=== PATIENT | male | born 1940 | race Caucasian/White ===

== ENCOUNTER 2018-10-20 12:15 | Emergency (ER) | payer MEDICARE, OTHER, SELFPAY ==
[2018-10-20 12:22] VITALS: BP 154/93; PULSE 71; RESP 18; TEMP 36.2; O2SAT 98
--- NOTE | 2018-10-20 12:29 | DI.RAD.S_ITS ---
PROCEDURE: XR KNEE RT 3V INDICATIONS: popping/pain TECHNIQUE: 3 views of the knee were acquired. COMPARISON: None. 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 Multiple calcified fragments are noted anterior and superior to right patella with prominent superior and inferior patella enthesophyte formation near quadriceps tendon and patella tendon insertion. No gross acute fracture or dislocation is seen. No suspicious bony lesions. Soft tissues: There is moderate-sized joint effusion. Multiple calcifications also noted projecting in the region of lateral femoral tibial compartment concerning for intra-articular loose body. IMPRESSION: No gross acute right knee fracture or dislocation. Moderate joint effusion and moderate tricompartmental osteoarthritis. Likely old injury involving the patella as above. Possible intra-articular loose body. Dictated by: Guru Valdez M.D. on 10/20/2018 at 13:22 Approved by: Guru Valdez M.D. on 10/20/2018 at 13:24
--- NOTE | 2018-10-20 14:08 | ED_ITS ---
HPI - Extremity Injury (Lower) <JESSICA Velasquez-BC - Last Filed: 10/20/18 14:54> General Chief Complaint: Extremity Injury, Lower Stated Complaint: Something popped in knee Time Seen by Provider: 10/20/18 13:48 Source: patient Mode of arrival: ambulatory Limitations: no limitations History of Present Illness HPI Narrative: The patient is a 78-year-old male nonsmoker who presents with a chief complaint of right knee pain starting yesterday. He states he was squatting down to lift something heavy and felt something pop in his knee. He has not applied ice, take any Tylenol ibuprofen or any interventions. He denies any instability. He denies falling or any trauma. he does have a history of arthritis of both knees and states he had a ?floaters removed from his left knee previously. He does not complain of bruising rash etc. Related Data Home Medications Medication Instructions Recorded Confirmed chlorthalidone 25 mg PO DAILY 10/20/18 10/20/18 furosemide 20 mg PO DAILY 10/20/18 10/20/18 lisinopril 10 mg PO DAILY 10/20/18 10/20/18 potassium chloride 10 meq PO DAILY 10/20/18 10/20/18 sildenafil [Viagra] 1 dose PO DIRECTED PRN 10/20/18 10/20/18 simvastatin 40 mg PO DAILY 10/20/18 10/20/18 tamsulosin 0.8 mg PO DAILY 10/20/18 10/20/18 Previous Rx's Medication Instructions Recorded diclofenac sodium [Voltaren] 2 gram TOP QID PRN #100 gram 10/20/18 Allergies Allergy/AdvReac Type Severity Reaction Status Date / Time No Known Drug Allergies Allergy Verified 10/20/18 12:24 Review of Systems <CARLOS VelasquezBC - Last Filed: 10/20/18 14:54> Review of Systems GENERAL: Denies chills, fatigue, malaise, fever, sweats. HEENT: Denies sinus pain, ear pain, sore throat, difficulty swallowing, dizziness. RESPIRATORY: Denies dyspnea, cough, wheezing, hemoptysis, sputum. CARDIOVASCULAR: Denies chest pain, palpitations, orthopnea, edema, GASTROINTESTINAL: Denies nausea, vomiting, abdominal pain, diarrhea, constipation, melena. : Denies dysuria, frequency, incontinence, hematuria, urinary retention. MUSCULOSKELETAL: See HPI SKIN: See HPI NEUROLOGIC: Denies weakness, headache, numbness, change in speech, confusion, s eizures, incoordination. PSYCHIATRIC: No concerning psychosocial issues. 12 point review of systems is negative except for those stated above PFSH <ANDRES Velasquez - Last Filed: 10/20/18 14:54> Social History Smoking Status: Never smoker Social History Smoking Status: Never smoker Exam <ANDRES Velasquez - Last Filed: 10/20/18 14:54> Narrative Exam Narrative: GENERAL: This is a well-nourished, well-developed patient, in mild distress. HEAD: Atraumatic. Normocephalic. No temporal or scalp tenderness. EYES: Pupils equal round and reactive. Extraocular motions intact. No scleral icterus. No injection or drainage. ENT: Nose without bleeding, purulent drainage or septal hematoma. Throat without erythema, tonsillar hypertrophy or exudate. Uvula midline. Airway patent. NECK: Trachea midline. No JVD or lymphadenopathy. Supple, nontender, no meningeal signs. CARDIOVASCULAR: Regular rate and rhythm RESPIRATORY: No increased respiratory effort. No cough. EXTREMITIES: General pain to palpation right knee. Negative anterior drawer test. Negative varus and valgus. Negative Susie test. BACK: Nontender without deformity or crepitance. No flank tenderness. NEURO: AOx3. SKIN: No rash, erythema, ecchymosis or abnormality noted on right knee. Initial Vital Signs Initial Vital Signs: Vital Signs Temperature 97.2 F L 10/20/18 12:22 Pulse Rate 71 10/20/18 12:22 Respiratory Rate 18 10/20/18 12:22 Blood Pressure 154/93 H 10/20/18 12:22 Pulse Oximetry 98 10/20/18 12:22 <Sarath Zhao DO - Last Filed: 10/20/18 16:03> Initial Vital Signs Initial Vital Signs: Vital Signs Temperature 97.2 F L 10/20/18 12:22 Pulse Rate 71 10/20/18 12:22 Respiratory Rate 18 10/20/18 12:22 Blood Pressure 154/93 H 10/20/18 12:22 Pulse Oximetry 98 10/20/18 12:22 Course <ANDRES Velasquez - Last Filed: 10/20/18 14:54> Orders Ordered: ED Orders 10/20/18 12:29 XR knee RT 3V Stat Vital Signs - 8 hr 10/20/18 12:22 Temperature 97.2 F L Pulse Rate 71 Respiratory Rate 18 Blood Pressure 154/93 H Pulse Oximetry 98 <Sarath Zhao DO - Last Filed: 10/20/18 16:03> Orders Ordered: ED Orders 10/20/18 12:29 XR knee RT 3V Stat Vital Signs - 8 hr 10/20/18 12:22 Temperature 97.2 F L Pulse Rate 71 Respiratory Rate 18 Blood Pressure 154/93 H Pulse Oximetry 98 MDM - Extremity Injury (Lower) <ANDRES Velasquez - Last Filed: 10/20/18 14:54> Imaging Data knee xray : Radiologist's impression: [address] [address] XRay Report Signed Patient: Garfield MorseMR#: [id number] : 2Acct:[id number] Age/Sex: 78 / MDate of Service: 10/20/18 Loc: ED Accession Number: [id number] Procedure: XR knee RT 3V Ordering Provider: Sarath Zhao D.O. PROCEDURE: XR KNEE RT 3V INDICATIONS: popping/pain TECHNIQUE: 3 views of the knee were acquired. COMPARISON: None. 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 Multiple calcified fragments are noted anterior and superior to right patella with prominent superior and inferior patella enthesophyte formation near quadriceps tendon and patella tendon insertion. No gross acute fracture or dislocation is seen. No suspicious bony lesions. Soft tissues: There is moderate-sized joint effusion. Multiple calcifications also noted projecting in the region of lateral femoral tibial compartment concerning for intra-articular loose body. IMPRESSION: No gross acute right knee fracture or dislocation. Moderate joint effusion and moderate tricompartmental osteoarthritis. Likely old injury involving the patella as above. Possible intra-articular loose body. Dictated by: Guru Valdez M.D. on 10/20/2018 at 13:22 Approved by: Guru Valdez M.D. on 10/20/2018 at 13:24 [facility] Narrative Medical decision making narrative: The patient is a 78 year male who presents with a chief complaint of knee pain. He felt a pop yesterday and comes in today because it is not improved. He has no fracture on x-ray, but noted arthritis, and a fusion as well as a possible intra-articular foreign body. I discussed at length rest ice compression elevation, [id number] pain medications as needed and able. The patient was given a prescription of Voltaren gel. I discussed at length that he needs to follow up with his primary care provider as well as Orthopedics. Discussed return precautions of acute concerns. Patient has no questions or concerns upon discharge. Discharge Plan Departure Patient Disposition: Home Clinical Impression: Acute knee pain Qualifiers: Laterality: right Qualified Code(s): M25.561 - Pain in right knee Discharge Date/Time: 10/20/18 14:34 Interventions: ED Discharge Assessment Last Done: 10/20/18 14:33 Instructions: How To Perform RICE (Rest, Ice, Compress, Elevate), DI for Knee Pain Activity Restrictions/Additional Instructions: Your knee x-ray came back with no fractures and you have no overt abnormalities on exam. However you do have some swelling in the joint as well as arthritis. Please continue [id number] measures as needed and able. I gave you a prescription for pain cream that you can apply. Please follow up with primary care provider as he may need further imaging or physical therapy as we discussed. I have given the contact information for scheduled [facility] in case you need to follow up with them as well. Please come back to the emergency department for any acute concerns. Prescriptions: New diclofenac sodium [Voltaren] 1 % gel 2 gram TOP QID PRN (Reason: pain) Qty: 100 RF: 0 No Action chlorthalidone 25 mg tablet 25 mg PO DAILY RF: 0 sildenafil [Viagra] 25 mg tablet 1 dose PO DIRECTED PRN (Reason: Erectile Dysfunction) RF: 0 simvastatin 40 mg tablet 40 mg PO DAILY RF: 0 tamsulosin 0.4 mg capsule 0.8 mg PO DAILY RF: 0 lisinopril 10 mg tablet 10 mg PO DAILY RF: 0 furosemide 20 mg tablet 20 mg PO DAILY RF: 0 potassium chloride 10 mEq tablet,ER particles/crystals 10 meq PO DAILY RF: 0 Referrals: [facility] [Provider Group] Elsi Hansen MD [Primary Care Provider] - <Sarath Zhao DO - Last Filed: 10/20/18 16:03> Cosign ED Attending Sussy Attestation: I was available for consultation during this patient's emergency department encounter
== END 2018-10-20 14:34 | disposition home or self-care (01) ==
PROVIDERS: Emergency Provider Nurse Practitioner Family; PCP Family Medicine
DX: M25.561 Pain in right knee (principal)
CPT/HCPCS: 73562; 99282; 99283

== ENCOUNTER 2021-01-12 20:26 | Inpatient (IN) | payer MEDICARE, OTHER, SELFPAY ==
[2021-01-12] VITALS (8 sets, daily range): BP systolic 147–159; BP diastolic 84–89; PULSE 67–90; RESP 14–28; TEMP 36.2–36.3; O2SAT 94–99; BMI 31.6; BMI 31.2
--- NOTE | 2021-01-12 20:45 | DI.CT.S_ITS ---
PROCEDURE: CT STROKE INDICATIONS: stroke symptoms, left face, speech, extremity weakness TECHNIQUE: Noncontrast 4.5 mm thick angled axial sections acquired from the foramen magnum to the vertex, with coronal reformats. For radiation dose reduction, the following was used: automated exposure control, adjustment of mA and/or kV according to patient size. COMPARISON: None. FINDINGS: Image quality: Excellent. CSF spaces: Basal cisterns are patent. No extra-axial fluid collections. The ventricles are symmetric in size and shape. Brain: No intracranial bleeds or masses. There is cerebral volume loss for age, with resultant ventricular and sulcal prominence. There are periventricular and deep white matter chronic small vessel ischemic changes. There is intracranial internal carotid artery atherosclerosis. Skull and face: Calvarium and visualized facial bones appear intact, without suspicious lesions. Sinuses: Visualized sinuses and mastoids are clear. 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 Findings called to the emergency room physician caring for the patient at 9:10 p.m. This study fulfills neurological imaging criteria for inclusion or exclusion of acute stroke therapies based on available published neurological guidelines. Dictated by: Jonathan Watkins M.D. on 01/12/2021 at 21:07 Approved by: Jonathan Watkins M.D. on 01/12/2021 at 21:10
--- NOTE | 2021-01-12 20:45 | DI.CT.S_ITS ---
PROCEDURE: CT ANGIO HEAD AND NECK INDICATIONS: stroke symptoms, left face, speech, extremity weakness TECHNIQUE: Pre-contrast 4.5 mm thick sections acquired from the foramen magnum to the vertex. After the administration of intravenous contrast, 1 mm thick sections acquired from the aortic arch through the [place] of [place]. Post-contrast 4.5 mm thick sections then re-acquired from the foramen magnum to the vertex. 3-dimensional bryuyye-osfrsfxqh-dzdlnqbcdq (MIP) and/or volume rendering reformats were acquired of the central intracranial vasculature and neck separately. COMPARISON: [facility], CT, CT STROKE, 01/12/2021, 20:53. FINDINGS: Image quality: Excellent. BRAIN: CSF spaces: Ventricles are normal in size and shape. Basal cisterns are patent. No extra-axial fluid collections. Brain: No midline shift. No intracranial bleeds or masses. [place]-white matter interface appears intact. Skull and face: Calvarium and facial bones appear intact, without suspicious lesions. Orbits appear normal. Sinuses: Sinuses and mastoids are clear. HEAD CT ANGIOGRAPHY: Anterior circulation: Intracranial internal carotid arteries are normal in size and flow. The flow within the paired anterior cerebral arteries is normal and symmetric. The flow within the middle cerebral arteries is normal and symmetric. The anterior communicating artery is seen. No aneurysms are seen. Posterior circulation: Visualized portions of the vertebral arteries demonstrate normal caliber, and join to form a normal appearing basilar artery. Flow within the posterior cerebral arteries is normal and symmetric. No aneurysms are seen. NECK CT ANGIOGRAPHY: Carotid system: The great vessels demonstrate a conventional anatomy as they arise from the aortic arch. The origins of the common carotid arteries appear patent. The common carotid arteries demonstrate normal caliber and courses. The bifurcation regions are both widely patent. The internal carotid arteries demonstrate normal calibers and courses. Posterior circulation: The origins of the vertebral arteries both appear widely patent. The more superior extracranial portions of both vertebral arteries also demonstrate normal courses and calibers. They join to form a normal appearing basilar artery. Soft tissues: Visualized neck soft tissues demonstrate no suspicious abnormalities. Bones: No suspicious bony lesions. Visualized cervical spine appears normally aligned. IMPRESSION: No sign of aneurysm or occlusion, no area of vascular malformation is seen. By this examination there is no suspicion for carotid stenosis or occlusion, or dissection. 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 This places the patient at risk for significant cervical spine injury in the setting of relatively minor trauma.. Any quantitative measurements of stenosis were performed using NASCET criteria. Dictated by: Jonathan Watkins M.D. on 01/12/2021 at 21:25 Approved by: Jonathan Watkins M.D. on 01/12/2021 at 21:34
--- NOTE | 2021-01-12 20:51 | ED.NEUROSD ---
HPI - Neuro Symptoms/Deficit General Chief Complaint: Neuro Symptoms/Deficit Stated Complaint: POSS STROKE Time Seen by Provider: 01/12/21 20:45 Source: patient Mode of arrival: Wheelchair Limitations: no limitations History of Present Illness HPI Narrative: 80M nonsmoker with history of hypertension and hyperlipidemia presents with family in the chief complaint of the evolution of stroke-like symptoms over the course of the day. He states that he had some trouble with the use of his left hand stating he would not work over the past few days if not longer but by enlarge was in his normal state of health when he went to bed last night. Upon waking up he had a rather impressive left-sided facial droop with associated difficulty in speaking. There were no other obvious focal neurologic findings. Patient eventually went to an outside facility for evaluation and had exam including CT scan and labs and the thought was that this was Kumar's palsy. Soon after getting home patient has noticed difficulty using left arm and leg and he was having associated difficulty with ambulation. Patient presents here for evaluation. He is not activated as a code stroke as he is clearly outside of any window for tPA and findings are not consistent with a large vessel occlusion as evidenced by his low LAMS score On Anticoagulants: No Related Data Home Medications Medication Instructions Recorded Confirmed chlorthalidone 25 mg tablet 25 mg PO DAILY 10/20/18 01/13/21 furosemide 20 mg tablet 20 mg PO DAILY 10/20/18 01/13/21 lisinopril 10 mg tablet 10 mg PO DAILY 10/20/18 01/13/21 potassium chloride 10 mEq 10 meq PO DAILY 10/20/18 01/13/21 tablet,extended release(part/cryst) sildenafil 25 mg tablet 1 dose PO DIRECTED PRN 10/20/18 10/20/18 simvastatin 40 mg tablet 40 mg PO DAILY 10/20/18 01/13/21 tamsulosin 0.4 mg capsule 0.8 mg PO DAILY 10/20/18 01/13/21 Previous Rx's Medication Instructions Recorded diclofenac sodium 1 % topical gel 2 gram TOP QID PRN #100 gram 10/20/18 (Voltaren) Allergies Allergy/AdvReac Type Severity Reaction Status Date / Time No Known Drug Allergies Allergy Verified 01/12/21 20:41 Review of Systems Review of Systems Narrative: GENERAL: Denies chills, fatigue, malaise, fever, sweats. HEENT: Denies sinus pain, ear pain, sore throat, difficulty swallowing, dizziness. RESPIRATORY: Denies dyspnea, cough, wheezing, hemoptysis, sputum. CARDIOVASCULAR: Denies chest pain, palpitations, orthopnea, edema, GASTROINTESTINAL: Denies nausea, vomiting, abdominal pain, diarrhea, constipation, melena. : Denies dysuria, frequency, incontinence, hematuria, urinary retention. MUSCULOSKELETAL: denies weakness, joint pain, or bony pain SKIN: Denies rash, skin lesions, or other NEUROLOGIC: See HPI. PSYCHIATRIC: No concerning psychosocial issues. 12 point review of systems is negative except for those stated above Hematologic/Lymphatic On Anticoagulants: No Patient History Medical History BPH (benign prostatic hyperplasia) Essential hypertension Hyperlipidemia Surgical History History of back surgery History of surgery on arm History of tonsillectomy Family History Mother Cancer Father Cancer Social History household members: spouse Smoking Status: Never smoker alcohol intake: current Smoking Status: Never smoker alcohol intake frequency: holidays/special occasions only Substance Use Type: does not use Exam Narrative Exam Narrative: GENERAL: [80] year old patient appears stated age. Well-developed patient, in mild distress. HEAD: Atraumatic. Normocephalic. EYES: Pupils equal round and reactive. Extraocular motions intact. No scleral icterus. No injection or drainage. ENT: Nose without bleeding, purulent drainage. Throat without erythema, tonsillar hypertrophy or exudate. Airway patent. NECK: Trachea midline. Non tender CARDIOVASCULAR: Regular rate and rhythm without murmurs, gallops, or rubs. RESPIRATORY: Clear to auscultation. Breath sounds equal bilaterally. No wheezes, rales, or rhonchi. GASTROINTESTINAL: Abdomen soft, non-tender, nondistended. EXTREMITIES: No edema or joint tenderness. BACK: Nontender without deformity or crepitance. No flank tenderness. NEURO: AOx3. SKIN: No rash or erythema of visible areas Initial Vital Signs Initial Vital Signs: Vital Signs Temperature 97.1 F L 07/03/21 20:36 Pulse Rate 90 01/12/21 20:36 Respiratory Rate 14 01/12/21 20:36 Blood Pressure 159/88 H 01/12/21 20:36 Pulse Oximetry 99 01/12/21 20:36 Scores NIH Stroke Scale Level of Conciousness: Alert, keenly responsive Ask month/age: Answers both questions correctly. Open/close eyes, close hand: Performs both tasks correctly Best gaze horizontal: Normal Visual mathews: No visual loss Facial palsy: Partial paralysis, total or near total paralysis of lower face Left arm drift: Drifts down, not to bed Right arm drift: No drift for full 10 sec Left leg drift: Drifts down, not to bed Right leg drift: No drift for full 5 sec Limb ataxia: Absent Sensory on face/arms/legs: Mild to moderate sensory loss, can tell touch Best language: No aphasia, normal Dysarthria: Mild to mod,some slurring Extinction or inattention: No abnormality Total NIH Stroke scale score: 6 Course Orders Ordered: ED Orders 01/12/21 20:[address] angio head and neck Stat EKG-12 Lead Stat 01/12/21 20:50 Basic Metabolic Panel Stat Complete Blood Count AUTO DIFF Stat Hemoglobin A1C% w Est Avg Glu Urgent Magnesium Urgent Thyroid Stimulating Hormone Urgent 01/12/21 22:02 Urinalysis and Microscopic Stat Urine Drug Screen, Rapid Stat 01/12/21 22:20 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) Stat 01/12/21 22:37 Consult to Discharge Planning Routine Consult to Occupational Therapy Evaluate & Treat Consult to Physical Therapy Evaluate & Treat Consult to Speech Therapy Evaluate & Treat MR stroke Stat Education, smoking cessation ONGOING 01/12/21 22:47 Education, smoking cessation ONGOING 01/12/21 23:00 Troponin I Urgent 01/13/21 05:00 Basic Metabolic Panel Routine Lipid Panel Routine NT-proBNP (BNP-Adult 18+) Routine Partial Thromboplastin Time Routine Prothrombin Time INR Routine Acetaminophen (Acetaminophen 325 Mg Tablet) 650 mg PO Q6HR PRN PRN Reason: Fever Al Hydrox/Mg Hydrox/Simethicone (Mag Hydrox/Alum/Simeth 30 Ml Udc) 30 ml PO Q6HR PRN PRN Reason: Dyspepsia Aspirin (Aspirin Ec 81 Mg Tablet) 81 mg PO DAILY ANGELA Atorvastatin Calcium (Atorvastatin 20 Mg Tablet) 80 mg PO BEDTIME ANGELA Clopidogrel Bisulfate (Clopidogrel 75 Mg Tablet) 75 mg PO DAILY ANGELA Sodium Chloride (Normal Saline 0.9%) 1,000 mls @ 150 mls/hr IV CONT ANGELA Last Infusion: 01/12/21 23:45 Dose: 150 mls/hr Documented by: Infusion: 01/12/21 23:43 Dose: 0 mls/hr Documented by: Admin: 01/12/21 22:17 Dose: 150 mls/hr Documented by: MUKESH Naloxone HCl (Naloxone 0.4 Mg/Ml Vial) 0.2 mg IV Q2MIN PRN PRN Reason: Opiate Reversal Ondansetron HCl (Ondansetron 4 Mg/2 Ml Inj) 4 mg IV Q8HR PRN PRN Reason: Nausea And Vomiting Sennosides (Sennosides 8.6 Mg Tablet) 17.2 mg PO BEDTIME PRN PRN Reason: Constipation Consultations Consultation #1: discussed with Telestroke. Agree with no timeframe for intervention. Suggest admission here with typical workup. I did ask if the evlolution of symptoms would suggest that transfer is indicated and stroke neurologist quickly suggested no Consultation #2: hospitalist happy to accept Vital Signs Vital signs: Vital Signs - 8 hr 01/12/21 20:36 01/12/21 21:02 01/12/21 21:08 Temperature 97.1 F L Pulse Rate 90 84 84 Respiratory Rate 14 28 H Blood Pressure 159/88 H 147/84 H Pulse Oximetry 99 01/12/21 21:30 01/12/21 22:00 01/12/21 22:30 Temperature Pulse Rate 76 75 75 Respiratory Rate 18 Blood Pressure Pulse Oximetry 94 96 96 01/12/21 22:47 01/12/21 23:00 Temperature 97.3 F L Pulse Rate 67 71 Respiratory Rate 16 20 Blood Pressure 154/89 H Pulse Oximetry 96 96 MDM - Neuro Symptoms/Deficit Lab Data Result diagrams: 01/12/21 20:50 01/12/21 20:50 Labs: Lab Results 01/12/21 01/12/21 01/12/21 Range/Units 20:50 20:50 20:50 WBC 8.7 (4.5-11.0) X10^3/uL RBC 5.20 (4.5-5.9) X10^6/uL Hgb 15.4 (13.5-17.5) g/dL Hct 46.3 (41-53) % MCV 89.0 (80-100) fL MCH 29.6 (26-34) PG MCHC 33.2 (30-36) % RDW 13.6 (11.6-14.8) % Plt Count 195 (150-400) X10^3/uL Neut % (Auto) 94.6 H (50-75) % Lymph % (Auto) 4.5 L (25-40) % [place] % (Auto) 0.8 L (3-14) % Eos % (Auto) 0.0 L (2-4) % Baso % (Auto) 0.1 (0-2) % Neut # (Auto) 8200 H (5933-6375) /uL Lymph # (Auto) 400 L (9972-4939) /uL [place] # (Auto) 100 (0-900) /uL Eos # (Auto) 0 (0-450) /uL Baso # (Auto) 0 (0-100) /uL Sodium 139 (137-145) mmol/L Potassium 4.6 (3.4-5.1) mmol/L Chloride 105 (98-107) mmol/L Carbon Dioxide 24 (22-32) mmol/L BUN 18 (9-20) mg/dL Creatinine 1.07 (0.66-1.25) mg/dL Estimated GFR > 60.0 (>60) mL/min BUN/Creatinine Ratio 16.8 (6-22) Glucose 132 H (80-110) mg/dL Hemoglobin A1c 5.6 (4.0-6.0) % Calcium 9.8 (8.4-10.2) mg/dL Magnesium (1.6-2.3) mg/dL Troponin I (0.01-0.034) ng/mL TSH (0.47-4.68) uIU/mL Urine Color Urine Appearance Urine pH (4.5-8.0) Ur Specific M[place]arr (1.000-1.035) Urine Protein (Negative) Urine Glucose (UA) (Negative) g/dL Urine Ketones (NEGATIVE) Urine Occult Blood (Negative) Urine Nitrate (Negative) Urine Bilirubin (NEGATIVE) Urine Urobilinogen (0.2) E.U./dL Ur Leukocyte Esterase (NEGATIVE) Urine RBC (0-5/HPF) Urine WBC (0-5/HPF) Urine Bacteria (None) Ur Culture Indicated? U Opiates 300ng/mL cut (Negative) Ur Oxycodone Screen (Negative) Urine Methadone Screen (Negative) Ur Barbiturates Screen (Negative) U Tricyclic Antidepress (Negative) Ur Phencyclidine Scrn (Negative) Ur Amphetamines Screen (Negative) U Methamphetamines Scrn (Negative) Ur MDMA Scrn (Ecstasy) (Negative) U Benzodiazepines Scrn (Negative) Urine Cocaine Screen (Negative) U Marijuana (THC) Screen (Negative) SARS-CoV-2 (PCR) (Negative) 01/12/21 01/12/21 01/12/21 Range/Units 20:50 20:50 22:02 WBC (4.5-11.0) X10^3/uL RBC (4.5-5.9) X10^6/uL Hgb (13.5-17.5) g/dL Hct (41-53) % MCV (80-100) fL MCH (26-34) PG MCHC (30-36) % RDW (11.6-14.8) % Plt Count (150-400) X10^3/uL Neut % (Auto) (50-75) % Lymph % (Auto) (25-40) % [place] % (Auto) (3-14) % Eos % (Auto) (2-4) % Baso % (Auto) (0-2) % Neut # (Auto) (3241-7942) /uL Lymph # (Auto) (3705-8883) /uL [place] # (Auto) (0-900) /uL Eos # (Auto) (0-450) /uL Baso # (Auto) (0-100) /uL Sodium (137-145) mmol/L Potassium (3.4-5.1) mmol/L Chloride (98-107) mmol/L Carbon Dioxide (22-32) mmol/L BUN (9-20) mg/dL Creatinine (0.66-1.25) mg/dL Estimated GFR (>60) mL/min BUN/Creatinine Ratio (6-22) Glucose (80-110) mg/dL Hemoglobin A1c (4.0-6.0) % Calcium (8.4-10.2) mg/dL Magnesium 2.2 (1.6-2.3) mg/dL Troponin I (0.01-0.034) ng/mL TSH 1.14 (0.47-4.68) uIU/mL Urine Color Urine Appearance Urine pH (4.5-8.0) Ur Specific M[place]arr (1.000-1.035) Urine Protein (Negative) Urine Glucose (UA) (Negative) g/dL Urine Ketones (NEGATIVE) Urine Occult Blood (Negative) Urine Nitrate (Negative) Urine Bilirubin (NEGATIVE) Urine Urobilinogen (0.2) E.U./dL Ur Leukocyte Esterase (NEGATIVE) Urine RBC (0-5/HPF) Urine WBC (0-5/HPF) Urine Bacteria (None) Ur Culture Indicated? U Opiates 300ng/mL cut Positive H (Negative) Ur Oxycodone Screen Negative (Negative) Urine Methadone Screen Negative (Negative) Ur Barbiturates Screen Negative (Negative) U Tricyclic Antidepress Negative (Negative) Ur Phencyclidine Scrn Negative (Negative) Ur Amphetamines Screen Negative (Negative) U Methamphetamines Scrn Negative (Negative) Ur MDMA Scrn (Ecstasy) Negative (Negative) U Benzodiazepines Scrn Negative (Negative) Urine Cocaine Screen Negative (Negative) U Marijuana (THC) Screen Negative (Negative) SARS-CoV-2 (PCR) (Negative) 01/12/21 01/12/21 01/12/21 Range/Units 22:02 22:20 23:00 WBC (4.5-11.0) X10^3/uL RBC (4.5-5.9) X10^6/uL Hgb (13.5-17.5) g/dL Hct (41-53) % MCV (80-100) fL MCH (26-34) PG MCHC (30-36) % RDW (11.6-14.8) % Plt Count (150-400) X10^3/uL Neut % (Auto) (50-75) % Lymph % (Auto) (25-40) % [place] % (Auto) (3-14) % Eos % (Auto) (2-4) % Baso % (Auto) (0-2) % Neut # (Auto) (2186-8458) /uL Lymph # (Auto) (5458-1441) /uL [place] # (Auto) (0-900) /uL Eos # (Auto) (0-450) /uL Baso # (Auto) (0-100) /uL Sodium (137-145) mmol/L Potassium (3.4-5.1) mmol/L Chloride (98-107) mmol/L Carbon Dioxide (22-32) mmol/L BUN (9-20) mg/dL Creatinine (0.66-1.25) mg/dL Estimated GFR (>60) mL/min BUN/Creatinine Ratio (6-22) Glucose (80-110) mg/dL Hemoglobin A1c (4.0-6.0) % Calcium (8.4-10.2) mg/dL Magnesium (1.6-2.3) mg/dL Troponin I < 0.012 (0.01-0.034) ng/mL TSH (0.47-4.68) uIU/mL Urine Color Yellow Urine Appearance Clear Urine pH 6.0 (4.5-8.0) Ur Specific [place] 1.010 (1.000-1.035) Urine Protein Negative (Negative) Urine Glucose (UA) Negative (Negative) g/dL Urine Ketones Negative (NEGATIVE) Urine Occult Blood 1+ H (Negative) Urine Nitrate Negative (Negative) Urine Bilirubin Negative (NEGATIVE) Urine Urobilinogen 0.2 (0.2) E.U./dL Ur Leukocyte Esterase Negative (NEGATIVE) Urine RBC None seen (0-5/HPF) Urine WBC None seen (0-5/HPF) Urine Bacteria None seen (None) Ur Culture Indicated? Cult not indicated U Opiates 300ng/mL cut (Negative) Ur Oxycodone Screen (Negative) Urine Methadone Screen (Negative) Ur Barbiturates Screen (Negative) U Tricyclic Antidepress (Negative) Ur Phencyclidine Scrn (Negative) Ur Amphetamines Screen (Negative) U Methamphetamines Scrn (Negative) Ur MDMA Scrn (Ecstasy) (Negative) U Benzodiazepines Scrn (Negative) Urine Cocaine Screen (Negative) U Marijuana (THC) Screen (Negative) SARS-CoV-2 (PCR) Negative (Negative) Imaging Data CT scan - head: Radiologist's Impression: [address] [id number] Scan ReportSigned Patient: Garfield Morse#: [id number]: 2Acct:[id number]/Sex: 80 / MDate of Service: 01/12/21Loc: EDAccession Number: [id number] Procedure: CT Stroke Ordering Provider: Tomás Cook D.O. PROCEDURE: CT STROKE INDICATIONS: stroke symptoms, left face, speech, extremity weakness TECHNIQUE: Noncontrast 4.5 mm thick angled axial sections acquired from the foramen magnum to the vertex, with coronal reformats. For radiation dose reduction, the following was used: automated exposure control, adjustment of mA and/or kV according to patient size. COMPARISON: None. FINDINGS: Image quality: Excellent. CSF spaces: Basal cisterns are patent. No extra-axial fluid collections. The ventricles are symmetric in size and shape. Brain: No intracranial bleeds or masses. There is cerebral volume loss for age, with resultant ventricular and sulcal prominence. There are periventricular and deep white matter chronic small vessel ischemic changes. There is intracranial internal carotid artery atherosclerosis. Skull and face: Calvarium and visualized facial bones appear intact, without suspicious lesions. Sinuses: Visualized sinuses and mastoids are clear. 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 Findings called to the emergency room physician caring for the patient at 9:10 p.m. This study fulfills neurological imaging criteria for inclusion or exclusion of acute stroke therapies based on available published neurological guidelines. Dictated by: Jonathan Watkins M.D. on 01/12/2021 at 21:07 Approved by: Jonathan Watkins M.D. on 01/12/2021 at 21:[address] [id number] Scan ReportSigned Patient: Garfield Morse#: [id number]: 2Acct:[id number]/Sex: 80 / MDate of Service: 01/12/21Loc: EDAccession Number: [id number] Procedure: CT angio head and neck Ordering Provider: Tomás Cook D.O. PROCEDURE: CT ANGIO HEAD AND NECK INDICATIONS: stroke symptoms, left face, speech, extremity weakness TECHNIQUE: Pre-contrast 4.5 mm thick sections acquired from the foramen magnum to the vertex. After the administration of intravenous contrast, 1 mm thick sections acquired from the aortic arch through the [place] of [place]. Post-contrast 4.5 mm thick sections then re-acquired from the foramen magnum to the vertex. 3-dimensional jufiblw-lwngaevho-lylcojnaoj (MIP) and/or volume rendering reformats were acquired of the central intracranial vasculature and neck separately. COMPARISON: [facility], CT, CT STROKE, 01/12/2021, 20:53. FINDINGS: Image quality: Excellent. BRAIN: CSF spaces: Ventricles are normal in size and shape. Basal cisterns are patent. No extra-axial fluid collections. Brain: No midline shift. No intracranial bleeds or masses. [place]-white matter interface appears intact. Skull and face: Calvarium and facial bones appear intact, without suspicious lesions. Orbits appear normal. Sinuses: Sinuses and mastoids are clear. HEAD CT ANGIOGRAPHY: Anterior circulation: Intracranial internal carotid arteries are normal in size and flow. The flow within the paired anterior cerebral arteries is normal and symmetric. The flow within the middle cerebral arteries is normal and symmetric. The anterior communicating artery is seen. No aneurysms are seen. Posterior circulation: Visualized portions of the vertebral arteries demonstrate normal caliber, and join to form a normal appearing basilar artery. Flow within the posterior cerebral arteries is normal and symmetric. No aneurysms are seen. NECK CT ANGIOGRAPHY: Carotid system: The great vessels demonstrate a conventional anatomy as they arise from the aortic arch. The origins of the common carotid arteries appear patent. The common carotid arteries demonstrate normal caliber and courses. The bifurcation regions are both widely patent. The internal carotid arteries demonstrate normal calibers and courses. Posterior circulation: The origins of the vertebral arteries both appear widely patent. The more superior extracranial portions of both vertebral arteries also demonstrate normal courses and calibers. They join to form a normal appearing basilar artery. Soft tissues: Visualized neck soft tissues demonstrate no suspicious abnormalities. Bones: No suspicious bony lesions. Visualized cervical spine appears normally aligned. IMPRESSION: No sign of aneurysm or occlusion, no area of vascular malformation is seen. By this examination there is no suspicion for carotid stenosis or occlusion, or dissection. 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 This places the patient at risk for significant cervical spine injury in the setting of relatively minor trauma.. Any quantitative measurements of stenosis were performed using NASCET criteria. Dictated by: Jonathan Watkins M.D. on 01/12/2021 at 21:25 Approved by: Jonathan Watkins M.D. on 01/12/2021 at 21:34 Stroke Core Measures Exclusion Criteria TPA in CVA: Symptom Onset >3 or 4.5 Hours Discharge Plan Departure Patient Disposition: Admitted As Inpatient Clinical Impression: Cerebrovascular accident Qualifiers: CVA mechanism: unspecified Qualified Code(s): I63.9 - Cerebral infarction, unspecified Admit Date/Time: 01/12/21 23:33 Admit Provider: Fifi Martinez
[2021-01-12 21:12] LABS: Add Manual Diff / Slide Review NO; Basophils Absolute Auto 0 /uL (0-100); Basophils Percent Auto 0.1 % (0-2); Eosinophils Absolute Auto 0 /uL (0-450); Hematocrit 46.3 % (41-53); Hemoglobin 15.4 g/dL (13.5-17.5); Lymphocytes Absolute Auto 400 /uL (1100-4500); Lymphocytes Percent Auto 4.5 % (25-40); Mean Corpuscular HGB Conc 33.2 % (30-36); Mean Corpuscular Hemoglobin 29.6 PG (26-34); Monocytes Absolute Auto 100 /uL (0-900); Monocytes Percent Auto 0.8 % (3-14); Neutrophils Absolute Auto 8200 /uL (1500-7000); Neutrophils Percent Auto 94.6 % (50-75); Platelet Count 195 X10^3/uL (150-400); Red Cell Distribution Width 13.6 % (11.6-14.8); White Blood Cell Count 8.7 X10^3/uL (4.5-11.0)
[2021-01-12 21:21] LABS: BUN Creatinine Ratio 16.8 (6-22); Blood Urea Nitrogen 18 mg/dL (9-20); Calcium 9.8 mg/dL (8.4-10.2); Carbon Dioxide 24 mmol/L (22-32); Chloride 105 mmol/L (98-107); Estimated Glomerular Filt Rate > 60.0 mL/min (>60); Glucose 132 mg/dL (80-110); HEMOLYSIS < 15 (0-50); Potassium 4.6 mmol/L (3.4-5.1); Sodium 139 mmol/L (137-145)
[2021-01-12] MEDS: SODIUM CHLORIDE 0.9% 1,000 ML 150 ML IV (22:17)
[2021-01-12 22:27] LABS: Bacteria Urine None Seen; RBC Urine None Seen (0-5/HPF); WBC Urine None Seen (0-5/HPF)
[2021-01-12 22:29] LABS: Appearance Urine UA CLEAR; Bilirubin Urine UA NEGATIVE (NEGATIVE); Color Urine UA YELLOW; Glucose Urine UA NEGATIVE (Negative); Ketones Urine UA NEGATIVE (NEGATIVE); Leukocyte Esterase Urine UA NEGATIVE (NEGATIVE); Nitrite Urine UA NEGATIVE (Negative); Occult Blood Urine UA 1+ (Negative); Protein Urine UA NEGATIVE (Negative); Urobilinogen Urine UA 0.2 E.U./dL (0.2)
[2021-01-12 22:33] LABS: UR Morphine/Opiate cutoff 300 Positive (Negative); Ur Creatinine 20 (Normal); Ur Specific Gravity 1.015 (Normal); Urine Cocaine Negative (Negative); Urine Tetrahydrocannabinol Negative (Negative); Urine pH 5 (Normal)
[2021-01-12 22:34] LABS: Urine Amphetamines Negative (Negative); Urine Barbiturates Negative (Negative); Urine Benzodiazepines Negative (Negative); Urine MDMA Negative (Negative); Urine Methadone Negative (Negative); Urine Methamphetamines Negative (Negative); Urine Oxycodone Negative (Negative); Urine Phencyclidine Negative (Negative); Urine Tricyclic Antidepressant Negative (Negative)
--- NOTE | 2021-01-12 22:37 | DI.MRI.S_ITS ---
PROCEDURE: MR STROKE Pre- and post-contrast brain MRI, non-contrast brain MR angiogram, pre- and postcontrast neck MR angiogram INDICATIONS: Stroke TECHNIQUE: Brain: Noncontrast axial T1 spin echo, axial T2 fast spin echo, sagittal and axial FLAIR, coronal T2 fast spin echo, axial gradient echo, axial diffusion and ADC through the brain. After the administration of contrast, axial 3D VIBE of the cranial vasculature and brain. Brain MRA: Non-contrast 3-D time of flight MR angiogram, with multiple vsbjzuw-wkmgljezw-hrbfsyelid (MIP) reformats performed. Neck MRA: Axial and sagittal TruFISP through the neck. Coronal dynamic MR angiogram during administration of contrast in the arterial and venous phases, with 3-dimenstional ssizvbm-xgfguqayl-ofsevdqool (MIP) reformats constructed from subtraction images. COMPARISON: [facility], CT, CT ANGIO HEAD AND NECK, 01/12/2021, 20:53. FINDINGS: Image quality: Patient motion artifact.. BRAIN: CSF spaces: Ventricles are normal in size and shape. Basal cisterns are patent. No extra-axial fluid collections. Brain: No intracranial bleeds or mass effects. [place]-white matter interface is normal. There are extensive tiny scattered foci restricted water diffusion in the right middle cerebral artery distribution, predominantly involving deep white matter, but extending to the cortex. There is age-related volume loss and jqef-sa-elecpacd small vessel ischemic change. Some of the increased FLAIR signal in deep white matter structures on the right would be secondary to acute infarct. These changes are subtle. Brainstem appears normal. Normal intravascular flow voids are present. No abnormal intracranial enhancement. Skull and face: Calvarial marrow signal is normal. Orbits appear normal. Sinuses: Sinuses and mastoids are clear. BRAIN MR ANGIOGRAM: Anterior circulation: Imaging is degraded by patient motion artifact. Suggest stone of possible decreased visualization of right middle cerebral artery branches. Posterior circulation: The visualized portions of the vertebral arteries demonstrate normal caliber, and join to form a normal appearing basilar artery. The flow within the posterior cerebral arteries is normal and symmetric. No stenoses, occlusions, or aneurysms. NECK MR ANGIOGRAM: Carotids: Great vessels demonstrate a conventional anatomy as they arise from the aortic arch. The origins of the common carotid arteries appear patent. The calibers and courses of both common carotid arteries are normal. The bifurcation regions appear normal bilaterally. The internal carotid arteries demonstrate normal course and caliber. Posterior circulation: The origins of the vertebral arteries appear patent. More superior portions of both vertebral arteries demonstrate normal course and caliber, and join to form a normal appearing basilar artery. Miscellaneous: Subclavian arteries appear patent. Pre-contrast images through the neck show no soft tissue abnormalities. IMPRESSION: BRAIN MRI: 1. Extensive small multifocal areas acute infarct involving deep white matter as well as cortex in the right MCA distribution, consistent with embolic stroke. 2. Age-related volume loss and hern-kk-qgvtmxrt small vessel ischemic change. Minimal early cytotoxic edema is likely present. 3. No acute hemorrhage. BRAIN MR ANGIOGRAM: Images are degraded by patient motion artifact. Suggestion of possible diminished right MCA branches. NECK MR ANGIOGRAM: No significant internal carotid artery stenosis. Dictated by: Byron Gandhi M.D. on 01/13/2021 at 9:20 Approved by: Byron Gandhi M.D. on 01/13/2021 at 9:33
[2021-01-12 22:40] LABS: Culture Indicated Urine Cult Not Indicated
--- NOTE | 2021-01-12 22:50 | PM.HP.1 ---
History of Present Illness History of Present Illness Date Patient Seen: 01/12/21 Time Patient Seen: 22:50 Chief complaint: POSS STROKE Narrative: Patient is a 80-year-old male Garfield Morse who presented to the ED with a chief complaint left arm and leg weakness difficulty with ambulation. 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 Patient reports never having symptoms like this before, he denies chest pain, shortness of breath, headache, changes in vision, numbness, tingling, abdominal pain, nausea, vomiting, recent illness, injury, trauma, head injury. Patient denies any new or changes to medication. Patient has a history of hypertension, hyperlipidemia, and BPH. Upon admit patient's vitals were stable at a BP of 159/88, HR 90, RR 14, O2 saturation 99% on room air. Patient's CBC was within normal limits, his Chem panel was within normal limits with the exception of a blood glucose of 132, UA is pending. The patient had a NIH of 6. Patient's head neck CTA was negative for aneurysm or occlusion, and showed no suspicious findings of carotid stenosis, occlusion or dissection. Brain CT noted microvascular for atherosclerotic changes in the deep white matter of each hemisphere and no evidence of acute or subacute stroke, hemorrhage, or mass. Consult with tele stroke was completed in the ED-it was determined that the patient was not a candidate for any further interventions then otherwise could be provided at [facility]. Patient admitted for stroke. Patient History Medical History (Updated 01/13/21 @ 02:59 by ANDRES Diaz) BPH (benign prostatic hyperplasia) Essential hypertension Hyperlipidemia Surgical History (Updated 01/13/21 @ 02:59 by ANDRES Diaz) History of back surgery History of surgery on arm History of tonsillectomy Family & Social History Family History (Updated 01/13/21 @ 02:59 by ANDRES Diaz) Mother Cancer Father Cancer Safety & Behavioral: Feels Safe in Current Yes-patient is retired and lives with his and his grandson lives in the area as well. Environment Been Physically Hurt or No Threatened By a Person Tobacco & Substance use: Smoking Status Never smoker alcohol intake frequency holiday/special occasion Substance Use Type does not use Meds Home Medications and Allergies Home Medications Medication Instructions Recorded Confirmed Type chlorthalidone 25 mg tablet 25 mg PO DAILY 10/20/18 01/13/21 History diclofenac sodium 1 % topical gel 2 gram TOP QID PRN #100 gram 10/20/18 Rx (Voltaren) furosemide 20 mg tablet 20 mg PO DAILY 10/20/18 01/13/21 History lisinopril 10 mg tablet 10 mg PO DAILY 10/20/18 01/13/21 History potassium chloride 10 mEq 10 meq PO DAILY 10/20/18 01/13/21 History tablet,extended release(part/cryst) sildenafil 25 mg tablet 1 dose PO DIRECTED PRN 10/20/18 10/20/18 History simvastatin 40 mg tablet 40 mg PO DAILY 10/20/18 01/13/21 History tamsulosin 0.4 mg capsule 0.8 mg PO DAILY 10/20/18 01/13/21 History Allergies Allergy/AdvReac Type Severity Reaction Status Date / Time No Known Drug Allergies Allergy Verified 01/12/21 20:41 Review of Systems Neurologic Comments: Patient complains of left facial droop, dysarthria, left arm and left leg weakness, difficulty with ambulation, balance, coordination. Exam Vital Signs (past 8 hours): - 01/12/21 20:36 Temperature 97.1 F L Pulse Rate 90 Respiratory Rate 14 Blood Pressure 159/88 H Pulse Oximetry 99 Oxygen Delivery Method Room Air Narrative Exam Narrative: General: Patient is a well-developed, well-nourished charming male in no distress at this time. HEENT: Normocephalic, atraumatic, extraocular muscles intact, oral pharynx is clear and mucous membranes are moist. Neck is supple and symmetric, trachea is midline, no adenopathy, no thyroid enlargement, nontender, no masses palpated. Negative for JVD, Wears glasses noted left facial droop to include left eye and eyebrow. Mild slurring of occansional words. Chest: Normal AP diameter and contour without kyphoscoliosis, no nasal flaring, retractions, or tachypneic labored Lungs: Auscultation of all lung mathews are clear without adventitious sounds, wheezes, rhonchi, or rales. Cardio: S1 & S2 with regular rate and rhythm without murmur, rubs, or gallops, no carotid bruit, no cardiac pulsations present. Abdomen: Soft nontender, negative for organomegaly, or masses. Bowel sounds are present in all 4 quadrants without guarding or rebound, no CVA tenderness. Musculoskeletal: Left arm and leg weakness with no drift, no deformity, crepitus, effusions, cyanosis, clubbing or edema present. Full range of motion intact radial and pedal pulses are normal. Skin: Warm dry and intact without rashes, ulcerations or petechiae. Neuro: Alert and orientated x3, sensation to touch intact. Psych: Patient has a well-kept appearance, appropriate affect, mental status attitude thought context and judgment are appropriate for age. Objective Labs Result Diagrams: 01/12/21 20:50 01/12/21 20:50 Labs: Laboratory Results - last 24 hr 01/12/21 01/12/21 01/12/21 20:50 20:50 22:02 WBC 8.7 RBC 5.20 Hgb 15.4 Hct 46.3 MCV 89.0 MCH 29.6 MCHC 33.2 RDW 13.6 Plt Count 195 Neut % (Auto) 94.6 H Lymph % (Auto) 4.5 L [place] % (Auto) 0.8 L Eos % (Auto) 0.0 L Baso % (Auto) 0.1 Neut # (Auto) 8200 H Lymph # (Auto) 400 L [place] # (Auto) 100 Eos # (Auto) 0 Baso # (Auto) 0 Sodium 139 Potassium 4.6 Chloride 105 Carbon Dioxide 24 BUN 18 Creatinine 1.07 Estimated GFR > 60.0 BUN/Creatinine Ratio 16.8 Glucose 132 H Calcium 9.8 Urine Color Urine Appearance Urine pH Ur Specific [place] Urine Protein Urine Glucose (UA) Urine Ketones Urine Occult Blood Urine Nitrate Urine Bilirubin Urine Urobilinogen Ur Leukocyte Esterase Urine RBC Urine WBC Urine Bacteria Ur Culture Indicated? U Opiates 300ng/mL cut Positive H Ur Oxycodone Screen Negative Urine Methadone Screen Negative Ur Barbiturates Screen Negative U Tricyclic Antidepress Negative Ur Phencyclidine Scrn Negative Ur Amphetamines Screen Negative U Methamphetamines Scrn Negative Ur MDMA Scrn (Ecstasy) Negative U Benzodiazepines Scrn Negative Urine Cocaine Screen Negative U Marijuana (THC) Screen Negative 01/12/21 22:02 WBC RBC Hgb Hct MCV MCH MCHC RDW Plt Count Neut % (Auto) Lymph % (Auto) [place] % (Auto) Eos % (Auto) Baso % (Auto) Neut # (Auto) Lymph # (Auto) [place] # (Auto) Eos # (Auto) Baso # (Auto) Sodium Potassium Chloride Carbon Dioxide BUN Creatinine Estimated GFR BUN/Creatinine Ratio Glucose Calcium Urine Color Yellow Urine Appearance Clear Urine pH 6.0 Ur Specific [place] 1.010 Urine Protein Negative Urine Glucose (UA) Negative Urine Ketones Negative Urine Occult Blood 1+ H Urine Nitrate Negative Urine Bilirubin Negative Urine Urobilinogen 0.2 Ur Leukocyte Esterase Negative Urine RBC None seen Urine WBC None seen Urine Bacteria None seen Ur Culture Indicated? Cult not indicated U Opiates 300ng/mL cut Ur Oxycodone Screen Urine Methadone Screen Ur Barbiturates Screen U Tricyclic Antidepress Ur Phencyclidine Scrn Ur Amphetamines Screen U Methamphetamines Scrn Ur MDMA Scrn (Ecstasy) U Benzodiazepines Scrn Urine Cocaine Screen U Marijuana (THC) Screen Assessment & Plan Assessment & Plan narrative: 1.Left-sided facial droop/dysarthria/left arm & left leg weakness, Stroke vs TIA, acute, guarded, not present on admission-NIH:4 -differential diagnosis TIA, stroke -symptoms lasting greater than 24 hours, ischemic stroke, intracranial hemorrhage, subdural hematoma, epidural hematoma, seizure, brain tumor, migraine, vertigo, hypoglycemia, [facility] syndrome, multiple sclerosis, aortic dissection Vital signs q.4 hours, neuro checks q.4 hours, notify provider for temp greater than 38 C, , heart rate >100 -treat systolic blood pressure>220 or diastolic blood pressure> 120 -activity bed rest until initial physical therapy assessment is performed, then mobilize ROSALIND as guided by Physical therapy, strict fall precautions. -supplemental O2 to maintain> 92% -Diet NPO until swallow evaluation is done, then heart healthy if cleared -fluids:0 -Medications: Aspirin 81 mg, Plavix 75 mg daily.Hold Lasix, atorvastatin 80 mg -labs PT/PTT/INR, CMP, troponins,-in AM -speech/PT/OT consults ordered -MR in a.m. 2. Essential hypertension, acute on chronic, present on admission -continue patient's lisinopril-holding patient's Lasix and potassium 3. Hyperlipidemia, chronic, present on admission -stopping the patient's simvastatin and changing to atorvastatin 80 mg. 4. BPH, chronic, present on admission -continue patient's tamsulosin 5. Obesity as evidence by BMI of 31.3, acute on chronic, present on admission -consideration will be given to dietary counseling. Code status: Full Surrogate decision maker: Lyle Morse COVRUBEN PCR: Negative VTE/DVT prophylaxis: Contraindicated-patient placed on Plavix 75 mg and SCDs Estimated length of stay: Greater than 2 midnight Scores GCS Anthony coma scale eye opening: Spontaneous Anthony coma scale verbal response: Orientated Anthony coma scale motor response: Obey commands Anthony coma scale total score: 15 NIHSS Level of Conciousness: Alert, keenly responsive Ask month/age: Answers both questions correctly. Open/close eyes, close hand: Performs both tasks correctly Best gaze horizontal: Normal Visual mathews: No visual loss Facial palsy: Partial paralysis, total or near total paralysis of lower face Left arm drift: No drift for full 10 sec Right arm drift: No drift for full 10 sec Left leg drift: No drift for full 5 sec Right leg drift: No drift for full 5 sec Limb ataxia: Absent Sensory on face/arms/legs: Normal, no sensory loss Best language: Mild to moderate, slurs some words Dysarthria: Mild to mod,some slurring Extinction or inattention: No abnormality Total NIH Stroke scale score: 4 Wells' Criteria for PE Clinical signs and symptoms of DVT: No PE is #1 Dx or equally likely: No Heart rate > 100: No Immobilization at least 3 days or surg in previous 4 weeks: No History of PE or DVT: No Hemoptysis: No Malignancy w/Treatment within 6 months or palliative: No Wells' PE Score total: 0
[2021-01-12 23:09] LABS: Hemoglobin A1C% w Est Avg Glu 5.6 % (4.0-6.0)
[2021-01-12 23:11] LABS: Magnesium 2.2 mg/dL (1.6-2.3)
[2021-01-12 23:18] LABS: COVID19 - ADMIT (NP swab/PCR) Negative (Negative)
[2021-01-12 23:32] LABS: Troponin I < 0.012 ng/mL (0.01-0.034)
[2021-01-12 23:43] LABS: Thyroid Stimulating Hormone 1.14 uIU/mL (0.47-4.68)
[2021-01-13] VITALS (13 sets, daily range): BP systolic 116–162; BP diastolic 55–88; PULSE 63–71; RESP 16–18; TEMP 35.9–36.9; O2SAT 94–98
--- NOTE | 2021-01-13 00:21 | PC.NURSE ---
Psychological stress due to son in [place] having Covid and hospitalized.
--- NOTE | 2021-01-13 01:32 | PC.NURSE ---
Patient is alert and oriented. Received NIH score 2 per my assessment. Passed swallow evaluation at bedside. Patient scheduled for MRI. States he has 2 plates in his right arm, but thinks has had MRI before.
[2021-01-13] MEDS: SODIUM CHLORIDE 0.9% 1,000 ML 150 ML IV (05:38)
[2021-01-13 05:48] LABS: BUN Creatinine Ratio 18.1 (6-22); Blood Urea Nitrogen 17 mg/dL (9-20); Calcium 9.1 mg/dL (8.4-10.2); Carbon Dioxide 22 mmol/L (22-32); Chloride 107 mmol/L (98-107); Cholesterol 149 mg/dL (140-199); Estimated Glomerular Filt Rate > 60.0 mL/min (>60); Glucose 119 mg/dL (80-110); HDL Cholesterol 41 mg/dL (40-60); HEMOLYSIS < 15 (0-50); INR 1.1 (0.9-1.3); LDL Cholesterol Calculated 98 mg/dL (<100); Potassium 4.3 mmol/L (3.4-5.1); Prothrombin Time 11.9 SECONDS (10.1-12.7); Sodium 137 mmol/L (137-145); Triglycerides 50 mg/dL (35-150)
[2021-01-13 05:51] LABS: PTT Partial Thromboplastin Tim 28 SECONDS (26.4-36.2)
[2021-01-13 05:57] LABS: NT-proBNP (BNP-Adult 18+) 129 pg/mL (<450)
[2021-01-13 06:33] LABS: Alanine Aminotransferase 18 IU/L (<50); Albumin 3.9 g/dL (3.5-5.0); Albumin Globulin Ratio 1.5 (1.0-2.8); Alkaline Phosphatase 66 U/L (38-126); Aspartate Aminotransferase 30 IU/L (17-59); BUN Creatinine Ratio 18.5 (6-22); Bilirubin Total 1.3 mg/dL (0.2-1.3); Blood Urea Nitrogen 17 mg/dL (9-20); Calcium 9.1 mg/dL (8.4-10.2); Carbon Dioxide 21 mmol/L (22-32); Chloride 107 mmol/L (98-107); Estimated Glomerular Filt Rate > 60.0 mL/min (>60); Globulin 2.6 g/dL (1.7-4.1); Glucose 120 mg/dL (80-110); HEMOLYSIS 18 (0-50); Potassium 4.3 mmol/L (3.4-5.1); Sodium 137 mmol/L (137-145); Total Protein 6.5 g/dL (6.3-8.2)
[2021-01-13 06:34] LABS: Add Manual Diff / Slide Review NO; Basophils Absolute Auto 0 /uL (0-100); Basophils Percent Auto 0.1 % (0-2); Eosinophils Absolute Auto 0 /uL (0-450); Hemoglobin 13.9 g/dL (13.5-17.5); Lymphocytes Absolute Auto 600 /uL (1100-4500); Lymphocytes Percent Auto 6.5 % (25-40); Mean Corpuscular Hemoglobin 29.5 PG (26-34); Mean Corpuscular Volume 89.5 fL (80-100); Monocytes Absolute Auto 400 /uL (0-900); Monocytes Percent Auto 3.8 % (3-14); Neutrophils Absolute Auto 8500 /uL (1500-7000); Neutrophils Percent Auto 89.6 % (50-75); Platelet Count 177 X10^3/uL (150-400); Red Blood Cell Count 4.69 X10^6/uL (4.5-5.9); Red Cell Distribution Width 13.5 % (11.6-14.8); White Blood Cell Count 9.5 X10^3/uL (4.5-11.0)
[2021-01-13 06:44] LABS: Troponin I < 0.012 ng/mL (0.01-0.034)
--- NOTE | 2021-01-13 07:32 | P.PN_ITS ---
Subjective Subjective Date Patient Seen: 01/13/21 Interval history: He has a new right MCA deep white matter stroke on MRI scan today. He had initially presented with classic left sided Kumar's palsy symptoms but then several hours later developed left arm and left leg weakness. His stroke appears to be embolic. His CMP and CBC are normal with an A1c of 5.6, cholesterol 149 and LDL of 98. The blood pressure is 162/88 but he is still within the permissive hypertension window. He has had a physical therapy evaluation with a suggestion of inpatient rehab and is pending both speech t herapy and occupational therapy. Exam Vital Signs (past 8 hours): - 01/13/21 01:53 01/13/21 04:00 01/13/21 05:00 Temperature 97.4 F L Pulse Rate 71 Respiratory Rate 16 Blood Pressure 162/88 H Pulse Oximetry 98 95 98 Oxygen Delivery Method Room Air Oxygen Flow Rate 0 Narrative Exam Narrative: He is alert and oriented x3. There is no apparent distress Heart is regular rate and rhythm without murmur Lungs are clear to auscultation bilaterally Abdomen is soft, bowel sounds positive, nontender, no organomegaly Extremities have no ankle edema He says that he does not notice the altered speech that his family has noticed. There is a mild slurring of his words but no word searching. He has a significant left facial droop The right arm and the right leg both have areas of 4/5 strength as compared to 5/5 on the left. No other cranial nerve abnormalities noted There is no tremor Gait is evaluated by PT as showing moderate ataxia. Mobility findings: sitting balance with left lateral lean that pt recognizes and can self- correct both spontaneously and with cues from PT. He tends to hold onto mattress with right hand to keep balance for coordination, range, strength and balance testing. He requires initial +2 WILD ANIMAL CARETAKER to take 4 steps from the w/c to the bed and then +1 mod A with support about waist and PT holding right hand to take 10 steps around the bed to recliner. Poor left LE WB and foot clearance d/t left sided weakness. Flexed posture with lateral lean. Pt is able to sit EOB 10 minutes for PT testing: right UE and LE normal range and strength, reduced left extremities with 75% normal left shoulder flexion and abduction. He presents with left shoulder subluxation that appears stroke-related and decreased coordination for tapping left foot over right foot and for rapid supination and pronation for left hand. He loses balance to the left with testing right extremities for coordination. He has some decreased management of salivary secretions with talking, has trouble closing left eye for visual field check and so PT covers his left eye with PT's hand, and he has not choking when drinking water from cup without use of straw. Objective Labs Result Diagrams: 01/13/21 05:00 01/13/21 05:00 Labs: Laboratory Results - last 24 hr 01/12/21 01/12/21 01/12/21 20:50 20:50 20:50 WBC 8.7 RBC 5.20 Hgb 15.4 Hct 46.3 MCV 89.0 MCH 29.6 MCHC 33.2 RDW 13.6 Plt Count 195 Neut % (Auto) 94.6 H Lymph % (Auto) 4.5 L [place] % (Auto) 0.8 L Eos % (Auto) 0.0 L Baso % (Auto) 0.1 Neut # (Auto) 8200 H Lymph # (Auto) 400 L [place] # (Auto) 100 Eos # (Auto) 0 Baso # (Auto) 0 PT INR APTT Sodium 139 Potassium 4.6 Chloride 105 Carbon Dioxide 24 BUN 18 Creatinine 1.07 Estimated GFR > 60.0 BUN/Creatinine Ratio 16.8 Glucose 132 H Hemoglobin A1c 5.6 Calcium 9.8 Magnesium Total Bilirubin AST ALT Alkaline Phosphatase Troponin I NT-Pro-B Natriuret Pep Total Protein Albumin Globulin Albumin/Globulin Ratio Triglycerides Cholesterol LDL Cholesterol, Calc HDL Cholesterol TSH Urine Color Urine Appearance Urine pH Ur Specific [place] Urine Protein Urine Glucose (UA) Urine Ketones Urine Occult Blood Urine Nitrate Urine Bilirubin Urine Urobilinogen Ur Leukocyte Esterase Urine RBC Urine WBC Urine Bacteria Ur Culture Indicated? U Opiates 300ng/mL cut Ur Oxycodone Screen Urine Methadone Screen Ur Barbiturates Screen U Tricyclic Antidepress Ur Phencyclidine Scrn Ur Amphetamines Screen U Methamphetamines Scrn Ur MDMA Scrn (Ecstasy) U Benzodiazepines Scrn Urine Cocaine Screen U Marijuana (THC) Screen SARS-CoV-2 (PCR) 01/12/21 01/12/21 01/12/21 20:50 20:50 22:02 WBC RBC Hgb Hct MCV MCH MCHC RDW Plt Count Neut % (Auto) Lymph % (Auto) [place] % (Auto) Eos % (Auto) Baso % (Auto) Neut # (Auto) Lymph # (Auto) [place] # (Auto) Eos # (Auto) Baso # (Auto) PT INR APTT Sodium Potassium Chloride Carbon Dioxide BUN Creatinine Estimated GFR BUN/Creatinine Ratio Glucose Hemoglobin A1c Calcium Magnesium 2.2 Total Bilirubin AST ALT Alkaline Phosphatase Troponin I NT-Pro-B Natriuret Pep Total Protein Albumin Globulin Albumin/Globulin Ratio Triglycerides Cholesterol LDL Cholesterol, Calc HDL Cholesterol TSH 1.14 Urine Color Urine Appearance Urine pH Ur Specific [place] Urine Protein Urine Glucose (UA) Urine Ketones Urine Occult Blood Urine Nitrate Urine Bilirubin Urine Urobilinogen Ur Leukocyte Esterase Urine RBC Urine WBC Urine Bacteria Ur Culture Indicated? U Opiates 300ng/mL cut Positive H Ur Oxycodone Screen Negative Urine Methadone Screen Negative Ur Barbiturates Screen Negative U Tricyclic Antidepress Negative Ur Phencyclidine Scrn Negative Ur Amphetamines Screen Negative U Methamphetamines Scrn Negative Ur MDMA Scrn (Ecstasy) Negative U Benzodiazepines Scrn Negative Urine Cocaine Screen Negative U Marijuana (THC) Screen Negative SARS-CoV-2 (PCR) 01/12/21 01/12/21 01/12/21 22:02 22:20 23:00 WBC RBC Hgb Hct MCV MCH MCHC RDW Plt Count Neut % (Auto) Lymph % (Auto) [place] % (Auto) Eos % (Auto) Baso % (Auto) Neut # (Auto) Lymph # (Auto) [place] # (Auto) Eos # (Auto) Baso # (Auto) PT INR APTT Sodium Potassium Chloride Carbon Dioxide BUN Creatinine Estimated GFR BUN/Creatinine Ratio Glucose Hemoglobin A1c Calcium Magnesium Total Bilirubin AST ALT Alkaline Phosphatase Troponin I < 0.012 NT-Pro-B Natriuret Pep Total Protein Albumin Globulin Albumin/Globulin Ratio Triglycerides Cholesterol LDL Cholesterol, Calc HDL Cholesterol TSH Urine Color Yellow Urine Appearance Clear Urine pH 6.0 Ur Specific [place] 1.010 Urine Protein Negative Urine Glucose (UA) Negative Urine Ketones Negative Urine Occult Blood 1+ H Urine Nitrate Negative Urine Bilirubin Negative Urine Urobilinogen 0.2 Ur Leukocyte Esterase Negative Urine RBC None seen Urine WBC None seen Urine Bacteria None seen Ur Culture Indicated? Cult not indicated U Opiates 300ng/mL cut Ur Oxycodone Screen Urine Methadone Screen Ur Barbiturates Screen U Tricyclic Antidepress Ur Phencyclidine Scrn Ur Amphetamines Screen U Methamphetamines Scrn Ur MDMA Scrn (Ecstasy) U Benzodiazepines Scrn Urine Cocaine Screen U Marijuana (THC) Screen SARS-CoV-2 (PCR) Negative 01/13/21 01/13/21 01/13/21 05:00 05:00 05:00 WBC RBC Hgb Hct MCV MCH MCHC RDW Plt Count Neut % (Auto) Lymph % (Auto) [place] % (Auto) Eos % (Auto) Baso % (Auto) Neut # (Auto) Lymph # (Auto) [place] # (Auto) Eos # (Auto) Baso # (Auto) PT 11.9 INR 1.1 APTT 28 Sodium 137 Potassium 4.3 Chloride 107 Carbon Dioxide 22 BUN 17 Creatinine 0.94 Estimated GFR > 60.0 BUN/Creatinine Ratio 18.1 Glucose 119 H Hemoglobin A1c Calcium 9.1 Magnesium Total Bilirubin AST ALT Alkaline Phosphatase Troponin I NT-Pro-B Natriuret Pep 129 Total Protein Albumin Globulin Albumin/Globulin Ratio Triglycerides 50 Cholesterol 149 LDL Cholesterol, Calc 98 HDL Cholesterol 41 TSH Urine Color Urine Appearance Urine pH Ur Specific [place] Urine Protein Urine Glucose (UA) Urine Ketones Urine Occult Blood Urine Nitrate Urine Bilirubin Urine Urobilinogen Ur Leukocyte Esterase Urine RBC Urine WBC Urine Bacteria Ur Culture Indicated? U Opiates 300ng/mL cut Ur Oxycodone Screen Urine Methadone Screen Ur Barbiturates Screen U Tricyclic Antidepress Ur Phencyclidine Scrn Ur Amphetamines Screen U Methamphetamines Scrn Ur MDMA Scrn (Ecstasy) U Benzodiazepines Scrn Urine Cocaine Screen U Marijuana (THC) Screen SARS-CoV-2 (PCR) 01/13/21 01/13/21 05:00 05:00 WBC 9.5 RBC 4.69 Hgb 13.9 Hct 42.0 MCV 89.5 MCH 29.5 MCHC 33.0 RDW 13.5 Plt Count 177 Neut % (Auto) 89.6 H Lymph % (Auto) 6.5 L [place] % (Auto) 3.8 Eos % (Auto) 0.0 L Baso % (Auto) 0.1 Neut # (Auto) 8500 H Lymph # (Auto) 600 L [place] # (Auto) 400 Eos # (Auto) 0 Baso # (Auto) 0 PT INR APTT Sodium 137 Potassium 4.3 Chloride 107 Carbon Dioxide 21 L BUN 17 Creatinine 0.92 Estimated GFR > 60.0 BUN/Creatinine Ratio 18.5 Glucose 120 H Hemoglobin A1c Calcium 9.1 Magnesium Total Bilirubin 1.3 AST 30 ALT 18 Alkaline Phosphatase 66 Troponin I < 0.012 NT-Pro-B Natriuret Pep Total Protein 6.5 Albumin 3.9 Globulin 2.6 Albumin/Globulin Ratio 1.5 Triglycerides Cholesterol LDL Cholesterol, Calc HDL Cholesterol TSH Urine Color Urine Appearance Urine pH Ur Specific [place] Urine Protein Urine Glucose (UA) Urine Ketones Urine Occult Blood Urine Nitrate Urine Bilirubin Urine Urobilinogen Ur Leukocyte Esterase Urine RBC Urine WBC Urine Bacteria Ur Culture Indicated? U Opiates 300ng/mL cut Ur Oxycodone Screen Urine Methadone Screen Ur Barbiturates Screen U Tricyclic Antidepress Ur Phencyclidine Scrn Ur Amphetamines Screen U Methamphetamines Scrn Ur MDMA Scrn (Ecstasy) U Benzodiazepines Scrn Urine Cocaine Screen U Marijuana (THC) Screen SARS-CoV-2 (PCR) PFSH Medical History BPH (benign prostatic hyperplasia) Essential hypertension Hyperlipidemia Surgical History History of back surgery History of surgery on arm History of tonsillectomy Family History Mother Cancer Father Cancer Social History household members: spouse Smoking Status: Never smoker alcohol intake: current Assessment & Plan Assessment & Plan narrative: 1.Left-sided facial droop/dysarthria/left arm & left leg weakness, Right MCA deep white matter CVA, acute, guarded, present on admission. Active -Extensive small multifocal areas acute infarct involving deep white matter as well as cortex in the right MCA distribution, consistent with embolic stroke. -MRA neck without significant carotid stenosis -permissive hypertension for 48-72 hours. Echocardiogram ordered due to embolic appearance -treat systolic blood pressure>220 or diastolic blood pressure> 120 -PT, OT and ST evaluations -PT recommends inpatient acute rehab for left sided weakness, balance problems and ataxia. OT and ST evals pending for later today. -He shows good tolerance, endurance and interest in rehab. He has a high potential to respond to a daily intensive rehab approach. -Medications: Aspirin 81 mg, Plavix 75 mg daily, atorvastatin 80 mg 2. Essential hypertension, acute on chronic, present on admission -continue permissive hypertension for 48-72 hours and hold patient's lisinopril and Chlorthalidone 3. Hyperlipidemia, chronic, present on admission -Atorvastatin 80 mg. 4. BPH, chronic, present on admission -continue patient's tamsulosin 5. Obesity as evidence by BMI of 31.3, acute on chronic, present on admission -consideration will be given to dietary counseling. Code status: Full Surrogate decision maker: Grandnaima Morse Lovenox and SCDs Estimated length of stay: Greater than 2 midnights Quality VTE Deep Vein Thrombosis/Pulmonary Embolism Present on Admission: Yes
[2021-01-13] MEDS: FUROSEMIDE 20 MG TABLET PO (10:00)
[2021-01-13] MEDS: ASPIRIN EC 81 MG TABLET PO (10:00)
[2021-01-13] MEDS: lisinopriL 10 MG TABLET PO (10:00)
[2021-01-13] MEDS: CHLORTHALIDONE 25 MG TABLET PO (10:00)
[2021-01-13] MEDS: POTASSIUM CHLORIDE 10 MEQ TAB PO (10:00)
[2021-01-13] MEDS: CLOPIDOGREL 75 MG TABLET PO (10:00)
[2021-01-13] MEDS: TAMSULOSIN 0.4 MG CAPSULE 0.8 MG PO (10:00)
--- NOTE | 2021-01-13 11:49 | PT.IIE ---
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 Split level, two sets of stairs with one rail and wall Employment Status Retired Additional Social History Comment Pt states that he does not have any AD and that is has many AD that she has to use, she is unable to physically assist the pt M2 PT-IP Current Condition Start: 01/13/21 08:37 Freq: Status: Active Protocol: Document 01/13/21 09:42 MB (Rec: 01/13/21 11:26 MB [id number]) Physical Therapy Current Condition Current Condition Evaluation Date 01/13/21 Treatment Diagnosis Left facial droop, left sided weakness in setting of R MCA embolic stroke Onset Date 01/12/21 Precautions Other Precautions Fall risk, left sided weakness M3 PT-IP Subjective Start: 01/13/21 08:37 Freq: Status: Active Protocol: Document 01/13/21 09:42 MB (Rec: 01/13/21 11:26 MB [id number]) Subjective Physical Therapy Visit Type Type Initial Evaluation Visit Start Time 09:42 Visit Stop Time 10:11 Total Visit Minutes 39 Number of LUMBER RACKER Visits 0 Physical Therapy Visit Comments Patient Comments Pt returning from testing in w /c with hospital worker upon PT arrival and he is agreeable to PT. Patient Goals To get better Therapy Pain Assessment Pain When Pain Assessed At Rest Pain Present Pain Present Denied Pain M4 PT-IP Mobility and Gait Start: 01/13/21 08:37 Freq: Status: Active Protocol: Document 01/13/21 09:42 MB (Rec: 01/13/21 11:26 MB [id number]) PT-Bed Mobility Assessment Scooting Scooting to Edge of Bed Contact Guard Assistance PT-Transfer Assessment Sit to and From Stand Sit to and from Stand Minimal Assistance,1 Person Assistance,Use of Upper Extremities Equipment Transfer Assistive Device None Transfers Transfer Destination Bed,Wheelchair Transfer Technique Stand Step Pivot Transfer Ability Level of Assist Minimal Assistance,1 Person Assistance,2 Person Assistance ,Use of Upper Extremities Comments Mobility Comments Pt arriving back to room with hospital worker upon PT arrival: pt returning in w/c from testing. Worker and pt report 1 person assist to get in w/c for testing and so PT assists pt from w/c to sitting EOB for PT assessment and then assist to walk around the bed to the recliner. PT asks [facility] staff for gait belt and alarm to be brought to room: not yet available during PT assessment. Mobility findings: sitting balance with left lateral lean that pt recognizes and can self- correct both spontaneously and with cues from PT. He tends to hold onto mattress with right hand to keep balance for coordination, range, strength and balance testing. He requires initial +2 USER EXPERIENCE ARCHITECT to take 4 steps from the w/c to the bed and then +1 mod A with support about waist and PT holding right hand to take 10 steps around the bed to recliner. Poor left LE WB and foot clearance d/t left sided weakness. Flexed posture with lateral lean. Pt is able to sit EOB 10 minutes for PT testing: right UE and LE normal range and strength, reduced left extremities with 75% normal left shoulder flexion and abduction. He presents with left shoulder subluxation that appears stroke-related and decreased coordination for tapping left foot over right foot and for rapid supination and pronation for left hand. He loses balance to the left with testing right extremities for coordination. He has some decreased management of salivary secretions with talking, has trouble closing left eye for visual field check and so PT covers his left eye with PT's hand, and he has not choking when drinking water from cup without use of straw. Gait Assessment Gait Gait Assistance Required: Moderate Assistance,1 Person Assist,2 Person Assist Distance (Feet) 10 Assistive Devices Assistive Device None Orthotic/Prosthetic Devices or Brace: No Gait Deviations General Gait Pattern Decreased Stride Length, Decreased Feet Clearance, Flexed Trunk,Lateral Trunk Lean,Narrow Based Gait,Step-to Gait Factors Limiting Gait Function Factors Limiting Gait Function Abnormal Tonal Influences, Decreased Strength, Incoordination,Limited Range of Motion,Poor Balance Comments Gait Comments Gait is hemiparetic in nature, step-to pattern with decreased weight acceptance left LE d/t weakness: see comments above under mobility section PT-Balance Assessment Sitting Balance and Reactions Static Sitting Balance Ability Fair Dynamic Sitting Balance Ability Poor Standing Balance and Reactions Static Standing Balance Ability Poor Dynamic Standing Balance Ability Poor M5 PT-IP Objective Assessments Start: 01/13/21 08:37 Freq: Status: Active Protocol: Document 01/13/21 09:42 MB (Rec: 01/13/21 11:26 MB [id number]) Orientation Orientation/Cognition Level of Alertness Alert Orientation Name,Age,Birthday,Month,Year, Day of Week,Place,Situation Safety Awareness Understands Safety Issues Memory Description No Deficits Noted Comments Speech is slurred Gross Range of Motion Upper Extremity ROM Assessment Right Impaired Impairments See comments under mobility: left shoulder subluxation, MMT deferred Old right UE fracture that affects right wrist movement Lower Extremity ROM Assessment Left Impaired Impairments In sitting: left hip flexion and knee movement is 85% normal range, similar ankle Strength Comments Strength Comments PT does not MMT LUE given shoulder post-stroke. R shoulder flexion and abduction is normal. IV in right elbow and old right forearm injuries limit movement. RLE MMT: hip flexion, knee flexion and extension and ankle DF 5/5. L hip flexion 3-/5 in available range, knee flexion and extension 4/5 in available range and ankle DF 4/5 with MMT and functionally weaker with gait. Coordination Assessment Gross Coordination Gross Coordination Impaired Assessment Coordination Comments Coordination movements in right extremities are grossly normal. Slow and difficult in left extremities. Other Assessments Other Other Assessments Pt is a 80 y/o male presenting with left sided facial droop, trouble closing left eye and left sided weakness s/p right MCA embolic stroke. His sitting balance, transfers, and gait are impaired with assessment today. Per pt and grandson, pt's cannot care for him as she has some mobility issues as well. Pt will benefit from acute and post-acute rehab to improve strength, balance and mobility . Pt was previously I at baseline. Recommend inpatient rehabilitation with therapies up to 3 hours a day. Recommend acute OT evaluation. Asked pt and grandson to pay attention to his secretion control today and if he has trouble managing secretions, to speak with nsg for possible speech consult. PT also spoke with doctor about these recommendations. M7 PT-IP Assessment and Plan Start: 01/13/21 08:37 Freq: Status: Active Protocol: Document 01/13/21 09:42 MB (Rec: 01/13/21 11:42 MB [id number]) PT Summary Assessment and Plan Potential Rehabilitation Potential Good Status of Condition at Evaluation Evolving Summary Impairments ROM,Strength,Balance, Coordination,Tone,Bed Mobility ,Transfers,Gait,Activity Tolerance Assessment Summary Pt is a 80 y/o male presenting with left sided facial droop, trouble closing left eye and left sided weakness s/p right MCA embolic stroke. His sitting balance, transfers, and gait are impaired with assessment today. Per pt and grandson, pt's cannot care for him as she has some mobility issues as well. Pt will benefit from acute and post-acute rehab to improve strength, balance and mobility . Pt was previously I at baseline. Recommend inpatient rehabilitation with therapies up to 3 hours a day. Recommend acute OT evaluation. Asked pt and grandson to pay attention to his secretion control today and if he has trouble managing secretions, to speak with nsg for possible speech consult. PT also spoke with doctor about these recommendations. Goals Bed Mobility Goal Standby Assistance Transfer Goal Contact Guard Assistance Gait Goal Contact Guard Assistance,Four Wheel Walker,Franklin Walker Gait Distance 50 Other Goals Pt will sit EOB I for 10 minutes while performing UE and LE exercises to improve balance and function. Pt will ascend and descend 7 steps with rail and CGA to prepare for eventual d/c home after rehabilitation. 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
--- NOTE | 2021-01-13 13:59 | DI.ECHO.S_ITS ---
[facility]---------+ [facility] +---------+ : : [address] : : : : [id number] : : : : Phone: [phone]+ Echocardiogram Report + + :Name: SHERITA HSU Study Date: 01/14/2021 Height: 76 in : :[facility] ReadingLocation: Weight: 257 lb : : Gender: Male BSA: 2.5 m2 : :: 1940 Age: 80 yrs BP: 135/98 mmHg: :Reason For Study: CVA : :Ordering Physician: FABIO, : :GIA Bishop Performed By: Joni Maloney : :Referring: GIA MCCARTHY : + + Interpretation Summary Left ventricular systolic function appears normal with an estimated ejection fraction of 60 to 65% without any focal wall motion abnormality although there is a mild dyssynchronous contraction pattern suggestive of a mild conduction abnormality. Left ventricular size and wall thickness appear normal. Diastolic function is likely normal with probable normal filling pressures. The right ventricle appears at the upper limits of normal in size with normal systolic function. Right ventricular systolic pressure cannot be estimated but CVP is likely around 3 mmHg. Both atria are normal in size with the interatrial septum appearing intact. There is no significant valvular abnormality. Procedure: A two-dimensional transthoracic echocardiogram with color flow and Doppler was performed. The study quality was technically adequate. There is no prior echocardiogram noted for this patient. The patient was in sinus rhythm with heart rates between 57-63 bpm during the exam. Left Ventricle: The left ventricle appears normal in size, wall thickness, and systolic function without any focal wall motion abnormalities. The ejection fraction is estimated to be 60-65%. There is a borderline dyssynchronous contraction pattern, consistent with a conduction abnormality. Diastolic parameters suggest probable normal left ventricular diastolic function and normal filling pressures. Right Ventricle: The right ventricle is at the upper limits of normal in size. The right ventricular systolic function is normal. Atria: Both atria are normal in size. There is no Doppler evidence for an interatrial shunt. Mitral Valve: There is mild mitral annular calcification. The mitral valve leaflets appear borderline thickened, but open well. There is trace mitral regurgitation. Aortic Valve: The aortic valve is trileaflet. The aortic valve is slightly calcified. The aortic valve opens well. No aortic regurgitation is present. Tricuspid Valve: The tricuspid valve is normal in structure and function. No tricuspid regurgitation. Pulmonary artery pressures cannot be estimated because of the lack of a measurable TR jet velocity but the IVC suggests a CVP of around 3 mmHg. Pulmonic Valve: The pulmonic valve is not well seen, but is grossly normal. There is a trace or physiologic amount of pulmonic regurgitation. Great Vessels: The aortic root is normal size. The dimensions of the ascending aorta are normal. The IVC is of normal diameter and collapses greater than 50% with a sniff. This suggests a low right atrial pressure of 3 mm Hg. Pericardium/ Pleura There is no pericardial effusion. There is no pleural effusion. MMode/2D Measurements & Calculations LVIDd: 5.1 cm LVOT diam: 2.3 cm LVIDs: 3.5 cm Ao root diam: 3.5 cm FS: 32.6 % asc Aorta Diam: 3.5 cm IVSd: 0.98 cm LVPWd: 0.90 cm LV garcia. diameter/BSA (cm/m^2): 2.1 LV sys. diameter/BSA (cm/m^2): 1.4 LA A2 area: 20.4 cm2 RA long axis: 6.2 cm LA A4 area: 19.2 cm2 RA area: 17.7 cm2 LA length (vol): 5.2 cm RA vol: 43.3 ml LA vol: 63.7 ml RA : 17.6 ml/m2 LA vol index: 25.8 ml/m2 TAPSE: 2.9 cm Doppler Measurements & Calculations Ao V2 max: 148.7 cm/sec LVOT Max Rojelio: 113.0 cm/sec Ao V2 mean: 103.9 cm/sec LV V1 max P.1 mmHg Ao max P.8 mmHg LV V1 VTI: 23.1 cm Ao mean P.8 mmHg CHON(I,D): 3.2 cm2 Ao V2 VTI: 30.2 cm CHON(V,D): 3.1 cm2 sev ratio: 0.76 CHON indexed to BSA (cm^2/m^2): 1.3 MV E max rojelio: 80.5 cm/sec PA V2 max: 121.1 cm/sec MV A max rojelio: 106.0 cm/sec PA V2 mean: 79.7 cm/sec MV E/A: 0.76 PA mean P.8 mmHg Med Peak E' Rojelio: 8.4 cm/sec PA pr(Accel): 44.7 mmHg E/E' med: 9.5 Lat Peak E' Rojelio: 7.7 cm/sec E/E' lat: 10.4 E/e' average: 10.0 MV dec time: 0.29 sec SV(SEYMOUR): 95.5 ml Reading Physician:12:54 PM
--- NOTE | 2021-01-13 15:18 | CM.DANOTE ---
D/C Assessment: Reviewed chart. Patient is a 80yr old male admitted to [facility] with CV[facility]. PCP is Nadya Choe. Primary payor is 1)Medicare 2) for life. GAMBRELER attempted to meet patient this afternoon, patient occupied with OT evaluation at time of visit. PT evaluation completed and acute rehabilitation recommended. GAMBRELER spoke with provider/Dr. Gatica and he is requesting [facility] be contacted for assessment. Placed call to admission coordinator/Kasey she is more than happy to evalulate for placement. Initial clinical faxed. Kasey made aware that OT and ST notes will be available by tomorrow. P: Hopeful that [facility] will be able to accept patient when medically stable. GAMBRELER to meet with patient in AM to introduce role and discuss d/c planning options. 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 No Advance Directives on File No History Provided By Medical Record Prior Living Arrangements House Household Members spouse Willing to Return to Facility? Own home Independent with ADL's Yes: Per notes, previously I with ADL's Is patient alert and oriented? Yes Caregiver for Another No Comment Current recommendation from therapy is acute rehabiliation at time of d/c. Provider suggests [facility]. Barriers to Discharge No Discharge Plan Inpatient Rehab Unit Transportation Arrangement Family Referrals Initiated Other Additional Comment Sent referral to [facility] (acute rehabiliation) for review. Next Review Type Continued Stay Review
--- NOTE | 2021-01-13 16:00 | OT.IP.EVAL ---
Past Medical History (Last Reviewed 01/13/21 @ 04:06 by Tomás Cook DO) BPH (benign prostatic hyperplasia) Essential hypertension History of back surgery History of surgery on arm History of tonsillectomy Hyperlipidemia Surgical History (Last Reviewed 01/13/21 @ 04:06 by Tomás Cook DO) History of back surgery History of surgery on arm History of tonsillectomy Occupational Therapy Inpatient Evaluation/Re-Eval M1 PT/OT-IP Prior Functional Status Start: 01/13/21 08:37 Freq: Status: Active Protocol: Document 01/13/21 15:59 [facility] (Rec: 01/13/21 16:56 [facility] [id number]) Medical Review Prior Functional Status Medical History Reviewed Yes Communication CREMATORY OPERATOR I mobilizer, no trouble with eating, communication or ADLs Mobility and Gait Pt states used a shopping cart to walk at [facility] due to his back pain. I can only get into the store before I have to use a cart. Activities of Daily Living and IADL's Pt states independent with ADl 's, IADL's, drives, yard word, takes his own medications from pill organizer, and that his normally pays the bills. Prior Functional Level (Other details) Pt's is unable to provide physical assist for pt. Social History Household Members spouse Living Arrangements House Number of Floors (Floors) Two Floors Number of Stairs To Enter/Railing? 14 steps with bilateral rails to get into the house and 10 step with left rail and right 1/2 wall to the main living area. Employment Status Retired Additional Social History Comment Pt's has FWW, 4ww, and SPC , shower chair- however pt 's states his is much smaller than he is. Pt states uses a lift chair at home to help stand him up due to his chronic back pain. M2 OT-IP Current Condition Start: 01/13/21 15:58 Freq: Status: Active Protocol: Document 01/13/21 15:59 [facility] (Rec: 01/13/21 16:56 [facility] [id number]) Occupational Therapy Current Condition Current Condition Evaluation Date 01/13/21 Treatment Diagnosis CVA, decreased mobility and coordination Diagnosis Onset Date 01/12/21 M3 OT- IP Subjective and Pain Start: 01/13/21 15:58 Freq: Status: Active Protocol: Document 01/13/21 15:59 [facility] (Rec: 01/13/21 16:56 [facility] [id number]) OT- Subjective Occupational Therapy Visit Type Type Initial Evaluation Visit Start Time 14:30 Visit Stop Time 16:00 Total Visit Minutes 90 Occupational Therapy Visit Comments Patient Comments Pt sitting in the recliner and his grandson present in the room. Patient/Caregiver Goals To go home. OT Pain Assessment Pain When Pain Assessed At Rest Pain Present Pain Present Denied Pain M4 OT- IP ADL's Start: 01/13/21 15:58 Freq: Status: Active Protocol: Document 01/13/21 15:59 [facility] (Rec: 01/13/21 16:56 [facility] [id number]) OT [id number] Comments OT Self-Feeding Comments Not at meal time. Pt coughing on water when drinking from straw and without a straw. Nursing and hospitalist notified and decided best at this time for pt to be NPO until seen by FAX MACHINE OPERATOR for eval. Pt has left facial droop and difficulty to control his saliva. Pt has more difficulty when distracted and trying to multitasks . OT ADL-Grooming Comments OT Grooming Comments Not performed. Pt able to wipe his mouth with wash cloth in right hand. OT ADL-Oral Care Comments Oral Care Comments Not performed. OT ADL-Dressing General Eval Lower Body Dressing Ability Maximum Assistance Comments OT Dressing Comments Pt needing assist to larisa/doff his brief. OT ADL-Toileting General Evaluation Toileting Ability Maximum Assistance Areas Needing Assistance Manage Clothing,Perform Perineal Hygiene Comments OT Toileting Comments Pt having to have his brief changed. OT ADL-Bathing Comments OT Bathing Comments Not performed at this time. M5 OT- IP IADL's Start: 01/13/21 15:58 Freq: Status: Active Protocol: Document 01/13/21 15:59 [facility] (Rec: 01/13/21 16:56 [facility] [id number]) OT-Instrumental Activities of Daily Living Home Safety Awareness Ability to Problem Solve Emergency Able to Problem Solve Situations Medication Management Medication Management Comments At this time would be best to have supervision for medication needs. Money Management Money Management Comments At this time best to have assist , as pt needing increased time to add two digit numbers together. Meal Preparation Meal Preparation Comments Pt will need assist due to his decreased balance and functional use of LUE. Business Case Analyst Business Case Analyst Comments Pt will need assist due to his decreased balance and functional use of LUE. Driving Driving Concerns Identified Regarding Safety M6 OT- IP Functional Cognition Start: 01/13/21 15:58 Freq: Status: Active Protocol: Document 01/13/21 15:59 [facility] (Rec: 01/13/21 16:56 [facility] [id number]) Cognitive Factors Limiting Selfcare Function Cognitive Ability Level of Alertness Alert,Drowsy Patient Orientation Name,Age,Birthday,Month,Date, Year,Day of Week,Place, Situation Attention Span Ability Capable of Focused Attention, Capable of Sustained Attention Ability to Follow Commands Able to Follow One Step Commands Safety Awareness Underestimates Need for Assistance Cognitive Tests SLUMS Pt a bit sleepy and slow to respond to answers at time and needing clarification for directions. Pt scored 28/30 which implies normal cognition . Pt however needing extra time to correct himself when drawing the clock and answering questions. Cognitive Comments Cognitive Assessment Comments Pt scored 139 seconds for [place] [employer] B which his time was also affected by his left neglect. Pt's score implies 30% for age group. Pt score implies mild to moderate impairments for visual attention, task switching, speed of processing, mental flexibility and executive function. Pt's grandson agrees that the pt is not thinking as well as before. Pt noted left and needing continuous cues to look to the left and find his left arm. Educated pt to be aware of his left arm positioning as it may get stuck underneath him while in bed. OT- Vision and Hearing OT- Vision Assessment Visual Acuity Glasses All The Time Occular Pursuits WFL Visual Hernandez WFL Visual Spacial Neglect Left Vision Assessment Comments Pt able to scan and read the clock appropriately. M7 OT- IP Mobility and Balance Start: 01/13/21 15:58 Freq: Status: Active Protocol: Document 01/13/21 15:59 [facility] (Rec: 01/13/21 16:56 [facility] [id number]) OT- Bed Mobility Assessment Sit to Supine Sit to Supine Assist Maximum Assistance,2 Person Assistance OT-Transfer Assessment Sit to and From Stand Sit to and from Stand Maximum Assistance,2 Person Assistance Transfers Transfer Ability Maximum Assistance,2 Person Assistance Technique Transfer Destination Bed,Chair Transfer Technique Squat Pivot Devices Transfer Assistive Devices None,Gait Belt Comments Mobility Comments Able to stand pt with MAX AX 2 to FWW, assist to help block his left knee and assist for LUE placement. Pt very unsteady on his feet. Pt too unsteady for FWW for transfer and therefore able to do squat pivot transfer to the right. Pt pushing and needing grandson to also assist to get over to the bed. Mechanical lift suggested for now. OT- Gait Assessment Comments Gait Ability Comments NO ambulation at this time. OT- Balance Assessment Sitting Balance and Reactions Static Sitting Balance Ability Poor Dynamic Sitting Balance Ability Poor Standing Balance and Reactions Static Standing Balance Ability Poor Dynamic Standing Balance Ability Poor Comments Other Balance Tests/Deviations/Treatment Pt sits with lateral tilt and : lean to the left. Pt tends to lean backwards to help scoot forwards in the recliner. Pt has poor sense of midline while seated. M8 OT- IP Objective Assessments Start: 01/13/21 15:58 Freq: Status: Active Protocol: Document 01/13/21 15:59 [facility] (Rec: 01/13/21 16:56 [facility] [id number]) OT Gross Range of Motion Upper Extremity Range of Motion Assessment Right Impaired OT Strength Upper Extremity Strength Assessment Right Impaired Comments Strength Comments LUE 3-/5 to 2-/5. OT- Coordination Assessment Upper Extremity Finger to Nose Test Left UE Impaired Comments Coordination Comments Due to weakness, decreased gross and fine motor coordination for LUE. OT-Muscle Tone Assessment Muscle Tone WNL No Muscle Tone Location Left Upper Extremity Type of Tone Hypertonicity Severity of Tone Mild [place] Grade Scale Grade 2 OT Sensation Assessment Comments Summary Comments Pt decreased light touch throughout LUE except for left elbow. Decreased for proprioception and kinesthesia for LUE. Edema Edema Present Edema Comments LUE slightly swollen. M9 OT- IP Assessment and Plan Start: 01/13/21 15:58 Freq: Status: Active Protocol: Document 01/13/21 15:59 [facility] (Rec: 01/13/21 16:56 [facility] [id number]) OT Summary Assessment and Plan Potential Rehabilitation Potential Good Analytic Complexity at Evaluation Moderate Summary OT Impairments Range of Motion,Strength, Balance,Coordination,Sensation ,Tone,Functional Cognition, Functional Mobility,Self- Feeding,Grooming,Dressing, Toileting,Bathing,Toilet Transfers,Shower Transfers, Activity Tolerance Progress Towards Goals Slow Progress due to Medical Issues,Slow Progress due to Activity Tolerance Assessment Summary Pt high complexity due to CVA, prior was completely independent with needs now having difficulty with functional use of LUE and LLE, left neglect, decreased sensation, coordination and now needing extensive 2-3 person assist for mobility needs. Pt would benefit from acute rehab as pt is very motivated and willing to get better. Goals Self-Feeding Goal Independent Grooming Goal Independent Dressing Goal Independent Toileting Goal Independent Bathing Goal Independent Toilet Transfer Goal Independent Shower Transfer Goal Independent Days to Meet Goals 60 Frequency of Treatment Frequency Of Treatment Once a Day Treatment Plan OT Treatment Plan ADL Training,Functional Cognition Training,Functional Mobility,Neuromuscular Re- education,Patient/Family Education,Discharge Planning Other Treatment Recommendations and Next Sitting to midline while able Treatment Focus to do grooming needs. Discharge Recommendations OT Discharge Recommendations Acute Rehab Other Discharge Recommendations Pending medical progress and function may also benefit from skilled rehab. Transportation Needs at Discharge Wheelchair/Cabulance
[2021-01-14] VITALS (10 sets, daily range): BP systolic 118–148; BP diastolic 70–98; PULSE 60–80; RESP 16–20; TEMP 36.3–37.4; O2SAT 93–96
--- NOTE | 2021-01-14 07:38 | PM.PN.1 ---
Exam Vital Signs (past 8 hours): - 01/14/21 01:00 Pulse Oximetry 94 Oxygen Delivery Method Room Air Oxygen Flow Rate 0 Objective Labs Result Diagrams: 01/13/21 05:00 01/13/21 05:00 [facility] Medical History BPH (benign prostatic hyperplasia) Essential hypertension Hyperlipidemia Surgical History History of back surgery History of surgery on arm History of tonsillectomy Family History Mother Cancer Father Cancer Social History household members: spouse Smoking Status: Never smoker alcohol intake: current Assessment & Plan Assessment & Plan narrative: 1.Left-sided facial droop/dysarthria/left arm & left leg weakness, Right MCA deep white matter CVA, acute, guarded, present on admission. Active -Extensive small multifocal areas acute infarct involving deep white matter as well as cortex in the right MCA distribution, consistent with embolic stroke. -MRA neck without significant carotid stenosis -permissive hypertension for 48-72 hours. Echocardiogram ordered due to embolic appearance -treat systolic blood pressure>220 or diastolic blood pressure> 120 -PT, OT and ST evaluations -PT recommends inpatient acute rehab for left sided weakness, balance problems and ataxia. OT and ST evals pending for later today. -He shows good tolerance, endurance and interest in rehab. He has a high potential to respond to a daily intensive rehab approach. -Medications: Aspirin 81 mg, Plavix 75 mg daily, atorvastatin 80 mg 2. Essential hypertension, acute on chronic, present on admission -continue permissive hypertension for 48-72 hours and hold patient's lisinopril and Chlorthalidone 3. Hyperlipidemia, chronic, present on admission -Atorvastatin 80 mg. 4. BPH, chronic, present on admission -continue patient's tamsulosin 5. Obesity as evidence by BMI of 31.3, acute on chronic, present on admission -consideration will be given to dietary counseling. Code status: Full Surrogate decision maker: Grandson Arsenio Morse Lovenox and SCDs Estimated length of stay: Greater than 2 midnights Quality VTE Deep Vein Thrombosis/Pulmonary Embolism Present on Admission: Yes
--- NOTE | 2021-01-14 09:23 | PT.IPTN ---
Current Diagnoses Cerebral infarction due to embolism of right middle cerebral artery (01/12/21) Physical Therapy Treatment Note M2 PT-IP Current Condition Start: 01/13/21 08:37 Freq: Status: Active Protocol: Document 01/14/21 09:48 [facility] (Rec: 01/14/21 10:20 [facility] [id number]) Physical Therapy Current Condition Current Condition Evaluation Date 01/13/21 Treatment Diagnosis Left facial droop, left sided weakness in setting of R MCA embolic stroke Onset Date 01/12/21 Precautions Other Precautions Fall risk, left sided weakness M3 PT-IP Subjective Start: 01/13/21 08:37 Freq: Status: Active Protocol: Document 01/14/21 09:48 [facility] (Rec: 01/14/21 10:20 [facility] [id number]) Subjective Physical Therapy Visit Type Type Treatment Note Visit Start Time 08:45 Visit Stop Time 09:23 Total Visit Minutes 38 Notes Co-treat with OT for 30 min Number of AERODYNAMICS PROFESSOR Visits 1 Physical Therapy Visit Comments Patient Comments Pt is willing to work with PT Patient Goals To go to rehab facility Therapy Pain Assessment Pain When Pain Assessed At Rest Pain Present Pain Present Denied Pain M4 PT-IP Mobility and Gait Start: 01/13/21 08:37 Freq: Status: Active Protocol: Document 01/14/21 09:48 [facility] (Rec: 01/14/21 10:20 [facility] [id number]) PT-Transfer Assessment Sit to and From Stand Sit to and from Stand Maximum Assistance,2 Person Assistance Equipment Transfer Assistive Device Gait Belt,Front Wheeled Walker Transfers Transfer Destination Chair Transfer Technique Stand Step Pivot Transfer Ability Level of Assist Maximum Assistance,2 Person Assistance,Use of Upper Extremities Comments Mobility Comments Pt was Max Ax2 with gait belt, FWW, and cues to push with RUE from chair for sit<>stand. He completed 3x sit<>stands with mod A for LLE placement on first two stands and independent on last stand. His LUE is unable to maintain WB on FWW and he would benefit from using franklin-walker vs FWW next session. His tranfers improve each time he stands. See gait comments for more details. Gait Assessment Gait Gait Assistance Required: Maximum Assistance,2 Person Assist Distance (Feet) 21 Able to Maintain Weight Bearing Status Yes During Gait Assistive Devices Assistive Device Front Wheeled Walker Orthotic/Prosthetic Devices or Brace: No Gait Deviations General Gait Pattern Ataxic,Decreased Stride Length ,Decreased Feet Clearance,Step -to Gait Factors Limiting Gait Function Factors Limiting Gait Function Abnormal Tonal Influences, Decreased Sensation,Poor Balance Comments Gait Comments On first stand, pt is able to walk 5 ft with Max A x2, FWW and gait belt. He needs moderate asssitance for LLE placement during gait on first walk and leans heavily to L side. Sat pt down and CASINO MANAGER was called in for chair follow. Pt was then able to walk 8 ft to room sink with Min A for LLE placement. Pt sat at sink and performed hygeine tasks with OT before standing and walking 8 ft back across room needing no assistance for LLE placement. PT-Balance Assessment Sitting Balance and Reactions Static Sitting Balance Ability Fair Dynamic Sitting Balance Ability Poor Standing Balance and Reactions Static Standing Balance Ability Poor Dynamic Standing Balance Ability Poor M5 PT-IP Objective Assessments Start: 01/13/21 08:37 Freq: Status: Active Protocol: Document 01/13/21 09:42 [facility] (Rec: 01/13/21 11:26 [facility] [id number]) Orientation Orientation/Cognition Level of Alertness Alert Orientation Name,Age,Birthday,Month,Year, Day of Week,Place,Situation Safety Awareness Understands Safety Issues Memory Description No Deficits Noted Comments Speech is slurred Gross Range of Motion Upper Extremity ROM Assessment Right Impaired Impairments See comments under mobility: left shoulder subluxation, MMT deferred Old right UE fracture that affects right wrist movement Lower Extremity ROM Assessment Left Impaired Impairments In sitting: left hip flexion and knee movement is 85% normal range, similar ankle Strength Comments Strength Comments PT does not MMT LUE given shoulder post-stroke. R shoulder flexion and abduction is normal. IV in right elbow and old right forearm injuries limit movement. RLE MMT: hip flexion, knee flexion and extension and ankle DF 5/5. L hip flexion 3-/5 in available range, knee flexion and extension 4/5 in available range and ankle DF 4/5 with MMT and functionally weaker with gait. Coordination Assessment Gross Coordination Gross Coordination Impaired Assessment Coordination Comments Coordination movements in right extremities are grossly normal. Slow and difficult in left extremities. Other Assessments Other Other Assessments Pt is a 80 y/o male presenting with left sided facial droop, trouble closing left eye and left sided weakness s/p right MCA embolic stroke. His sitting balance, transfers, and gait are impaired with assessment today. Per pt and grandson, pt's cannot care for him as she has some mobility issues as well. Pt will benefit from acute and post-acute rehab to improve strength, balance and mobility . Pt was previously I at baseline. Recommend inpatient rehabilitation with therapies up to 3 hours a day. Recommend acute OT evaluation. Asked pt and grandson to pay attention to his secretion control today and if he has trouble managing secretions, to speak with nsg for possible speech consult. PT also spoke with doctor about these recommendations. M6 PT-IP Treatment Start: 01/13/21 08:37 Freq: Status: Active Protocol: Document 01/14/21 09:48 [facility] (Rec: 01/14/21 10:20 [facility] [id number]) Physical Therapy Treatment Exercises Exercises Ankle Pumps,Seated Knee Flexion/Extension Other Treatments Other Treatment Performed Ther ex performed in chair: heel raises, LAQ, and seated marches. Pt is able to move LLE independently with good control when seated but shows strength deficits when compared to RLE. M7 PT-IP Assessment and Plan Start: 01/13/21 08:37 Freq: Status: Active Protocol: Document 01/14/21 09:48 [facility] (Rec: 01/14/21 10:20 [facility] [id number]) PT Summary Assessment and Plan Potential Rehabilitation Potential Good Status of Condition at Evaluation Evolving Summary Impairments ROM,Strength,Balance, Coordination,Sensation, Transfers,Gait Assessment Summary [place] improved throughout AM session. He is able to complete ther ex seated in chair with Mod A to avoid L lateral lean. He needs Max Ax2 for gait and transfers but was able to progress throughout session as evidence by needing less asssitance with LLE placement during gait . He initially needed moderate assistance to advance LLE and was able to advance LLE independently during final 8 ft walk. His LUE is unable to maintain WB on FWW due to poor production laborer strength and he would benefit from using franklin-walker on R side next session vs FWW . Pt is able to tolerate therapy well, progresses during session, and is very motivated to improve strength making him an ideal pt for a skilled rehab facility. Goals Bed Mobility Goal Standby Assistance Transfer Goal Contact Guard Assistance Gait Goal Contact Guard Assistance,Four Wheel Walker,Franklin Walker Gait Distance 50 Other Goals Pt will sit EOB I for 10 minutes while performing UE and LE exercises to improve balance and function. Pt will ascend and descend 7 steps with rail and CGA to prepare for eventual d/c home after rehabilitation. Days to Meet Goals 5 Frequency of Treatment Frequency Of Treatment Once a Day Treatment Plan Physical Therapy Treatment Plan Bed Mobility Training,Transfer Training,Gait Training, Therapeutic Exercise,Balance Retraining,Neuromuscular Re-ed ,Coordination Retraining Other Recommendations and Next Treatment Pt should be seen by PT for re Focus -eval. Pt's condition evolved since admission. Use franklin-walker vs FWW with 3rd person chair follow for safety. Recommendations To Nursing Amount of Assist Needed Mechanical Lift Discharge Recommendations Other Discharge Recommendations PT recommends inpatient rehabilitation at d/c for up to 3 hours of therapies a day: PT, OT and PLATE TAKE OUT WORKER Transportation Needs at Discharge Wheelchair/Cabulance
--- NOTE | 2021-01-14 09:25 | OT.IP.TRT ---
Current Diagnoses Cerebral infarction due to embolism of right middle cerebral artery (01/12/21) Occupational Therapy Treatment Note M2 OT-IP Current Condition Start: 01/13/21 15:58 Freq: Status: Active Protocol: Document 01/13/21 15:59 CCC (Rec: 01/13/21 16:56 CCC [id number]) Occupational Therapy Current Condition Current Condition Evaluation Date 01/13/21 Treatment Diagnosis CVA, decreased mobility and coordination Diagnosis Onset Date 01/12/21 M3 OT- IP Subjective and Pain Start: 01/13/21 15:58 Freq: Status: Active Protocol: Document 01/14/21 09:38 CGR (Rec: 01/14/21 10:02 CGR [id number]) OT- Subjective Occupational Therapy Visit Type Type Progress Note Visit Start Time 08:53 Visit Stop Time 09:25 Total Visit Minutes 32 Notes Partial co-treat with P.T. OT Pain Assessment Pain When Pain Assessed At Rest Pain Present Pain Present Denied Pain M4 OT- IP ADL's Start: 01/13/21 15:58 Freq: Status: Active Protocol: Document 01/14/21 09:38 CGR (Rec: 01/14/21 10:02 CGR [id number]) OT [id number] Comments OT Self-Feeding Comments Not performed, per nursing pt is NPO till seen by ST. OT ADL-Oral Care General Eval Oral Care Ability Moderate Assistance Areas of Assistance Brushing Teeth,Retrieving/Set- Up of Items Comments Oral Care Comments Educated pt on using his LUE as assist and RUE for fine motor. Pt was able to follow instructions to open tooth paste using LUE as assist and brushed teeth with RUE. Needs VC and some assist for balancing tooth brush. Pt was able to bring cup to mouth and had good oral motor control with washing out mouth. OT ADL-Dressing Comments OT Dressing Comments not performed on this date OT ADL-Toileting General Evaluation Toileting Ability Maximum Assistance Comments OT Toileting Comments Pt states he has been creating a mess if he tries to use the urinal without assist. Max a for doffing brief and holding urinal in place. Pt was able to state that he needed to use the urinal and was able to hold urine till urinal was in place. OT ADL-Bathing Comments OT Bathing Comments Not performed M5 OT- IP IADL's Start: 01/13/21 15:58 Freq: Status: Active Protocol: Document 01/13/21 15:59 [facility] (Rec: 01/13/21 16:56 [facility] [id number]) OT-Instrumental Activities of Daily Living Home Safety Awareness Ability to Problem Solve Emergency Able to Problem Solve Situations Medication Management Medication Management Comments At this time would be best to have supervision for medication needs. Money Management Money Management Comments At this time best to have assist , as pt needing increased time to add two digit numbers together. Meal Preparation Meal Preparation Comments Pt will need assist due to his decreased balance and functional use of LUE. Hydraulic Bull Riveter Operator Hydraulic Bull Riveter Operator Comments Pt will need assist due to his decreased balance and functional use of LUE. Driving Driving Concerns Identified Regarding Safety M6 OT- IP Functional Cognition Start: 01/13/21 15:58 Freq: Status: Active Protocol: Document 01/14/21 09:38 CGR (Rec: 01/14/21 10:02 CGR [id number]) Cognitive Factors Limiting Selfcare Function Cognitive Ability Level of Alertness Alert Patient Orientation Name,Age,Birthday,Month,Date, Year,Day of Week,Place, Situation Attention Span Ability Capable of Focused Attention, Capable of Sustained Attention Ability to Follow Commands Able to Follow Multi-Step Commands OT- Vision and Hearing OT- Hearing Assessment OT- Hearing Assessment WFL OT- Vision Assessment Visual Acuity Glasses All The Time Visual Attentiveness WFL Occular Pursuits WFL Visual Convergence WFL Visual Hernandez WFL Visual Spacial Neglect Left Vision Assessment Comments Pt able to scan and read the clock appropriately. M7 OT- IP Mobility and Balance Start: 01/13/21 15:58 Freq: Status: Active Protocol: Document 01/14/21 09:38 CGR (Rec: 01/14/21 10:02 CGR [id number]) OT-Transfer Assessment Sit to and From Stand Sit to and from Stand Maximum Assistance,2 Person Assistance Transfers Transfer Ability Maximum Assistance,2 Person Assistance Technique Transfer Destination Chair Transfer Technique Stand Step Pivot Devices Transfer Assistive Devices Gait Belt,Front Wheeled Walker Comments Mobility Comments Pt was able to ambulated ~5 ft , ~8ft, ~8ft with improving gait as we progressed. Pt needs assist to hold hand on walker and initially needed assist to progress the L foot but was able to advance L foot without assist upon last mobility. OT- Balance Assessment Sitting Balance and Reactions Static Sitting Balance Ability Fair Dynamic Sitting Balance Ability Poor Comments Other Balance Tests/Deviations/Treatment Pt leans heavy to the L : M8 OT- IP Objective Assessments Start: 01/13/21 15:58 Freq: Status: Active Protocol: Document 01/13/21 15:59 CCC (Rec: 01/13/21 16:56 CCC [id number]) OT Gross Range of Motion Upper Extremity Range of Motion Assessment Right Impaired OT Strength Upper Extremity Strength Assessment Right Impaired Comments Strength Comments LUE 3-/5 to 2-/5. OT- Coordination Assessment Upper Extremity Finger to Nose Test Left UE Impaired Comments Coordination Comments Due to weakness, decreased gross and fine motor coordination for LUE. OT-Muscle Tone Assessment Muscle Tone WNL No Muscle Tone Location Left Upper Extremity Type of Tone Hypertonicity Severity of Tone Mild [place] Grade Scale Grade 2 OT Sensation Assessment Comments Summary Comments Pt decreased light touch throughout LUE except for left elbow. Decreased for proprioception and kinesthesia for LUE. Edema Edema Present Edema Comments LUE slightly swollen. M9 OT- IP Assessment and Plan Start: 01/13/21 15:58 Freq: Status: Active Protocol: Document 01/14/21 09:38 CGR (Rec: 01/14/21 10:02 CGR [id number]) OT Summary Assessment and Plan Potential Rehabilitation Potential Good Analytic Complexity at Evaluation Moderate Summary OT Impairments Range of Motion,Strength, Balance,Coordination,Sensation ,Tone,Functional Cognition, Functional Mobility,Self- Feeding,Grooming,Dressing, Toileting,Bathing,Toilet Transfers,Shower Transfers, Activity Tolerance Progress Towards Goals Slow Progress due to Medical Issues,Slow Progress due to Activity Tolerance Assessment Summary Pt high complexity due to CVA, prior was completely independent with needs now having difficulty with functional use of LUE and LLE, left neglect, decreased sensation, coordination and now needing extensive 2-3 person assist for mobility needs. Pt is progressing in this session with his mobility and shows movement to all areas of the LUE. No indication of fatigue from todays session. Pt would benefit from acute rehab as pt is very motivated and cognitively intact to get better. Goals Self-Feeding Goal Independent Grooming Goal Independent Dressing Goal Independent Toileting Goal Independent Bathing Goal Independent Toilet Transfer Goal Independent Shower Transfer Goal Independent Days to Meet Goals 60 Frequency of Treatment Frequency Of Treatment Once a Day Treatment Plan OT Treatment Plan ADL Training,Functional Cognition Training,Functional Mobility,Neuromuscular Re- education,Patient/Family Education,Discharge Planning Other Treatment Recommendations and Next Sitting to midline while able Treatment Focus to do grooming needs. Discharge Recommendations OT Discharge Recommendations Acute Rehab Transportation Needs at Discharge Wheelchair/Cabulance
[2021-01-14] MEDS: ASPIRIN EC 81 MG TABLET PO (10:33)
[2021-01-14] MEDS: POTASSIUM CHLORIDE 10 MEQ TAB PO (10:33)
[2021-01-14] MEDS: FUROSEMIDE 20 MG TABLET PO (10:33)
[2021-01-14] MEDS: TAMSULOSIN 0.4 MG CAPSULE 0.8 MG PO (10:33)
[2021-01-14] MEDS: CLOPIDOGREL 75 MG TABLET PO (10:33)
[2021-01-14] MEDS: ENOXAPARIN 40 MG/0.4 ML SYRINGE SUBCUT (10:33)
--- NOTE | 2021-01-14 10:48 | PC.NURSE ---
Day shift: ST worked with Pt this AM. New diet ordered by ST. Pt did well taking AM PO meds. Took 3 at a time. No issues. Call light in reach. Tray and drinks placed to the Pt's right.
--- NOTE | 2021-01-14 11:26 | PM.DS.1 ---
History of Present Illness History of Present Illness Date Patient Seen: 01/14/21 Time Patient Seen: 11:26 Chief complaint: POSS STROKE Narrative: Patient is a 80-year-old male Garfield Morse who presented to the ED with a chief complaint left arm and leg weakness difficulty with ambulation. 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 Patient reports never having symptoms like this before, he denies chest pain, shortness of breath, headache, changes in vision, numbness, tingling, abdominal pain, nausea, vomiting, recent illness, injury, trauma, head injury. Patient denies any new or changes to medication. Patient has a history of hypertension, hyperlipidemia, and BPH. Upon admit patient's vitals were stable at a BP of 159/88, HR 90, RR 14, O2 saturation 99% on room air. Patient's CBC was within normal limits, his Chem panel was within normal limits with the exception of a blood glucose of 132, UA is pending. The patient had a NIH of 6. Patient's head neck CTA was negative for aneurysm or occlusion, and showed no suspicious findings of carotid stenosis, occlusion or dissection. Brain CT noted microvascular for atherosclerotic changes in the deep white matter of each hemisphere and no evidence of acute or subacute stroke, hemorrhage, or mass. Consult with tele stroke was completed in the ED-it was determined that the patient was not a candidate for any further interventions then otherwise could be provided at [facility]. Patient admitted for stroke. Discharge Providers Provider Date of admission: 01/12/21 23:33 Discharge Date: 01/14/21 Primary care physician: Nadya Choe PA-C Consults: 01/12/21 22:37 Consult to Discharge Planning Routine Comment: stroke Consult to Occupational Therapy Evaluate & Treat Comment: stroke Physician Instructions: Evaluate and treat Consult to Physical Therapy Evaluate & Treat Comment: stroke Physician Instructions: Evaluate and Treat Consult to Speech Therapy Evaluate & Treat Comment: stroke -dysarthria Physician Instructions: Evaluate and treat 01/13/21 16:20 Consult to Speech Therapy Evaluate & Treat Comment: Physician Instructions: Evaluate and treat Discharge provider: H Rick Stickle, MD Summary Hospital Course Discharge Diagnosis: 1. Left-sided facial droop/dysarthria/left arm & left leg weakness, Right MCA deep white matter CVA 2. Essential hypertension 3. Hyperlipidemia 4. BPH 5. Obesity BMI of 31.3 Hospital Course: Right MCA deep white matter CVA Left-sided facial droop/dysarthria/left arm & left leg weakness -MRI with Extensive small multifocal areas acute infarct involving deep white matter as well as cortex in the right MCA distribution, consistent with embolic stroke. -MRA neck without significant carotid stenosis -No signs of Afib on EKG/Telemetry monitoring -Exam on 01/14 with significant increase in left UE and LE weakness compared to 01/13. -permissive hypertension for 72 hours, resume BP medicines on 01/15/21. -Echocardiogram done on day of discharge 01/14. Per health care technician the results were unremarkable, pending review and formal reading with cardiology later this afternoon. -PT, OT and ST evaluations done -PT/OT/ST all recommend inpatient acute rehab for Dysphagia, left sided weakness, balance problems and ataxia. -He shows good tolerance, endurance and interest in rehab. He has a high potential to respond to a daily intensive rehab approach. -DAPT for 21 days from 01/12/21 - Aspirin 81 mg, Plavix 75 mg daily, then continue Aspirin only -atorvastatin 80 mg 2. Essential hypertension, acute on chronic, present on admission -continue permissive hypertension until 01/15 (72 hours) and then resume lisinopril and Chlorthalidone 3. Hyperlipidemia, chronic, present on admission -Atorvastatin 80 mg. 4. BPH, chronic, present on admission -continue patient's tamsulosin 5. Obesity with BMI of 31.3, acute on chronic, present on admission -dietary counseling. Code status: Full Surrogate decision maker: Grandson Arsenio Morse Status at Discharge Cognitive/behavioral status at discharge: at baseline, oriented Functional status at discharge: wheelchair bound Overall status at discharge: patient is not back to baseline Exam Vital Signs (past 8 hours): - 01/14/21 08:00 01/14/21 08:13 01/14/21 08:49 Temperature 97.6 F Pulse Rate 71 64 Respiratory Rate 20 18 Blood Pressure 135/98 H Pulse Oximetry 93 95 94 Oxygen Delivery Method Room Air Oxygen Flow Rate 0 Narrative Exam Narrative: He is alert and oriented x3, in no apparent distress. He says that he is ?doing fair. ? Heart is regular rate and rhythm without murmur Lungs are clear to auscultation bilaterally Extremities have no ankle edema Neurological exam Slight left tongue deviation, moderate left facial droop, left lower extremity strength at the ankle is 3/5 compared to 05/05 at the right ankle. Left upper extremity is notable for a weak left rn invasive strength compared to the right and for marked worsening since yesterday of the proximal left upper extremity strength now at 1/5 at the elbow and shoulder. Babinski is upgoing on the left foot, downgoing on the right foot. Objective Labs Result Diagrams: 01/13/21 05:00 01/13/21 05:00 [facility] Medical History BPH (benign prostatic hyperplasia) Essential hypertension Hyperlipidemia Surgical History History of back surgery History of surgery on arm History of tonsillectomy Family History Mother Cancer Father Cancer Social History household members: spouse Smoking Status: Never smoker alcohol intake: current Discharge Assessment & Plan Assessment and Plan Assessment: He will be going to the acute rehab unit for intensive rehab therapies and medical management during this post acute CVA phase. His worsened left upper extremity function over the last day is sometimes seen in acute CVA as the full effect settles in. No signs of new acute bleed. Consideration of full anticoagulation due to the embolic appearance of the CVA. No signs of atrial fibrillation or clot in the visible areas on preliminary echocardiogram report, full reading to follow. Discharge Plan Discharge Plan Patient Disposition: Xfer Inpatient Rehab Other facility: [facility] Under care of provider: Dr. Margi Rosa Transportation: Cabulance The receiving facility has agreed to accept transfer and provide medical treatment.: Yes Discharge orders & Medications Discharge Orders: Discharge (Order); Ordered 01/14/21 Ordered By: Connie Gatica Prescriptions: New aspirin 81 mg Tablet,Delayed Release (Dr/Ec) 81 mg PO DAILY Qty: 30 RF: 0 clopidogrel 75 mg Tablet 75 mg PO DAILY Qty: 30 RF: 0 enoxaparin [Lovenox] 40 mg/0.4 mL Syringe 40 mg SUBCUT DAILY Qty: 30 RF: 0 acetaminophen 325 mg Tablet 650 mg PO Q6HR PRN (Reason: Fever) Qty: 60 RF: 0 atorvastatin [Lipitor] 20 mg Tablet 80 mg PO BEDTIME Qty: 120 RF: 0 alum-mag hydroxide-simeth [Mag-Al Plus] 200-200-20 mg/5 mL Suspension 30 ml PO Q6HR PRN (Reason: Dyspepsia) Qty: 150 RF: 0 sennosides [senna] 8.6 mg Tablet 17.2 mg PO BEDTIME PRN (Reason: Constipation) Qty: 60 RF: 0 Continued diclofenac sodium [Voltaren] 1 % gel 2 gram TOP QID PRN (Reason: pain) Qty: 100 RF: 0 lisinopril 10 mg tablet 10 mg PO DAILY Qty: 30 RF: 0 potassium chloride 10 mEq tablet,ER particles/crystals 10 meq PO DAILY Qty: 30 RF: 0 tamsulosin 0.4 mg capsule 0.8 mg PO DAILY Qty: 30 RF: 0 chlorthalidone 25 mg tablet 25 mg PO DAILY Qty: 30 RF: 0 furosemide 20 mg tablet 20 mg PO DAILY Qty: 30 RF: 0 Discontinued sildenafil [Viagra] 25 mg tablet 1 dose PO DIRECTED PRN (Reason: Erectile Dysfunction) RF: 0 simvastatin 40 mg tablet 40 mg PO DAILY RF: 0 Follow up/Referrals: Nadya Choe PA-C [Primary Care Provider] - Diet/Activity/Treatments Diet: Low-cholesterol Liquid consistency: Normal/Thin Food texture: Soft Diet comment: Mechanical Soft Thin Liquids Special Rehabilitation Services Rehab type: Physical therapy, Occupational therapy and Speech therapy Discharge Data Primary Care Provider: Nadya Choe Attending Provider: Fifi Martinez VTE Deep Vein Thrombosis/Pulmonary Embolism Present on Admission: Yes
--- NOTE | 2021-01-14 11:27 | ST.IPCSEOM ---
Visit Care Team Role Provider Type Nadya Choe PA-C Primary Care Provider Non-Staff Specialty: Medical Address: [facility] [address], [place], [address] Email: Tomás Cook DO Emergency Provider Physician Referring Provider Specialty: Emergency Medicine Address: [address] [place] [address], [id number] Email: [email or web address] Fifi Martinez [facility] Admit Provider Physician Attending Provider Specialty: Medical Address: [address] [place] [address], [id number] Email: Current Diagnoses Cerebral infarction due to embolism of right middle cerebral artery (01/12/21) Past Medical History (Last Reviewed 01/13/21 @ 04:06 by Tomás Cook DO) BPH (benign prostatic hyperplasia) (Medical) Essential hypertension (Medical) History of back surgery (Medical) History of surgery on arm (Medical) History of tonsillectomy (Medical) Hyperlipidemia (Medical) Speech-Language Pathology Swallow Evaluation MANAGER OF CASE MANAGEMENT Clinical Swallow Evaluation Start: 01/14/21 11:14 Freq: Status: Active Protocol: Document 01/14/21 11:14 MG (Rec: 01/14/21 11:27 MG [id number]) Clinical Swallow Evaluation Session Time Visit Start Time 09:45 Visit Stop Time 10:30 Total Visit Minutes 45 Visit Information Visit Number 1 Setting Assessment Location Acute Care Visit Type Note Type Initial evaluation Next Note Type Next Note Type Treatment Note Patient Information Identification Type Name,Wristband History Patient is a 80-year-old male who presented to the ED with a chief complaint left arm and leg weakness difficulty with ambulation. The patient was apparently normal yesterday evening when he went to bed woke up this morning and noticed a slight left facial droop and difficulty with speech. 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 Patient reports never having symptoms like this before, he denies chest pain, shortness of breath, headache, changes in vision, numbness, tingling, abdominal pain, nausea, vomiting, recent illness, injury, trauma, head injury. Patient denies any new or changes to medication. Patient has a history of hypertension, hyperlipidemia, and BPH. The patient had a NIH of 6. Patient's head neck CTA was negative for aneurysm or occlusion, and showed no suspicious findings of carotid stenosis, occlusion or dissection. Brain CT noted microvascular for atherosclerotic changes in the deep white matter of each hemisphere and no evidence of acute or subacute stroke, hemorrhage, or mass. Consult with tele stroke was completed in the ED-it was determined that the patient was not a candidate for any further interventions then otherwise could be provided at [facility]. Patient admitted for stroke. Subjective Observations Pt was sitting in chair at bedside upon MANAGER OF CASE MANAGEMENT entry. Pt was agreeable to an evaluation being conducted. Of note, left side facial droop apparent. Speech was mostly intelligible in conversation when the context was unknown. Reported by Patient Comment Pt kept NPO until speech evaluation. Current Diet Nothing by mouth Baseline Feeding Method Needs some assistance Patient Questionnaire No Objective Assessment Mental Status Alert,Responsive,Cooperative Oral Integrity Xerostomia/Dry mouth Dentition Missing teeth Lip Function Moderate impairment Observation of Lips at Rest Left sided weakness/Drooping Pucker Reduced range of motion, Reduced strength,Left sided weakness/drooping Lip Retraction Reduced range of motion,Left sided weakness/Drooping Alternating Pucker/Lip Retraction Reduced range of motion, Incoordination Tongue Function Within normal limits Observations of Tongue at Rest Within normal limits Tongue Protrusion Within normal limits Tongue Retraction Within normal limits Tongue Lateralization Within normal limits Jaw Function Within normal limits Observations of Jaw at Rest Within normal limits Jaw Opening Within normal limits Jaw Closing Within normal limits Jaw Lateralization Within normal limits Jaw Protrusion Within normal limits Jaw Retraction Within normal limits Hard/Soft Palate Function Within normal limits Observations of Hard/Soft Palate Within normal limits Nasality Within normal limits Phonation Within normal limits Respiratory Sufficiency Within normal limits Comment Left facial droop significantly impacts lip function at this time. Information passed to the MANAGER OF CASE MANAGEMENT indicated that pt had pocketed food in the left side prior to coming to the hospital. Pt reported he is aware he is pocketing the food and MANAGER OF CASE MANAGEMENT coached around using a lingual sweep to make sure his left side is clear. Food and Liquid Trials Position During Assessment Upright (90 degrees) Liquids Trialed Ice chips,Thin Solids Trialed Puree,Dysphagia Mechanical, Dysphagia Advanced Administration Type Tea spoon,Cup single sip, Controlled cup sip,Cup consecutive sips,Straw,Needs some assistance Oral Impairment Moderately impaired Oral Phase Comments On puree and dysphagia mechanical solids, pt could adequately clear oral cavity. Liquid wash appeared helpful if needed. On dysphagia advanced solids, MANAGER OF CASE MANAGEMENT noted moderate oral residue and pocketing on the left side. MANAGER OF CASE MANAGEMENT cued pt for liquid wash and ligual sweep. Pt required ample time to successfully clear oral cavity. Pt noted that this texture was difficult due to his oral impairments. Pharyngeal Impairment Mildly impaired Pharyngeal Phase Comments Laryngeal palpation indicates that pt had adequate hyolaryngeal elevation and anterior hyoid excursion. On trial of thin liquid from straw, pt had an immediate cough reaction. On all other trials of thin liquid (ice chip, teaspoon, cup sip, consecutive cup sip) no overt s/sx of aspiration noted. No wet/gurgly voice observed. On all solid trials, no overt s/ sx of aspiration noted as well . Fatigue/Endurance Endurance WNL Strategies Attempted Other Response/Comments Double swallow, lingual sweep of oral cavity. Findings Swallowing Function Oral phase dysphagia Swallowing Function Comments Pt presents with dysphagia at this time secondary to left sided weakness Severity of Swallow Impairment Mildly-moderately impaired Contributing Factors to Swallow Reduced alertness or attention Impairment ,Reduced oral strength/ coordination/sensation, Excessive oral residue Prognosis Good Based on Cognitive status,Family support,Duration of symptoms/ severity Impact on Safety and Functioning Risk for aspiration Recommendations Instrumental Assessment No Swallowing Treatment Yes Recommended Solids Dysphagia Mechanical Recommended Liquids Thin Safety Precautions/Swallowing Feed only when alert,Reduce Recommendations distractions,Remain upright ( 90 degrees) during all oral intake,Small bites and sips when eating,No straw,Multiple swallows,Strict oral care after intake,Check for pocketing Medication Recommendations As Tolerated Discharge Recommendations Inpatient rehab facility Education Patient/Caregiver Education Described results of evaluation,Patient expressed understanding of evaluation, Patient expressed agreement with goals & treatment plans, Patient expressed understanding of safety precautions,Patient expressed understanding of feeding recommendations
--- NOTE | 2021-01-14 13:16 | DI.CT.S_ITS ---
PROCEDURE: CT HEAD/BRAIN WO CON INDICATIONS: CVA TECHNIQUE: Noncontrast 4.5 mm thick angled axial sections acquired from the foramen magnum to the vertex, with coronal and sagittal reformats. For radiation dose reduction, the following was used: automated exposure control, adjustment of mA and/or kV according to patient size. COMPARISON: [facility], MR, MR STROKE, 01/13/2021, 8:10. FINDINGS: Image quality: Excellent. CSF spaces: Basal cisterns are patent. No extra-axial fluid collections. The ventricles are symmetric in size and shape. Brain: No intracranial bleeds or masses. There is cerebral volume loss for age, with resultant ventricular and sulcal prominence. There are periventricular and deep white matter chronic small vessel ischemic changes. There is intracranial internal carotid artery atherosclerosis. Skull and face: Calvarium and visualized facial bones appear intact, without suspicious lesions. Sinuses: Visualized sinuses and mastoids are clear. IMPRESSION: Moderate microvascular atherosclerotic change in the deep white matter of each hemisphere, expected for advanced age. The small foci of ischemic injury seen on MR scanning from 1 day ago are not visualized by CT scanning, as expected, given small size and subtle change which is accentuated by diffusion imaging technique no new stroke or hemorrhage is found. No mass effect seen. Dictated by: Jonathan Watkins M.D. on 01/14/2021 at 14:08 Approved by: Jonathan Watkins M.D. on 01/14/2021 at 14:10
[2021-01-14] MEDS: APIXABAN 5 MG TABLET PO ×2 (13:28→21:04)
--- NOTE | 2021-01-14 14:14 | CM.DPC ---
DCP/continued: Reviewed chart. Current d/c plan is for patient to go to [facility] Rehabilitation. Spoke with Kasey at [facility] and she reports that they will accept but they would like patient to remain hospitalized for another day to monitor BP. CALL SPECIALIST notified Dr. Gatica and he is in agreement with plan. He prefers patient to go to acute rehabilitation vs. SNF. Met with patient and grandson at bedside. Patient updated on plan and is aware and agreeable. Mentioned to patient that [facility] does not provide transport therefore, family or non-urgent BLS transport will be needed. Family made aware that if non-urgent BLS needed there is a chance that Medicare will not cover. P: CM team to follow up in AM for discharge to [facility] for acute rehabilitation. HUSSAIN Velasquez
[2021-01-14] MEDS: ATORVASTATIN 20 MG TABLET 80 MG PO (21:04)
[2021-01-15] VITALS (8 sets, daily range): BP systolic 116–144; BP diastolic 67–77; PULSE 73–81; RESP 14–18; TEMP 36.3–37.2; O2SAT 92–96
[2021-01-15] MEDS: CLOPIDOGREL 75 MG TABLET PO (08:54)
[2021-01-15] MEDS: ASPIRIN EC 81 MG TABLET PO (08:54)
[2021-01-15] MEDS: FUROSEMIDE 20 MG TABLET PO (08:54)
[2021-01-15] MEDS: APIXABAN 5 MG TABLET PO (08:54)
[2021-01-15] MEDS: POTASSIUM CHLORIDE 10 MEQ TAB PO (08:54)
[2021-01-15] MEDS: TAMSULOSIN 0.4 MG CAPSULE 0.8 MG PO (08:54)
--- NOTE | 2021-01-15 09:37 | OT.IP.TRT ---
Current Diagnoses Cerebral infarction due to embolism of right middle cerebral artery (01/12/21) Occupational Therapy Treatment Note M2 OT-IP Current Condition Start: 01/13/21 15:58 Freq: Status: Active Protocol: Document 01/13/21 15:59 [facility]3] (Rec: 01/13/21 16:56 [facility]3] [id number]) Occupational Therapy Current Condition Current Condition Evaluation Date 01/13/21 Treatment Diagnosis CVA, decreased mobility and coordination Diagnosis Onset Date 01/12/21 M3 OT- IP Subjective and Pain Start: 01/13/21 15:58 Freq: Status: Active Protocol: Document 01/15/21 10:02 [facility]3] (Rec: 01/15/21 10:11 [facility]3] [id number]) OT- Subjective Occupational Therapy Visit Type Type Treatment Note Visit Start Time 09:12 Visit Stop Time 09:37 Total Visit Minutes 25 Occupational Therapy Visit Comments Patient Comments Pt agreed to work with OT. Pt working on his breakfast. Patient/Caregiver Goals To go to acute rehab. OT Pain Assessment Pain When Pain Assessed At Rest Pain Present Pain Present Denied Pain M4 OT- IP ADL's Start: 01/13/21 15:58 Freq: Status: Active Protocol: Document 01/15/21 10:02 [facility]3] (Rec: 01/15/21 10:11 [facility]3] [id number]) OT VLM-[id number]-Cbqbpbl General Evaluation Self-Feeding Ability Maximum Assistance Comments OT Self-Feeding Comments MAX A hand over hand assist to try to incorporate use of left hand during eating needs. OT ADL-Grooming General Evaluation Grooming Ability Maximum Assistance Comments OT Grooming Comments [place] assist to help left hand to hold toothbrush so pt able to use his right hand to get toothpaste on the toothbrush. OT ADL-Dressing Comments OT Dressing Comments not performed on this date M5 OT- IP IADL's Start: 01/13/21 15:58 Freq: Status: Active Protocol: Document 01/13/21 15:59 [facility]3] (Rec: 01/13/21 16:56 [facility]3] [id number]) OT-Instrumental Activities of Daily Living Home Safety Awareness Ability to Problem Solve Emergency Able to Problem Solve Situations Medication Management Medication Management Comments At this time would be best to have supervision for medication needs. Money Management Money Management Comments At this time best to have assist , as pt needing increased time to add two digit numbers together. Meal Preparation Meal Preparation Comments Pt will need assist due to his decreased balance and functional use of LUE. Valve Inspector Valve Inspector Comments Pt will need assist due to his decreased balance and functional use of LUE. Driving Driving Concerns Identified Regarding Safety M6 OT- IP Functional Cognition Start: 01/13/21 15:58 Freq: Status: Active Protocol: Document 01/15/21 10:02 [facility]3] (Rec: 01/15/21 10:11 [facility]3] [id number]) Cognitive Factors Limiting Selfcare Function Cognitive Ability Level of Alertness Alert Patient Orientation Name,Age,Birthday,Month,Date, Year,Day of Week,Place, Situation Attention Span Ability Capable of Focused Attention, Capable of Sustained Attention Ability to Follow Commands Able to Follow Multi-Step Commands Cognitive Comments Cognitive Assessment Comments Pt able to follow his swallowing strategies during his breakfast with good safety and understanding. Able to talk to pt regarding midline control, tone in LUE, and overall what to expect in rehab and questions to ask. M9 OT- IP Assessment and Plan Start: 01/13/21 15:58 Freq: Status: Active Protocol: Document 01/15/21 10:02 [facility]3] (Rec: 01/15/21 10:11 [facility]3] [id number]) OT Summary Assessment and Plan Potential Rehabilitation Potential Good Analytic Complexity at Evaluation Moderate Summary OT Impairments Range of Motion,Strength, Balance,Coordination,Sensation ,Tone,Functional Cognition, Functional Mobility,Self- Feeding,Grooming,Dressing, Toileting,Bathing,Toilet Transfers,Shower Transfers, Activity Tolerance Progress Towards Goals Slow Progress due to Medical Issues,Slow Progress due to Activity Tolerance Assessment Summary Pt looking to go to acute rehab when able. Pt has good understanding and motivated to go. Pt having increased sensation with LUE and today able to feel at his biceps, forearm, and thumb now versus just at his left elbow. Goals Self-Feeding Goal Independent Grooming Goal Independent Dressing Goal Independent Toileting Goal Independent Bathing Goal Independent Toilet Transfer Goal Independent Shower Transfer Goal Independent Days to Meet Goals 60 Frequency of Treatment Frequency Of Treatment Once a Day Treatment Plan OT Treatment Plan ADL Training,Functional Cognition Training,Functional Mobility,Neuromuscular Re- education,Patient/Family Education,Discharge Planning Other Treatment Recommendations and Next Sitting to midline while able Treatment Focus to do grooming needs. Discharge Recommendations OT Discharge Recommendations Acute Rehab Transportation Needs at Discharge Wheelchair/Cabulance
--- NOTE | 2021-01-15 10:37 | PT.IPTN ---
Current Diagnoses Cerebral infarction due to embolism of right middle cerebral artery (01/12/21) Physical Therapy Treatment Note M2 PT-IP Current Condition Start: 01/13/21 08:37 Freq: Status: Active Protocol: Document 01/14/21 09:48 MA (Rec: 01/14/21 10:20 MA [id number]) Physical Therapy Current Condition Current Condition Evaluation Date 01/13/21 Treatment Diagnosis Left facial droop, left sided weakness in setting of R MCA embolic stroke Onset Date 01/12/21 Precautions Other Precautions Fall risk, left sided weakness M3 PT-IP Subjective Start: 01/13/21 08:37 Freq: Status: Active Protocol: Document 01/15/21 10:37 AB (Rec: 01/15/21 13:10 AB [email or web address]) Subjective Physical Therapy Visit Type Type Treatment Note Visit Start Time 10:37 Visit Stop Time 11:05 Total Visit Minutes 28 Number of BEATER ENGINEER HELPER Visits 0 Physical Therapy Visit Comments Patient Comments pt is agreeable to do PT M4 PT-IP Mobility and Gait Start: 01/13/21 08:37 Freq: Status: Active Protocol: Document 01/15/21 10:37 AB (Rec: 01/15/21 13:10 AB [id number]) PT-Transfer Assessment Sit to and From Stand Sit to and from Stand Maximum Assistance,2 Person Assistance,Use of Upper Extremities Equipment Transfer Assistive Device Gait Belt,Front Wheeled Walker Orthotic/Prosthetic Devices or Brace: No Comments Mobility Comments pt seated on chair and agreed to do PT. completed seated LAQs, seated marching, seated push up with 5 sec hold. completed sit to stand from chair max A x 2 and max cues. completed x 2 reps of sit to stand. ambulated 3 ft using FWW max A x 2 and max cues. required assist to stabilize L knee and L UE on FWW. positioned pt back on chair. completed activity to improve L sided awareness with head L side rotation and item identification. left pt on chair with call light and table placed within reach. Gait Assessment Gait Gait Assistance Required: Maximum Assistance,2 Person Assist Distance (Feet) 3 Able to Maintain Weight Bearing Status Yes During Gait Assistive Devices Assistive Device Gait Belt,Front Wheeled Walker Orthotic/Prosthetic Devices or Brace: No Gait Deviations General Gait Pattern Decreased Stride Length, Decreased Feet Clearance,Step- to Gait Factors Limiting Gait Function Factors Limiting Gait Function Decreased Activity Tolerance, Decreased Strength,Difficulty Following Directions,Limited Range of Motion,Poor Balance, Poor Safety Awareness Comments Gait Comments pls refer to mobility section for details M5 PT-IP Objective Assessments Start: 01/13/21 08:37 Freq: Status: Active Protocol: Document 01/13/21 09:42 MB (Rec: 01/13/21 11:26 MB [id number]) Orientation Orientation/Cognition Level of Alertness Alert Orientation Name,Age,Birthday,Month,Year, Day of Week,Place,Situation Safety Awareness Understands Safety Issues Memory Description No Deficits Noted Comments Speech is slurred Gross Range of Motion Upper Extremity ROM Assessment Right Impaired Impairments See comments under mobility: left shoulder subluxation, MMT deferred Old right UE fracture that affects right wrist movement Lower Extremity ROM Assessment Left Impaired Impairments In sitting: left hip flexion and knee movement is 85% normal range, similar ankle Strength Comments Strength Comments PT does not MMT LUE given shoulder post-stroke. R shoulder flexion and abduction is normal. IV in right elbow and old right forearm injuries limit movement. RLE MMT: hip flexion, knee flexion and extension and ankle DF 5/5. L hip flexion 3-/5 in available range, knee flexion and extension 4/5 in available range and ankle DF 4/5 with MMT and functionally weaker with gait. Coordination Assessment Gross Coordination Gross Coordination Impaired Assessment Coordination Comments Coordination movements in right extremities are grossly normal. Slow and difficult in left extremities. Other Assessments Other Other Assessments Pt is a 80 y/o male presenting with left sided facial droop, trouble closing left eye and left sided weakness s/p right MCA embolic stroke. His sitting balance, transfers, and gait are impaired with assessment today. Per pt and grandson, pt's cannot care for him as she has some mobility issues as well. Pt will benefit from acute and post-acute rehab to improve strength, balance and mobility . Pt was previously I at baseline. Recommend inpatient rehabilitation with therapies up to 3 hours a day. Recommend acute OT evaluation. Asked pt and grandson to pay attention to his secretion control today and if he has trouble managing secretions, to speak with nsg for possible speech consult. PT also spoke with doctor about these recommendations. M6 PT-IP Treatment Start: 01/13/21 08:37 Freq: Status: Active Protocol: Document 01/15/21 10:37 AB (Rec: 01/15/21 13:10 AB [id number]) Physical Therapy Treatment Exercises Exercises Gluteal Sets,Seated Knee Flexion/Extension Education Education Provided Safety M7 PT-IP Assessment and Plan Start: 01/13/21 08:37 Freq: Status: Active Protocol: Document 01/15/21 10:37 AB (Rec: 01/15/21 13:10 [email or web address]) PT Summary Assessment and Plan Potential Rehabilitation Potential Good Summary Impairments Pain,ROM,Strength,Balance, Coordination,Sensation,Tone, Cognition,Bed Mobility, Transfers,Gait,Activity Tolerance Progress Towards Goals Slow Progress due to Medical Issues,Slow Progress - Other Assessment Summary pt requiring max A x 2 with mobility with L sided weakness requires max A x 2 for steadiness and preventing L knee buckling. pt will benefit from further PT: acute rehab vs SNF rehab. will continue to assess mobility progress. Goals Bed Mobility Goal Contact Guard Assistance Transfer Goal Contact Guard Assistance,Front Wheeled Walker Gait Goal Contact Guard Assistance,Front Wheel Walker,[place] Walker Gait Distance 50 Days to Meet Goals 10 Frequency of Treatment Frequency Of Treatment Once a Day Treatment Plan Physical Therapy Treatment Plan Bed Mobility Training,Transfer Training,Gait Training, Therapeutic Exercise,Balance Retraining,Neuromuscular Re-ed ,Coordination Retraining Recommendations To Nursing Amount of Assist Needed Mechanical Lift Discharge Recommendations Transportation Needs at Discharge Wheelchair/Cabulance
--- NOTE | 2021-01-15 10:49 | CM.DPNOTE ---
Addendum entered by Ria Montague 01/15/21 12:36: Kasey called from [facility] asking for a Covid result from the last 48 hrs; and gave me an RN report number: [phone]. She said they will take pt. as soon as we can set up transportation. I gave this information to Mariaelena. I will also give to Hollie. Ria Montague CM Asst. Original Note: Faxed last PNs, PT notes and Echo to [facility] inpt rehab at Hollie's request. Fax confirmation received. Ria Montague CM Asst.
--- NOTE | 2021-01-15 12:53 | PC.NURSE ---
Covid swab sent per protocal for transfer.
--- NOTE | 2021-01-15 13:06 | CM.DPNOTE ---
Called Monserrat at [facility] for BLS transport on pt. Can be here at 1415 their earliest. I passed this onto Mariaelena and will let Hollie know. Also. Dr. Coon signed the S transport sheet. Ria Montague CM Asst.
--- NOTE | 2021-01-15 13:22 | PC.NURSE ---
Day shift: Pt's wallet returned to Pt. It is sitting on his table near his cell. Went through wallet and everything is accounted for. That belonging paperwork is signed and in Pt's chart.
[2021-01-15 13:26] LABS: COVID19 -Nasal RAPID Negative (Negative)
--- NOTE | 2021-01-15 13:41 | PC.NURSE ---
Day shift: Report given to Nay at [facility]. All questions answered.
--- NOTE | 2021-01-15 14:19 | PC.NURSE ---
Day shift: Report given to transport team. Pt has all personal belongings. Pt voiding in urinal just prior to transport. Transport team has paperwork packet. All questions answered. Pt tolerated the slide to stretcher well. Left unit at approx 1424.
--- NOTE | 2021-01-15 14:44 | CM.DPC ---
Addendum entered by Hollie Greer 01/15/21 14:50: Family and patient made aware that there is a possibility that Medicare will not cover non-urgent transport and that they will be responsible. Original Note: DCP/continued: Received notification from Kasey at [facility] that they can accept today. VFX ARTIST left message with patient's spouse at both cell and home phone numbers. Met with patient and he is aware and agreeable to plan. Patient currently unable to travel in w/c safely due to CVA. VFX ARTIST completed non-urgent BLS form for transport, provider signed. RN given number to call report. EFRAÍN/Ria arranged transport. supervisor broadloom scheduled for approximately 2:00pm. P: [facility] today. HUSSAIN Velasquez
--- NOTE | 2021-01-15 21:27 | PM.PN.1 ---
Subjective Subjective Date Patient Seen: 01/15/21 Time Patient Seen: 08:00 Interval history: Patient DC was held as patient was not accepted to an acute rehab. However, he was medically stable for discharge. Today he has no changes in his symptoms. Exam Vital Signs (past 8 hours): Oxygen Delivery Method Room Air Oxygen Flow Rate 0 Narrative Exam Narrative: GEN: AAOx3, in no apparent distress. CV: regular rate and rhythm without murmur PULM: clear to auscultation bilaterally EXT: have no ankle edema NEURO: Lleft tongue deviation,left facial droop, left lower extremity strength 3/5 at ankle compared to 11/14 at the right ankle. Left upper extremity strength improved since yesterday, but still notable weakness Babinski is upgoing on the left foot, downgoing on the right foot. Objective Labs Result Diagrams: 01/13/21 05:00 01/13/21 05:00 Labs: Laboratory Results - last 24 hr 01/15/21 12:45 SARS-CoV-2 (PCR) Negative PFSH Medical History BPH (benign prostatic hyperplasia) Essential hypertension Hyperlipidemia Surgical History History of back surgery History of surgery on arm History of tonsillectomy Family History Mother Cancer Father Cancer Social History household members: spouse Smoking Status: Never smoker alcohol intake: current Assessment & Plan Assessment & Plan narrative: 1.Left-sided facial droop/dysarthria/left arm & left leg weakness, Right MCA deep white matter CVA, acute, guarded, present on admission. Active -Extensive small multifocal areas acute infarct involving deep white matter as well as cortex in the right MCA distribution, consistent with embolic stroke. -MRA neck without significant carotid stenosis -permissive hypertension for 48-72 hours. ECHO showed no thrombus -treat systolic blood pressure>220 or diastolic blood pressure> 120 -PT, OT and ST evaluations -PT recommends inpatient acute rehab for left sided weakness, balance problems and ataxia. -Medications: Aspirin 81 mg, Plavix 75 mg daily, atorvastatin 80 mg -dual antiplatelet for 21 days -consider holter monitor as an outpatient 2. Essential hypertension, acute on chronic, present on admission -continue permissive hypertension for 48-72 hours and hold patient's lisinopril and Chlorthalidone 3. Hyperlipidemia, chronic, present on admission -Atorvastatin 80 mg. 4. BPH, chronic, present on admission -continue patient's tamsulosin 5. Obesity as evidence by BMI of 31.3, acute on chronic, present on admission -consideration will be given to dietary counseling. Code status: Full Surrogate decision maker: Grandnaima Morse Lovenox and SCDs Estimated length of stay: Greater than 2 midnights Quality VTE Deep Vein Thrombosis/Pulmonary Embolism Present on Admission: Yes
== END 2021-01-15 14:25 | DRG 65 ==
LOC: ED 22:13 → AC 01-13 12:18
PROVIDERS: Internal Medicine; Admitting Provider Nurse Practitioner Family; Emergency Provider Emergency Medicine; PCP Physician Assistant Medical; Referring Provider Emergency Medicine; Visit Provider Nurse Practitioner Family
DX: I63.411 Cerebral infarction due to embolism of right middle cerebral artery (principal); G81.94 Hemiplegia, unspecified affecting left nondominant side; R47.1 Dysarthria and anarthria; I10 Essential (primary) hypertension; E78.5 Hyperlipidemia, unspecified; N40.0 Benign prostatic hyperplasia without lower urinary tract symptoms; R29.704 NIHSS score 4; E66.9 Obesity, unspecified; Z68.31 Body mass index [BMI] 31.0-31.9, adult; Z20.822 Contact with and (suspected) exposure to COVID-19
CPT/HCPCS: 36415; 70450; 70496; 70498; 70548; 70553; 80048; 80053; 80061; 80305; 81001; 83036; 83735; 83880; 84443; 84484; 85025; 85610; 85730; 87635; 92610; 93005; 93306; 94760; 96360; 97110; 97116; 97162; 97167; 97530; 97535; 99285; C9803; A9579; J1650; Q9967

== ENCOUNTER 2021-02-14 14:21 | Emergency (ER) | payer MEDICARE, OTHER, SELFPAY ==
[2021-01-12 23:40] VITALS: BMI 31.2
[2021-02-14] VITALS (13 sets, daily range): BP systolic 108–130; BP diastolic 55–69; PULSE 69–82; RESP 9–18; TEMP 36.9; O2SAT 92–98; BMI 29.9
--- NOTE | 2021-02-14 14:26 | ED.SYNCOPE ---
HPI - Syncope General Chief Complaint: Syncope Stated Complaint: Syncopal Time Seen by Provider: 02/14/21 14:39 History of Present Illness HPI narrative: 80M nonsmoker with history of hypertension and hyperlipidemia presents with family in the chief complaint of feeling bit lightheaded earlier in the day, EMS was called and he has had blood pressures in the 70s or 80s. He has had nausea but denies any vomiting or diarrhea. He was recently seen and evaluated here for stroke and was admitted for workup and then transferred to a rehab facility. He was just discharged from the rehab facility and states that his blood pressure medication regimen was changed. He had previously been on a low-dose of lisinopril and states that on discharge, he started either Thursday or Thursday he has been taking 3 lisinopril tablets 3 times daily. He denies chest pain or shortness of breath. He feels much better now. He has had no fever or chills Related Data Home Medications Medication Instructions Recorded Confirmed chlorthalidone 25 mg tablet 25 mg PO DAILY 10/20/18 01/13/21 furosemide 20 mg tablet 20 mg PO DAILY 10/20/18 01/13/21 lisinopril 10 mg tablet 10 mg PO DAILY 10/20/18 01/13/21 potassium chloride 10 mEq 10 meq PO DAILY 10/20/18 01/13/21 tablet,extended release(part/cryst) sildenafil 25 mg tablet 1 dose PO DIRECTED PRN 10/20/18 01/14/21 simvastatin 40 mg tablet 40 mg PO DAILY 10/20/18 01/13/21 tamsulosin 0.4 mg capsule 0.8 mg PO DAILY 10/20/18 01/13/21 Previous Rx's Medication Instructions Recorded diclofenac sodium 1 % topical gel 2 gram TOP QID PRN #100 gram 10/20/18 (Voltaren) Allergies Allergy/AdvReac Type Severity Reaction Status Date / Time No Known Drug Allergies Allergy Verified 02/14/21 14:34 Review of Systems Review of Systems Narrative: GENERAL: See HPI HEENT: Denies sinus pain, ear pain, sore throat, difficulty swallowing, dizziness. RESPIRATORY: Denies dyspnea, cough, wheezing, hemoptysis, sputum. CARDIOVASCULAR: Denies chest pain, palpitations, orthopnea, edema, GASTROINTESTINAL: See HPI : Denies dysuria, frequency, incontinence, hematuria, urinary retention. MUSCULOSKELETAL: denies weakness, joint pain, or bony pain SKIN: Denies rash, skin lesions, or other NEUROLOGIC: Denies weakness, headache, numbness, change in speech, confusion, seizures, incoordination. PSYCHIATRIC: No concerning psychosocial issues. 12 point review of systems is negative except for those stated above Patient History Medical History BPH (benign prostatic hyperplasia) Essential hypertension Hyperlipidemia Surgical History History of back surgery History of surgery on arm History of tonsillectomy Family History Mother Cancer Father Cancer Social History household members: spouse Smoking Status: Never smoker alcohol intake: current Smoking Status: Never smoker alcohol intake frequency: holidays/special occasions only Substance Use Type: does not use Exam Narrative Exam Narrative: GENERAL: [80] year old patient appears stated age. Well-developed patient, in mild distress. Resting comfortably HEAD: Atraumatic. Normocephalic. EYES: Pupils equal round and reactive. Extraocular motions intact. No scleral icterus. No injection or drainage. ENT: Nose without bleeding, purulent drainage. Throat without erythema, tonsillar hypertrophy or exudate. Airway patent. NECK: Trachea midline. Non tender CARDIOVASCULAR: Regular rate and rhythm without murmurs, gallops, or rubs. RESPIRATORY: Clear to auscultation. Breath sounds equal bilaterally. No wheezes, rales, or rhonchi. GASTROINTESTINAL: Abdomen soft, non-tender, nondistended. EXTREMITIES: No edema or joint tenderness. BACK: Nontender without deformity or crepitance. No flank tenderness. NEURO: AOx3. Left upper and lower extremity significantly weak with tingling (this is consistent with his prior stroke and continues to improve on the whole) SKIN: No rash or erythema of visible areas Initial Vital Signs Initial Vital Signs: Vital Signs Temperature 98.5 F 02/14/21 14:25 Pulse Rate 82 02/14/21 14:25 Respiratory Rate 13 02/14/21 14:25 Blood Pressure 114/58 L 02/14/21 14:25 Pulse Oximetry 95 02/14/21 14:25 Course Orders Ordered: ED Orders 02/14/21 14:32 EKG-12 Lead Stat 02/14/21 14:51 Complete Blood Count AUTO DIFF Stat Comprehensive Metabolic Panel Stat Lactate (Lactic Acid) Stat Magnesium Stat Prothrombin Time INR Stat Troponin & CK Cardiac Panel Stat 02/14/21 16:40 [place] [facility] [place] [facility] Stat Reevaluation(s) Reevaluation #1: Calls placed to rehab facility as well as pharmacy for details on how the medications are written as this regimen that he reports seems a bit atypical. The pharmacy reports that he is instructed to take lisinopril 2.5 mg p.o. x3 at night Vital Signs Vital signs: Vital Signs - 8 hr 02/14/21 14:25 02/14/21 14:27 02/14/21 14:30 Temperature 98.5 F Pulse Rate 82 82 79 Pulse Rate [Orthostatic Lying] Pulse Rate [Orthostatic Sitting] Respiratory Rate 13 9 L 12 Blood Pressure 114/58 L 114/58 L Blood Pressure [Orthostatic Lying] Blood Pressure [Orthostatic Sitting] Pulse Oximetry 95 95 95 02/14/21 14:45 02/14/21 15:00 02/14/21 15:15 Temperature Pulse Rate 76 75 76 Pulse Rate [Orthostatic Lying] Pulse Rate [Orthostatic Sitting] Respiratory Rate 17 15 18 Blood Pressure 108/55 L 114/58 L 124/62 Blood Pressure [Orthostatic Lying] Blood Pressure [Orthostatic Sitting] Pulse Oximetry 93 93 92 02/14/21 15:30 02/14/21 15:44 02/14/21 15:45 Temperature Pulse Rate 72 79 71 Pulse Rate [Orthostatic Lying] Pulse Rate [Orthostatic Sitting] Respiratory Rate 16 17 14 Blood Pressure 122/65 119/66 Blood Pressure [Orthostatic Lying] Blood Pressure [Orthostatic Sitting] Pulse Oximetry 93 96 98 02/14/21 16:00 02/14/21 16:15 02/14/21 16:36 Temperature Pulse Rate 69 72 Pulse Rate [Orthostatic Lying] 78 Pulse Rate [Orthostatic Sitting] 75 Respiratory Rate 14 14 Blood Pressure 122/66 118/68 Blood Pressure [Orthostatic Lying] 130/69 Blood Pressure [Orthostatic Sitting] 109/69 Pulse Oximetry 98 93 MDM - Syncope Lab Data Result diagrams: 02/14/21 14:51 02/14/21 14:51 Labs: Lab Results 02/14/21 02/14/21 02/14/21 Range/Units 14:51 14:51 14:51 WBC 8.1 (4.5-11.0) X10^3/uL RBC 4.36 L (4.5-5.9) X10^6/uL Hgb 13.1 L (13.5-17.5) g/dL Hct 38.5 L (41-53) % MCV 88.4 (80-100) fL MCH 29.9 (26-34) PG MCHC 33.9 (30-36) % RDW 13.3 (11.6-14.8) % Plt Count 189 (150-400) X10^3/uL Neut % (Auto) 89.1 H (50-75) % Lymph % (Auto) 4.9 L (25-40) % Stephens % (Auto) 5.0 (3-14) % Eos % (Auto) 0.6 L (2-4) % Baso % (Auto) 0.4 (0-2) % Neut # (Auto) 7200 H (0554-9631) /uL Lymph # (Auto) 400 L (4406-4922) /uL Stephens # (Auto) 400 (0-900) /uL Eos # (Auto) 100 (0-450) /uL Baso # (Auto) 0 (0-100) /uL PT 13.4 H (10.1-12.7) SECONDS INR 1.2 (0.9-1.3) Sodium 136 L (137-145) mmol/L Potassium 3.6 (3.4-5.1) mmol/L Chloride 103 (98-107) mmol/L Carbon Dioxide 27 (22-32) mmol/L BUN 22 H (9-20) mg/dL Creatinine 1.42 H (0.66-1.25) mg/dL Estimated GFR 48.2 L (>60) mL/min BUN/Creatinine Ratio 15.5 (6-22) Glucose 125 H (80-110) mg/dL Lactate (0.7-2.1) mmol/L Calcium 8.2 L (8.4-10.2) mg/dL Magnesium 1.8 (1.6-2.3) mg/dL Total Bilirubin 1.7 H (0.2-1.3) mg/dL AST 25 (17-59) IU/L ALT 27 (<50) IU/L Alkaline Phosphatase 73 (38-126) U/L Total Creatine Kinase 92 (55-170) U/L CK-MB (CK-2) TNP CK-MB (CK-2) Rel Index TNP Troponin I < 0.012 (0.01-0.034) ng/mL Total Protein 5.5 L (6.3-8.2) g/dL Albumin 3.2 L (3.5-5.0) g/dL Globulin 2.3 (1.7-4.1) g/dL Albumin/Globulin Ratio 1.4 (1.0-2.8) 02/14/21 Range/Units 14:51 WBC (4.5-11.0) X10^3/uL RBC (4.5-5.9) X10^6/uL Hgb (13.5-17.5) g/dL Hct (41-53) % MCV (80-100) fL MCH (26-34) PG MCHC (30-36) % RDW (11.6-14.8) % Plt Count (150-400) X10^3/uL Neut % (Auto) (50-75) % Lymph % (Auto) (25-40) % Stephens % (Auto) (3-14) % Eos % (Auto) (2-4) % Baso % (Auto) (0-2) % Neut # (Auto) (3938-3516) /uL Lymph # (Auto) (3079-2791) /uL Stephens # (Auto) (0-900) /uL Eos # (Auto) (0-450) /uL Baso # (Auto) (0-100) /uL PT (10.1-12.7) SECONDS INR (0.9-1.3) Sodium (137-145) mmol/L Potassium (3.4-5.1) mmol/L Chloride (98-107) mmol/L Carbon Dioxide (22-32) mmol/L BUN (9-20) mg/dL Creatinine (0.66-1.25) mg/dL Estimated GFR (>60) mL/min BUN/Creatinine Ratio (6-22) Glucose (80-110) mg/dL Lactate 1.3 (0.7-2.1) mmol/L Calcium (8.4-10.2) mg/dL Magnesium (1.6-2.3) mg/dL Total Bilirubin (0.2-1.3) mg/dL AST (17-59) IU/L ALT (<50) IU/L Alkaline Phosphatase (38-126) U/L Total Creatine Kinase (55-170) U/L CK-MB (CK-2) CK-MB (CK-2) Rel Index Troponin I (0.01-0.034) ng/mL Total Protein (6.3-8.2) g/dL Albumin (3.5-5.0) g/dL Globulin (1.7-4.1) g/dL Albumin/Globulin Ratio (1.0-2.8) MDM Narrative Medical decision making narrative: Multiple etiologies for patient's symptoms considered including: [Medication reaction versus dehydration versus infection versus other] Patient's symptoms improved even prior to arrival. It seems most likely that patient had been accidentally taking the wrong dose of his antihypertensives which resulted in low blood pressure Findings and discharge diagnosis discussed with patient/family followed by verbalization of understanding Return precautions discussed with patient/family whom verbalize understanding. Discharge Plan Departure Patient Disposition: Home Clinical Impression: Acute hypotension Instructions: DI for Orthostatic Hypotension Activity Restrictions/Additional Instructions: *You have been diagnosed with [low brought pressure, likely a consequence of accidental overmedication. Please closely follow the medications your prescribed as part of your discharge] *What to do: *Please continue to take your regular medications as directed. [ ] New medication prescriptions sent to your pharmacy: [ ] [ ] New medication written as a paper prescription [x ] No new medications given *Please follow up with your primary care provider in 2-3 days, call for an appointment. Let them know you were seen in the Emergency Department and that we ask that you be seen in follow up. We will electronically transmit a record of today's note if your PCP is in our system *If you do not have a primary care provider please contact the [facility] Resource line at [phone]. They will ask some questions about your medical history and help get you set up with a doctor in the community. *Return to Emergency Department if you should have any new, worsening or concerning symptoms, such as [fever greater than 101 F, shaking chills, worsening pain, persistent vomiting or other bothersome symptoms] Prescriptions: No Action chlorthalidone 25 mg tablet 25 mg PO DAILY RF: 0 sildenafil [Viagra] 25 mg tablet 1 dose PO DIRECTED PRN (Reason: Erectile Dysfunction) RF: 0 simvastatin 40 mg tablet 40 mg PO DAILY RF: 0 tamsulosin 0.4 mg capsule 0.8 mg PO DAILY RF: 0 lisinopril 10 mg tablet 10 mg PO DAILY RF: 0 furosemide 20 mg tablet 20 mg PO DAILY RF: 0 potassium chloride 10 mEq tablet,ER particles/crystals 10 meq PO DAILY RF: 0 diclofenac sodium [Voltaren] 1 % gel 2 gram TOP QID PRN (Reason: pain) Qty: 100 RF: 0 Referrals: Nadya Choe PA-C [Primary Care Provider] -
--- NOTE | 2021-02-14 14:42 | PC.NURSE ---
Addendum entered by Robyn Martinez R.N. 02/14/21 15:10: [facility] patient's lisinopril dose is 7.5mg @ bedtime written as 3 2.5mg pills. Original Note: Patient at 0930 was sitting on edge of bed and felt faint. Had to slide down the stairs on buttocks as he was unable to stand. reports that at 1300 when trying to get pt into vehicle became unresponsive but did not have LOC. EMS reports patient was nauseated and had one episode of emesis. Pt denies bloody emesis or stool, taking plavix. Initial BP was 70 SBP, improved 500ml bolus. Patient is AxOx3, reports feeling fine now, denies pain, n/v, and denies dizziness at the moment.
[2021-02-14 14:58] LABS: Add Manual Diff / Slide Review NO; Basophils Absolute Auto 0 /uL (0-100); Basophils Percent Auto 0.4 % (0-2); Eosinophils Absolute Auto 100 /uL (0-450); Eosinophils Percent Auto 0.6 % (2-4); Hematocrit 38.5 % (41-53); Hemoglobin 13.1 g/dL (13.5-17.5); Lymphocytes Absolute Auto 400 /uL (1100-4500); Lymphocytes Percent Auto 4.9 % (25-40); Mean Corpuscular HGB Conc 33.9 % (30-36); Mean Corpuscular Hemoglobin 29.9 PG (26-34); Mean Corpuscular Volume 88.4 fL (80-100); Monocytes Absolute Auto 400 /uL (0-900); Neutrophils Absolute Auto 7200 /uL (1500-7000); Neutrophils Percent Auto 89.1 % (50-75); Platelet Count 189 X10^3/uL (150-400); Red Blood Cell Count 4.36 X10^6/uL (4.5-5.9); Red Cell Distribution Width 13.3 % (11.6-14.8); White Blood Cell Count 8.1 X10^3/uL (4.5-11.0)
[2021-02-14 15:12] LABS: Lactate (Lactic Acid) 1.3 mmol/L (0.7-2.1)
[2021-02-14 15:14] LABS: Alanine Aminotransferase 27 IU/L (<50); Albumin 3.2 g/dL (3.5-5.0); Albumin Globulin Ratio 1.4 (1.0-2.8); Alkaline Phosphatase 73 U/L (38-126); Aspartate Aminotransferase 25 IU/L (17-59); BUN Creatinine Ratio 15.5 (6-22); Bilirubin Total 1.7 mg/dL (0.2-1.3); Blood Urea Nitrogen 22 mg/dL (9-20); Calcium 8.2 mg/dL (8.4-10.2); Carbon Dioxide 27 mmol/L (22-32); Chloride 103 mmol/L (98-107); Creatine Kinase 92 U/L (55-170); Estimated Glomerular Filt Rate 48.2 mL/min (>60); Globulin 2.3 g/dL (1.7-4.1); Glucose 125 mg/dL (80-110); HEMOLYSIS < 15 (0-50); Magnesium 1.8 mg/dL (1.6-2.3); Potassium 3.6 mmol/L (3.4-5.1); Sodium 136 mmol/L (137-145); Total Protein 5.5 g/dL (6.3-8.2)
[2021-02-14 15:18] LABS: INR 1.2 (0.9-1.3); Prothrombin Time 13.4 SECONDS (10.1-12.7)
[2021-02-14 15:25] LABS: Troponin I < 0.012 ng/mL (0.01-0.034)
--- NOTE | 2021-02-14 17:06 | CM.SWNOTE ---
PIPED BUTTONHOLE MACHINE OPERATOR Assessment Note PIPED BUTTONHOLE MACHINE OPERATOR receives consult at [facility] room to meet with patient and Tiffanie. Patient is 80 y/o male who presents to this ED with concerns of syncope. Patient endorses that he just came from [facility] recently. endorses that she has had a hard time assisting patient with ADLs and patient needs assistance with transferring to bed and assistance with bathroom and showering. endorses that she needed help from her grandson to assist in getting patient inside. Patient endorses that he already has a referral for [facility] for RN, OT, and PT. PIPED BUTTONHOLE MACHINE OPERATOR discusses HH and caregivers and provides patient and a senior resources guide and a brochure for [facility] . Patient endorses that [facility] has called to set up first home visit. It is reported that patient has walker and wheelchair at home. Patient and endorse that patient missed PCP f/u appt today because he came to this ED, patient is to set up f/u PCP appt soon. PIPED BUTTONHOLE MACHINE OPERATOR calls Chiqui at [facility] and she confirms that there is a current referral for HH for patient and patient was out of town recently. Chiqui endorses that patient will be contacted tomorrow to initiate referral further. Plan: Patient to d/c to home when medically clear with [facility] referral in place [facility]
== END 2021-02-14 18:18 | disposition home or self-care (01) ==
PROVIDERS: Emergency Provider Emergency Medicine; PCP Physician Assistant Medical
DX: I95.1 Orthostatic hypotension (principal); R42 Dizziness and giddiness
CPT/HCPCS: 36415; 80053; 82550; 83605; 83735; 84484; 85025; 85610; 93005; 99283; 99284

== ENCOUNTER 2021-02-24 12:26 | Emergency (ER) | payer MEDICARE, OTHER, SELFPAY ==
[2021-01-12 23:40] VITALS: BMI 31.2
[2021-02-24] VITALS (9 sets, daily range): BP systolic 116–144; BP diastolic 62–68; PULSE 64–73; RESP 15–33; TEMP 36.1; O2SAT 93–98; BMI 30.7
--- NOTE | 2021-02-24 12:37 | ED_ITS ---
HPI - General Adult General Chief complaint: Syncope Stated complaint: Sycopal Time Seen by Provider: 02/24/21 12:30 History of Present Illness HPI narrative: 80-year-old gentleman who lives at home with his with a history of hypertension, BPH, hyperlipidemia suffered a stroke on January 15 and was cared for piece help with discharge to long term facility on February 08 with eventual discharge home with only medication being aspirin. 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 He notes that he still has a bit of difficulty picking up and moving his left leg with the foot dragging slightly but does not describe any specific injuries recently. Se nsation is almost fully return to the left side. He had been doing well at home until this morning when he was weak enough that he had difficulty trying to get up from the toilet called his and then slumped to the floor without any significant injuries appreciated. Once medics were on scene he had a single episode of emesis not preceded by any pain or nausea receive 700 L of fluid and was transported to the emergency department. He complains of no nausea, abdominal pain does not report recent constipation or diarrhea. No chest pain, orthopnea or dyspnea. No palpitations, no headache. He does not feel like he has any worsening stroke symptoms. He does note some new left-sided foot pain. Related Data Home Medications Medication Instructions Recorded Confirmed chlorthalidone 25 mg tablet 25 mg PO DAILY 10/20/18 01/13/21 furosemide 20 mg tablet 20 mg PO DAILY 10/20/18 01/13/21 lisinopril 10 mg tablet 10 mg PO DAILY 10/20/18 01/13/21 potassium chloride 10 mEq 10 meq PO DAILY 10/20/18 01/13/21 tablet,extended release(part/cryst) sildenafil 25 mg tablet 1 dose PO DIRECTED PRN 10/20/18 01/14/21 simvastatin 40 mg tablet 40 mg PO DAILY 10/20/18 01/13/21 tamsulosin 0.4 mg capsule 0.8 mg PO DAILY 10/20/18 01/13/21 Previous Rx's Medication Instructions Recorded diclofenac sodium 1 % topical gel 2 gram TOP QID PRN #100 gram 10/20/18 (Voltaren) cephalexin 500 mg capsule 500 mg PO TID 7 Days #21 cap 02/24/21 Allergies Allergy/AdvReac Type Severity Reaction Status Date / Time aspirin Allergy Verified 02/24/21 12:34 Review of Systems Review of Systems Narrative: Remainder of complete review of systems is otherwise unremarkable except for that included in the HPI. Patient History Medical History (Updated 02/24/21 @ 15:20 by Helen Damian MD) BPH (benign prostatic hyperplasia) Cerebrovascular accident Essential hypertension Hyperlipidemia Surgical History History of back surgery History of surgery on arm History of tonsillectomy Family History Mother Cancer Father Cancer Social History household members: spouse Smoking Status: Never smoker alcohol intake: current Smoking Status: Never smoker alcohol intake frequency: holidays/special occasions only Substance Use Type: does not use Exam Narrative Exam Narrative: General: Healthy appearing, in no acute distress. Able to give a complete and coherent history. Well-nourished well-developed HEENT: Moist mucous membranes, normal sclera with reactive pupils, mild left- sided facial droop Neck: No JVD, supple Respiratory: Lungs are clear to auscultation, no wheezing no rales no rhonchi. Full and symmetrical air movement Cardiac: Regular rate and rhythm no murmurs no bruits Abdomen: Soft, nontender, good bowel tones, no flank pain. Healing bruises over the lower abdomen from recent Lovenox injections while hospitalized Skin: Warm and dry, developing an erythematous patch over the lateral aspect and dorsum of the left foot without obvious skin defect or injury Neurologic: Residual symptoms from recent right MCA stroke, mild left leg and left weakness left mild facial droop normal speech normal sensation Extremities: No trauma, well perfused Psych: Cooperative, appropriate insight and affect Initial Vital Signs Initial Vital Signs: Vital Signs Temperature 97.0 F L 02/24/21 12:28 Pulse Rate 73 02/24/21 12:28 Respiratory Rate 16 02/24/21 12:28 Blood Pressure 124/62 02/24/21 12:28 Pulse Oximetry 96 02/24/21 12:28 Course Orders Ordered: ED Orders 02/24/21 12:42 XR foot LT 2V Stat 02/24/21 13:10 Complete Blood Count AUTO DIFF Stat Comprehensive Metabolic Panel Stat Troponin I Stat 02/24/21 14:05 Urinalysis and Microscopic Stat Urine Culture Stat Discontinued Medications Ceftriaxone Sodium 2,000 mg/ (Sodium Chloride) 100 mls @ 200 mls/hr IV NOW ONE Stop: 02/24/21 12:45 Last Infusion: 02/24/21 14:27 Dose: 0 mls/hr Documented by: Admin: 02/24/21 13:47 Dose: 200 mls/hr Documented by: MIGDALIA Vital Signs Vital signs: Vital Signs - 8 hr 02/24/21 12:28 02/24/21 12:29 02/24/21 12:30 Temperature 97.0 F L Pulse Rate 73 73 72 Respiratory Rate 16 33 H Blood Pressure 124/62 Pulse Oximetry 96 97 96 02/24/21 12:31 02/24/21 13:00 02/24/21 13:30 Temperature Pulse Rate 72 66 65 Respiratory Rate 21 18 Blood Pressure 124/62 124/63 131/65 Pulse Oximetry 95 93 95 02/24/21 14:00 02/24/21 14:30 02/24/21 14:57 Temperature Pulse Rate 66 64 72 Respiratory Rate 16 18 15 Blood Pressure 144/68 H 131/64 116/65 Pulse Oximetry 97 98 98 Medical Decision Making Lab Data Result diagrams: 02/24/21 13:10 02/24/21 13:10 Labs: Lab Results 02/24/21 02/24/21 02/24/21 Range/Units 13:10 13:10 14:05 WBC 12.6 H (4.5-11.0) X10^3/uL RBC 4.62 (4.5-5.9) X10^6/uL Hgb 13.6 (13.5-17.5) g/dL Hct 40.7 L (41-53) % MCV 88.0 (80-100) fL MCH 29.3 (26-34) PG MCHC 33.3 (30-36) % RDW 13.4 (11.6-14.8) % Plt Count 186 (150-400) X10^3/uL Neut % (Auto) 90.7 H (50-75) % Lymph % (Auto) 3.5 L (25-40) % Wake % (Auto) 4.9 (3-14) % Eos % (Auto) 0.5 L (2-4) % Baso % (Auto) 0.4 (0-2) % Neut # (Auto) 01056 H (1621-6252) /uL Lymph # (Auto) 400 L (8595-0992) /uL Wake # (Auto) 600 (0-900) /uL Eos # (Auto) 100 (0-450) /uL Baso # (Auto) 0 (0-100) /uL Sodium 139 (137-145) mmol/L Potassium 3.6 (3.4-5.1) mmol/L Chloride 103 (98-107) mmol/L Carbon Dioxide 30 (22-32) mmol/L BUN 16 (9-20) mg/dL Creatinine 1.02 (0.66-1.25) mg/dL Estimated GFR > 60.0 (>60) mL/min BUN/Creatinine Ratio 15.7 (6-22) Glucose 133 H (80-110) mg/dL Calcium 8.6 (8.4-10.2) mg/dL Total Bilirubin 1.3 (0.2-1.3) mg/dL AST 20 (17-59) IU/L ALT 20 (<50) IU/L Alkaline Phosphatase 80 (38-126) U/L Troponin I < 0.012 (0.01-0.034) ng/mL Total Protein 5.7 L (6.3-8.2) g/dL Albumin 3.2 L (3.5-5.0) g/dL Globulin 2.5 (1.7-4.1) g/dL Albumin/Globulin Ratio 1.3 (1.0-2.8) Urine Color Yellow Urine Appearance Sl cloudy Urine pH 6.0 (4.5-8.0) Ur Specific [place] 1.015 (1.000-1.035) Urine Protein 2+ H (Negative) Urine Glucose (UA) Negative (Negative) g/dL Urine Ketones Negative (NEGATIVE) Urine Occult Blood 3+ H (Negative) Urine Nitrate Positive H (Negative) Urine Bilirubin Negative (NEGATIVE) Urine Urobilinogen 0.2 (0.2) E.U./dL Ur Leukocyte Esterase 1+ H (NEGATIVE) Urine RBC 30-100/hpf H (0-5/HPF) Urine WBC 10-30/hpf H (0-5/HPF) Ur Squamous Epith Cells 1-5 /hpf (0-5/HPF) Amorphous Sediment 1+ Urine Bacteria Few (2-10) H (None) Ur Culture Indicated? Specimen cultured Imaging Data X-ray foot: Radiologist's Impression: FINDINGS: Bones: Normal bone mineralization present. No evidence of acute fracture or lytic lesion. Hypertrophic osteophytes between the 3rd and 4th metatarsal heads, bases of the 3rd and 4th proximal phalanx, and several intertarsal joints. Degenerative enthesophytes noted arising from the base of the 5th metatarsal, medial malleolus, and there are large posterior and plantar calcaneal enthesophytes as well. Soft tissues: No tibiotalar joint effusion. Achilles tendon appears normal. IMPRESSION: 1. No acute fracture or foreign body. 2. Degenerative osteoarthritis as above. 3. Large posterior and plantar calcaneal spurs Approved by: Crow De La Torre M.D. on 02/24/2021 at 12:03 MDM Narrative Medical decision making narrative: 80-year-old gentleman with recent CVA, extended hospital in rehabilitation stay and [facility] presents with increasing weakness today. He apparently was going to the bathroom and too weak to get off the toilet complaining of left foot pain. 911 was called and he was transported to the emergency department. feeling better after mild fluid resuscitation. Area of left foot pain is examined there is developing erythema with concern for cellulitis. White blood cell count is not elevated and there is no evidence of sepsis or abscess formation at this point there is no bony injury to that foot. The foot is somewhat weaker because of his previous stroke and he states that he does occasionally have trouble lifting it completely with when he is walking secondary to his recent stroke. Incident ally found was a urinary tract infection. He was given IV antibiotics for the cellulitis that will also appropriately treat his urinary tract infection. After antibiotics fluid resuscitation workup he is appearing much better, feels much better is able to get up off the bed in into the wheelchair and would prefer discharge home at this point. I am finding no evidence of overwhelming infection, acute bony trauma and no suggestion of worsening or new stroke symptoms. He is given ceftriaxone to treat both the cellulitis and urinary tract infection that are felt to be developing and will be discharged home with his . Findings and concerns are reviewed with both of them questions are answered. Discharge Plan Departure Patient Disposition: Home Clinical Impression: Cellulitis Qualifiers: Site of cellulitis: extremity Site of cellulitis of extremity: lower extremity Laterality: left Qualified Code(s): L03.116 - Cellulitis of left lower limb Urinary tract infection Qualifiers: Urinary tract infection type: acute cystitis Hematuria presence: without hematuria Qualified Code(s): N30.00 - Acute cystitis without hematuria Instructions: DI for Cellulitis -- Adult, DI for Urinary Tract Infection (UTI) Activity Restrictions/Additional Instructions: Thank you for coming in today Your exam lab work was actually very reassuring. It does look like you have the start of a bladder infection as well as an infection starting on the left side of your foot. Neither these infections are particularly severe nor overwhelming. You do not have any signs of sepsis. You were given a dose of IV antibiotics in the emergency department that essentially will clear the bladder infection. I am going to suggest an additional 7 days of cephalexin to make sure that the skin infection on the side of your foot heals completely. There is no evidence of recurrent stroke, heart failure, acute heart syndromes or heart attack or other reasons that you would need to be hospitalized If you find that you are worsening or developing new or different symptoms, please return to the ER for further evaluation I hope you feel better soon Prescriptions: New cephalexin 500 mg capsule 500 mg PO TID 7 Days Qty: 21 RF: 0 No Action chlorthalidone 25 mg tablet 25 mg PO DAILY RF: 0 sildenafil [Viagra] 25 mg tablet 1 dose PO DIRECTED PRN (Reason: Erectile Dysfunction) RF: 0 simvastatin 40 mg tablet 40 mg PO DAILY RF: 0 tamsulosin 0.4 mg capsule 0.8 mg PO DAILY RF: 0 lisinopril 10 mg tablet 10 mg PO DAILY RF: 0 furosemide 20 mg tablet 20 mg PO DAILY RF: 0 potassium chloride 10 mEq tablet,ER particles/crystals 10 meq PO DAILY RF: 0 diclofenac sodium [Voltaren] 1 % gel 2 gram TOP QID PRN (Reason: pain) Qty: 100 RF: 0 Referrals: Nadya Choe PA-C [Primary Care Provider] -
--- NOTE | 2021-02-24 12:42 | DI.RAD.S_ITS ---
PROCEDURE: XR FOOT LT 2V INDICATIONS: pain, weakness TECHNIQUE: 2 views of the foot were acquired. COMPARISON: None. FINDINGS: Bones: Normal bone mineralization present. No evidence of acute fracture or lytic lesion. Hypertrophic osteophytes between the 3rd and 4th metatarsal heads, bases of the 3rd and 4th proximal phalanx, and several intertarsal joints. Degenerative enthesophytes noted arising from the base of the 5th metatarsal, medial malleolus, and there are large posterior and plantar calcaneal enthesophytes as well. Soft tissues: No tibiotalar joint effusion. Achilles tendon appears normal. IMPRESSION: 1. No acute fracture or foreign body. 2. Degenerative osteoarthritis as above. 3. Large posterior and plantar calcaneal spurs Approved by: Crow De La Torre M.D. on 02/24/2021 at 12:03
[2021-02-24 13:37] LABS: Add Manual Diff / Slide Review NO; Basophils Absolute Auto 0 /uL (0-100); Basophils Percent Auto 0.4 % (0-2); Eosinophils Absolute Auto 100 /uL (0-450); Eosinophils Percent Auto 0.5 % (2-4); Hematocrit 40.7 % (41-53); Hemoglobin 13.6 g/dL (13.5-17.5); Lymphocytes Absolute Auto 400 /uL (1100-4500); Lymphocytes Percent Auto 3.5 % (25-40); Mean Corpuscular HGB Conc 33.3 % (30-36); Mean Corpuscular Hemoglobin 29.3 PG (26-34); Monocytes Absolute Auto 600 /uL (0-900); Monocytes Percent Auto 4.9 % (3-14); Neutrophils Absolute Auto 11400 /uL (1500-7000); Neutrophils Percent Auto 90.7 % (50-75); Platelet Count 186 X10^3/uL (150-400); Red Blood Cell Count 4.62 X10^6/uL (4.5-5.9); Red Cell Distribution Width 13.4 % (11.6-14.8); White Blood Cell Count 12.6 X10^3/uL (4.5-11.0)
[2021-02-24 13:46] LABS: Alanine Aminotransferase 20 IU/L (<50); Albumin 3.2 g/dL (3.5-5.0); Albumin Globulin Ratio 1.3 (1.0-2.8); Alkaline Phosphatase 80 U/L (38-126); Aspartate Aminotransferase 20 IU/L (17-59); BUN Creatinine Ratio 15.7 (6-22); Bilirubin Total 1.3 mg/dL (0.2-1.3); Blood Urea Nitrogen 16 mg/dL (9-20); Calcium 8.6 mg/dL (8.4-10.2); Carbon Dioxide 30 mmol/L (22-32); Chloride 103 mmol/L (98-107); Estimated Glomerular Filt Rate > 60.0 mL/min (>60); Globulin 2.5 g/dL (1.7-4.1); Glucose 133 mg/dL (80-110); HEMOLYSIS < 15 (0-50); Potassium 3.6 mmol/L (3.4-5.1); Sodium 139 mmol/L (137-145); Total Protein 5.7 g/dL (6.3-8.2)
[2021-02-24] MEDS: cefTRIAXone 2,000 MG in SODIUM CHLORIDE 0.9% 100 ML 200 ML IV (13:47)
--- NOTE | 2021-02-24 13:53 | PC.NURSE ---
left foot is swollen and red. states it woke him up at 2 am in the morning.
[2021-02-24 13:58] LABS: Troponin I < 0.012 ng/mL (0.01-0.034)
--- NOTE | 2021-02-24 14:10 | PC.NURSE ---
pt arrived with an indwelling marinelli cath. urine is foul smelling and concentrated. leg bag changed, will send sample to lab. pt denies fever, chills.
[2021-02-24 14:38] LABS: Appearance Urine UA SL CLOUDY; Bilirubin Urine UA NEGATIVE (NEGATIVE); Color Urine UA YELLOW; Glucose Urine UA NEGATIVE (Negative); Ketones Urine UA NEGATIVE (NEGATIVE); Leukocyte Esterase Urine UA 1+ (NEGATIVE); Nitrite Urine UA POSITIVE (Negative); Occult Blood Urine UA 3+ (Negative); Protein Urine UA 2+ (Negative); Specific Gravity Urine UA 1.015 (1.000-1.035); Urobilinogen Urine UA 0.2 E.U./dL (0.2)
[2021-02-24 14:44] LABS: RBC Urine 30-100/HPF (0-5/HPF)
[2021-02-24 14:45] LABS: Amorphous Sediment Urine 1+; Bacteria Urine Few (2-10); Squamous Epithelial Cell Urine 1-5 /HPF (0-5/HPF); WBC Urine 10-30/HPF (0-5/HPF)
[2021-02-24 14:46] LABS: Culture Indicated Urine Specimen Cultured
== END 2021-02-24 15:49 | disposition home or self-care (01) ==
PROVIDERS: Emergency Provider Emergency Medicine; PCP Physician Assistant Medical
DX: L03.116 Cellulitis of left lower limb (principal); N30.00 Acute cystitis without hematuria; I69.844 Monoplegia of lower limb following other cerebrovascular disease affecting left non-dominant side
CPT/HCPCS: 36415; 73620; 80053; 81001; 84484; 85025; 87077; 87086; 87186; 96360; 99284; J0696

== ENCOUNTER 2021-03-25 17:25 | Inpatient (IN) | payer MEDICARE, OTHER, SELFPAY ==
[2021-01-12 23:40] VITALS: BMI 31.2
[2021-03-25] VITALS (11 sets, daily range): BP systolic 117–150; BP diastolic 73–81; PULSE 86–110; RESP 18–33; TEMP 36.2–37.1; O2SAT 93–95; BMI 30.1
--- NOTE | 2021-03-25 18:06 | DI.RAD.S_ITS ---
PROCEDURE: XR CHEST 1V INDICATIONS: suspected sepsis TECHNIQUE: One view of the chest was acquired. COMPARISON: [facility], CT, CT ANGIO HEAD AND NECK, 01/12/2021, 20:53. FINDINGS: Surgical changes and devices: None. Lungs and pleura: No consolidation. Emphysematous change. Suspect mild scarring in the right lung. No pleural effusions or pneumothorax. Mediastinum: Mediastinal contours appear normal. Heart size is normal. Bones and chest wall: No suspicious bony lesions. Overlying soft tissues appear unremarkable. IMPRESSION: No consolidation. Emphysematous change. Dictated by: Thierno Sethi M.D. on 03/25/2021 at 17:45 Approved by: Thierno Sethi M.D. on 03/25/2021 at 17:49
--- NOTE | 2021-03-25 18:29 | ED_ITS ---
HPI - General Adult General Chief complaint: Fever Stated complaint: fever Time Seen by Provider: 03/25/21 18:16 Source: patient Mode of arrival: Wheelchair Limitations: no limitations History of Present Illness HPI narrative: 81-year-old gentleman with a history of a stroke with residual left-sided weakness in January of this year, hypertension, hyperlipidemia presents after his home health physical therapist recommended that he go to the walk-in clinic because of low oxygen saturations, 92%, and high heart rate, 105,. He notes that over last 24 hours he has been weak was nauseated today while having a bowel movement but did not actually vomit. He was found have a fever of 100.3. He has currently has a Anderson catheter in place. He has no localizing symptoms however his does note that his urine ?looked bad? for a couple of days. He has no specific skin complaints, no cough does not actually report feeling short of breath despite saturations at 92% and no history of lung disease, no chest pain, minor dry cough, no rhinorrhea, no headache. He has increase in overall weakness so his residual left-sided weakness is worse but not in a way that suggests an extension of his prior stroke. Cognitively he is appropriate. He does note significant decrease in appetite with 20 lb weight loss in the last 2 months. Related Data Home Medications Medication Instructions Recorded Confirmed chlorthalidone 25 mg tablet 25 mg PO DAILY 10/20/18 01/13/21 furosemide 20 mg tablet 20 mg PO DAILY 10/20/18 01/13/21 lisinopril 10 mg tablet 10 mg PO DAILY 10/20/18 01/13/21 potassium chloride 10 mEq 10 meq PO DAILY 10/20/18 01/13/21 tablet,extended release(part/cryst) sildenafil 25 mg tablet 1 dose PO DIRECTED PRN 10/20/18 01/14/21 simvastatin 40 mg tablet 40 mg PO DAILY 10/20/18 01/13/21 tamsulosin 0.4 mg capsule 0.8 mg PO DAILY 10/20/18 01/13/21 Previous Rx's Medication Instructions Recorded diclofenac sodium 1 % topical gel 2 gram TOP QID PRN #100 gram 10/20/18 (Voltaren) Allergies Allergy/AdvReac Type Severity Reaction Status Date / Time aspirin Allergy Verified 03/25/21 17:41 Review of Systems Review of Systems Narrative: Remainder of complete review of systems is otherwise unremarkable except for that included in the HPI. Patient History Medical History BPH (benign prostatic hyperplasia) Cerebrovascular accident Essential hypertension Hyperlipidemia Surgical History History of back surgery History of surgery on arm History of tonsillectomy Family History Mother Cancer Father Cancer Social History household members: spouse Smoking Status: Never smoker alcohol intake: current Smoking Status: Never smoker alcohol intake frequency: holidays/special occasions only Substance Use Type: does not use Exam Narrative Exam Narrative: General: Healthy appearing, in no acute distress. Able to give a complete and coherent history. Well-nourished well-developed HEENT: Moist mucous membranes, normal sclera with reactive pupils, Neck: No JVD, supple Respiratory: Lungs are clear to auscultation, no wheezing no rales no rhonchi. Full and symmetrical air movement Cardiac: Mild tachycardia otherwise, Regular rate and rhythm no murmurs no bruits Abdomen: Soft, nontender, good bowel tones, no flank pain Skin: Warm and dry, no rashes, no cellulitis no skin breakdown Neurologic: Left-sided deficit from his prior stroke with mild left facial arm and leg weakness. Overall global weakness Extremities: No trauma, well perfused Psych: Cooperative, appropriate insight and affect Initial Vital Signs Initial Vital Signs: Vital Signs Temperature 98.5 F 03/25/21 17:41 Pulse Rate 110 H 03/25/21 17:41 Respiratory Rate 21 03/25/21 17:41 Blood Pressure 124/78 03/25/21 17:41 Pulse Oximetry 94 03/25/21 17:41 Course Orders Ordered: ED Orders 03/25/21 18:06 XR chest 1V Stat RT Consult Eval and Treat Now 03/25/21 18:35 Complete Blood Count AUTO DIFF Stat Comprehensive Metabolic Panel Stat Lactate (Lactic Acid) Stat Lipase Stat Procalcitonin Stat 03/25/21 18:37 Respiratory Panel (Film Array) Stat 03/25/21 18:57 Blood Culture Stat 03/25/21 19:27 Urinalysis and Microscopic Stat Urine Culture Stat Discontinued Medications Sodium Chloride (Normal Saline 0.9%) 1,000 mls @ 1,000 mls/hr IV BOLUS ONE Stop: 03/25/21 19:05 Last Infusion: 03/25/21 19:45 Dose: 0 mls/hr Documented by: Admin: 03/25/21 18:34 Dose: 1,000 mls/hr Documented by: POLLO Piperacillin Sod/Tazobactam (Sod 4.5 gm/ Sodium Chloride) 100 mls @ 200 mls/hr IV NOW ONE Stop: 03/25/21 18:39 Last Infusion: 03/25/21 19:51 Dose: 0 mls/hr Documented by: Admin: 03/25/21 19:21 Dose: 200 mls/hr Documented by: POLLO Vital Signs Vital signs: Vital Signs - 8 hr 03/25/21 17:41 03/25/21 18:22 03/25/21 18:30 Temperature 98.5 F Pulse Rate 110 H 104 H 99 H Respiratory Rate 21 33 H 21 Blood Pressure 124/78 133/74 Pulse Oximetry 94 93 94 03/25/21 19:00 03/25/21 19:01 03/25/21 19:30 Temperature Pulse Rate 101 H 100 H 90 Respiratory Rate 20 24 22 Blood Pressure 124/79 133/73 Pulse Oximetry 94 95 94 03/25/21 20:00 03/25/21 20:30 03/25/21 21:00 Temperature 98.8 F Pulse Rate 90 87 86 Respiratory Rate 26 H 24 22 Blood Pressure 146/73 H 144/80 H 150/81 H Pulse Oximetry 94 95 95 03/25/21 21:30 Temperature 98.6 F Pulse Rate 86 Respiratory Rate 25 H Blood Pressure 145/80 H Pulse Oximetry 94 Medical Decision Making Lab Data Result diagrams: 03/25/21 18:35 03/25/21 18:35 Labs: Lab Results 03/25/21 03/25/21 03/25/21 Range/Units 18:35 18:35 18:35 WBC 13.0 H (4.5-11.0) X10^3/uL RBC 4.53 (4.5-5.9) X10^6/uL Hgb 13.0 L (13.5-17.5) g/dL Hct 38.7 L (41-53) % MCV 85.6 (80-100) fL MCH 28.6 (26-34) PG MCHC 33.5 (30-36) % RDW 13.3 (11.6-14.8) % Plt Count 222 (150-400) X10^3/uL Neut % (Auto) 88.1 H (50-75) % Lymph % (Auto) 4.9 L (25-40) % [place] % (Auto) 6.5 (3-14) % Eos % (Auto) 0.2 L (2-4) % Baso % (Auto) 0.3 (0-2) % Neut # (Auto) 56233 H (2637-3774) /uL Lymph # (Auto) 600 L (3778-5815) /uL [place] # (Auto) 800 (0-900) /uL Eos # (Auto) 0 (0-450) /uL Baso # (Auto) 0 (0-100) /uL Sodium 135 L (137-145) mmol/L Potassium 3.2 L (3.4-5.1) mmol/L Chloride 101 (98-107) mmol/L Carbon Dioxide 25 (22-32) mmol/L BUN 14 (9-20) mg/dL Creatinine 0.86 (0.66-1.25) mg/dL Estimated GFR > 60.0 (>60) mL/min BUN/Creatinine Ratio 16.3 (6-22) Glucose 121 H (80-110) mg/dL Lactate 1.9 (0.7-2.1) mmol/L Calcium 8.6 (8.4-10.2) mg/dL Total Bilirubin 1.8 H (0.2-1.3) mg/dL AST 38 (17-59) IU/L ALT 34 (<50) IU/L Alkaline Phosphatase 120 (38-126) U/L Total Protein 6.4 (6.3-8.2) g/dL Albumin 3.5 (3.5-5.0) g/dL Globulin 2.9 (1.7-4.1) g/dL Albumin/Globulin Ratio 1.2 (1.0-2.8) Lipase 50 (23-300) U/L Procalcitonin 0.20 (<0.5) ng/mL Urine Color Urine Appearance Urine pH (4.5-8.0) Ur Specific [place] (1.000-1.035) Urine Protein (Negative) Urine Glucose (UA) (Negative) g/dL Urine Ketones (NEGATIVE) Urine Occult Blood (Negative) Urine Nitrate (Negative) Urine Bilirubin (NEGATIVE) Urine Urobilinogen (0.2) E.U./dL Ur Leukocyte Esterase (NEGATIVE) Urine RBC (0-5/HPF) Urine WBC (0-5/HPF) Ur Squamous Epith Cells (0-5/HPF) Urine Bacteria (None) Ur Culture Indicated? Chlamy pneumoniae PCR (Not Detect) Adenovirus (PCR) (Not Detect) B. pertussis DNA (PCR) (Not Detecte) B.parapertussis DNA PCR Coronavirus OC43 (PCR) (Not Detect) Coronavirus HKU1 (PCR) (Not Detect) Coronavirus 229E (PCR) (Not Detect) SARS-CoV-2 (PCR) Coronavirus NL63 (PCR) (Not Detect) Human Metapneumovir PCR (Not Detect) Influenza Type A (PCR) (Not Detect) Influenza Type B (PCR) (Not Detect) M. pneumoniae (PCR) (Not Detect) Parainfluenza 1 (PCR) (Not Detect) Parainfluenza 2 (PCR) (Not Detect) Parainfluenza 3 (PCR) (Not Detect) Parainfluenza 4 (PCR) (Not Detect) RSV (PCR) (Not Detect) Entero/Rhino (PCR) (Not Detect) 03/25/21 03/25/21 03/25/21 Range/Units 18:37 18:37 19:27 WBC (4.5-11.0) X10^3/uL RBC (4.5-5.9) X10^6/uL Hgb (13.5-17.5) g/dL Hct (41-53) % MCV (80-100) fL MCH (26-34) PG MCHC (30-36) % RDW (11.6-14.8) % Plt Count (150-400) X10^3/uL Neut % (Auto) (50-75) % Lymph % (Auto) (25-40) % [place] % (Auto) (3-14) % Eos % (Auto) (2-4) % Baso % (Auto) (0-2) % Neut # (Auto) (9669-2592) /uL Lymph # (Auto) (7985-9433) /uL [facility] [place] # (Auto) (0-900) /uL Eos # (Auto) (0-450) /uL Baso # (Auto) (0-100) /uL Sodium (137-145) mmol/L Potassium (3.4-5.1) mmol/L Chloride (98-107) mmol/L Carbon Dioxide (22-32) mmol/L BUN (9-20) mg/dL Creatinine (0.66-1.25) mg/dL Estimated GFR (>60) mL/min BUN/Creatinine Ratio (6-22) Glucose (80-110) mg/dL Lactate (0.7-2.1) mmol/L Calcium (8.4-10.2) mg/dL Total Bilirubin (0.2-1.3) mg/dL AST (17-59) IU/L ALT (<50) IU/L Alkaline Phosphatase (38-126) U/L Total Protein (6.3-8.2) g/dL Albumin (3.5-5.0) g/dL Globulin (1.7-4.1) g/dL Albumin/Globulin Ratio (1.0-2.8) Lipase (23-300) U/L Procalcitonin (<0.5) ng/mL Urine Color Yellow Urine Appearance Cloudy Urine pH 6.5 (4.5-8.0) Ur Specific [place] 1.010 (1.000-1.035) Urine Protein 1+ H (Negative) Urine Glucose (UA) Trace H (Negative) g/dL Urine Ketones Negative (NEGATIVE) Urine Occult Blood 2+ H (Negative) Urine Nitrate Positive H (Negative) Urine Bilirubin Negative (NEGATIVE) Urine Urobilinogen 1.0 (0.2) E.U./dL Ur Leukocyte Esterase 3+ H (NEGATIVE) Urine RBC 5-10/hpf H (0-5/HPF) Urine WBC >100/hpf H (0-5/HPF) Ur Squamous Epith Cells 0-1 /hpf (0-5/HPF) Urine Bacteria Moderate (10-30) H (None) Ur Culture Indicated? Specimen cultured Chlamy pneumoniae PCR Not detected (Not Detect) Adenovirus (PCR) Not detected (Not Detect) B. pertussis DNA (PCR) Not detected (Not Detecte) B.parapertussis DNA PCR Not Reportable Coronavirus OC43 (PCR) Not detected (Not Detect) Coronavirus HKU1 (PCR) Not detected (Not Detect) Coronavirus 229E (PCR) Not detected (Not Detect) SARS-CoV-2 (PCR) Not Reportable Negative Coronavirus NL63 (PCR) Not detected (Not Detect) Human Metapneumovir PCR Not detected (Not Detect) Influenza Type A (PCR) Not detected (Not Detect) Influenza Type B (PCR) Not detected (Not Detect) M. pneumoniae (PCR) Not detected (Not Detect) Parainfluenza 1 (PCR) Not detected (Not Detect) Parainfluenza 2 (PCR) Not detected (Not Detect) Parainfluenza 3 (PCR) Not detected (Not Detect) Parainfluenza 4 (PCR) Not detected (Not Detect) RSV (PCR) Not detected (Not Detect) Entero/Rhino (PCR) Not detected (Not Detect) Imaging Data Chest x-ray: Radiologist's Impression: FINDINGS: Surgical changes and devices: None. Lungs and pleura: No consolidation. Emphysematous change. Suspect mild scarring in the right lung. No pleural effusions or pneumothorax. Mediastinum: Mediastinal contours appear normal. Heart size is normal. Bones and chest wall: No suspicious bony lesions. Overlying soft tissues appear unremarkable. IMPRESSION: No consolidation. Emphysematous change. Dictated by: Thierno Sethi M.D. on 03/25/2021 at 17:45 ECG Data Interpretation: Sinus tachycardia at a rate of 109 Normal intervals, normal axis No acute ischemic changes MDM Narrative Medical decision making narrative: 81-year-old gentleman presents with global weakness, low-grade fever, mild hypoxia and tachypnea. Presumption is urinary tract infection with possible sepsis developing. Physical exam does not suggest an alternate source. Most recent urinary tract infection was February 24 and was Klebsiella and Pseudomonas with both of them sensitive to Zosyn. Will begin Zosyn as remainder of workup is completed. New Anderson catheter is placed and urine does look like it is infected. Slightly elevated white count however procalcitonin is not elevated. Lactic acid is 1.9. Blood pressure is reassuring, heart rate has gone down from 110 to 95 with initial fluid resuscitation. At this point I am concerned that he has a urinary tract infection with serous criteria but not meeting criteria for sepsis at this time. With his previous stroke, aged 81 and global weakness will recommend hospitalization this evening. Discussed with Ms Martinez, hospitalist Discharge Plan Departure Patient Disposition: Admitted as Observation Clinical Impression: Bacterial UTI, Weakness, Tachycardia
[2021-03-25] MEDS: SODIUM CHLORIDE 0.9% 1,000 ML 1000 ML IV (18:34)
[2021-03-25 18:43] LABS: Add Manual Diff / Slide Review NO; Basophils Absolute Auto 0 /uL (0-100); Basophils Percent Auto 0.3 % (0-2); Eosinophils Absolute Auto 0 /uL (0-450); Eosinophils Percent Auto 0.2 % (2-4); Hematocrit 38.7 % (41-53); Lymphocytes Absolute Auto 600 /uL (1100-4500); Lymphocytes Percent Auto 4.9 % (25-40); Mean Corpuscular HGB Conc 33.5 % (30-36); Mean Corpuscular Hemoglobin 28.6 PG (26-34); Mean Corpuscular Volume 85.6 fL (80-100); Monocytes Absolute Auto 800 /uL (0-900); Monocytes Percent Auto 6.5 % (3-14); Neutrophils Absolute Auto 11400 /uL (1500-7000); Neutrophils Percent Auto 88.1 % (50-75); Platelet Count 222 X10^3/uL (150-400); Red Blood Cell Count 4.53 X10^6/uL (4.5-5.9); Red Cell Distribution Width 13.3 % (11.6-14.8)
[2021-03-25 19:07] LABS: Lactate (Lactic Acid) 1.9 mmol/L (0.7-2.1)
[2021-03-25 19:08] LABS: Alanine Aminotransferase 34 IU/L (<50); Albumin 3.5 g/dL (3.5-5.0); Albumin Globulin Ratio 1.2 (1.0-2.8); Alkaline Phosphatase 120 U/L (38-126); Aspartate Aminotransferase 38 IU/L (17-59); BUN Creatinine Ratio 16.3 (6-22); Bilirubin Total 1.8 mg/dL (0.2-1.3); Blood Urea Nitrogen 14 mg/dL (9-20); Calcium 8.6 mg/dL (8.4-10.2); Carbon Dioxide 25 mmol/L (22-32); Chloride 101 mmol/L (98-107); Estimated Glomerular Filt Rate > 60.0 mL/min (>60); Globulin 2.9 g/dL (1.7-4.1); Glucose 121 mg/dL (80-110); HEMOLYSIS < 15 (0-50); Lipase 50 U/L (23-300); Potassium 3.2 mmol/L (3.4-5.1); Sodium 135 mmol/L (137-145); Total Protein 6.4 g/dL (6.3-8.2)
[2021-03-25] MEDS: PIPERACILLIN/TAZO 4.5 GM in SODIUM CHLORIDE 0.9% 100 ML 200 ML IV (19:21)
--- NOTE | 2021-03-25 19:36 | PC.NURSE ---
Catheter bag changed and urine collected/sent to lab.
[2021-03-25 20:01] LABS: Appearance Urine UA CLOUDY; Bilirubin Urine UA NEGATIVE (NEGATIVE); Color Urine UA YELLOW; Glucose Urine UA TRACE g/dL (Negative); Ketones Urine UA NEGATIVE (NEGATIVE); Leukocyte Esterase Urine UA 3+ (NEGATIVE); Nitrite Urine UA POSITIVE (Negative); Occult Blood Urine UA 2+ (Negative); Protein Urine UA 1+ (Negative); pH Urine UA 6.5 (4.5-8.0)
[2021-03-25 20:14] LABS: Adenovirus Not Detected (Not Detect); COVID-19 CEPHEID PCR (VTM/NP) Negative (Negative)
[2021-03-25 20:15] LABS: Coronavirus 229E Not Detected (Not Detect); Coronavirus HKU1 Not Detected (Not Detect); Coronavirus NL 63 Not Detected (Not Detect); Coronavirus OC43 Not Detected (Not Detect); Human Metapneumovirus Not Detected (Not Detect); Human Rhinovirus/Enterovirus Not Detected (Not Detect); Influenza A Not Detected (Not Detect); Influenza B Not Detected (Not Detect); Parainfluenza Virus 1 Not Detected (Not Detect); Parainfluenza Virus 2 Not Detected (Not Detect); Parainfluenza Virus 3 Not Detected (Not Detect); Parainfluenza Virus 4 Not Detected (Not Detect); Respiratory Syncytial Virus Not Detected (Not Detect)
[2021-03-25 20:16] LABS: Bordetella pertussis Not Detected (Not Detecte); Chlamydophila pneumoniae Not Detected (Not Detect); Mycoplasma pneumoniae Not Detected (Not Detect)
[2021-03-25 20:24] LABS: Bacteria Urine Moderate (10-30); Culture Indicated Urine Specimen Cultured; RBC Urine 5-10/HPF (0-5/HPF); Squamous Epithelial Cell Urine 0-1 /HPF (0-5/HPF); WBC Urine >100/HPF (0-5/HPF)
--- NOTE | 2021-03-25 23:17 | PM.HP.1 ---
History of Present Illness History of Present Illness Date Patient Seen: 03/25/21 Time Patient Seen: 23:17 Chief complaint: fever Narrative: Garfield Morse is a 81-year-old gentleman with a history of a stroke with residual left-sided weakness in January of this year 2020, BPH, hypertension, hyperlipidemia presents after his home health physical therapist recommended that he go to the walk-in clinic because of low oxygen saturations, 92%, and high heart rate, 105,.? He notes that over last 24 hours he has been weak was nauseated today while having a bowel movement but did not actually vomit.? He was found have a fever of 100.3.? He has currently has a Marinelli catheter in place.? He has no localizing symptoms however his does note that his urine ?looked bad? for a couple of days.? He has no specific skin complaints, no cough does not actually report feeling short of breath despite saturations at 92% and no history of lung disease, no chest pain, minor dry cough, no rhinorrhea, no headache.? He has increase in overall weakness so his residual left-sided weakness is worse but not in a way that suggests an extension of his prior stroke.? Cognitively he is appropriate.? He does note significant decrease in appetite with 20 lb weight loss in the last 2 months. Patient's vitals upon admit temp afebrile at 98.6, BP 145/80, HR 86, R 25, O2 saturation 94% on room air. Patient has an elevated WBC at 13, neutrophils 11,400, HGB 13, HCT 38.7. Patient has mild hypokalemia potassium 3.2, glucose 121 coma bili 1.8, sofa score: 2, lactate, lipase, and procalcitonin-all within normal limits. Patient History Medical History BPH (benign prostatic hyperplasia) Cerebrovascular accident Essential hypertension Hyperlipidemia Surgical History History of back surgery History of surgery on arm History of tonsillectomy Family & Social History Family History Mother Cancer Father Cancer Social History: household members spouse Safety & Behavioral: Feels Safe in Current Yes Environment Been Physically Hurt or No Threatened By a Person Tobacco & Substance use: Smoking Status Never smoker alcohol intake current alcohol intake frequency holiday/special occasion Substance Use Type does not use Meds Home Medications and Allergies Home Medications Medication Instructions Recorded Confirmed Type furosemide 20 mg tablet 20 mg PO 3XW 10/20/18 03/25/21 History lisinopril 10 mg tablet 7.5 mg PO DAILY 10/20/18 03/25/21 History potassium chloride 10 mEq 10 meq PO DAILY 10/20/18 03/25/21 History tablet,extended release(part/cryst) tamsulosin 0.4 mg capsule 0.8 mg PO DAILY 10/20/18 03/25/21 History aspirin 81 mg tablet,delayed 81 mg PO DAILY 03/25/21 03/25/21 History release atorvastatin 80 mg tablet 80 mg PO BEDTIME 03/25/21 03/25/21 History finasteride 5 mg tablet 5 mg PO DAILY 03/25/21 03/25/21 History Allergies Allergy/AdvReac Type Severity Reaction Status Date / Time aspirin Allergy Verified 03/25/21 17:41 Review of Systems Review of Systems Narrative: All 12 point systems reviewed with the patient and are negative except otherwise documented. Exam Vital Signs (past 8 hours): - 03/25/21 17:41 03/25/21 18:22 03/25/21 18:30 Temperature 98.5 F Pulse Rate 110 H 104 H 99 H Respiratory Rate 21 33 H 21 Blood Pressure 124/78 133/74 Pulse Oximetry 94 93 94 03/25/21 19:00 03/25/21 19:01 03/25/21 19:30 Temperature Pulse Rate 101 H 100 H 90 Respiratory Rate 20 24 22 Blood Pressure 124/79 133/73 Pulse Oximetry 94 95 94 03/25/21 20:00 03/25/21 20:30 03/25/21 21:00 Temperature 98.8 F Pulse Rate 90 87 86 Respiratory Rate 26 H 24 22 Blood Pressure 146/73 H 144/80 H 150/81 H Pulse Oximetry 94 95 95 03/25/21 21:30 Temperature 98.6 F Pulse Rate 86 Respiratory Rate 25 H Blood Pressure 145/80 H Pulse Oximetry 94 Oxygen Delivery Method Room Air Narrative Exam Narrative: General: Patient is a well-developed, well-nourished in no distress at this time. HEENT: Normocephalic, atraumatic, extraocular muscles intact, oral pharynx is clear and mucous membranes are moist. Neck is supple and symmetric, trachea is midline, no adenopathy, no thyroid enlargement, nontender, no masses palpated. Negative for JVD Chest: Normal AP diameter and contour without kyphoscoliosis, no nasal flaring, retractions, or tachypneic labored Lungs: Auscultation of all lung mathews are clear without adventitious sounds, wheezes, rhonchi, or rales. Cardio: S1 & S2 with regular rate and rhythm without murmur, rubs, or gallops, no carotid bruit, no cardiac pulsations present. Abdomen: Soft nontender, negative for organomegaly, or masses. Bowel sounds are present in all 4 quadrants without guarding or rebound, no CVA tenderness. Musculoskeletal: Slight left tongue deviation, moderate left facial droop, left lower extremity strength at the ankle is 3/5, 5/5 right ankle. Left upper extremity is notable for a weak left lead investigator strength compared to the right, strength at 1/5 at the elbow and shoulder. no deformity, crepitus, effusions, cyanosis, clubbing or edema present. Full range of motion intact radial and pedal pulses are normal. Skin: Warm dry and intact without rashes, ulcerations or petechiae. Neuro: Alert and orientated x3, strength is +5/5 in all extremities, sensation to touch intact, no gross deficits noted of cranial nerves. Psych: Patient has a well-kept appearance, appropriate affect, mental status attitude thought context and judgment are appropriate for age. Objective Labs Result Diagrams: 03/25/21 18:35 03/25/21 18:35 Labs: Laboratory Results - last 24 hr 03/25/21 03/25/21 03/25/21 18:35 18:35 18:35 WBC 13.0 H RBC 4.53 Hgb 13.0 L Hct 38.7 L MCV 85.6 MCH 28.6 MCHC 33.5 RDW 13.3 Plt Count 222 Neut % (Auto) 88.1 H Lymph % (Auto) 4.9 L [place] % (Auto) 6.5 Eos % (Auto) 0.2 L Baso % (Auto) 0.3 Neut # (Auto) 58591 H Lymph # (Auto) 600 L [place] # (Auto) 800 Eos # (Auto) 0 Baso # (Auto) 0 Sodium 135 L Potassium 3.2 L Chloride 101 Carbon Dioxide 25 BUN 14 Creatinine 0.86 Estimated GFR > 60.0 BUN/Creatinine Ratio 16.3 Glucose 121 H Lactate 1.9 Calcium 8.6 Total Bilirubin 1.8 H AST 38 ALT 34 Alkaline Phosphatase 120 Total Protein 6.4 Albumin 3.5 Globulin 2.9 Albumin/Globulin Ratio 1.2 Lipase 50 Procalcitonin 0.20 Urine Color Urine Appearance Urine pH Ur Specific [place] Urine Protein Urine Glucose (UA) Urine Ketones Urine Occult Blood Urine Nitrate Urine Bilirubin Urine Urobilinogen Ur Leukocyte Esterase Urine RBC Urine WBC Ur Squamous Epith Cells Urine Bacteria Ur Culture Indicated? Chlamy pneumoniae PCR Adenovirus (PCR) B. pertussis DNA (PCR) B.parapertussis DNA PCR Coronavirus OC43 (PCR) Coronavirus HKU1 (PCR) Coronavirus 229E (PCR) SARS-CoV-2 (PCR) Coronavirus NL63 (PCR) Human Metapneumovir PCR Influenza Type A (PCR) Influenza Type B (PCR) M. pneumoniae (PCR) Parainfluenza 1 (PCR) Parainfluenza 2 (PCR) Parainfluenza 3 (PCR) Parainfluenza 4 (PCR) RSV (PCR) Entero/Rhino (PCR) 03/25/21 03/25/21 03/25/21 18:37 18:37 19:27 WBC RBC Hgb Hct MCV MCH MCHC RDW Plt Count Neut % (Auto) Lymph % (Auto) [place] % (Auto) Eos % (Auto) Baso % (Auto) Neut # (Auto) Lymph # (Auto) [place] # (Auto) Eos # (Auto) Baso # (Auto) Sodium Potassium Chloride Carbon Dioxide BUN Creatinine Estimated GFR BUN/Creatinine Ratio Glucose Lactate Calcium Total Bilirubin AST ALT Alkaline Phosphatase Total Protein Albumin Globulin Albumin/Globulin Ratio Lipase Procalcitonin Urine Color Yellow Urine Appearance Cloudy Urine pH 6.5 Ur Specific [place] 1.010 Urine Protein 1+ H Urine Glucose (UA) Trace H Urine Ketones Negative Urine Occult Blood 2+ H Urine Nitrate Positive H Urine Bilirubin Negative Urine Urobilinogen 1.0 Ur Leukocyte Esterase 3+ H Urine RBC 5-10/hpf H Urine WBC >100/hpf H Ur Squamous Epith Cells 0-1 /hpf Urine Bacteria Moderate (10-30) H Ur Culture Indicated? Specimen cultured Chlamy pneumoniae PCR Not detected Adenovirus (PCR) Not detected B. pertussis DNA (PCR) Not detected B.parapertussis DNA PCR Not Reportable Coronavirus OC43 (PCR) Not detected Coronavirus HKU1 (PCR) Not detected Coronavirus 229E (PCR) Not detected SARS-CoV-2 (PCR) Not Reportable Negative Coronavirus NL63 (PCR) Not detected Human Metapneumovir PCR Not detected Influenza Type A (PCR) Not detected Influenza Type B (PCR) Not detected M. pneumoniae (PCR) Not detected Parainfluenza 1 (PCR) Not detected Parainfluenza 2 (PCR) Not detected Parainfluenza 3 (PCR) Not detected Parainfluenza 4 (PCR) Not detected RSV (PCR) Not detected Entero/Rhino (PCR) Not detected Assessment & Plan Assessment & Plan narrative: Garfield Morse is a 81-year-old gentleman with a history of a stroke with residual left-sided weakness in January of this year 2020, BPH , related urinanry retention with marinelli cath in place, hypertension, hyperlipidemia presented to ED after his home health physical therapist recommended that he go to the walk-in clinic because of low oxygen saturations, 92%, and high heart rate, 105,.? He notes that over last 24 hours he has been weak was nauseated today while having a bowel movement but did not actually vomit.? He was found have a fever of 100.3. Patient admitted for UTI secondary to indwelling catheter. 1. UTI secondary to indwelling catheter, early sepsis, acute, present on admission pyelonephritis vs. epididymitis vs. prostatitis vs.nephrolithiasis. -WBC at 13, neut# 11,400, HGB 13, HCT 38.7. potassium 3.2, glucose 121, bili 1.8, sofa score: 2 -patient to be monitored on tele medicine, vital signs q.4 hours, intake and output monitored Q shift, manage Marinelli catheter, weight measure daily, diet: Clear liquids patient may advance as tolerated to heart healthy -patient had a catheter placed at the [facility] facility following his stroke in January for urinary retention, he has an appointment scheduled next week with his urologist to determine plan of care. If patient is not improving with IV antibiotics may need to replace Marinelli catheter. -IV fluid normal saline 100 cc/HR, gentle rehydration- reassess in am and determine to increase fluids or restriction depending on volume status.92%-O2 saturation -call for urinary output less than 200 mL per shift, temp >38.5, systolic <100 or Heart rate >110 or an SaO2 less than 92%, -labs ordered: daily: CBC, CMP, blood cultures x2 and urine culture pending -Zosyn q.6 hours 2. History of stroke January 2021 with residual left-sided weakness, chronic, present on admission -patient will continue his Lipitor and lisinopril 3. Essential hypertension, acute on chronic, present on admission -continue patient's lisinopril, Lasix and potassium 4. Hyperlipidemia, chronic, present on admission -continue patients Lipitor. 5. BPH, chronic, present on admission -continue patient's tamsulosin and finasteride -patient to continue with Marinelli catheter in place-managed by Urology 6. Obesity as evidence by BMI of 30, acute on chronic, present on admission -consideration will be given to dietary counseling. Code status:? Full Surrogate decision maker:? naima Arsenio DUARTE PCR:? Negative VTE/DVT prophylaxis:? Lovenox 40 mg and SCDs Estimated length of stay:? Greater than 2 midnight I have utilized all available immediate resources to obtain, update, or review the patient's current medications. I confirmed that the patient's advanced care plan is present, Code status is documented and/or surrogate decision maker is listed in the patient's medical record. Time Spent With Patient Critical Care time: I spent a total of [] minutes of critical care time on this patient's care today; this time is exclusive of procedural time. Scores GCS Anthony coma scale eye opening: Spontaneous [place] coma scale verbal response: Orientated Anthony coma scale motor response: Obey commands Anthony coma scale total score: 15
[2021-03-25] MEDS: LACTATED RINGERS 1,000 ML 100 ML IV (23:21)
[2021-03-26] VITALS (13 sets, daily range): BP systolic 130–150; BP diastolic 70–88; PULSE 80–93; RESP 17–20; TEMP 36.2–36.8; O2SAT 93–97
[2021-03-26] MEDS: PIPERACILLIN/TAZO 3.375 GM in SODIUM CHLORIDE 0.9% 100 ML 25 ML IV ×4 (00:19→21:40)
[2021-03-26] MEDS: SODIUM CHLORIDE 0.9% 1,000 ML 100 ML IV (00:19)
--- NOTE | 2021-03-26 02:53 | PC.ADMIT ---
Patient admitted to room 222 at 2320 per stretcher from ER. States he was told by his OT to be seen due to low oxygen sat and high HR. At clinic he was seen at also had an elevated temp. Is alert and oriented. History of previous CVA with left sided residual weakness. Breath sounds CTA and denies any SOB. Arrived with oxygen at 2L/min per NC with sat of 93%. HRR and was placed on telemetry with reading of SR w/BBB. Denied nausea. BT present and abdomen is soft. Has chronic catheter which he states was originally placed due to urinary retention; urine is clear, dark yellow. Able to turn himself in bed. Gait not assessed at this time but has left sided weakness and states he was using a walker at home. Denied pain. Bilateral calf SCD's were placed. Fall risk score is high and bed alarm is activated. Oriented to call light and bed controls. [id number] [facility] [address] [place] Admission Note: The patient,Garfield Morse,81 y/o, was given written information regarding hospital policies, unit procedures and contact persons. Patient's smoking status: Never smoker. Vital Signs - 8 hr 03/25/21 19:00 03/25/21 19:01 03/25/21 19:30 Temperature Pulse Rate 101 H 100 H 90 Respiratory Rate 20 24 22 Blood Pressure 124/79 133/73 Pulse Oximetry 94 95 94 03/25/21 20:00 03/25/21 20:30 03/25/21 21:00 Temperature 98.8 F Pulse Rate 90 87 86 Respiratory Rate 26 H 24 22 Blood Pressure 146/73 H 144/80 H 150/81 H Pulse Oximetry 94 95 95 03/25/21 21:30 03/25/21 23:20 Temperature 98.6 F 97.2 F L Pulse Rate 86 89 Respiratory Rate 25 H 18 Blood Pressure 145/80 H 117/80 Pulse Oximetry 94 93
[2021-03-26 05:33] LABS: Add Manual Diff / Slide Review NO; Basophils Absolute Auto 0 /uL (0-100); Basophils Percent Auto 0.4 % (0-2); Eosinophils Absolute Auto 200 /uL (0-450); Eosinophils Percent Auto 2.1 % (2-4); Hematocrit 33.4 % (41-53); Hemoglobin 11.4 g/dL (13.5-17.5); Lymphocytes Absolute Auto 900 /uL (1100-4500); Lymphocytes Percent Auto 10.2 % (25-40); Mean Corpuscular Volume 85.4 fL (80-100); Monocytes Absolute Auto 700 /uL (0-900); Monocytes Percent Auto 7.7 % (3-14); Neutrophils Absolute Auto 7000 /uL (1500-7000); Neutrophils Percent Auto 79.6 % (50-75); Platelet Count 206 X10^3/uL (150-400); Red Blood Cell Count 3.92 X10^6/uL (4.5-5.9); Red Cell Distribution Width 13.5 % (11.6-14.8); White Blood Cell Count 8.8 X10^3/uL (4.5-11.0)
[2021-03-26 05:39] LABS: BUN Creatinine Ratio 12.4 (6-22); Blood Urea Nitrogen 11 mg/dL (9-20); Carbon Dioxide 29 mmol/L (22-32); Chloride 103 mmol/L (98-107); Estimated Glomerular Filt Rate > 60.0 mL/min (>60); Glucose 92 mg/dL (80-110); HEMOLYSIS < 15 (0-50); Potassium 3.2 mmol/L (3.4-5.1); Sodium 136 mmol/L (137-145)
[2021-03-26] MEDS: ENOXAPARIN 40 MG/0.4 ML SYRINGE SUBCUT (08:30)
[2021-03-26] MEDS: POTASSIUM CHLORIDE 20 MEQ TAB 40 MEQ PO (09:32)
[2021-03-26] MEDS: AZITHROMYCIN 500 MG in DEXTROSE 5% IN WATER 250 ML IV (12:23)
--- NOTE | 2021-03-26 13:55 | DIET.CONS ---
Dietary Consultation Note Admission Date: 03/25/2021 23:05 Assessment: 81y M admitted for fever, weakness, and low O2 sats referred to nutrition for MNA 7 and malnutrition screening. Pt had stroke early this summer, spent 4w at acute rehab, and has residual left sided weakness of arm and leg. Per chart review and interview, pt has 7.7% unintentional weight loss in past 2mo since stroke. Pt feels he has less of an appetite than usual so is not eating as much. Pt shares tearfully c RD that he took great pride in watering his trees and plants at home but when he returned from rehab everything had because his has limited ability to help out around the house. 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 Pt had [employer] Whe[employer] service for a while but disliked what they prepared so cancelled service. Pts still does the shopping and some cooking but has trouble with this skill, often burning things. Pt reports eating less than half of what he used to in a day. Pt is retired [employer], always around 105kg until later in life where he gained some weight. NFPE shows loose wrinkled skin on upper arms indicating quick weight loss. RD Impression: Pt likely with some grief related appetite changes secondary to limited ability to garden and prepare foods after his stroke. Ht: 190.5 cm Wt: 109 kg BMI: 30.0 UBW: 118kg Last BM: 03/25/21 (03/26/21 00:20) MNA: 7 Ryan Score: 18 Diet: 03/25/21 Breakfast Heart Healthy Diet Diet Modifications: Percent of last meal consumed (last 48h) Percent Meal Consumed 75% 03/26/21 12:50 Percent Meal Consumed 25% 03/26/21 09:33 Labs: RBC 3.92 X10^6/uL (4.5-5.9) L 03/26/21 05:10 Hgb 11.4 g/dL (13.5-17.5) L 03/26/21 05:10 Hct 33.4 % (41-53) L 03/26/21 05:10 Creatinine 0.89 mg/dL (0.66-1.25) 03/26/21 05:10 Lactate 1.9 mmol/L (0.7-2.1) 03/25/21 18:35 Nutrition Diagnosis: Severe Acute Protein Calorie Malnutrition r/t reduced appetite secondary to grief aeb 7.7% unintentional weight loss in 2 mo (severe), pt at lower body weight than in prime [employer] years, pt consuming ~50% EER, pt weight loss began after stroke requiring 4w acute rehab and now c limited ability to garden/cook. Interventions: 1. Recc ONS Ensure Max-chocolate c morning meal to support protein needs in addition to meal trays. 2. Recc HH OT assist pt c ways to be involved in kitchen with adaptive devices and safety awareness. EER: 2100kcal (20kcal/kg obese PCM), 109g PRO (1g/kg) Monitoring/Evaluations: POs, ONS tolerance
--- NOTE | 2021-03-26 15:18 | PC.NURSE ---
A&Ox4. VSS. 3L O2 nasal cannula sating around 95%. Denies pain. Chronic marinelli draining dark yellow urine. Saline locked but has IV abx going. Good appetite. Call light within reach, bed low. at bedside.
--- NOTE | 2021-03-26 15:30 | P.PN_ITS ---
Subjective Subjective Date Patient Seen: 03/26/21 Interval history: Patient is 81-year-old male with history of CVA with left hemiparesis, urinary retention with indwelling Anderson catheter, recently discharged from group home rehab presented with fever. He was admitted for catheter associated UTI with early sepsis. He has been moderately hypoxic since came to floor from ED requiring 3 L O2 to maintain sat around 93%. Likely was hypoxic in the ED and it was not well documented. Patient notes a slight cough. States nausea is better. No fever since admission. Exam Vital Signs (past 8 hours): - 03/26/21 07:32 03/26/21 09:16 03/26/21 09:44 Temperature 98.2 F Pulse Rate 84 Pulse Rate [Orthostatic Lying] 89 Pulse Rate [Orthostatic Sitting] 93 H Pulse Rate [Orthostatic Standing] 80 Respiratory Rate 20 Blood Pressure 138/77 Blood Pressure [Orthostatic Lying] 134/73 Blood Pressure [Orthostatic Sitting] 150/78 H Blood Pressure [Orthostatic Standing] 148/78 H Pulse Oximetry 93 93 03/26/21 09:56 03/26/21 11:14 03/26/21 12:30 Temperature 97.5 F L Pulse Rate 84 Pulse Rate [Orthostatic Lying] 80 Pulse Rate [Orthostatic Sitting] 93 H Pulse Rate [Orthostatic Standing] 80 Respiratory Rate 18 Blood Pressure 132/70 Blood Pressure [Orthostatic Lying] 134/73 Blood Pressure [Orthostatic Sitting] 150/78 H Blood Pressure [Orthostatic Standing] 148/78 H Pulse Oximetry 93 93 03/26/21 13:00 Temperature Pulse Rate Pulse Rate [Orthostatic Lying] Pulse Rate [Orthostatic Sitting] Pulse Rate [Orthostatic Standing] Respiratory Rate Blood Pressure Blood Pressure [Orthostatic Lying] Blood Pressure [Orthostatic Sitting] Blood Pressure [Orthostatic Standing] Pulse Oximetry 93 Oxygen Delivery Method Nasal Cannula Oxygen Flow Rate 3 Narrative Exam Narrative: General: Alert and cooperative male NAD Lungs: Prominent right lower lobe crackles Heart: Regular rhythm Extremities: No edema Neurological: Oriented, affect normal, speech normal Objective Labs Result Diagrams: 03/26/21 05:10 03/26/21 05:10 Labs: Laboratory Results - last 24 hr 03/25/21 03/25/21 03/25/21 18:35 18:35 18:35 WBC 13.0 H RBC 4.53 Hgb 13.0 L Hct 38.7 L MCV 85.6 MCH 28.6 MCHC 33.5 RDW 13.3 Plt Count 222 Neut % (Auto) 88.1 H Lymph % (Auto) 4.9 L [place] % (Auto) 6.5 Eos % (Auto) 0.2 L Baso % (Auto) 0.3 Neut # (Auto) 04098 H Lymph # (Auto) 600 L [place] # (Auto) 800 Eos # (Auto) 0 Baso # (Auto) 0 Sodium 135 L Potassium 3.2 L Chloride 101 Carbon Dioxide 25 BUN 14 Creatinine 0.86 Estimated GFR > 60.0 BUN/Creatinine Ratio 16.3 Glucose 121 H Lactate 1.9 Calcium 8.6 Magnesium Total Bilirubin 1.8 H AST 38 ALT 34 Alkaline Phosphatase 120 Total Protein 6.4 Albumin 3.5 Globulin 2.9 Albumin/Globulin Ratio 1.2 Lipase 50 Procalcitonin 0.20 Urine Color Urine Appearance Urine pH Ur Specific [place] Urine Protein Urine Glucose (UA) Urine Ketones Urine Occult Blood Urine Nitrate Urine Bilirubin Urine Urobilinogen Ur Leukocyte Esterase Urine RBC Urine WBC Ur Squamous Epith Cells Urine Bacteria Ur Culture Indicated? Chlamy pneumoniae PCR Adenovirus (PCR) B. pertussis DNA (PCR) B.parapertussis DNA PCR Coronavirus OC43 (PCR) Coronavirus HKU1 (PCR) Coronavirus 229E (PCR) SARS-CoV-2 (PCR) Coronavirus NL63 (PCR) Human Metapneumovir PCR Influenza Type A (PCR) Influenza Type B (PCR) M. pneumoniae (PCR) Parainfluenza 1 (PCR) Parainfluenza 2 (PCR) Parainfluenza 3 (PCR) Parainfluenza 4 (PCR) RSV (PCR) Entero/Rhino (PCR) 03/25/21 03/25/21 03/25/21 18:37 18:37 18:39 WBC RBC Hgb Hct MCV MCH MCHC RDW Plt Count Neut % (Auto) Lymph % (Auto) [place] % (Auto) Eos % (Auto) Baso % (Auto) Neut # (Auto) Lymph # (Auto) [place] # (Auto) Eos # (Auto) Baso # (Auto) Sodium Potassium Chloride Carbon Dioxide BUN Creatinine Estimated GFR BUN/Creatinine Ratio Glucose Lactate Calcium Magnesium 2.0 Total Bilirubin AST ALT Alkaline Phosphatase Total Protein Albumin Globulin Albumin/Globulin Ratio Lipase Procalcitonin Urine Color Urine Appearance Urine pH Ur Specific [place] Urine Protein Urine Glucose (UA) Urine Ketones Urine Occult Blood Urine Nitrate Urine Bilirubin Urine Urobilinogen Ur Leukocyte Esterase Urine RBC Urine WBC Ur Squamous Epith Cells Urine Bacteria Ur Culture Indicated? Chlamy pneumoniae PCR Not detected Adenovirus (PCR) Not detected B. pertussis DNA (PCR) Not detected B.parapertussis DNA PCR Not Reportable Coronavirus OC43 (PCR) Not detected Coronavirus HKU1 (PCR) Not detected Coronavirus 229E (PCR) Not detected SARS-CoV-2 (PCR) Not Reportable Negative Coronavirus NL63 (PCR) Not detected Human Metapneumovir PCR Not detected Influenza Type A (PCR) Not detected Influenza Type B (PCR) Not detected M. pneumoniae (PCR) Not detected Parainfluenza 1 (PCR) Not detected Parainfluenza 2 (PCR) Not detected Parainfluenza 3 (PCR) Not detected Parainfluenza 4 (PCR) Not detected RSV (PCR) Not detected Entero/Rhino (PCR) Not detected 03/25/21 03/26/21 03/26/21 19:27 05:10 05:10 WBC 8.8 RBC 3.92 L Hgb 11.4 L Hct 33.4 L MCV 85.4 MCH 29.0 MCHC 34.0 RDW 13.5 Plt Count 206 Neut % (Auto) 79.6 H Lymph % (Auto) 10.2 L [place] % (Auto) 7.7 Eos % (Auto) 2.1 Baso % (Auto) 0.4 Neut # (Auto) 7000 Lymph # (Auto) 900 L [place] # (Auto) 700 Eos # (Auto) 200 Baso # (Auto) 0 Sodium 136 L Potassium 3.2 L Chloride 103 Carbon Dioxide 29 BUN 11 Creatinine 0.89 Estimated GFR > 60.0 BUN/Creatinine Ratio 12.4 Glucose 92 Lactate Calcium 8.0 L Magnesium Total Bilirubin AST ALT Alkaline Phosphatase Total Protein Albumin Globulin Albumin/Globulin Ratio Lipase Procalcitonin Urine Color Yellow Urine Appearance Cloudy Urine pH 6.5 Ur Specific [place] 1.010 Urine Protein 1+ H Urine Glucose (UA) Trace H Urine Ketones Negative Urine Occult Blood 2+ H Urine Nitrate Positive H Urine Bilirubin Negative Urine Urobilinogen 1.0 Ur Leukocyte Esterase 3+ H Urine RBC 5-10/hpf H Urine WBC >100/hpf H Ur Squamous Epith Cells 0-1 /hpf Urine Bacteria Moderate (10-30) H Ur Culture Indicated? Specimen cultured Chlamy pneumoniae PCR Adenovirus (PCR) B. pertussis DNA (PCR) B.parapertussis DNA PCR Coronavirus OC43 (PCR) Coronavirus HKU1 (PCR) Coronavirus 229E (PCR) SARS-CoV-2 (PCR) Coronavirus NL63 (PCR) Human Metapneumovir PCR Influenza Type A (PCR) Influenza Type B (PCR) M. pneumoniae (PCR) Parainfluenza 1 (PCR) Parainfluenza 2 (PCR) Parainfluenza 3 (PCR) Parainfluenza 4 (PCR) RSV (PCR) Entero/Rhino (PCR) PFSH Medical History BPH (benign prostatic hyperplasia) Cerebrovascular accident Essential hypertension Hyperlipidemia Surgical History History of back surgery History of surgery on arm History of tonsillectomy Family History Mother Cancer Father Cancer Social History household members: spouse Smoking Status: Never smoker alcohol intake: former Assessment & Plan Assessment & Plan narrative: 1. Catheter associated UTI, early sepsis -patient with abnormal UA and growing Gram-negative bacilli in urine culture -he had catheter placed at group home facility following CVA in January, he has appointment scheduled next week with Urology to assess catheter removal -continue Zosyn pending culture results -DC IV fluids 2. Probable bacterial pneumonia with acute hypoxic respiratory failure -patient hypoxic, has right lower lobe lung crackles and a slight cough -chest x-ray read as atelectasis but most likely there is pneumonia not seen on x-ray -continue Zosyn, add Zithromax 500 mg IV daily 3. History of stroke January 2021 with residual left-sided weakness, chronic, present on admission -continue atorvastatin 80 mg, aspirin 81 mg 4. Essential hypertension, acute on chronic, present on admission -continue patient's lisinopril, hold furosemide 3 times weekly and KCL 5. BPH, chronic, present on admission -continue patient's tamsulosin and finasteride -patient to continue with Anderson catheter in place-managed by Urology Time Spent With Patient Critical Care time: I spent a total of [] minutes of critical care time on this patient's care today; this time is exclusive of procedural time. Quality VTE Deep Vein Thrombosis/Pulmonary Embolism Present on Admission: No
--- NOTE | 2021-03-26 16:52 | CM.DANOTE ---
Addendum entered by Hollie Greer 03/26/21 17:01: Spoke with Drea at [facility] today. She reports that patient resides in [facility] and that they do not need to do assessment for patient to return. Provider updated. [facility] Original Note: DCP/Assessment: Reviewed chart. Patient is a 81yr old male admitted to [facility] with fever. Primary payor is 1)Medicare 2) for Life. PCP is Nadya Choe. Met with patient this afternoon explained CM/SW role. Patient reports that he hopes to d/c home when medically stable. Patient currently on service with [facility] for nursing and therapy. Patient wishes for those services to resume. Patient resides with [place]iffanie [place] Prior to admit patient reports that he was using FWW at home. Patient previously had CVA and reports that this is his 4th admit to hospital within a short period of time. Anticipate that patient will be able to return home with HH resumed. Patient reports that he has not been out of bed yet but feels hopeful that home will be recommended. Physical therapy evaluation may be helpful if patient remains hospitalized. P: Anticipate home with [facility] resumed. CM team will need to contact [facility] prior to patient's discharge. 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 No Advance Directives on File No History Provided By Patient,Medical Record Prior Living Arrangements House Household Members spouse Type of transporation used prior to Drives own vehicle admit Independent with ADL's Yes Is patient alert and oriented? 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 Patient requesting to have those services resumed at time of d/c. SNF/HH Preference [facility] Has Agency SNF been contacted No Whiteboard Updated in Patient Room with Yes name and ext. # of Auto Suspension And Steering Mechanic Review Status In Process Next Review Type Continued Stay Review
[2021-03-27] VITALS (17 sets, daily range): BP systolic 134–160; BP diastolic 71–88; PULSE 70–89; RESP 16–18; TEMP 36.2–36.6; O2SAT 93–97
[2021-03-27] MEDS: SODIUM CHLORIDE 0.9% 250 ML 21 ML IV (05:19)
[2021-03-27] MEDS: PIPERACILLIN/TAZO 3.375 GM in SODIUM CHLORIDE 0.9% 100 ML 25 ML IV ×3 (05:20→21:40)
[2021-03-27 05:36] LABS: Add Manual Diff / Slide Review NO; Basophils Absolute Auto 0 /uL (0-100); Basophils Percent Auto 0.2 % (0-2); Eosinophils Absolute Auto 300 /uL (0-450); Eosinophils Percent Auto 3.9 % (2-4); Hematocrit 33.6 % (41-53); Hemoglobin 11.4 g/dL (13.5-17.5); Lymphocytes Absolute Auto 900 /uL (1100-4500); Lymphocytes Percent Auto 11.5 % (25-40); Mean Corpuscular HGB Conc 33.9 % (30-36); Mean Corpuscular Hemoglobin 28.9 PG (26-34); Mean Corpuscular Volume 85.4 fL (80-100); Monocytes Absolute Auto 600 /uL (0-900); Monocytes Percent Auto 7.4 % (3-14); Neutrophils Absolute Auto 6000 /uL (1500-7000); Platelet Count 227 X10^3/uL (150-400); Red Blood Cell Count 3.94 X10^6/uL (4.5-5.9); Red Cell Distribution Width 13.3 % (11.6-14.8); White Blood Cell Count 7.8 X10^3/uL (4.5-11.0)
--- NOTE | 2021-03-27 08:12 | PC.NURSE ---
Addendum entered by Alana Serrano R.N. 03/27/21 14:14: New marinelli catheter placed and patient tolerated this well. His old catheter was placed on march 06, Dr. Isaacs wanted a new one place. Family does know leg bag teaching as he had the catheter prior to being admitted. Original Note: Patient is sitting up in bed, orthostatic blood pressures done, to evaluate whether or not he wants to start patient back on his blood pressure meds. He is alert and oriented x3, marinelli patent with yellow urine. Patient has a hx of having a CVA last summer in 2019 and he does have left sided arm and leg weakness. He is a one person assist with gaitbelt and walker. He denies pain, on 2l of o2 and sats around 93%. Eating breakfast now.
[2021-03-27] MEDS: TAMSULOSIN 0.4 MG CAPSULE 0.8 MG PO (08:26)
[2021-03-27] MEDS: ASPIRIN EC 81 MG TABLET PO (08:26)
[2021-03-27] MEDS: FINASTERIDE 5 MG TABLET PO (08:26)
[2021-03-27] MEDS: ENOXAPARIN 40 MG/0.4 ML SYRINGE SUBCUT (08:27)
[2021-03-27] MEDS: SODIUM CHLORIDE 0.9% FLUSH 10 ML IV (08:30)
[2021-03-27] MEDS: AZITHROMYCIN 500 MG in DEXTROSE 5% IN WATER 250 ML IV (11:20)
--- NOTE | 2021-03-27 15:48 | P.PN_ITS ---
Subjective Subjective Date Patient Seen: 03/27/21 Interval history: Patient is 81-year-old male with history of CVA with left hemiparesis, urinary retention with indwelling Anderson catheter, recently discharged from long-term rehab presented with fever and low O2 sats. He is being treated for pneumonia and catheter associated UTI. Patient remains on 3 L NC. He does not seem to be coughing much. Has not yet mobilize out of bed. Urinary catheter was changed today. Exam Vital Signs (past 8 hours): - 03/27/21 07:58 03/27/21 08:40 03/27/21 11:54 Temperature 97.2 F L Pulse Rate 75 Pulse Rate [Orthostatic Lying] 79 Pulse Rate [Orthostatic Sitting] 89 Pulse Rate [Orthostatic Standing] 89 Respiratory Rate 18 Blood Pressure 136/79 Blood Pressure [Orthostatic Lying] 139/79 Blood Pressure [Orthostatic Sitting] 160/88 H Blood Pressure [Orthostatic Standing] 148/88 H Pulse Oximetry 93 97 03/27/21 13:10 03/27/21 15:29 Temperature 97.3 F L Pulse Rate 75 Pulse Rate [Orthostatic Lying] Pulse Rate [Orthostatic Sitting] Pulse Rate [Orthostatic Standing] Respiratory Rate 18 Blood Pressure 140/80 Blood Pressure [Orthostatic Lying] Blood Pressure [Orthostatic Sitting] Blood Pressure [Orthostatic Standing] Pulse Oximetry 97 96 Oxygen Delivery Method Nasal Cannula Oxygen Flow Rate 2 Narrative Exam Narrative: General: Alert, NAD Lungs: Breathing nonlabored at rest, coarse crackles right lower lobe Heart: Regular rhythm Abdomen: Nontender Extremities: No pitting edema Neurological: Baseline weakness on the left due to prior stroke Objective Labs Result Diagrams: 03/27/21 04:55 03/26/21 05:10 Labs: Laboratory Results - last 24 hr 03/27/21 04:55 WBC 7.8 RBC 3.94 L Hgb 11.4 L Hct 33.6 L MCV 85.4 MCH 28.9 MCHC 33.9 RDW 13.3 Plt Count 227 Neut % (Auto) 77.0 H Lymph % (Auto) 11.5 L [place] % (Auto) 7.4 Eos % (Auto) 3.9 Baso % (Auto) 0.2 Neut # (Auto) 6000 Lymph # (Auto) 900 L [place] # (Auto) 600 Eos # (Auto) 300 Baso # (Auto) 0 PFSH Medical History BPH (benign prostatic hyperplasia) Cerebrovascular accident Essential hypertension Hyperlipidemia Surgical History History of back surgery History of surgery on arm History of tonsillectomy Family History Mother Cancer Father Cancer Social History household members: spouse Smoking Status: Never smoker alcohol intake: former Assessment & Plan Assessment & Plan narrative: 1. Catheter associated UTI, early sepsis on admission -urine culture growing Pseudomonas aeruginosa sensitive to current antibiotic -he had catheter placed at long-term facility following CVA in January, he has appointment scheduled next week with Urology to assess catheter removal -continue Zosyn 2. Probable bacterial pneumonia with acute hypoxic respiratory failure, present on admission -documented hypoxia by home health nurse prior to admission -patient hypoxic, has right lower lobe lung crackles and a slight cough -chest x-ray read as atelectasis but most likely there is pneumonia not seen on x-ray -continue Zosyn, Zithromax 500 mg IV daily 3. History of stroke January 2021 with residual left-sided weakness, chronic, present on admission -continue atorvastatin 80 mg, aspirin 81 mg 4. Essential hypertension, acute on chronic, present on admission -continue patient's lisinopril, hold furosemide 3 times weekly and KCL 5. BPH, chronic, present on admission -continue patient's tamsulosin and finasteride -patient to continue with Anderson catheter in place-managed by Urology -urinary catheter was changed on 03/27/2021 Consult PT/OT DVT prophylaxis: Lovenox Code status: Full code Surrogate decision maker: Spouse Time Spent With Patient Critical Care time: I spent a total of [] minutes of critical care time on this patient's care today; this time is exclusive of procedural time. Quality VTE Deep Vein Thrombosis/Pulmonary Embolism Present on Admission: No
[2021-03-27] MEDS: SENNOSIDES 8.6 MG TABLET 17.2 MG PO (20:24)
[2021-03-27] MEDS: ATORVASTATIN 20 MG TABLET 80 MG PO (20:24)
[2021-03-28] VITALS (8 sets, daily range): BP systolic 128–172; BP diastolic 70–79; PULSE 71–82; RESP 17; TEMP 36.3–36.9; O2SAT 93–97
[2021-03-28] MEDS: PIPERACILLIN/TAZO 3.375 GM in SODIUM CHLORIDE 0.9% 100 ML 25 ML IV (05:53)
[2021-03-28] MEDS: SODIUM CHLORIDE 0.9% 250 ML 21 ML IV (05:54)
[2021-03-28 05:56] LABS: Add Manual Diff / Slide Review NO; Basophils Absolute Auto 0 /uL (0-100); Basophils Percent Auto 0.3 % (0-2); Eosinophils Absolute Auto 300 /uL (0-450); Eosinophils Percent Auto 3.9 % (2-4); Hematocrit 34.8 % (41-53); Hemoglobin 11.7 g/dL (13.5-17.5); Lymphocytes Absolute Auto 900 /uL (1100-4500); Lymphocytes Percent Auto 10.6 % (25-40); Mean Corpuscular HGB Conc 33.5 % (30-36); Mean Corpuscular Hemoglobin 28.9 PG (26-34); Mean Corpuscular Volume 86.4 fL (80-100); Monocytes Absolute Auto 600 /uL (0-900); Monocytes Percent Auto 6.5 % (3-14); Neutrophils Absolute Auto 6700 /uL (1500-7000); Neutrophils Percent Auto 78.7 % (50-75); Platelet Count 239 X10^3/uL (150-400); Red Blood Cell Count 4.03 X10^6/uL (4.5-5.9); Red Cell Distribution Width 13.3 % (11.6-14.8); White Blood Cell Count 8.5 X10^3/uL (4.5-11.0)
[2021-03-28 06:01] LABS: BUN Creatinine Ratio 13.4 (6-22); Blood Urea Nitrogen 11 mg/dL (9-20); Calcium 8.5 mg/dL (8.4-10.2); Carbon Dioxide 31 mmol/L (22-32); Chloride 107 mmol/L (98-107); Estimated Glomerular Filt Rate > 60.0 mL/min (>60); Glucose 94 mg/dL (80-110); HEMOLYSIS < 15 (0-50); Potassium 3.3 mmol/L (3.4-5.1); Sodium 140 mmol/L (137-145)
--- NOTE | 2021-03-28 09:01 | DI.RAD.S_ITS ---
PROCEDURE: XR CHEST 1V INDICATIONS: cough, pna? chf? TECHNIQUE: One view of the chest was acquired. COMPARISON: [facility], CR, XR CHEST 1V, 03/25/2021, 18:08. FINDINGS: Surgical changes and devices: None. Lungs and pleura: Stable appearance of diffuse interstitial prominence. Stable emphysematous changes. No focal consolidation. No pneumothorax or pleural effusion. Mediastinum: Mediastinal contours appear normal. Heart size is normal. Bones and chest wall: No suspicious bony lesions. Overlying soft tissues appear unremarkable. IMPRESSION: Stable cardiopulmonary examination with emphysematous changes. No new airspace opacities. Dictated by: Jovon Perdomo M.D. on 03/28/2021 at 9:28 Approved by: Jovon Perdomo M.D. on 03/28/2021 at 9:29
[2021-03-28] MEDS: levoFLOXacin 250 MG TABLET 750 MG PO (09:37)
[2021-03-28] MEDS: TAMSULOSIN 0.4 MG CAPSULE 0.8 MG PO (09:38)
[2021-03-28] MEDS: FINASTERIDE 5 MG TABLET PO (09:38)
[2021-03-28] MEDS: ASPIRIN EC 81 MG TABLET PO (09:38)
[2021-03-28] MEDS: ENOXAPARIN 40 MG/0.4 ML SYRINGE SUBCUT (09:39)
[2021-03-28] MEDS: lisinopriL 10 MG TABLET 7.5 MG PO (09:39)
[2021-03-28] MEDS: SODIUM CHLORIDE 0.9% FLUSH 10 ML IV (09:40)
--- NOTE | 2021-03-28 10:45 | OT.IP.EVAL ---
Current Diagnoses Infection and inflammatory reaction due to indwelling urethral catheter, initial encounter (03/26/21) Past Medical History (Last Reviewed 03/25/21 @ 23:35 by ANDRES Diaz) BPH (benign prostatic hyperplasia) Cerebrovascular accident Essential hypertension History of back surgery History of surgery on arm History of tonsillectomy Hyperlipidemia Surgical History (Last Reviewed 03/25/21 @ 23:35 by ANDRES Diaz) History of back surgery History of surgery on arm History of tonsillectomy Occupational Therapy Inpatient Evaluation/Re-Eval M1 PT/OT-IP Prior Functional Status Start: 03/28/21 11:37 Freq: NEEDED Status: Active Protocol: Document 03/28/21 11:37 [facility] (Rec: 03/28/21 11:56 [facility] [id number]) Medical Review Prior Functional Status Medical History Reviewed Yes Communication Independent to stand his needs . Mobility and Gait Per pt used a fww to get around in his house on his own and recent when getting weaker that his would hang onto him in the back. Activities of Daily Living and IADL's Pt's would assist with his socks, shoes, pants, and help to wash his back and right arm pit. Social History Household Members spouse Living Arrangements House Number of Floors (Floors) Two Floors Number of Stairs To Enter/Railing? 14 steps with bilateral rails and 10 steps with left rail going up and then a 1/2 wall on the right to the main living area. Home Environment Standard Height Toilet,Tub/ Shower Home Equipment Front Wheel Walker,Four Wheel Walker,Straight Cane,Shower Seat with Backrest,Lift Recliner,Bed Rails Additional Social History Comment Pt had a Right middle cerebral infarct in 01/2021 and recently discharged from rehab and has been having home health at home for OT and PT needs. M2 OT-IP Current Condition Start: 03/28/21 11:37 Freq: Status: Active Protocol: Document 03/28/21 11:37 [facility] (Rec: 03/28/21 11:56 [facility] [id number]) Occupational Therapy Current Condition Current Condition Evaluation Date 03/28/21 Treatment Diagnosis UTI,PNA, residuals from CVA deficits, decreased mobility Diagnosis Onset Date 03/26/21 M3 OT- IP Subjective and Pain Start: 03/28/21 11:37 Freq: Status: Active Protocol: Document 03/28/21 11:37 [facility] (Rec: 03/28/21 11:56 [facility] [id number]) OT- Subjective Occupational Therapy Visit Type Type Initial Evaluation Visit Start Time 10:10 Visit Stop Time 10:45 Total Visit Minutes 35 Occupational Therapy Visit Comments Patient Comments Pt agreed to get up for OT eval. Patient/Caregiver Goals To go home and resume home health OT and PT. OT Pain Assessment Pain When Pain Assessed At Rest Pain Present Pain Present Denied Pain M4 OT- IP ADL's Start: 03/28/21 11:37 Freq: Status: Active Protocol: Document 03/28/21 11:37 [facility] (Rec: 03/28/21 11:56 [facility] [id number]) OT HRV-Tvtr-Eafmsup Comments OT Self-Feeding Comments Not at meal time, needs assist for set-up due to decreased coordination of left hand. OT ADL-Grooming Comments OT Grooming Comments Not performed. OT ADL-Oral Care Comments Oral Care Comments Not performed. OT ADL-Dressing General Eval Lower Body Dressing Ability Maximum Assistance Areas Needing Assistance Socks OT ADL-Toileting General Evaluation Toileting Ability Total Assistance Areas Needing Assistance Empty Catheter or Colostomy Comments OT Toileting Comments Anderson in place. OT ADL-Bathing Comments OT Bathing Comments Not performed at this time. M5 OT- IP IADL's Start: 03/28/21 11:37 Freq: Status: Active Protocol: Document 03/28/21 11:37 [facility] (Rec: 03/28/21 11:56 [facility] [id number]) OT-Instrumental Activities of Daily Living Deficits IADL Deficits Identified Deficits Home Safety Awareness Awareness of Need for Assistance at Home Good Awareness Medication Management Medication Management Caregiver Administers Money Management Money Management Caregiver Provides Assistance Meal Preparation Meal Preparation Caregiver Provides Assist Motor Vehicle Assembler Motor Vehicle Assembler Caregiver Provides Assist M6 OT- IP Functional Cognition Start: 03/28/21 11:37 Freq: Status: Active Protocol: Document 03/28/21 11:37 [facility] (Rec: 03/28/21 11:56 [facility] [id number]) Cognitive Factors Limiting Selfcare Function Cognitive Ability Level of Alertness Alert Patient Orientation Name,Place,Situation Attention Span Ability Capable of Focused Attention, Capable of Sustained Attention Ability to Follow Commands Able to Follow Multi-Step Commands Cognitive Comments Cognitive Assessment Comments Pt able to follow commands for ADL and mobility needs. Pt appears to be at baseline, continue to assess. Pt scored 28/30 during last hospital stay for his SLUMS which implies normal cognition. Pt is aware that his balance is off and more unsteady at this time. OT- Vision and Hearing OT- Hearing Assessment OT- Hearing Assessment WFL OT- Vision Assessment Visual Acuity Glasses For Reading Visual Attentiveness WFL Occular Pursuits WFL Visual Convergence WFL Visual Hernandez WFL Diplopia Absent M7 OT- IP Mobility and Balance Start: 03/28/21 11:37 Freq: Status: Active Protocol: Document 03/28/21 11:37 [facility] (Rec: 03/28/21 11:56 [facility] [id number]) OT- Bed Mobility Assessment Rolling Type of Rolling Roll to Right Level of Assistance Standby Assistance Supine to Sit Supine to Sit Assist Standby Assistance Sit to Supine Sit to Supine Assist Standby Assistance Scooting Scooting to Edge of Bed Standby Assistance Scooting Up and Down in Bed Standby Assistance OT-Transfer Assessment Sit to and From Stand Sit to and from Stand Minimal Assistance Transfers Transfer Ability Moderate Assistance Technique Transfer Destination Bed,Chair Transfer Technique Stand Step Pivot Devices Transfer Assistive Devices Gait Belt,Front Wheeled Walker Comments Mobility Comments Pt SBA for bed mobility needs and use of bed rail. NETTIE to stand from high bed, pt tends to reach out with his left arm for balance while pushing up with his right hand on the bed to stand to FWW. Pt has difficulty to practice managers the FWW on the left hand and needing assist to help his hand on the FWW and also assist for his balance and to help guide the FWW. OT- Gait Assessment Gait Gait Assistance Required: Moderate Assistance,Maximum Assistance,1 Person Assist Assistive Devices Assistive Device Gait Belt,Front Wheeled Walker Comments Gait Ability Comments MODA x1 to help pt walk around the bed to the recliner with FWW. Suggested to aid that pt just transfer only at this time. OT- Balance Assessment Sitting Balance and Reactions Static Sitting Balance Ability Good Dynamic Sitting Balance Ability Fair Standing Balance and Reactions Static Standing Balance Ability Poor Dynamic Standing Balance Ability Poor M8 OT- IP Objective Assessments Start: 03/28/21 11:37 Freq: Status: Active Protocol: Document 03/28/21 11:37 [facility] (Rec: 03/28/21 11:56 [facility] [id number]) OT Gross Range of Motion Upper Extremity Range of Motion Assessment Left Impaired ROM Impairments Pt's left shoulder tends to wing out. OT Strength Upper Extremity Strength Assessment Left Impaired Shoulder 3- Elbow 3- Forearm 3- Wrist 3- Hand 3- Hand Deck Steward Strength Hand Dominance Right OT- Coordination Assessment Upper Extremity Finger to Nose Test Left UE Impaired Comments Coordination Comments Pt not able to make a fist with his left hand. Pt only able to move his left UE for gross movements. OT-Muscle Tone Assessment Muscle Tone WNL Yes OT Sensation Assessment Comments Summary Comments Intact for light touch for BUE . M9 OT- IP Assessment and Plan Start: 03/28/21 11:37 Freq: Status: Active Protocol: Document 03/28/21 11:37 [facility] (Rec: 03/28/21 11:56 [facility] [id number]) OT Summary Assessment and Plan Potential Rehabilitation Potential Good Analytic Complexity at Evaluation Moderate Summary OT Impairments Strength,Balance,Coordination, Functional Mobility,Grooming, Dressing,Toileting,Bathing, Toilet Transfers,Shower Transfers,Activity Tolerance Progress Towards Goals Slow Progress due to Medical Issues,Slow Progress due to Activity Tolerance Assessment Summary Pt MOD complexity and here due to UTI and PNA. Pt has residual deficits from CVA on . Pt currently needing more assist then prior to coming to the hospital for mobility needs. Pt would benefit from assist at home from his and to continue home health services on OT and PT. Therefore pendign whether his able to provide enough assist for the pt to go home with assist versus short skilled rehab. Goals Self-Feeding Goal Standby Assistance Grooming Goal Standby Assistance Dressing Goal Moderate Assistance Toileting Goal Minimal Assistance Bathing Goal Moderate Assistance Toilet Transfer Goal Contact Guard Assistance Shower Transfer Goal Minimal Assistance Patient/Caregiver Education Goal Caregiver Independent Assisting Patient Days to Meet Goals 10 Frequency of Treatment Frequency Of Treatment Once a Day Treatment Plan OT Treatment Plan ADL Training,Functional Mobility,Patient/Family Education,Discharge Planning Other Treatment Recommendations and Next Transfer with FWW to [facility] with Treatment Focus MODA X 1. Discharge Recommendations OT Discharge Recommendations Home with Assistance,Home Health,SNF Rehab,Home vs SNF Transportation Needs at Discharge Private Vehicle,Wheelchair/ Cabulance
--- NOTE | 2021-03-28 11:09 | PT.IIE ---
Current Diagnoses Infection and inflammatory reaction due to indwelling urethral catheter, initial encounter (03/26/21) Medical History ([facility]21 [facility] 23:[facility] BPH (benign prostatic hyperplasia) Cerebrovascular accident Essential hypertension Hyperlipidemia Physical Therapy Inpatient Evaluation/Re-Eval M1 PT/OT-IP Prior Functional Status Start: 03/28/21 11:37 Freq: NEEDED Status: Active Protocol: Document 03/28/21 11:37 [facility] (Rec: 03/28/21 11:56 [facility] [id number]) Medical Review Prior Functional Status Medical History Reviewed Yes Communication Independent to stand his needs . Mobility and Gait Per pt used a fww to get around in his house on his own and recent when getting weaker that his would hand onto him in the back. Activities of Daily Living and IADL's Pt's would assist with his socks, shoes, pants, and help to wash his back and right arm pit. Social History Household Members spouse Living Arrangements House Number of Floors (Floors) Two Floors Number of Stairs To Enter/Railing? 14 steps with bilateral rails and 10 steps with left rail going up and then a 1/2 wall on the right to the main living area. Home Environment Standard Height Toilet,Tub/ Shower Home Equipment Front Wheel Walker,Four Wheel Walker,Straight Cane,Shower Seat with Backrest,Lift Recliner,Bed Rails Additional Social History Comment Pt had a Right middle cerebral infarct in 01/2021 and recently discharged from rehab and has been having home health at home for OT and PT needs. M2 PT-IP Current Condition Start: 03/28/21 13:28 Freq: NEEDED Status: Active Protocol: Document 03/28/21 11:09 [facility] (Rec: 03/28/21 13:44 AB [id number]) Physical Therapy Current Condition Current Condition Evaluation Date 03/28/21 Treatment Diagnosis UTI; PNA; difficulty in walking Onset Date 03/26/21 Precautions Other Precautions falls M3 PT-IP Subjective Start: 03/28/21 13:28 Freq: NEEDED Status: Active Protocol: Document 03/28/21 11:09 [facility] (Rec: 03/28/21 13:44 AB [id number]) Subjective Physical Therapy Visit Type Type Initial Evaluation Visit Start Time 11:09 Visit Stop Time 12:08 Total Visit Minutes 59 Number of DECKHAND SHRIMP BOAT Visits 0 Physical Therapy Visit Comments Patient Comments agreeable to do PT M4 PT-IP Mobility and Gait Start: 03/28/21 13:28 Freq: NEEDED Status: Active Protocol: Document 03/28/21 11:09 [facility] (Rec: 03/28/21 13:44 AB [id number]) PT-Bed Mobility Assessment Supine to Sit Supine to Sit Standby Assistance Sit to Supine Sit to Supine Standby Assistance PT-Transfer Assessment Sit to and From Stand Sit to and from Stand Minimal Assistance,Maximum Assistance,1 Person Assistance ,Use of Upper Extremities Equipment Transfer Assistive Device Gait Belt,Front Wheeled Walker Orthotic/Prosthetic Devices or Brace: No Transfers Transfer Destination Bed,Chair Transfer Technique ambulated Transfer Ability Level of Assist Minimal Assistance,1 Person Assistance,Use of Upper Extremities Comments Mobility Comments pt sitting on chair and agreed to do PT. completed sit to stand from sergey max A and max cues. ambulated towards the bed using FWW min A and cues using FWW. cued for L quads activation. completed sit<> supine SBA. used bedrail to assist. completed sit to stand from bed min A and cues and ambulated back towards the chair using FWW min A and cues. pt agreed to do stairs. ambulated ~ 30 ft using FWW min A and sat on w/c. assisted to the stairs. pt stated that he holds on to L rail with B hands at home. completed up/down 3 steps holding L rail with B hands min to mod A and cues for safety. assisted pt backt o his room. ambulated from w/c to chair min A using FWW. positioned on chair. call light and table placed within reach. (+) SOB during mobility but O2 sat at 95% Gait Assessment Gait Gait Assistance Required: Minimum Assistance Distance (Feet) 30 Able to Maintain Weight Bearing Status Yes During Gait Assistive Devices Assistive Device Gait Belt,Front Wheeled Walker Orthotic/Prosthetic Devices or Brace: No Gait Deviations General Gait Pattern Antalgic,Decreased Stride Length,Decreased Feet Clearance,Flexed Trunk,Step-to Gait Factors Limiting Gait Function Factors Limiting Gait Function Decreased Activity Tolerance, Decreased Sensation,Decreased Strength,Limited Range of Motion,Poor Balance,Poor Safety Awareness,Respiratory Distress Stair Climbing Assessment Evaluation Level of Assist On Stairs Minimal Assistance,Moderate Assistance Devices Stair Climbing Assistive Devices Left Railing Technique/Endurance Stair Climbing Direction Ascend and Descend Stair Climbing Technique Step to Step Number of Steps Climbed 3 Query Text: Stair Climbing Set # Repetitions (reps) 1 PT-Balance Assessment Sitting Balance and Reactions Static Sitting Balance Ability Good Dynamic Sitting Balance Ability Good Standing Balance and Reactions Static Standing Balance Ability Fair Dynamic Standing Balance Ability Fair Device Used FWW M5 PT-IP Objective Assessments Start: 03/28/21 13:28 Freq: NEEDED Status: Active Protocol: Document 03/28/21 11:09 AB (Rec: 03/28/21 13:44 AB [id number]) Orientation Orientation/Cognition Level of Alertness Alert Orientation Name,Age,Birthday,Month,Date, Year,Day of Week,Place, Situation Safety Awareness Decreased Safety Awareness Gross Range of Motion Lower Extremity ROM Assessment Within Functional Limits Strength Lower Extremity Strength Assessment Left Impaired Hip 3-/5 Knee 3+/5 M6 PT-IP Treatment Start: 03/28/21 13:28 Freq: NEEDED Status: Active Protocol: Document 03/28/21 11:09 AB (Rec: 03/28/21 13:44 AB [id number]) Physical Therapy Treatment Education Education Provided Safety M7 PT-IP Assessment and Plan Start: 03/28/21 13:28 Freq: NEEDED Status: Active Protocol: Document 03/28/21 11:09 AB (Rec: 03/28/21 13:44 AB [id number]) PT Summary Assessment and Plan Potential Rehabilitation Potential Good Status of Condition at Evaluation Stable Summary Impairments Pain,ROM,Strength,Balance, Coordination,Sensation,Tone, Cognition,Bed Mobility, Transfers,Gait,Activity Tolerance Assessment Summary pt requiring max A with sit to stand but able to ambulate min A using fWW. pt stated that his spouse knows how to assist him and has been assisting him at home. pt plans to go home and caregiver training will be conduct if appropriate. pt has HHPT. Goals Bed Mobility Goal Independent Transfer Goal Independent,Front Wheeled Walker Gait Goal Independent,Front Wheel Walker Gait Distance 150 Other Goals up/down 7 steps L rail SBA Days to Meet Goals 5 Frequency of Treatment Frequency Of Treatment Once a Day Treatment Plan Physical Therapy Treatment Plan Bed Mobility Training,Transfer Training,Gait Training, Therapeutic Exercise,Balance Retraining,Discharge Planning, Neuromuscular Re-ed, Coordination Retraining,Manual Therapy Precautions Other Precautions falls Recommendations To Nursing Amount of Assist Needed 1 Person Assist Discharge Recommendations PT Discharge Recommendations Home with 24/ Assist Available,Home Health Transportation Needs at Discharge Private Vehicle
--- NOTE | 2021-03-28 14:41 | PC.NURSE ---
Pt A&OX3, denies pain. VSS,afebrile. He has good po intake this shift. Able to ambulate with FWW. MD evaluating patient clearing for discharge today. PT working with patient and assessed back to baseline with assist at home. Pt's arrived at 1425. Discharge instructions, medications and follow up appointments reviewed with patient. He acknowledges medications, plan of care, catheter care and follow up appointments. TELEPHONE EXCHANGE OPERATOR escorted patient via w/chair to private vehicle for discharge.
--- NOTE | 2021-03-28 14:52 | P.DS_ITS ---
History of Present Illness History of Present Illness Chief complaint: fever Narrative: Per Fifi Martinez: Garfield Morse is a 81-year-old gentleman with a history of a stroke with residual left-sided weakness in January of this year 2020, BPH, hypertension, hyperlipidemia presents after his home health physical therapist recommended that he go to the walk-in clinic because of low oxygen saturations, 92%, and high heart rate, 105,.? He notes that over last 24 hours he has been weak was nauseated today while having a bowel movement but did not actually vomit.? He was found have a fever of 100.3.? He has currently has a Anderson catheter in place.? He has no localizing symptoms however his does note that his urine ?looked bad? for a couple of days.? He has no specific skin complaints, no cough does not actually report feeling short of breath despite saturations at 92% and no history of lung disease, no chest pain, minor dry cough, no rhinorrhea, no headache.? He has increase in overall weakness so his residual left-sided weakness is worse but not in a way that suggests an extension of his prior s troke.? Cognitively he is appropriate.? He does note significant decrease in appetite with 20 lb weight loss in the last 2 months. Patient's vitals upon admit temp afebrile at 98.6, BP 145/80, HR 86, R 25, O2 saturation 94% on room air.? Patient has an elevated WBC at 13, neutrophils 11,400, HGB 13, HCT 38.7.? Patient has mild hypokalemia potassium 3.2, glucose 121 coma bili 1.8, sofa score: 2, lactate, lipase, and procalcitonin-all within normal limits. Discharge Providers Provider Date of admission: 03/26/21 15:33 Discharge Date: 03/28/21 Primary care physician: Nadya Choe PA-C Consults: 03/26/21 00:38 Consult to Dietitian, Adult Routine Comment: Reason For Exam: MNA score = 7 03/27/21 15:51 Consult to Occupational Therapy Evaluate & Treat Comment: Physician Instructions: Evaluate and treat Consult to Physical Therapy Evaluate & Treat Comment: Physician Instructions: Evaluate and Treat Discharge provider: Keven Coon MD Summary Hospital Course Discharge Diagnosis: 1. Catheter associated UTI 2. Probable bacterial pneumonia with acute hypoxemic respiratory failure 3. History of CVA 4. HTN 5. Chronic BPH Hospital Course: Mr. Morse came in with hypoxemia noted by his therapist. He initially required O2 via nasal canula. His chest xray remained normal, but clinically he had pneumonia symptoms. In addition he was found to have a CAUTI, with urine culture growing pansensitive pseudomonas. He was initially on IV antibiotics and improved. He was discharged on oral levofloxacin to complete a course of antibiotics for UTI and pneumonia. He has follow up with his urologist within a week and should follow up with his PCP in 1-2 weeks. Exam Vital Signs (past 8 hours): - 03/28/21 07:20 03/28/21 09:30 03/28/21 09:39 Temperature 97.4 F L Pulse Rate 71 82 Pulse Rate [Orthostatic Lying] Pulse Rate [Orthostatic Sitting] Pulse Rate [Orthostatic Standing] Respiratory Rate 17 Blood Pressure 134/70 128/71 Blood Pressure [Orthostatic Lying] Blood Pressure [Orthostatic Sitting] Blood Pressure [Orthostatic Standing] Pulse Oximetry 94 93 03/28/21 10:59 03/28/21 12:00 Temperature Pulse Rate Pulse Rate [Orthostatic Lying] 77 Pulse Rate [Orthostatic Sitting] 71 Pulse Rate [Orthostatic Standing] 82 Respiratory Rate Blood Pressure Blood Pressure [Orthostatic Lying] 142/78 H Blood Pressure [Orthostatic Sitting] 172/77 H Blood Pressure [Orthostatic Standing] 129/79 Pulse Oximetry 97 Oxygen Delivery Method Room Air Oxygen Flow Rate 0 Objective Labs Result Diagrams: 03/28/21 05:10 03/28/21 05:10 Labs: Laboratory Results - last 24 hr 03/28/21 03/28/21 05:10 05:10 WBC 8.5 RBC 4.03 L Hgb 11.7 L Hct 34.8 L MCV 86.4 MCH 28.9 MCHC 33.5 RDW 13.3 Plt Count 239 Neut % (Auto) 78.7 H Lymph % (Auto) 10.6 L Forest % (Auto) 6.5 Eos % (Auto) 3.9 Baso % (Auto) 0.3 Neut # (Auto) 6700 Lymph # (Auto) 900 L Forest # (Auto) 600 Eos # (Auto) 300 Baso # (Auto) 0 Sodium 140 Potassium 3.3 L Chloride 107 Carbon Dioxide 31 BUN 11 Creatinine 0.82 Estimated GFR > 60.0 BUN/Creatinine Ratio 13.4 Glucose 94 Calcium 8.5 PFSH Medical History BPH (benign prostatic hyperplasia) Cerebrovascular accident Essential hypertension Hyperlipidemia Surgical History History of back surgery History of surgery on arm History of tonsillectomy Family History Mother Cancer Father Cancer Social History household members: spouse Smoking Status: Never smoker alcohol intake: former Discharge Plan Discharge Plan Patient Disposition: Home Health Service Provider Discharge Comment: Mr. Morse came in to the hospital with low oxygen level, he was tired as well. He had a urine infection and possibly an early pneumonia. He was started on antibiotics and felt better. He will be discharged home to complete antibiotics for his infection. He should follow up with his PCP within one week. Discharge orders & Medications Prescriptions: New levofloxacin 750 mg tablet 750 mg PO DAILY Qty: 2 RF: 0 Continued tamsulosin 0.4 mg capsule 0.8 mg PO DAILY RF: 0 lisinopril 10 mg tablet 7.5 mg PO DAILY RF: 0 furosemide 20 mg tablet 20 mg PO 3XW RF: 0 potassium chloride 10 mEq tablet,ER particles/crystals 10 meq PO DAILY RF: 0 atorvastatin 80 mg Tablet 80 mg PO BEDTIME RF: 0 aspirin 81 mg Tablet,Delayed Release (Dr/Ec) 81 mg PO DAILY RF: 0 finasteride 5 mg Tablet 5 mg PO DAILY RF: 0 Follow up/Referrals: Nadya Choe PA-C [Primary Care Provider] - Diet/Activity/Treatments Diet: Diet as Tolerated Visit Report/Discharge Packet Instructions: DI for Urinary Tract Infection (UTI) Discharge Data Primary Care Provider: Nadya Choe Quality VTE Deep Vein Thrombosis/Pulmonary Embolism Present on Admission: No MIPS - DC The patient has current or prior documentation of left ventricular ejection fraction (LVEF) less than 40%, or moderate or severely depressed left ventricular systolic function.: No
== END 2021-03-28 14:45 | disposition home health service (06) | DRG 698 ==
LOC: ED 21:37 → AC 23:11
PROVIDERS: Internal Medicine; Admitting Provider Nurse Practitioner Family; Emergency Provider Emergency Medicine; PCP Physician Assistant Medical; Referring Provider Emergency Medicine; Visit Provider Nurse Practitioner Family
DX: T83.511A Infection and inflammatory reaction due to indwelling urethral catheter, initial encounter (principal); J15.9 Unspecified bacterial pneumonia; J96.01 Acute respiratory failure with hypoxia; E43 Unspecified severe protein-calorie malnutrition; I69.354 Hemiplegia and hemiparesis following cerebral infarction affecting left non-dominant side; N39.0 Urinary tract infection, site not specified; I10 Essential (primary) hypertension; E78.5 Hyperlipidemia, unspecified; N40.1 Benign prostatic hyperplasia with lower urinary tract symptoms; Z20.822 Contact with and (suspected) exposure to COVID-19; Z68.30 Body mass index [BMI] 30.0-30.9, adult
CPT/HCPCS: 36415; 71045; 80048; 80053; 81001; 83605; 83690; 83735; 84145; 85025; 87040; 87077; 87086; 87186; 87633; 93005; 93010; 94760; 96361; 96365; 97161; 97166; 97530; 99284; U0003; J1650; J2543

== ENCOUNTER 2021-04-24 03:06 | Emergency (ER) | payer MEDICARE, OTHER, SELFPAY ==
[2021-04-24 03:10] VITALS: BP 152/92; PULSE 104; RESP 18; TEMP 36.2; O2SAT 96
--- NOTE | 2021-04-24 03:32 | PC.NURSE ---
Pt cath with 10cc fluid, placement checked, cath is in bladder, balloon is filled with 10 ccc saline. Anderson irrigated with 30cc NS with over 100cc return at this time. Will allow time for further draining.
--- NOTE | 2021-04-24 04:33 | ED.MALEGU ---
HPI - Male Genitourinary General Chief complaint: Urogenital-Male Stated complaint: catheter problem/quit working Time Seen by Provider: 04/24/21 03:10 Source: patient Mode of arrival: Wheelchair Limitations: no limitations History of Present Illness HPI Narrative: 81-year-old male nonsmoker with history of hypertension and hyperlipidemia as well as a prior stroke presents with trouble with his Anderson catheter. He has had in place ever since the stroke over the summer and presents today because he feels like it may have become dislodged. He has been developing some suprapubic discomfort and had some leakage of urine around the catheter over the past day or 2. He denies any chest pain or shortness of breath. He has had no fever or chills. The plan is to follow up with Urology in a few weeks to do a voiding trial and hopefully get the catheter out. Related Data Home Medications Medication Instructions Recorded Confirmed furosemide 20 mg tablet 20 mg PO 3XW 10/20/18 03/25/21 lisinopril 10 mg tablet 7.5 mg PO DAILY 10/20/18 03/25/21 potassium chloride 10 mEq 10 meq PO DAILY 10/20/18 03/25/21 tablet,extended release(part/cryst) tamsulosin 0.4 mg capsule 0.8 mg PO DAILY 10/20/18 03/25/21 aspirin 81 mg tablet,delayed 81 mg PO DAILY 03/25/21 03/25/21 release atorvastatin 80 mg tablet 80 mg PO BEDTIME 03/25/21 03/25/21 finasteride 5 mg tablet 5 mg PO DAILY 03/25/21 03/25/21 Previous Rx's Medication Instructions Recorded levofloxacin 750 mg tablet 750 mg PO DAILY #2 tab 03/28/21 Allergies Allergy/AdvReac Type Severity Reaction Status Date / Time aspirin Allergy Verified 03/25/21 17:41 Review of Systems Review of Systems Narrative: GENERAL: Denies chills, fatigue, malaise, fever, sweats. HEENT: Denies sinus pain, ear pain, sore throat, difficulty swallowing, dizziness. RESPIRATORY: Denies dyspnea, cough, wheezing, hemoptysis, sputum. CARDIOVASCULAR: Denies chest pain, palpitations, orthopnea, edema, GASTROINTESTINAL: Denies nausea, vomiting, abdominal pain, diarrhea, constipation, melena. : See HPI MUSCULOSKELETAL: denies weakness, joint pain, or bony pain SKIN: Denies rash, skin lesions, or other NEUROLOGIC: Denies weakness, headache, numbness, change in speech, confusion, seizures, incoordination. PSYCHIATRIC: No concerning psychosocial issues. 12 point review of systems is negative except for those stated above Patient History Medical History BPH (benign prostatic hyperplasia) Cerebrovascular accident Essential hypertension Hyperlipidemia Surgical History History of back surgery History of surgery on arm History of tonsillectomy Family History Mother Cancer Father Cancer Social History household members: spouse Smoking Status: Never smoker alcohol intake: former Smoking Status: Never smoker alcohol intake frequency: holidays/special occasions only Substance Use Type: does not use Exam Narrative Exam Narrative: GEN: AOx3 and in mild distress EYES: Pupils are equal, round, and reactive to light and accommodation. Extraoccular muscles are intact bilaterally. There is no subconjunctival hemorrhage or exudate. CHEST: Lungs are clear to auscultation bilaterally and free of wheezes, rales, or rhonchi. Heart rate is regular rhythm, there are no murmurs, clicks, rubs, or gallops. There is no chest wall tenderness. ABD: Abdomen is soft and nontender. There is no guarding or rebound. Bowel sounds are normal in all 4 quadrants. There is no mass or organomegaly. EXT: Full painless ROM of all extremities with no loss of sensation or strength. SKIN: Warm, pink, and dry. No erythema or rash Initial Vital Signs Initial Vital Signs: Vital Signs Temperature 97.1 F L 04/24/21 03:10 Pulse Rate 104 H 04/24/21 03:10 Respiratory Rate 18 04/24/21 03:10 Blood Pressure 152/92 H 04/24/21 03:10 Pulse Oximetry 96 04/24/21 03:10 Course Course Course Narrative: Anderson catheter flushed by nursing, functioning properly, draining without difficulty. Bedside ultrasound shows what appears to be an empty bladder with an intact and fully inflated balloon. Patient feeling much better, no issues, return precautions given and questions answered to his apparent satisfaction Vital Signs Vital signs: Vital Signs - 8 hr 04/24/21 03:10 Temperature 97.1 F L Pulse Rate 104 H Respiratory Rate 18 Blood Pressure 152/92 H Pulse Oximetry 96 Discharge Plan Departure Patient Disposition: Home Clinical Impression: Dislodged Anderson catheter Instructions: How to Care for Your Anderson Catheter -- Male Activity Restrictions/Additional Instructions: There is no evidence of an emergent or life threatening illness at this time, but follow up with your doctor in 1-2 days is recommended nonetheless to continue to rule out serious underlying causes of your symptoms. Please call the office for an appointment. Please return to the Emergency Department for any worsening or persistent symptoms. Please take medications as directed. Prescriptions: No Action tamsulosin 0.4 mg capsule 0.8 mg PO DAILY RF: 0 lisinopril 10 mg tablet 7.5 mg PO DAILY RF: 0 furosemide 20 mg tablet 20 mg PO 3XW RF: 0 potassium chloride 10 mEq tablet,ER particles/crystals 10 meq PO DAILY RF: 0 atorvastatin 80 mg Tablet 80 mg PO BEDTIME RF: 0 aspirin 81 mg Tablet,Delayed Release (Dr/Ec) 81 mg PO DAILY RF: 0 finasteride 5 mg Tablet 5 mg PO DAILY RF: 0 levofloxacin 750 mg tablet 750 mg PO DAILY Qty: 2 RF: 0 Referrals: Nadya Choe PA-C [Primary Care Provider] -
[2021-04-24 04:45] VITALS: BP 159/80; PULSE 98; RESP 20; O2SAT 93
== END 2021-04-24 04:45 | disposition home or self-care (01) ==
PROVIDERS: Emergency Provider Emergency Medicine; PCP Physician Assistant Medical
DX: T83.028A Displacement of other urinary catheter, initial encounter (principal)
CPT/HCPCS: 99281

== ENCOUNTER → 2022-12-17 12:57 | Outpatient (CLI) | payer MEDICARE, OTHER, SELFPAY ==
--- NOTE | 2022-12-17 | DI.RAD.S_ITS ---
PROCEDURE: FL BARIUM SWALLOW INDICATIONS: PHARYNGEAL DYSPHAGIA/HEMIPARESIS COMPARISON: None. FINDINGS: Function: Please see speech pathology note for further discussion. There is 1 instance aspiration of thin liquid barium, which did elicit a cough reflex. There was additionally some high penetration, likely from spillover of residual contrast within the vallecula and piriform sinuses. Brief evaluation of the esophagus demonstrates no significant esophageal dysmotility. Morphology: There is moderate residual contrast within the vallecula and piriform sinuses. There appears to be pooling of contrast within the cervical esophagus, without definite diverticulum. IMPRESSION: Pooling of contrast within the cervical esophagus, without a definite diverticulum. Consider direct visualization to exclude mass. Please see speech pathologist's note for further discussion. Dictated by: Misael Aguirre M.D. on 12/17/2022 at 14:45 Approved by: Misael Aguirre M.D. on 12/17/2022 at 14:49
--- NOTE | 2022-12-18 13:17 | ST.SWALLOW ---
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 Payne, ENT. According to the pt he has been experiencing difficulty swallowing solids.Pt reported that when eating meats, he experienced difficulty swallowing the bolus, needed to regurgitate the bolus, chew again and re-swallow. This may require more than one regurgitation of the same bolus . Pt also reported that he has coughed up pills, sometimes after a long period of time after taking them. Subjective Observations pt was seated in the fluoroscopy chair with directions and procedures described for him. He indicated he understood and agreed to proceed. Patient Positioning Position View Lat-A/P Imaging Lateral View Textures Administered Trials Presented Thin Liquid via Spoon (IDDSI 0 ),Thin Liquid via Cup (IDDSI 0 ),Puree (IDDSI 4),Regular ( IDDSI 7) Barium Tablet Yes The IDDSI Framework Protocol: IDDSI.1 Oral Impairment Source: The Modified Barium Swallow Impairment Profile (MBSImP??) Lip Closure No labial escape Tongue Control During Bolus Hold Cohesive bolus between tongue to palatal seal Bolus Preparation/Mastication Timely & efficient chewing & mashing Bolus Transport/Lingual Motion Brisk tongue motion Oral Residue Trace residue lining oral structures Location Tongue,Lateral sulci Initiation of Pharyngeal Swallow Bolus head at posterior angle of ramus (first hyoid excursion) Additional Oral Impairment Observations Pt demonstrated oral structures WNL for form and function. DKS was WNL as well. Oral phase of swallow was unremarkable with the exception of oral residue noted lateral to the tongue base indicating possible laryngocyle. This residue would be present following the swallow of liquids and then empty itself. Pharyngeal Impairment Source: The Modified Barium Swallow Impairment Profile (MBSImP??) Soft Palate Elevation No bolus between soft palate & pharyngeal wall Laryngeal Elevation Comp.sup.move.thyroid cart.w/ comp.approx.arytenoids to epiglot petiole Anterior Hyoid Excursion Partial anterior movement Epiglottic Movement Complete inversion Laryngeal Vestibular Closure Incomplete; narrow column air/ contrast in laryngeal vestibule Pharyngeal Stripping Wave Present - diminished Pharyngoesophageal Segment Opening Partial distention/partial duration; partial obstruction of flow Tongue Base Retraction Wide column of contrast/air betwn tongue base & post. pharyngeal wall Pharyngeal Residue Minimal to no pharyngeal clearance Location Diffuse (>3 areas) Additional Pharyngeal Impairment The pt's pharyngeal swallow Observations phase presented several areas of concern. Premature spillage of the bolus contrast to the valeculla was noted across all trials. Weak tongue base negatively impacted the forward movement of the hyoid. Laryngeal elevation appeared to be adequate. Pt's pharynx appeared to be deep with minimal pharyngeal contraction of the pharyngeal constrictors. This reduces bolus control through the pharynx. Significant pooling of the contrast was observed in the valeculla, the posterior pharyngeal wall, along the aerepiglottal folds and in the pyriforms. The pooling within the pyrifirms was significant for liquid trials (left side?) with cole tracheal aspiration noted x1 from the pyriforms with subsequent swallows after trials. Pooling within the valeculla contributed to penetration of contrast into the laryngeal vestibule x4. Pt did present with a reflexive cough. With semisolid and solid bolus trials, there was pooling of ~50% of the bolus within the pyriforms. Subsequent swallows did not clear the pyriforms; however a water flush was able to clear the pyriforms after a few swallows. With regard to the UES, pooling was noted after semisolid and solid trials. The duration and extension of the opening of the UES appeared to be restricted and interfered with flow through to the esophagus. inferior to the UES, there appeared to be bilateral pouches that collected contrast. On A-P view they were difficult to see , but in the lateral view, they filled with contrast after the swallow. See radiologist report. In the A- P view, a barium tablet initially stopped at the veleculla and then again in the left pyriform, requiring multiple swallows of water to clear. A/P View Textures Administered Trials Presented Thin Liquid via Spoon (IDDSI 0 ) The IDDSI Framework Protocol: IDDSI.1 A/P View Observations Esophageal Clearance Upright Position Esophageal retention Vocal Fold Function Good Clinical Impressions Findings Pt does not present with oral or pharyngeal dysphagia, per se. Rather, it appears that there is pooling above and below the UES that is retained across trials. Possibly this is due to a restricted UES opening keeping residue in the pyriforms. Below the folds there apprar bilateral pouches of retained contrast. The pooling within the pyriforms and valeculla were observed to penetrate the laryngeal vestibule and enter the airway with swallows subsequent to the original trials. Patient Appropriate for Therapy No Recommendations Treatment Plan Recommended Referrals GI Consult,ENT Consult
== END ==
PROVIDERS: PCP Physician Assistant Medical; Referring Provider Otolaryngology; Visit Provider Otolaryngology
DX: I69.391 Dysphagia following cerebral infarction (principal); R13.13 Dysphagia, pharyngeal phase; I69.354 Hemiplegia and hemiparesis following cerebral infarction affecting left non-dominant side
CPT/HCPCS: 74220; 92611

== ENCOUNTER → 2022-12-24 10:57 | Outpatient (CLI) | payer MEDICARE, OTHER, SELFPAY ==
--- NOTE | 2022-12-24 | DI.RAD.S_ITS ---
PROCEDURE: FL BARIUM SWALLOW INDICATIONS: Dysphagia, pharyngeal phase COMPARISON: [facility], , IN BARIUM SWALLOW W SPEECH, 12/17/2022, 13:32. FINDINGS: Exam was technically difficult. Function: Mild esophageal dysmotility. There is normal transit of a calibrated barium tablet through the esophagus into the stomach. There is the laryngeal penetration demonstrated. There is piriform sinus pooling. No cole aspiration was identified. The patient coughed after the 1st drink of contrast. Morphology: Air-contrast images demonstrate normal mucosal morphology. Single contrast views show no esophageal strictures, extrinsic mass effects, or diverticula. Limited images of the stomach demonstrate normal appearance. Cholecystectomy clips. IMPRESSION: Lowering glenoid trace cortez and appear form sinus pooling. Mild esophageal dysmotility. No diverticulum. Dictated by: Thierno Sethi M.D. on 12/24/2022 at 12:13 Approved by: Thierno Sethi M.D. on 12/24/2022 at 12:18
== END ==
PROVIDERS: PCP Physician Assistant Medical; Referring Provider Otolaryngology; Visit Provider Otolaryngology
DX: K22.4 Dyskinesia of esophagus (principal); R13.13 Dysphagia, pharyngeal phase
CPT/HCPCS: 74220

== ENCOUNTER 2023-05-11 11:50 | Day surgery (SDC) | payer MEDICARE, OTHER, SELFPAY ==
--- NOTE | 2023-05-11 | PATH_ITS ---
[facility] Accession Number: [id number] No. of containers..04 Tissue . 01 Material submitted: . PART A: gastrointestinal site - CARDIA POLYP PART B: gastrointestinal site - ANTRAL POLYPS PART C: esophagus - MID ESOPHAGUS PART D: colon - COLON POLYPS . 01 Diagnosis: A. Stomach, Cardia Polyp: Gastric hyperplastic polyp. No evidence of Helicobacter on H/E stain. Negative for intestinal metaplasia. Negative for dysplasia and malignancy. . B. Stomach, Antral Polyps: Benign gastric xanthoma. No evidence of Helicobacter on H/E stain. Negative for intestinal metaplasia. Negative for dysplasia and malignancy. . C. Mid Esophagus, Biopsy: Squamous epithelium with no diagnostic abnormality. Intraepithelial eosinophils are not increased. Negative for dysplasia and malignancy. . D. Colon, Polyps: Tubular adenoma, two fragments. [facility] 05/19/2023 1307 Local . 01 Electronically signed: . Deysi Falk MD, Pathologist NPI- [id number] . 01 Gross description: . Part A: CARDIA POLYP: Received in formalin is 1 fragment(s) of toussaint, soft tissue measuring 0.7 x 0.7 x 0.7 cm submitted entirely in 1 cassette(s) Part B: ANTRAL POLYPS: Received in formalin are 3 fragment(s) of toussaint, soft tissue measuring 0.2 x 0.2 x 0.1 cm to 0.3 x 0.3 x 0.2 cm submitted entirely in 1 cassette(s) Part C: MID ESOPHAGUS: Received in formalin are 2 fragment(s) of toussaint, soft tissue measuring 0.1 x 0.1 x 0.1 cm to 0.2 x 0.2 x 0.1 cm submitted entirely in 1 cassette(s) Part D: COLON POLYPS: Received in formalin are 2 fragment(s) of toussaint, soft tissue measuring 0.2 x 0.2 x 0.2 cm to 0.3 x 0.3 x 0.3 cm submitted entirely in 1 cassette(s) /TERRENCE 05/12/2023 [facility]5 Local . 01 Microscopic: . B. Immunohistochemical stains were performed to characterize cells of interest. All control stains showed appropriate reactivity. . RESULTS: SAMARA: Negative. CD68: Positive. . INTERPRETATION: The cells of interest express CD68, consistent with histiocytes. . * This test was developed and its performance characteristics determined by [employer]. It has not been cleared or approved by the U.S. Food and Drug Administration. The FDA has determined that such clearance or approval is not necessary. This test is used for clinical purposes. It should not be regarded as investigational or for research. . 01 Pathologist provided ICD-10: K31.7, D12.6 . 01 CPT . 030435, 074022, 233259, 549355, F43688, B61462 Specimen Comment: A courtesy copy of this report has been sent to [phone] Performed at: 01 [facility] [address] [place] [address], [place], [place] [id number] MD Leonardo Birmingham MD Phone: [phone]
[2023-05-11 12:32] VITALS: BP 128/74; PULSE 70; RESP 16; TEMP 36.7; O2SAT 93; BMI 25.6
[2023-05-11] MEDS: LACTATED RINGERS 1,000 ML 150 ML IV (12:44)
--- NOTE | 2023-05-11 13:16 | P.HP_ITS ---
History of Present Illness History of Present Illness Date Patient Seen: 05/11/23 Time Patient Seen: 13:16 Chief complaint: SDC Narrative: I reviewed my recent office note. No significant changes. He was seen by speech last week and there is concern that he may have a Zenker's or even to proximal diverticula. Persistence with dysphagia since his stroke continues. He is a personal history of colon polyps. He is therefore here for EGD and colonoscopy. [facility] Medical History BPH (benign prostatic hyperplasia) Hyperlipidemia Essential hypertension Cerebrovascular accident Surgical History History of back surgery History of tonsillectomy History of surgery on arm Family History Mother Cancer Father Cancer Social History household members: spouse Smoking Status: Never smoker alcohol intake: former Meds Home Medications and Allergies Home Medications Medication Instructions Recorded Confirmed Type furosemide 20 mg tablet 20 mg PO 3XW 10/20/18 05/11/23 History lisinopril 10 mg tablet 7.5 mg PO DAILY 10/20/18 05/11/23 History tamsulosin 0.4 mg capsule 0.8 mg PO DAILY 10/20/18 05/11/23 History aspirin 81 mg tablet,delayed 81 mg PO DAILY 03/25/21 05/11/23 History release atorvastatin 80 mg tablet 80 mg PO BEDTIME 03/25/21 05/11/23 History finasteride 5 mg tablet 5 mg PO DAILY 03/25/21 05/11/23 History Allergies Allergy/AdvReac Type Severity Reaction Status Date / Time No Known Drug Allergies Allergy Verified 05/11/23 12:25 Review of Systems Review of Systems ROS: Yes All systems reviewed with the patient and are negative except as otherwise documented Exam Vital Signs (past 8 hours): - 05/11/23 12:32 Temperature 98.1 F Pulse Rate 70 Respiratory Rate 16 Blood Pressure 128/74 Pulse Oximetry 93 Oxygen Delivery Method Room Air Oxygen Delivery Method Room Air Const General: cooperative HENMT Head: normal to inspection Eyes General: appearance normal, both eyes and all related structures Neck Neck: normal visual inspection Chest Chest: normal inspection of the chest Resp Effort & Inspection: normal respiratory effort Cardio Rate: regular rate GI Inspection: normal to inspection Skin General: no rashes or lesions noted Neuro General: patient alert and patient awake Extrem General: pedal edema Psych Appearance: grossly normal Assessment & Plan Assessment & Plan narrative: 83-year-old male with dysphagia of uncertain etiology and a personal history of colon polyps. Diagnostic EGD and surveillance colonoscopy are pursued today.
--- NOTE | 2023-05-11 13:18 | PM.PREOP ---
Pre-operative Note Interval Note History & Physical reviewed/Exam performed by Physician: Yes Changes to H&P: Yes ASA Class (for procedural sedation): III
--- NOTE | 2023-05-11 14:05 | PM.OP.EC ---
Operative Date/Time/Diagnoses Date of procedure: 05/11/23 Time of procedure: 14:06 Pre-op diagnosis: Dysphagia. Personal history of colon polyps. Post-op diagnosis: same Procedure & Clinicians Study performed: EGD with biopsies and hot snare polypectomy and colonoscopy with cold forceps polypectomies Same procedure as scheduled: Yes Indications: Dysphagia. Personal history of colon polyps. Surgeon: Fareed Turner Procedure Notes SCOAP/Timeout: Done Procedure in detail: After the risks and benefits were explained, written and verbal informed consent was obtained. The patient was brought into the procedure room and placed into the left lateral decubitus position. Please see anesthesia note for sedation details. The scope was introduced into the mouth through the bite block and advanced under direct visualization to the 2nd portion of the duodenum. The scope was slowly withdrawn carefully examining the mucosa for any defects or lesions. Retroflexed views were accomplished in the stomach. The stomach was decompressed, the scope was then removed from the patient who tolerated the procedure well. The patient was then turned around. A digital rectal examination was accomplished. The scope was introduced into the rectum and advanced to the cecum as identified by the appendiceal orifice and ileocecal valve. The scope was slowly withdrawn to carefully examine the mucosa for any defects or lesions. Retroflexed views were accomplished in the rectum the colon was decompressed. The scope was removed from the patient who tolerated the procedure well. Adult colonoscope Bowel prep adequate Scope withdrawal time: 11 minutes Sedation minutes: 41 Complications: none Impression: 1. Duodenal: This was visually unremarkable from the bulb through to the 2nd portion. 2. Stomach: No gastric outlet obstruction. No mass lesions no ulcers. Retroflexed views of the LES were unremarkable with the exception of a polyp. There were a couple of polypoid nodules in the pre-pyloric/antral region. An off-white subtle sessile polyp and then to 7 mm firm polyps were addressed with cold forceps from this location. The polyp in the gastric cardia was perhaps 8 mm in greatest dimension and removed with hot snare polypectomy. This was retrieved by way of Rider net. 3. Esophagus: The squamocolumnar junction correlated with the top of the gastric folds. GE junction was at about 44 cm from the incisors. I took biopsies from the mid esophagus for exclusion of eosinophilic esophagitis. Although the upper esophageal sphincter mechanism was somewhat tortuous I could not visualize an obvious Zenker's diverticulum 4. Colon: The patient had evidence of grade 2 internal hemorrhoids with hypertrophied anal papillae. There was moderate diverticulosis all throughout the left colon. There were a couple of small polyps removed with cold forceps. One of these was in the cecum 1 of these was in the region of the hepatic flexure. They ranged in size from 4-5 mm each. No additional significant pathology was appreciated throughout. Endoscopic diagnosis 1. Gastropathy 2. Gastric polyps 3. Otherwise visually unremarkable upper endoscopy 4. Colon polyps 5. Diverticulosis 6. Grade 2 hemorrhoids Post-procedure Plan for aftercare: 1. Await histology. 2. Continue follow-up in speech pathology and [facility] 3. Surveillance endoscopy will be considered following pathology review. Disposition: PACU
[2023-05-11 14:11] VITALS: BP 93/45; PULSE 60; RESP 12; TEMP 36.1; O2SAT 96
[2023-05-11 14:15] VITALS: BP 99/56; PULSE 68; RESP 12; O2SAT 97
[2023-05-11 14:20] VITALS: BP 104/58; PULSE 62; RESP 13; TEMP 35.6; O2SAT 97
[2023-05-11 14:25] VITALS: BP 103/66; PULSE 88; RESP 12; O2SAT 98
== END 2023-05-11 15:00 | disposition home or self-care (01) ==
PROVIDERS: Family Provider Physician Assistant Medical; PCP Physician Assistant Medical; Referring Provider Internal Medicine Gastroenterology; Visit Provider Internal Medicine Gastroenterology
PROC: 0DJ08ZZ Inspection of Upper Intestinal Tract, Via Natural or Artificial Opening Endoscopic (ICD-10-PCS; CPT 43235; principal; 2023-05-11 13:30)
PROC: 0DJD8ZZ Inspection of Lower Intestinal Tract, Via Natural or Artificial Opening Endoscopic (ICD-10-PCS; CPT 45378; 2023-05-11 13:30)
DX: Z12.11 Encounter for screening for malignant neoplasm of colon (principal); Z86.010 Personal history of colon polyps; R13.10 Dysphagia, unspecified; K31.9 Disease of stomach and duodenum, unspecified; K31.7 Polyp of stomach and duodenum; K57.30 Diverticulosis of large intestine without perforation or abscess without bleeding; K64.1 Second degree hemorrhoids; E75.5 Other lipid storage disorders; D12.6 Benign neoplasm of colon, unspecified
CPT/HCPCS: 43251; 45380; 43239; J2704

== ENCOUNTER 2024-09-21 23:52 | Emergency (ER) | payer MEDICARE, OTHER, SELFPAY ==
[2024-09-22] VITALS (7 sets, daily range): BP systolic 147–169; BP diastolic 68–73; PULSE 50–61; RESP 15–18; TEMP 36.7; O2SAT 98–100; BMI 23.1
--- NOTE | 2024-09-22 02:49 | ED.FALL ---
HPI - Fall General Chief Complaint: Fall Stated Complaint: fall, hit head no thinners Time Seen by Provider: 09/22/24 02:48 Source: patient Mode of arrival: Ambulatory History of Present Illness HPI Narrative: 84-year-old male history of stroke medication with left-sided deficit for blood pressure, cholesterol, BPH and aspirin 81 mg daily. Patient states he tripped on one of his 's throw rugs at home. Fell and hit the left side of his head. He does have little bit of chronic deficit in his left upper extremity and still uses a walker. Patient states no loss of consciousness. States he did cut his head. He states it is pretty superficial but did not bleed. Patient states he was a little bit of a mild headache. Denies any neck pain, no chest pain or shortness of breath. Denies any dizziness. No nausea or vomiting. No other new GI or urinary symptoms. Denies any new numbness, tingling or weakness. Patient states no known drug allergies. No tobacco, occasional alcohol, no recreational drugs. Related Data Home Medications Medication Instructions Recorded Confirmed furosemide 20 mg tablet 20 mg PO 3XW 10/20/18 09/22/24 lisinopril 10 mg tablet 7.5 mg PO DAILY 10/20/18 09/22/24 tamsulosin 0.4 mg capsule 0.8 mg PO DAILY 10/20/18 09/22/24 aspirin 81 mg tablet,delayed 81 mg PO DAILY 03/25/21 09/22/24 release atorvastatin 80 mg tablet 80 mg PO BEDTIME 03/25/21 09/22/24 finasteride 5 mg tablet 5 mg PO DAILY 03/25/21 09/22/24 Allergies Allergy/AdvReac Type Severity Reaction Status Date / Time No Known Drug Allergies Allergy Verified 05/11/23 12:25 Review of Systems Review of Systems ROS Unobtainable: All systems reviewed & are unremarkable except as noted in HPI and below Patient History Medical History BPH (benign prostatic hyperplasia) Hyperlipidemia Essential hypertension Cerebrovascular accident Surgical History History of back surgery History of tonsillectomy History of surgery on arm Family History Mother Cancer Father Cancer Social History household members: spouse Smoking Status: Never smoker alcohol intake: former Smoking Status: Never smoker alcohol intake frequency: holidays/special occasions only Exam Narrative Exam Narrative: GEN: Patient appears in mild distress. HEAD: Patient has a what appears to be a skin tear of the left parietal region, sort of an avulsion but skin is very thin about a cm in length and width, patient also has very superficial laceration little bit further down it is about a 0.5 cm., no raccoon/Martinez sign. NECK: Nontender, painless range of motion, trachea midline EYES: PERRLA, EOMI ENT: External inspection normal, trachea is midline, TM's are normal no hemotypanum, Nares are clear, no septal hematoma, no dental or oral injury, airway is normal and with normal occlusion, No bony tenderness RESP: Chest is nontender and has symmetric movement, no ecchymosis, breath sounds are normal no crackles, wheezes or rales CVS: Heart sounds are normal, no murmur noted, No JVD. ABG/GI: Nontender, soft, normal bowel sounds, no distention, no organomegaly, pelvic rock is negative NEURO: Oriented AOx3, neuro is grossly intact, sensation and motor is normal all 4 extremities moving, cranial nerves II through XII are intact, GCS is 15 PSYCH: Normal mood and affect SKIN: Intact, warm and dry, no crepitus and without decubitus BACK: No CVA tenderness, no vertebral tenderness, no step-off's, no crepitus EXT: Atraumatic, patient was weaker on his left compared to his right, he states that is his normal. Has a normal sensation. No obvious lacerations or abrasions appreciated. No bony tenderness. Initial Vital Signs Initial Vital Signs: Vital Signs Temperature 98.1 F 09/22/24 00:15 Pulse Rate 61 09/22/24 00:15 Respiratory Rate 15 09/22/24 00:15 Blood Pressure 169/73 H 09/22/24 00:15 Pulse Oximetry 100 09/22/24 00:15 Oxygen Delivery Method Room Air 09/22/24 00:15 Course Orders Ordered: ED Orders 09/22/24 02:55 CT head/brain wo con Stat Discontinued Medications Diphtheria/Tetanus/Acell Pertussis (Tet,Diph,Pertuss(Acell),Vac/Pf 0.5 Ml Syringe) 0.5 ml IM .ONCE ONE Stop: 09/22/24 03:01 Last Admin: 09/22/24 03:14 Dose: 0.5 ml Documented By: GUILLERMINA Vital Signs Vital signs: Vital Signs - 8 hr 09/22/24 00:15 09/22/24 02:07 09/22/24 02:09 Temperature 98.1 F Pulse Rate 61 57 L Respiratory Rate 15 Blood Pressure 169/73 H 165/70 H Pulse Oximetry 100 99 Oxygen Delivery Method Room Air 09/22/24 02:09 09/22/24 02:30 09/22/24 02:30 Temperature Pulse Rate 56 L 50 L Respiratory Rate Blood Pressure 147/68 H Pulse Oximetry 100 99 Oxygen Delivery Method 09/22/24 03:00 09/22/24 03:30 09/22/24 03:52 Temperature Pulse Rate 52 L 53 L 55 L Respiratory Rate 18 Blood Pressure 147/68 H Pulse Oximetry 98 99 100 Oxygen Delivery Method Room Air MDM - Fall MDM Narrative Medical decision making narrative: 84-year-old male with mechanical ground level fall on aspirin did hit his head has a skin tear which he was fairly superficial does not look like it would take sutures or erica to hold it we will place Surgicel with a bandage to the area. Because of patient's age and on aspirin head CT was obtained. Patient has had a mild headache but no other new neurologic changes. Tetanus was updated. Head CT shows no acute intracranial hemorrhage or mass effect, mild left lateral scalp swelling. Discussed findings with the patient he feels comfortable with plan bandage was applied with a little bit of Surgicel to the affected area. Discharge Plan Departure Patient Disposition: Home Clinical Impression: Skin tear, Head injury, Fall Instructions: How to Prevent Falls Activity Restrictions/Additional Instructions: Follow up as needed. I hope you continue to feel improved. Floor rugs can sometimes increase patient's chances of falling, make sure using a nonskid mat underneath and it is sometimes helpful to avoid using them if you find you are tripping on them. Wound Care: Keep wound(s) clean and dry. Wash daily with soap and water only. Return if fever greater than 100.4 Fahrenheit, increased swelling, increasing pain or worsening symptoms such as increased discharge or spreading redness, severe headaches, new neck or back pain, new numbness tingling or weakness, confusion, vomiting or other new or concerning changes. Prescriptions: No Action tamsulosin 0.4 mg capsule 0.8 mg PO DAILY lisinopril 10 mg tablet 7.5 mg PO DAILY furosemide 20 mg tablet 20 mg PO 3XW atorvastatin 80 mg Tablet 80 mg PO BEDTIME aspirin 81 mg Tablet,Delayed Release (Dr/Ec) 81 mg PO DAILY finasteride 5 mg Tablet 5 mg PO DAILY Referrals: Nadya Choe PA-C [Primary Care Provider] - Stand Alone Forms: Patient Portal/API/Survey
--- NOTE | 2024-09-22 02:55 | DI.CT.S_ITS ---
PROCEDURE: CT HEAD/BRAIN WO CON INDICATIONS: head injury, on asa TECHNIQUE: Noncontrast 4.5 mm thick angled axial sections acquired from the foramen magnum to the vertex, with coronal and sagittal reformats. For radiation dose reduction, the following was used: automated exposure control, adjustment of mA and/or kV according to patient size. COMPARISON: [facility], CT, CT HEAD/BRAIN WO CON, 01/14/2021, 13:39. FINDINGS: Image quality: Diagnostic. CSF spaces: Basal cisterns are patent. No extra-axial fluid collections. The ventricles are symmetric in size and shape. Brain: No intracranial bleeds or masses. There is cerebral volume loss for age, with resultant ventricular and sulcal prominence. Old right basal ganglia lacunar infarcts. There are periventricular and deep white matter chronic small vessel ischemic changes. There is intracranial internal carotid artery atherosclerosis. Skull and face: Left frontal scalp hematoma. Calvarium and visualized facial bones appear intact, without suspicious lesions. Sinuses: Visualized sinuses and mastoids are clear. IMPRESSION: No acute intracranial pathology. Findings are concordant with preliminary interpretation provided by [facility]. Dictated by: James Gregory M.D. on 09/22/2024 at 7:56 Approved by: James Gregory M.D. on 09/22/2024 at 8:01
[2024-09-22] MEDS: TET,DIPH,PERTUSS(ACELL),VAC/PF 0.5 ML SYRINGE IM (03:14)
== END 2024-09-22 03:53 | disposition home or self-care (01) ==
PROVIDERS: Emergency Provider Emergency Medicine; Family Provider Physician Assistant Medical; PCP Physician Assistant Medical
DX: S09.90XA Unspecified injury of head, initial encounter (principal); S01.01XA Laceration without foreign body of scalp, initial encounter; R51.9 Headache, unspecified; W01.198A Fall on same level from slipping, tripping and stumbling with subsequent striking against other object, initial encounter; Z23 Encounter for immunization
CPT/HCPCS: 70450; 90471; 99283; 99284; 90715

== ENCOUNTER 2025-07-05 11:54 | Inpatient (IN) | payer MEDICARE, OTHER, SELFPAY ==
--- OUTSIDE RECORDS SUMMARY | 2025-06-21 09:11 | XMS_ITS | Continuity of Care Document ---
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 Name Role Phone Nadya Choe PA-C Primary Care Provider Nadya Choe PA-C Attending Provider [phone] Nadya Choe PA-C Referring Provider [phone] Care Teams Patient Care Team Team Status: Active Member Role/Relationship Status Dates Nadya Choe PA-C Primary Care Provider Active Patient Care Team Team Status: Inactive Member Role/Relationship Status Dates Nadya Choe PA-C Primary Care Provider Active Start: June 21, 2025 End: June 21, 2025 Nadya Choe PA-C Attending Provider Active Start: June 21, 2025 End: June 21, 2025 Nadya Choe PA-C Referring Provider Active Start: June 21, 2025 End: June 21, 2025 Chief Complaint and Reason for Visit Chief Complaint Admit Date Follow up June 21, 2025 3:55pm Reason for Visit Admit Date Absent pedal pulses June 21, 2025 3:55pm CAD (coronary artery disease) June 122024 3:55pm Chronic renal insufficiency June 3:55pm Hyperglycemia June 21, 2025 3:55pm Hyperlipidemia June 21, 2025 3:55pm Hypertension, essential, benign June 21, 2025 3:55pm Allergies, Adverse Reactions, Alerts No known allergies Social History Smoking Status Status Start Date End Date Date of Observa tion Never smoked tobacco (finding) December 19, 2024 1:04pm Observation Status Observation Response Date of Response Psychiatric None January 12, 2021 1 1:20am Legal Sex Male Sex Assigned At Male February Family History Relationship Condition Age at Onset Recorded Date/T genny Unknown Neurological History?None Unknown Ju ly 2020 11:04am Respiratory?None Unknown January 12 11:20am Endocrine/Autoimmune?None Unknown Ju ly 2020 11:20am Problems Active Problems Problem Diagnosis/Recorded Date Onset Date Status C omments Absent pedal pulses June 21, 2024 5:15pm Unknown Active BPH (benign prostatic hyperplasia) June 21, 2024 4:49pm Unknown Active Actinic keratosis June 21, 2024 4:48pm Unknown Ac tive Hypertension, essential, benign June 21, 2024 4:49pm Unknown Active CAD (coronary artery disease) June 21, 2024 4:47pm Unknown Active Dysphagia June 21, 2024 4:47pm Unknown Active Cardiac murmur December 19, 2024 12:26pm Unknown Active normal echo 01/2025 Hyperglycemia June 21, 2024 4:49pm Unknown Active Hyperlipidemia June 21, 2024 4:50pm Unknown Activ e Cold extremities June 21, 2024 5:12pm Unknown Act dorothy Urinary retention June 21, 2024 4:48pm Unknown Ac tive Chronic renal insufficiency June 21, 2024 4:48pm Unknown Active Pulmonary embolism June 21, 2024 4:50pm Unknown A ctive Hx of adenomatous colonic polyps June 21, 2024 4:49pm Unknown Active CVA (cerebral vascular accident) June 21, 2024 4:48pm Unknown Active Inactive/Resolved Problems Problem Diagnosis/Recorded Date Onset Date Status C omments Leg edema February 16, 2018 6:37pm Unknown Resolved P roblem List clean-up per request of Phys. 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 EHR Cmte Cellulitis May 05, 2015 12:41pm Unknown Resolved Problem List clean-up per request of Phys. EHR Cmte Thrombocytopenia May 19, 2015 5:11pm Unknown Reso lved Problem List clean-up per request of Phys. EHR Cmte Drug-induced thrombocytopenia May 19, 2015 3:46am Unknown Resolved Probl em List clean-up per request of Phys. EHR Cmte Strain of chest wall April 29, 2015 8:22pm Unknown Resolved Problem List clean-up per request of Phys. EHR Cmte Deep venous thrombosis May 19, 2015 5:11pm Unknown Resolved Problem List clean-up per request of Phys. EHR Cmte Accidental fall April 29, 2015 8:22pm Unknown Resol ike Problem List clean-up per request of Phys. EHR Cmte Scalp laceration April 29, 2015 8:20pm Unknown Reso lved Problem List clean-up per request of Phys. EHR Cmte Medications Medication Status Dose Units Route Directions Qty Days Refills S tart Date Stop Date End Date Reason(s) Instructions Adherence Atorvastati n (Lipitor) 80 mg tablet Discont inued 80 MG PO EVERY EVENING 90 3 Novemb er 2023 12:00a m Decem fátima 2023 5:22p m Tamsulosin (Flomax) 0.4 mg capsule Discont inued 0.4 MG PO TWICE A DAY Novemb er 2023 7:27am Novem fátima 2023 7:30a m Tamsulosin 0.4 mg capsule Discont inued 0.4 MG PO TWICE A DAY 60 0 b er 2023 7:28am Julua ry 2024 8:22a m urinary retention Take 1 capsule twice a day for urinary retention. Needs to be seen for further refills. Tamsulosin 0.4 mg capsule Active 0.4 MG PO TWICE A DAY 180 3 2024 8:22am urinary retention Take 1 capsule twice a day for urinary retention. Needs to be seen for further refills. Complies with drug therapy Lisinopril 2.5 mg tablet Active 0 PO every day 270 3 y 2024 8:22am Take three tablets once a day orally every day for blood pressure Complies with drug therapy Atorvastati n (Lipitor) 80 mg tablet Active 80 MG PO EVERY EVENING 90 3 ry 2024 1:30pm for cholesterol Complies with drug therapy Statin Discont inued Octobe r 2014 11:00p m Octob er 2014 6:43p m Aspirin (Aspir 81) 81 MG tablet,cliff yed release (DR/EC) Discont inued 1 TAB PO DAILY Octobe r 2014 11:00p m Novem fátima 2014 9:04p m Simvastatin (Zocor) 5 MG tablet Discont inued 1 TAB PO DAILY Octobe r 2014 11:00p m Novem fátima 2014 9:04p m Levofloxaci n (Levaquin) 500 MG tablet Discont inued 500 MG PO DAILY Octobe r 2014 11:00p m Novem fátima 2014 9:04p m Clindamycin Hcl 150 MG capsule Discont inued 300 MG PO Q6H 10 0 Octobe r 2014 11:00p m Novem fátima 2014 9:04p m Ondansetron 4 MG tablet,disi ntegrating Discont inued 4 MG TL Q6H as needed for Nausea / Vomiting 10 0 Octobe r 2014 11:00p m Novem fátima 2014 9:04p m Lovastatin 40 MG tablet Discont inued 40 MG PO DAILY Novemb er 2014 12:00a m January 12, 2021 11:02 am Zinc 50 MG tablet Active [facility] Complies with drug therapy Cholecalcif scott (Vitamin D3) (Vitamin D3) 2,000 UNIT capsule Active 2000 UNIT PO DAILY [facility] 12:00a m Complies with drug therapy Dexamethaso ne 4 MG tablet Discont inued 40 MG PO DAILY WITH MEAL 30 0 [facility] 12:00a m [facility] 2016 8:46a m take 40mg daily for 3 days Potassium Chloride 10 MEQ capsule, extended release Discont inued 10 MEQ PO DAILY Septem fátima 2016 11:00p m [facility] fátima 2023 4:22p m Tamsulosin (Flomax) 0.4 MG capsule Discont inued 0.4 MG PO DAILY Septem fátima 2016 11:00p m [facility] fátima 2023 7:28a m Furosemide 20 MG tablet Discont inued 20 MG PO DAILY Septem fátima 2016 11:00p m [facility] fátima 2023 5:22p m Chlorthalid one 25 MG tablet Discont inued 25 MG PO DAILY Septem fátima 2016 11:00p m January 12, 2021 11:03 am Simvastatin (Zocor) 40 MG tablet Discont inued 40 MG PO BEDTIME January 11, 2021 11:00p m [facility] fátima 2023 4:22p m Aspirin 81 mg tablet,cliff yed release (DR/EC) Discont inued 81 MG PO every day [facility] er 2023 12:00a m [facility] fátima 2023 5:22p m Sildenafil (Viagra) 25 mg tablet Active 25 MG PO every day as needed [facility] er 2023 12:00a m administer 30 minutes to 4 hours before activity Complies with drug therapy Finasteride 5 mg tablet Active 5 MG PO every day De cemb er 2023 12:00a m Complies with drug therapy Clobetasol 0.05 % cream Active 1 APPLIC TOP TWICE A DAY Dece er 2023 12:00a m Complies with drug therapy Permanent Disabled Placard misc Active 0 .Route [facility] er 2023 12:00a m As directed Lisinopril 2.5 mg tablet Discont inued 0 PO every day [facility] er 2023 12:00a m [facility] fátima 2023 5:22p m Take three tablets once a day orally every day; Atorvastati n (Lipitor) 80 mg tablet Discont inued 80 MG PO EVERY EVENING 90 3 [facility] er 2023 5:19pm Febru moses 2024 1:30p m for cholesterol Aspirin 81 mg tablet,cliff yed release (DR/EC) Active 81 MG PO every day 90 3 [facility] er 2023 5:20pm for stroke prevention Complies with drug therapy Furosemide 20 mg tablet Active 20 MG PO DAILY 90 3 [facility] 2023 5:21pm for swelling Complies with drug therapy Lisinopril 2.5 mg tablet Discont inued 0 PO every day 270 3 [facility] er 2023 5:21pm Janua ry 2024 8:23a m Take three tablets once a day orally every day for blood pressure Immunizations Immunization Event Date Not Given Reason Dose Number [employer] Lot Number Reason(s) Given Vaccine Information Statement (VIS) Detail Administration Location COVID-19 (Moderna), 12Y+ Octobe r 2023 [id number] COVID-19 (Moderna) Bivalent Booster Juluar y 2022 [id number] COVID-19 (Pfizer) Octobe r 2020 [id number] Covid-19 Seasonal 12+ Novemb er 2022 [id number] R September 24, 2020 [id number] R October 15, 2020 Flu Vaccine [id number] (Fluzone) Septem fátima 2024 [id number] A HD FLU VACCINE 2019-Juluar y 2017 HD FLU VACCINE 2019- Octobe r 2017 HD FLU VACCINE 2019-Juluar y 2019 Pneumococcal Conjugate 13 Octobe r 2016 [id number] Pneumococcal Conjugate Vaccine, 20 valent December 19, 2024 [id number] Primary [facility] Pneumococcal Polysaccharid e y 2019 Influenza, Quadrivalent, Adjuvanted Novemb er 2020 Respiratory Syncytial Virus Octobe r 2023 [id number] Tetanus-Dipth eria-Pertussi s November 04, 2010 Tetanus-Dipth eria-Pertussi s September 22, 2024 [id number] Vital Signs Vital Reading Result Reference Range Collection Date/Time Height 73.5 [in_i] June 21, 2025 4:10pm Weight 88.45 kg June 21, 2025 4:10pm Heart Rate 75 /min 60-100 June 21, 2025 4:10pm Respiratory rate 16 /min 12-June 212024 4:10pm Oxygen saturation by Pulse oximetry 96 % 92-100 June 21, 2025 4:10pm BP Systolic 110 mm[Hg] 90-130 June 21, 2025 4:10pm BP Diastolic 61 mm[Hg] 60-90 June 21, 2025 4:10pm BMI (Body Mass Index) 25.3 kg/m2 [facility] er 2024 4:10pm Advance Directives Advance Directive Response Recorded Date/ Time Advance Directives on file? No Mar 9:02am Advance Directives No June 4:18pm Advance Directives Information Provided No April 01, 2023 12:48pm Insurance Providers Guarantor SHERITA HSU Address [address] [place] [id number] Contact Info. Home Phone: Coverage Status Update:2025 Payer Group Member ID Coverage Type Subscriber Relationship to Subscriber Effective Date Expiration Date For Life [id number] null SHERITA HSU Id: [id number] [place] [facility] [id number] Home Phone: Email: DECLINED Self 2013 Medicare A and B [id number] evan HSU Id: [id number] [place] [place] [address] Home Phone: Email: DECLINED Self 2007 Encounters Encounter Location(s) Arrival/Admit Date Discharge/Departure Date Discharge/Departure Disposition Provider(s) Departed Physician/ Provider Office Visit -[facility] [place] June 21, 2025 3:55pm June 21, 2025 5:09pm Discharged to home care or self care (routine discharge) Shaheed Cheney PA-C Recent Diagnosis Onset Date Admit Date Absent pedal pulses Unknown June 3:55pm CAD (coronary artery disease) Unknown De 2024 3:55pm Chronic renal insufficiency Unknown Dece 2024 3:55pm Hyperglycemia Unknown June 21, 2 025 3:55pm Hyperlipidemia Unknown June 21, 2 025 3:55pm Hypertension, essential, benign Unknown June 21, 2025 3:55pm Assessments Diagnosis Onset Date Resolution Status Admit Date Absent pedal pulses acute Decem 2024 3:55pm CAD (coronary artery disease) acute June 21, 2025 3:55pm Chronic renal insufficiency acute June 21, 2025 3:55pm Hyperglycemia acute June 212024 3:55pm Hyperlipidemia acute June 122024 3:55pm Hypertension, essential, benign acut e June 21, 2025 3:55pm Plan of Treatment Author Nadya Choe [facility] Authored June 21, 2025 4:57pm Primary Care Office Visit: Vital Signs: Vital Signs Blood pressure is good. Weight: 195 pounds (down from 206 pounds at last visit, previously 185 pounds in June of prior year). Care Gaps: Lizz Merrill is due for annual laboratory work including blood counts, glucose, liver function, kidney function, cholesterol panel, and PSA. Orders have been placed for [facility]. HPI: HPI Sherita presents for what was originally scheduled as an annual wellness visit, but the visit was converted to address acute concerns. 1. Fall with left shoulder injury and head trauma: Sherita experienced a fall several months ago, approximately in December or January, while pressure washing his truck. He was using a cotton washer with 3,000 to 3,500 pounds of pressure when he squeezed the handle and was not prepared for the force. The pressure threw him backwards, causing him to lose balance and fall onto the asphalt in his driveway, landing on his left side. He hit his head but did not hit it hard. He did not lose consciousness and knew exactly where he was. He was unable to get up initially due to inability to find anything to grab onto, not due to pain or weakness. He attempted to crawl to his car but the asphalt was painful on his knees. He activated his car remote to sound the horn, and eventually a neighbor came to assist him and his along with the neighbor helped him up. His was inside the house and thought he was working on the car when she heard the horn. He did not experience headaches, nausea, vomiting, or confusion following the fall. He was concerned about a concussion but did not develop any concerning symptoms. He had no pain immediately after the fall, but that night things started hurting significantly. Currently, the left shoulder occasionally tweaks and he can hear and feel things scraping together when taking his coat off or doing certain movements. He does not believe he broke the shoulder. The pain has improved over time and resolved a couple of days ago. He is able to move the shoulder but range of motion is limited, which he attributes to his prior stroke rather than the fall. 2. Chest pain: Sherita reports experiencing chest pain a couple of days ago that has since resolved. The pain started on the right side in the rib area and he was unable to take a deep breath due to pain, not due to shortness of breath. He has had similar episodes in the past. He also had an episode a couple of months ago with pain in the lower chest area that occurred with breathing. He recalls a similar episode after falling on ice in [place] in the past, which prompted an emergency department visit where extensive testing was performed and no cardiac cause was identified. He found that elevating his position relieved the pain. The most recent episode ended up in the middle right area of the chest and resolved a couple of days ago. The pain does not hurt to touch. He denies left-sided chest pain radiating down the arm or to the jaw. He is able to take deep breaths today without pain. 3. Progressive weakness and gait instability: Sherita reports progressive weakness and difficulty with ambulation. He typically uses a walker when outside but was using a cane at the time of his fall, which he found to be inadequate for stability. He feels his walking has become weaker than in the past. He continues to walk regularly for exercise, including using his walker at [facility] and the [facility] [place]. He was recently made to use a motorized cart at the [facility] [place]. He has been attending physical therapy but was cut off for a month, likely due to Medicare limitations. He has a history of foot drop in one leg since his stroke. 4. Peripheral edema: Sherita has ongoing swelling of his ankles, particularly the left ankle. The swelling has been present since before his stroke in 2020. The swelling resolves when his foot is elevated overnight but returns during the day. He was previously prescribed Lasix daily for two weeks, which caused lightheadedness by the end of the two-week period. He has been self-managing by alternating every other day for one week, then daily for the next week, then back to every other day. He denies the swelling has worsened recently. 5. Weight loss: Sherita has lost 10 pounds since his last visit, going from 206 pounds to 195 pounds. He reports he is gaining weight, not losing, but the documented weights show a decrease. He believes he was 180 pounds at a prior visit when Lasix dosing was adjusted from daily to every other day. Review of weights shows he was 185 pounds in June of the prior year, 206 pounds at the last visit, and 195 pounds today. He reports eating okay. 6. Numbness and tingling: Sherita reports numbness and tingling that has been present for about a year. He denies any change in these symptoms after the fall. Sensation testing today shows intact sensation in bilateral upper and lower extremities. Review of Systems: Review of Systems Constitutional: Denies fever. Weight loss of 10 pounds since last visit. Neurological: Denies headaches, loss of consciousness, confusion, or changes in mental status. Reports chronic numbness and tingling for approximately one year with no recent changes. Denies new weakness beyond baseline. Cardiovascular: Denies palpitations. Denies classic anginal chest pain. Respiratory: Denies shortness of breath at rest. Able to take deep breaths without difficulty today. Prior episodes of pleuritic chest pain have resolved. Musculoskeletal: Left shoulder pain following fall, now improved. Denies inability to move shoulder. Reports chronic gait instability and progressive weakness. Integumentary: Recent dermatology procedure with Mohs biopsy on arm. Exam: Exam - Alert and oriented, ambulates with assistance - Cranial nerves II through XII intact with intact extraocular movements, facial symmetry, normal shoulder shrug and jaw clench - Sensation intact to light touch bilaterally in upper and lower extremities; good hand emergency department clinician strength bilaterally; good upper extremity strength with hands up and push; chronic foot drop noted in one leg - Regular rhythm, no murmurs - Lungs clear to auscultation bilaterally, no respiratory distress, able to take deep breaths without difficulty - Left shoulder range of motion limited compared to right, attributed to prior stroke; no acute tenderness to palpation; right shoulder range of motion better than left; no chest wall tenderness in area of prior chest pain - Bilateral lower extremity edema present, left greater than right; left foot and toes cool to touch with purple discoloration; pedal pulses difficult to palpate due to edema; braces and orthotics in place bilaterally Result Comments: - Prior laboratory work showed borderline glucose - Prior echocardiogram normal - Ankle brachial index ultrasound from one year ago normal with no evidence of peripheral vascular disease Office Procedures: Office Procedures None. Diagnosis: Diagnosis 1. Fall with left shoulder injury and head trauma Assessment: Sherita sustained a fall several months ago with left shoulder injury and head trauma without loss of consciousness or signs of concussion. Plan: Neurological examination today is reassuring with no focal deficits. Shoulder examination shows limited range of motion consistent with baseline post-stroke status rather than acute fracture. No imaging indicated at this time given improvement in symptoms and ability to move the shoulder. Patient counseled on fall prevention and to avoid pressure washing in the future, to have truck washed professionally. Encouraged to use walker instead of cane for better stability when ambulating outdoors. 2. Progressive weakness and gait instability Assessment: Sherita has progressive weakness and gait instability with history of stroke in 2020 and chronic foot drop. Plan: Referral placed for physical therapy to improve strength and mobility. Patient currently attending physical therapy but had a one-month gap likely due to Medicare limitations. Encouraged to continue walking for exercise and using walker for support. 3. Peripheral edema Assessment: Sherita has chronic bilateral lower extremity edema, left greater than right, with cool extremities and purple discoloration. Plan: Patient has been self-adjusting Lasix dosing due to lightheadedness with daily dosing. Ankle brachial index from one year ago was normal. Given cool temperature of toes, purple discoloration, and difficulty palpating pulses, considered repeat ankle brachial index but deferred as prior study one year ago was normal and patient reports no worsening. Continue current Lasix regimen as patient has been managing. Patient to elevate legs when possible. 4. Chest pain, resolved Assessment: Sherita had pleuritic chest pain that has resolved, consistent with musculoskeletal etiology rather than cardiac origin. Plan: Chest pain pattern is not consistent with cardiac ischemia. Prior workup in emergency department was negative. No intervention needed at this time. Patient to follow up if symptoms recur or change in character. 5. Weight loss Assessment: Sherita has unintentional weight loss of 10 pounds since last visit. Plan: Patient reports eating okay. Will monitor weight at next visit. Laboratory work ordered to evaluate for metabolic causes. 6. Dermatology follow-up Assessment: Sherita recently underwent Mohs biopsy procedure by dermatology. Plan: Continue routine dermatology follow-up as scheduled. Discharge Instructions/Discharge Summary: - Laboratory work ordered for [facility] including complete blood count, glucose, liver function, kidney function, cholesterol panel, and PSA; patient to complete prior to next visit - Annual wellness visit paperwork to be completed at next visit in six months - Flu vaccine received this year at [facility] - Physical therapy referral placed - Fall prevention counseling provided: use walker instead of cane when outdoors and avoid high-risk activities such as pressure washing - Continue current Lasix regimen with alternating schedule as patient has been self-managing - Follow-up appointment scheduled in six months Future Tests Future scheduled test information is unavailable Pending Tests Test Name Ordered Date Scheduled Date CBC - COMP BLD CT W/AUTO DIFF June 21 4:34pm COMPREHENSIVE METABOLIC PANEL June 21 4:34pm Future Visits Future appointment information is unavailable Future Procedures Procedure Name Ordered Date Scheduled Date HEMOGLOBIN A1c% June 21, 2025 4:33pm LIPID Panel June 21, 2025 4:34pm PSA SCREEN (Z12.5) Don 10th, 2025 4:34pm Future Medications Future medication information is unavailable Patient Instructions Patient instructions are unavailable Hospital Discharge Instructions Ambulatory Orders* HEMOGLOBIN A1c% [CHEM] [facility]: [facility]21/25[facility] CBC - COMP BLD CT W/AUTO DIFF [HEME] Time Frame: 06/21/25, Location: [facility] * COMPREHENSIVE METABOLIC PANEL [CHEM] Time Frame: 06/21/25, Location: [facility] * LIPID Panel [CHEM] Time Frame: 06/21/25, Location: [facility] * PSA SCREEN (Z12.5) [CHEM] Time Frame: 06/21/25, Location: [facility]
[2025-07-05] VITALS (19 sets, daily range): BP systolic 105–187; BP diastolic 55–90; PULSE 68–128; RESP 17–35; TEMP 37.6–38; O2SAT 67–100; BMI 25.0
--- NOTE | 2025-07-05 12:10 | EKG_ITS ---
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
--- NOTE | 2025-07-05 12:11 | DI.RAD.S_ITS ---
PROCEDURE: XR CHEST 1V INDICATIONS: Chest Pain TECHNIQUE: One view of the chest was acquired. COMPARISON: [facility], CR, XR CHEST 1V, 03/28/2021, 9:07. [facility], CR, XR CHEST 1V, 03/25/2021, 18:08. FINDINGS: Surgical changes and devices: None. Lungs and pleura: Small left pleural effusion and left basilar atelectasis. Right lung is clear. No pneumothorax. Mediastinum: Mediastinal contours appear normal. Heart size is normal. Bones and chest wall: No suspicious bony lesions. Overlying soft tissues appear unremarkable. IMPRESSION: Small left pleural effusion and left basilar atelectasis or consolidation. Approved by: Levar James M.D. on 07/05/2025 at 12:58
[2025-07-05 12:16] LABS: INR 1.2 (0.9-1.3); Prothrombin Time 13.8 SECONDS (9.4-12.5)
[2025-07-05 12:18] LABS: Add Manual Diff / Slide Review NO; Hematocrit 30.8 % (41-53); Hemoglobin 10.5 g/dL (13.5-17.5); Lymphocytes Absolute Auto 100 /uL (1100-4500); Mean Corpuscular HGB Conc 34.0 % (30-36); Mean Corpuscular Hemoglobin 29.6 PG (26-34); Mean Corpuscular Volume 87.1 fL (80-100); Platelet Count 145 X10^3/uL (150-400)
[2025-07-05 12:19] LABS: PTT Partial Thromboplastin Tim 30 SECONDS (25.1-36.5)
[2025-07-05 12:21] LABS: Alanine Aminotransferase 30 IU/L (<50); Albumin 3.3 g/dL (3.5-5.0); Albumin Globulin Ratio 1.1 (1.0-2.8); Alkaline Phosphatase 75 U/L (38-126); Blood Urea Nitrogen 36 mg/dL (9-20); Calcium 8.4 mg/dL (8.4-10.2); Carbon Dioxide 24 mmol/L (22-32); Chloride 103 mmol/L (98-107); Creatine Kinase 584 U/L (55-170); Estimated Glomerular Filt Rate > 60 mL/min (>60); Globulin 2.9 g/dL (1.7-4.1); Glucose 124 mg/dL (70-99); HEMOLYSIS < 15 (0-50); Lipase 39 U/L (23-300); Magnesium 2.0 mg/dL (1.6-2.3); Potassium 3.8 mmol/L (3.4-5.1); Sodium 135 mmol/L (137-145); Total Protein 6.2 g/dL (6.3-8.2)
[2025-07-05 12:32] LABS: NT-proBNP (BNP-Adult 18+) 1580 pg/mL (<450); Troponin I 0.028 ng/mL (0.01-0.034)
[2025-07-05] MEDS: ASPIRIN 81 MG CHEW TAB 324 MG PO (12:34)
[2025-07-05] MEDS: SODIUM CHLORIDE 0.9% 1,000 ML 1000 ML IV (14:04)
--- NOTE | 2025-07-05 14:18 | ED.WEAKNESS ---
HPI - Weakness General Chief complaint: Weakness Stated complaint: Fall,Weakness 4 days Time Seen by Provider: 07/05/25 13:42 Source: patient and EMS Mode of arrival: EMS Limitations: no limitations History of Present Illness HPI Narrative: 85-year-old male history of CVA, hypertension, dyslipidemia, CHF on aspirin 81 mg daily brought in for increasing weakness over the last 9 days, decreased appetite patient has had multiple falls. Patient states today he was walking with his walker he has become increasingly unsteady and moved from his cane to his walker. He states he was trying to turn in his legs just did not quite go with him and he fell. He states he has had several falls over the last few days. He states he did not feel lightheaded or like he got knocked out. He states he did hit his head today he denies any other injuries. He denies any neck or midline back pain. He denies any chest pain, no shortness of breath. He denies any cough cold or congestion symptoms. No nausea or vomiting. He denies any new GI or urinary symptoms. He notes chronic swelling in his lower extremities but not significantly worsened. States he has not had any recent medication changes. Did not have a prior stroke has a left upper extremity weakness which he states has been improved. Neither him nor his think he has had any new stroke-like symptoms he states he feels generally weak with feeling generally unwell. He lives independently with a his . Does not use any tobacco, no regular alcohol, no recreational drugs [facility] as his primary care. Related Data Home Medications ?Medication ?Instructions ?Recorded ?Confirmed furosemide 20 mg tablet 20 mg PO 3XW 10/20/18 09/22/24 lisinopril 10 mg tablet 7.5 mg PO DAILY 10/20/18 09/22/24 tamsulosin 0.4 mg capsule 0.8 mg PO DAILY 10/20/18 09/22/24 aspirin 81 mg tablet,delayed 81 mg PO DAILY 03/25/21 09/22/24 release atorvastatin 80 mg tablet 80 mg PO BEDTIME 03/25/21 09/22/24 finasteride 5 mg tablet 5 mg PO DAILY 03/25/21 09/22/24 Allergies Allergy/AdvReac Type Severity Reaction Status Date / Time No Known Drug Allergies Allergy Verified 05/11/23 12:25 Review of Systems Review of Systems ROS Unobtainable: All systems reviewed & are unremarkable except as noted in HPI and below Patient History Medical History BPH (benign prostatic hyperplasia) Hyperlipidemia Essential hypertension Cerebrovascular accident Surgical History History of back surgery History of tonsillectomy History of surgery on arm Family History Mother Cancer Father Cancer Social History household members: spouse alcohol intake: former alcohol intake frequency: holidays/special occasions only Exam Narrative Exam Narrative: GEN: Patient appears in male in mild distress. HEAD: No evidence of trauma, no raccoon/Martinez sign. NECK: Nontender, painless range of motion, trachea midline Negative Nexus criteria, no midline line tenderness, distracting injury, altered mental status, neuro deficit, recent EtOH. EYES: PERRLA, EOMI ENT: External inspection normal, trachea is midline, TM's are normal no hemotypanum, Nares are clear, no septal hematoma, no dental or oral injury, airway is normal and with normal occlusion, No bony tenderness RESP: Chest is nontender and has symmetric movement, no ecchymosis, breath sounds are normal no crackles, wheezes or rales CVS: Heart sounds are normal, no murmur noted, patient has bilateral lower extremity pretibial edema. 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 are equal bilaterally, normal range of motion of extremities with normal tendon exam, 2+ pulses in all four extremities Initial Vital Signs Initial Vital Signs: Vital Signs Temperature 99.6 F 07/05/25 12:29 Pulse Rate 84 07/05/25 12:29 Respiratory Rate 18 07/05/25 12:29 Blood Pressure 115/55 L 07/05/25 12:29 Pulse Oximetry 97 07/05/25 12:29 Oxygen Delivery Method Room Air 07/05/25 12:29 Course Orders Ordered: ED Orders 07/05/25 12:01 Complete Blood Count AUTO DIFF Stat Comprehensive Metabolic Panel Stat Lipase Stat Magnesium Stat NT-proBNP (BNP-Adult 18+) Stat PTT Partial Thromboplastin Best Stat Prothrombin Time INR Stat Troponin & CK Cardiac Panel Stat 07/05/25 12:11 XR chest 1V Stat EKG-12 Lead Stat 07/05/25 12:36 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 to HAND 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 - [employer]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 Stat 07/05/25 14:49 CT cervical spine wo con Stat CT head/brain wo con Stat 07/05/25 15:17 Urinalysis and Microscopic Stat Urine Culture Stat Discontinued Medications Aspirin (Aspirin 81 Mg Chew Tab) 324 mg PO NOW ONE Stop: 07/05/25 12:12 Last Admin: 07/05/25 12:34 Dose: 324 mg Documented By: OMAR Sodium Chloride (Normal Saline 0.9%) 1,000 mls @ 1,000 mls/hr IV BOLUS ONE Stop: 07/05/25 14:47 Last Infusion: 07/05/25 15:45 Dose: Infused Documented By: Admin: 07/05/25 14:04 Dose: 1,000 mls/hr Documented By: SUKHJINDER Ceftriaxone Sodium 1,000 mg/ (Sodium Chloride) 100 mls @ 200 mls/hr IV NOW ONE Stop: 07/05/25 14:50 Last Infusion: 07/05/25 15:45 Dose: Infused Documented By: Admin: 07/05/25 15:10 Dose: 200 mls/hr Documented By: SUKHJINDER Vital Signs Vital signs: Vital Signs - 8 hr 07/05/25 12:29 07/05/25 13:02 07/05/25 13:30 Temperature 99.6 F Pulse Rate 84 78 Respiratory Rate 18 Blood Pressure 115/55 L 105/55 L Pulse Oximetry 97 96 Oxygen Delivery Method Room Air Oxygen Flow Rate 07/05/25 13:30 07/05/25 14:00 07/05/25 14:00 Temperature Pulse Rate 75 71 Respiratory Rate 25 H 19 Blood Pressure 115/56 L Pulse Oximetry 95 96 Oxygen Delivery Method Oxygen Flow Rate 07/05/25 14:30 07/05/25 14:30 07/05/25 15:11 Temperature Pulse Rate 68 Respiratory Rate 19 Blood Pressure 120/58 L 120/59 L Pulse Oximetry 97 Oxygen Delivery Method Oxygen Flow Rate 07/05/25 15:11 07/05/25 15:30 07/05/25 15:30 Temperature Pulse Rate 69 71 Respiratory Rate 24 21 Blood Pressure 111/63 Pulse Oximetry 96 97 Oxygen Delivery Method Nasal Cannula Oxygen Flow Rate 2 07/05/25 16:00 07/05/25 16:00 07/05/25 16:30 Temperature Pulse Rate 70 68 Respiratory Rate 22 25 H Blood Pressure 105/59 L Pulse Oximetry 96 96 Oxygen Delivery Method Oxygen Flow Rate 07/05/25 16:30 Temperature Pulse Rate Respiratory Rate Blood Pressure 109/66 Pulse Oximetry Oxygen Delivery Method Oxygen Flow Rate MDM - Weakness Lab Data 07/05/25 12:01 07/05/25 12:01 Labs: Lab Results 07/05/25 07/05/25 Range/Units 12:01 15:17 WBC 12.8 H (4.5-11.0) X10^3/uL RBC 3.54 L (4.5-5.9) X10^6/uL Hgb 10.5 L (13.5-17.5) g/dL Hct 30.8 L (41-53) % MCV 87.1 (80-100) fL MCH 29.6 (26-34) PG MCHC 34.0 (30-36) % RDW 16.4 H (11.6-14.8) % Plt Count 145 L (150-400) X10^3/uL Neut % (Auto) 91.8 H (50-75) % Lymph % (Auto) 1.0 L (25-40) % [place] % (Auto) 6.9 (3-14) % Eos % (Auto) 0.0 L (2-4) % Baso % (Auto) 0.3 (0-2) % Neut # (Auto) 30695 H (1302-7059) /uL Lymph # (Auto) 100 L (3152-3013) /uL [place] # (Auto) 900 (0-900) /uL Eos # (Auto) 0 (0-450) /uL Baso # (Auto) 0 (0-100) /uL PT 13.8 H (9.4-12.5) SECONDS INR 1.2 (0.9-1.3) APTT 30 (25.1-36.5) SECONDS Sodium 135 L (137-145) mmol/L Potassium 3.8 (3.4-5.1) mmol/L Chloride 103 (98-107) mmol/L Carbon Dioxide 24 (22-32) mmol/L BUN 36 H (9-20) mg/dL Creatinine 1.17 (0.66-1.25) mg/dL Estimated GFR > 60 (>60) mL/min BUN/Creatinine Ratio 30.8 H (6-22) Glucose 124 H (70-99) mg/dL Calcium 8.4 (8.4-10.2) mg/dL Magnesium 2.0 (1.6-2.3) mg/dL Total Bilirubin 1.9 H (0.2-1.3) mg/dL AST 51 (17-59) IU/L ALT 30 (<50) IU/L Alkaline Phosphatase 75 (38-126) U/L Total Creatine Kinase 584 H (55-170) U/L Troponin I 0.028 (0.01-0.034) ng/mL NT-Pro-B Natriuret Pep 1580 H (<450) pg/mL Total Protein 6.2 L (6.3-8.2) g/dL Albumin 3.3 L (3.5-5.0) g/dL Globulin 2.9 (1.7-4.1) g/dL Albumin/Globulin Ratio 1.1 (1.0-2.8) Lipase 39 (23-300) U/L Urine Color [place] Urine Appearance Cloudy Urine pH 6.0 (4.5-8.0) Ur Specific [place] 1.025 (1.000-1.035) Urine Protein 2+ H (Negative) Urine Glucose (UA) Negative (Negative) g/dL Urine Ketones Negative (NEGATIVE) Urine Occult Blood 3+ H (Negative) Urine Nitrate Negative (Negative) Urine Bilirubin Negative (NEGATIVE) Urine Urobilinogen 0.2 (0.2) E.U./dL Ur Leukocyte Esterase 2+ H (NEGATIVE) Urine RBC 1-5/hpf (0-5/HPF) Urine WBC 5-10/hpf H (0-5/HPF) Ur Squamous Epith Cells None seen (0-5/HPF) Urine Bacteria Moderate (10-30) H (None) Ur Culture Indicated? Specimen cultured Vol Urine Centrifuged 10ml (spun) MDM Narrative Medical decision making narrative: Labs show white count of 12.8 hemoglobin of 10 platelets of 145, predominance of neutrophils. INR is 1.2, PTT is normal, creatinine is 1.17, BUN 36 which is elevated from patient's baseline, sodium is 135 otherwise normal electrolytes glucose is 124 bilirubin is 1.9 normal AST and ALT alk-phos and lipase. Troponin 0.028 with a BNP of 15 80, patient has prior from January of 2021 which is 129. EKG shows sinus rhythm with short IA, rate 82 IA 100 QRS of 96 QTC of 418, no acute ST-elevation or depression. No prior for comparison. Chest x-ray shows small left pleural effusion left basilar atelectasis or consolidation. Head CT no acute intracranial pathology. CT cervical spine, no acute cervical fracture or dislocation. Extensive cervical spondylosis with the canal stenosis at C5-6 and C6-7 which maybe severe as well as multilevel but bony foraminal narrowing. Minimal right apical pneumothorax. Bilateral pleural effusions maybe as much as large. Urine 2+ protein 3+ blood 2+ leuks 5-10 WBCs 1-5 RBCs moderate bacteria. Patient received fluids and aspirin (from NIOs) IV antibiotics. Patient was placed on a oxygen for small apical pneumothorax. Patient's imaging he does not appear to has a little bit of pneumonia on chest x-ray had head and CT cervical spine to rule out any bleed has a small apical pneumothorax not visualized on his chest x-ray. He is asymptomatic we will place on oxygen. His CT also shows some fluids/consolidation so treated for pneumonia, radiology called the results to myself had a proximally 1620. Spoke with the hospitalist Dr. Mccollum @ 1645. Reviewed patient's imaging he reviewed patient's CT does not feel it Dr. Varner has to follow along at this time he will reach out to him if necessary. We will admit for weakness, UTI, bilateral pleural effusions possible pneumonia. Small apical pneumothorax. Spoke with Dr. Varner, general surgery @ [phone], he is aware of the patient discussed Dr. Mccollum feels he can manage and will reach out to Dr. Varner as necessary. Updated patient and family they are aware of patient's findings today. Discharge Plan Departure Patient Disposition: Admitted As Inpatient Clinical Impression: UTI (urinary tract infection), Pneumothorax, Fall Admit Date/Time: 07/05/25 16:47 Admit Provider: Jonathan Mccollum
--- NOTE | 2025-07-05 14:49 | DI.CT.S_ITS ---
PROCEDURE: CT HEAD/BRAIN WO CON INDICATIONS: multiple fall, increased weakness. TECHNIQUE: Noncontrast 4.5 mm thick angled axial sections acquired from the foramen magnum to the vertex, with coronal and sagittal reformats. For radiation dose reduction, the following was used: automated exposure control, adjustment of mA and/or kV according to patient size. COMPARISON: [facility], CT, CT HEAD/BRAIN WO CON, 09/22/2024, 3:02. FINDINGS: Image quality: Diagnostic. CSF spaces: Basal cisterns are patent. No extra-axial fluid collections. The ventricles are symmetric in size and shape. Brain: No intracranial bleeds or mass effect. There is cerebral volume loss, with resultant ventricular and sulcal prominence. There are periventricular and deep white matter chronic small vessel ischemic changes. There is intracranial internal carotid artery atherosclerosis. Skull and face: Calvarium and visualized facial bones appear intact, without suspicious lesions. Sinuses: Visualized sinuses and mastoids are clear. IMPRESSION: No acute intracranial pathology. Dictated by: Byron Gandhi M.D. on 07/05/2025 at 16:15 Approved by: Byron Gandhi M.D. on 07/05/2025 at 16:16
--- NOTE | 2025-07-05 14:49 | DI.CT.S_ITS ---
PROCEDURE: CT CERVICAL SPINE WO CON INDICATIONS: multiple fall, increased weakness. TECHNIQUE: Noncontrast 3 mm thick sections acquired from the skull base to the T4 level. Sagittal and coronal reformats were then constructed. For radiation dose reduction, the following was used: automated exposure control, adjustment of mA and/or kV according to patient size. COMPARISON: None. FINDINGS: Image quality: Excellent. Bones: No fractures or dislocations. Extensive cervical spondylosis is present. Findings include canal stenosis C5-C6 and C6-C7 which may be severe at both levels. There is multilevel bilateral bony foraminal narrowing. Visualized superior ribs are intact. Soft tissues: Prevertebral soft tissues are normal in thickness. No paravertebral hematomas. Small apical right pneumothorax. Bilateral pleural effusions may be as much as large. There is bilateral compressive atelectasis. Only the upper chest was imaged. IMPRESSION: 1. No acute cervical fracture or dislocation. 2. Extensive cervical spondylosis with canal stenosis at C5-C6 and C6-C7 which may be severe, as well as multilevel bony foraminal narrowing. 3. Minimal right apical pneumothorax. 4. Bilateral pleural effusions may be as much as large. Comment: Findings were discussed with Dr. Stockton on 07/05/2025 at 1622 hours Dictated by: Byron Gandhi M.D. on 07/05/2025 at 16:16 Approved by: Byron Gandhi M.D. on 07/05/2025 at 16:23
[2025-07-05 15:23] LABS: Appearance Urine UA CLOUDY; Bilirubin Urine UA NEGATIVE (NEGATIVE); Color Urine UA ORANGE; Glucose Urine UA NEGATIVE (Negative); Ketones Urine UA NEGATIVE (NEGATIVE); Leukocyte Esterase Urine UA 2+ (NEGATIVE); Nitrite Urine UA NEGATIVE (Negative); Occult Blood Urine UA 3+ (Negative); Protein Urine UA 2+ (Negative); Specific Gravity Urine UA 1.025 (1.000-1.035); Urobilinogen Urine UA 0.2 E.U./dL (0.2); pH Urine UA 6.0 (4.5-8.0)
[2025-07-05 15:31] LABS: Culture Indicated Urine Specimen Cultured
--- NOTE | 2025-07-05 16:58 | CM.IDA ---
Initial DCP Assessment Note Patient is 85 y/o male who presents to ED via EMS due to concern for GLFs, increased weakness over the last 9 days and decreased appetite. Patient's PCP is Nadya Choe PA-C, patient has MCR and for Life Patient has hx of CVA, hypertension, dyslipidemia and CHF. COAT ROOM ATTENDANT enters room to meet with patient. Patient presents as A/Ox4 and Cahto. Present in room is patient's spouse and son. Patient resides fairly independently at home with spouse in [place]. Patient has been using cane or FWW at baseline for ambulation but states he has been too weak to use cane and has been falling when using FWW. Patient endorses independence with most ADLs but spouse states that she occasionally helps patient get dressed but patient states that he can typically ambulate to the bathroom, sometimes uses a urinal. Patient endorses he drives at baseline. Patient and spouse hire house personnel director to come every so often and it is reported that their grandson is an EMT but they typically do not call him. It is reported that there are no other local supports. Patient's son Kody reports he resides in [place] and typically visits every other week, son reports that he plans to return home tomorrow. Patient has hx of [facility] stay in 2020 and hx of [facility] referral in 2020. COAT ROOM ATTENDANT discusses SNF rehab vs. Home Health. Patient and spouse endorse preference for HH, patient endorses preference for [facility]. Patient's son endorses preference for SNF rehab and states that patient's spouse uses a FWW as well and she is not able to assist patient when he falls. COAT ROOM ATTENDANT discusses SNF rehab further and patient and spouse are ambivalent about this option. Patient was admitted to acute care as INPT due to concern for UTI, Pneumothorax and fall. Patient would benefit from PT/OT eval regarding POC recommendations. Plan: patient admitted for evaluation and treatment. pending PT/OT eval, DCP to f/u with POC, [facility] referral vs. SNF rehab. ROMAN Miramontes Discharge Planning/Care Management CM Discharge Assessment Start: 07/05/25 16:15 Freq: Status: Active Protocol: Document 07/05/25 16:16 LN (Rec: 07/05/25 16:24 LN [id number]) Discharge Planning Assessment Assigned Discharge ROMAN Hahn Certified Flight Instructor Provider Nadya Choe Insurance Medicare, DPOA/Assigned Tiffanie Morse/ Spouse Designee Name Contact Information [phone] Advance Directives? No Advance Directives No on File History Provided By Patient,Family Member,Significant Other,Medical Record Has Patient been No admitted in last 30 days? Prior Living House Arrangements Household Members spouse Type of Drives own vehicle transporation used prior to admit Independent with ADL Yes 's Is patient alert and Yes: Cahto oriented? Needs Assistance Grooming,Home Chores / Shopping With DME Already Rented / FWW / Walker,Cane Owned Patient/Family Home with Home Health Preference Comment Home with HH vs. SNF rehab SNF/HH Preference If HH patient has preference for [facility], no preference reported for SNF rehb.
--- NOTE | 2025-07-05 18:43 | PM.HP.1 ---
History of Present Illness History of Present Illness Date Patient Seen: 07/05/25 Time Patient Seen: 14:00 Chief complaint: UTI with weakness and sepsis Narrative: Chief complaint: UTI pneumonia with weakness History of present illness: 07/05: 85-year-old male history of CVA, hypertension, dyslipidemia, CHF on aspirin 81 mg daily brought in for increasing weakness over the last 9 days, decreased appetite patient has had multiple falls. Patient states today he was walking with his walker he has become increasingly unsteady and moved from his cane to his walker. He states he was trying to turn in his legs just did not quite go with him and he fell. He states he has had several falls over the last few days. He states he did not feel lightheaded or like he got knocked out. He states he did hit his head today he denies any other injuries Emergency department the findings were: White count of 12.8 with 92% neutrophils Unremarkable metabolic profile Pyuria and bacteriuria Bilateral pleural effusions and infiltrates on chest x-ray on CT of the spine (portion that covered the lungs) Tiny apical pneumothorax on the right Pro BNP nds with rales at Review of systems: The shortness of breath No chest pain palpitations No fever or chills rigors No abdominal pain nausea vomiting Physical exam: Very pleasant elderly male no acute distress HEENT unremarkable Heart rate and rhythm regular Lungs diminished breath sounds with rales at bases Abdomen is benign nontender Extremities 3+ lower leg edema Assessment and plan: Weakness likely secondary to UTI and element of congestive heart failure Gentle diuresis IV antibiotics Culture urine and blood Echocardiogram DVT prophylaxis: Subcutaneous heparin Code status: Full code blue Disposition: Acute inpatient likely 2-3 days of hospitalization Time based billin minutes were evaluation of this patient including [id number] evaluation review of objective findings including direct visualization of objective laboratory and imaging as well as EKG [facility] Medical History BPH (benign prostatic hyperplasia) Hyperlipidemia Essential hypertension Cerebrovascular accident Surgical History History of back surgery History of tonsillectomy History of surgery on arm Family History Mother Cancer Father Cancer Social History household members: spouse alcohol intake: former Meds Home Medications and Allergies Home Medications ?Medication ?Instructions ?Recorded ?Confirmed ?Type furosemide 20 mg tablet 20 mg PO 3XW 10/20/18 09/22/24 History lisinopril 10 mg tablet 7.5 mg PO DAILY 10/20/18 09/22/24 History tamsulosin 0.4 mg capsule 0.8 mg PO DAILY 10/20/18 09/22/24 History aspirin 81 mg tablet,delayed 81 mg PO DAILY 03/25/21 09/22/24 History release atorvastatin 80 mg tablet 80 mg PO BEDTIME 03/25/21 09/22/24 History finasteride 5 mg tablet 5 mg PO DAILY 03/25/21 09/22/24 History Allergies Allergy/AdvReac Type Severity Reaction Status Date / Time No Known Drug Allergies Allergy Verified 05/11/23 12:25 Exam Vital Signs (past 8 hours): - 07/05/25 12:29 07/05/25 13:02 07/05/25 13:30 Temperature 99.6 F Pulse Rate 84 78 Respiratory Rate 18 Blood Pressure 115/55 L 105/55 L Pulse Oximetry 97 96 Oxygen Delivery Method Room Air Oxygen Flow Rate 07/05/25 13:30 07/05/25 14:00 07/05/25 14:00 Temperature Pulse Rate 75 71 Respiratory Rate 25 H 19 Blood Pressure 115/56 L Pulse Oximetry 95 96 Oxygen Delivery Method Oxygen Flow Rate 07/05/25 14:30 07/05/25 14:30 07/05/25 15:11 Temperature Pulse Rate 68 Respiratory Rate 19 Blood Pressure 120/58 L 120/59 L Pulse Oximetry 97 Oxygen Delivery Method Oxygen Flow Rate 07/05/25 15:11 07/05/25 15:30 07/05/25 15:30 Temperature Pulse Rate 69 71 Respiratory Rate 24 21 Blood Pressure 111/63 Pulse Oximetry 96 97 Oxygen Delivery Method Nasal Cannula Oxygen Flow Rate 2 07/05/25 16:00 07/05/25 16:00 07/05/25 16:30 Temperature Pulse Rate 70 68 Respiratory Rate 22 25 H Blood Pressure 105/59 L Pulse Oximetry 96 96 Oxygen Delivery Method Oxygen Flow Rate 07/05/25 16:30 Temperature Pulse Rate Respiratory Rate Blood Pressure 109/66 Pulse Oximetry Oxygen Delivery Method Oxygen Flow Rate Oxygen Delivery Method Nasal Cannula Oxygen Flow Rate 2 Objective Labs 07/05/25 12:01 07/05/25 12:01 Labs: Laboratory Results - last 24 hr 07/05/25 07/05/25 12:01 15:17 WBC 12.8 H RBC 3.54 L Hgb 10.5 L Hct 30.8 L MCV 87.1 MCH 29.6 MCHC 34.0 RDW 16.4 H Plt Count 145 L Neut % (Auto) 91.8 H Lymph % (Auto) 1.0 L [place] % (Auto) 6.9 Eos % (Auto) 0.0 L Baso % (Auto) 0.3 Neut # (Auto) 26175 H Lymph # (Auto) 100 L [place] # (Auto) 900 Eos # (Auto) 0 Baso # (Auto) 0 PT 13.8 H INR 1.2 APTT 30 Sodium 135 L Potassium 3.8 Chloride 103 Carbon Dioxide 24 BUN 36 H Creatinine 1.17 Estimated GFR > 60 BUN/Creatinine Ratio 30.8 H Glucose 124 H Calcium 8.4 Magnesium 2.0 Total Bilirubin 1.9 H AST 51 ALT 30 Alkaline Phosphatase 75 Total Creatine Kinase 584 H Troponin I 0.028 NT-Pro-B Natriuret Pep 1580 H Total Protein 6.2 L Albumin 3.3 L Globulin 2.9 Albumin/Globulin Ratio 1.1 Lipase 39 Urine Color [place] Urine Appearance Cloudy Urine pH 6.0 Ur Specific [place] 1.025 Urine Protein 2+ H Urine Glucose (UA) Negative Urine Ketones Negative Urine Occult Blood 3+ H Urine Nitrate Negative Urine Bilirubin Negative Urine Urobilinogen 0.2 Ur Leukocyte Esterase 2+ H Urine RBC 1-5/hpf Urine WBC 5-10/hpf H Ur Squamous Epith Cells None seen Urine Bacteria Moderate (10-30) H Ur Culture Indicated? Specimen cultured Vol Urine Centrifuged 10ml (spun) Assessment & Plan Time-Based Coding :: [TOTAL MINUTES] spent with patient and on the chart (including review of chart, obtaining history, exam, reviewing outside data, placing orders, documenting exam and treatment plan, and counseling patient) on [DATE].
--- NOTE | 2025-07-05 18:55 | DI.ECHO.S_ITS ---
[facility] : : [address] : : [place] : : [id number] : : Phone: [phone] Echocardiogram Report + + :Name: SHERITA HSU Study Date: 07/06/2025 Height: 74 in : :[facility] ReadingLocation: Weight: 175 lb : : Gender: Male BSA: 2.1 m2 : :: 1940 Age: 85 yrs BP: 107/50 mmHg: :Reason For Study: CHF : :Ordering Physician: YUE : :CHERYL Performed By: Ryder Webb : :Referring: CHERYL TURNER : + + Interpretation Summary Normal sinus rhythm with wide QRS complexes. Normal LV size and wall thickness. Global hypokinesis with ejection fraction 55-60%. Mild left atrial enlargement and mild-moderate RA enlargement. No significant valvular abnormalities. Large left pleural effusion. Compared to prior echo January 14, 2021, pleural effusion is new. Procedure: A two-dimensional transthoracic echocardiogram with color flow and Doppler was performed. The study quality was technically adequate. Comparison is made with the echocardiogram of 01/14/2021. The patient was in normal sinus rhythm during the exam. Left Ventricle: The left ventricle is normal in size. There is normal left ventricular wall thickness. There is no ventricular septal defect visualized. A false chord is noted (normal variant). The ejection fraction is estimated to be 55-60%. There are no focal wall motion abnormalities. Diastolic parameters suggest probable normal left ventricular diastolic function and normal filling pressures. Right Ventricle: The right ventricle is normal in size and function. Atria: The left atrium is mildly dilated. The right atrium is mild to moderately dilated. There is no Doppler evidence for an interatrial shunt. Mitral Valve: The mitral valve leaflets appear mildly thickened. There is no mitral regurgitation noted. Aortic Valve: The aortic valve is not well visualized. No aortic regurgitation is present. Tricuspid Valve: The tricuspid valve leaflets are thin and pliable. There is a trace or physiologic amount of tricuspid regurgitation. Pulmonic Valve: The pulmonic valve is not well visualized. Great Vessels: The aortic root is normal size. The ascending aorta could not be visualized. The pulmonary is not well visualized. The inferior vena cava was not visualized. Pericardium/ Pleura There is no pericardial effusion. There is a large left- sided pleural effusion. MMode/2D Measurements & Calculations LVIDd: 4.9 cm LA A2 area: 23.8 cm2 LVIDs: 3.8 cm LA A4 area: 22.4 cm2 FS: 22.7 % LA length (vol): 6.2 cm EPSS: 1.1 cm LA vol: 73.3 ml IVSd: 0.96 cm LA vol index: 35.7 ml/m2 LVPWd: 1.0 cm LV garcia. diameter/BSA (cm/m^2): 2.4 LV sys. diameter/BSA (cm/m^2): 1.8 RA long axis: 5.2 cm RVD1 (basal): 3.6 cm RA area: 22.8 cm2 RVD2 (mid): 2.8 cm RA vol: 84.7 ml TAPSE: 2.8 cm RA : 41.3 ml/m2 IVC diam: 2.5 cm Doppler Measurements & Calculations Ao V2 max: 144.6 cm/sec LVOT Max Rojelio: 125.2 cm/sec Ao V2 mean: 105.0 cm/sec LV V1 max P.3 mmHg Ao max P.4 mmHg LV V1 VTI: 24.2 cm Ao mean P.8 mmHg sev ratio: 0.85 Ao V2 VTI: 28.4 cm MV E max rojelio: 70.1 cm/sec MV A max rojelio: 56.7 cm/sec MV E/A: 1.2 Med Peak E' Rojelio: 8.7 cm/sec E/E' med: 8.0 Lat Peak E' Rojelio: 8.6 cm/sec E/E' lat: 8.2 E/e' average: 8.1 MV dec time: 0.21 sec Electronically signed by: Dian Arechiga M.D. on Reading Physician:07/06/2025 03:09 PM
--- NOTE | 2025-07-05 21:30 | PC.WOUNDPHOT ---
L 5th toe
[2025-07-05] MEDS: ATORVASTATIN 20 MG TABLET 80 MG PO (21:57)
[2025-07-06] MEDS: HEPARIN 5,000 UNIT/ML VIAL 5000 UNIT SUBCUT ×2 (00:02→13:18)
[2025-07-06] MEDS: FUROSEMIDE 40 MG/4 ML VIAL IV ×2 (00:02→13:18)
[2025-07-06 04:00] VITALS: BP 96/49; PULSE 65; RESP 18; TEMP 36.4; O2SAT 97
[2025-07-06 06:58] LABS: Add Manual Diff / Slide Review NO; Hematocrit 31.1 % (41-53); Hemoglobin 10.6 g/dL (13.5-17.5); Lymphocytes Absolute Auto 200 /uL (1100-4500); Mean Corpuscular HGB Conc 34.0 % (30-36); Mean Corpuscular Hemoglobin 29.7 PG (26-34); Mean Corpuscular Volume 87.4 fL (80-100); Platelet Count 140 X10^3/uL (150-400)
[2025-07-06 07:13] LABS: Blood Urea Nitrogen 38 mg/dL (9-20); Carbon Dioxide 28 mmol/L (22-32); Chloride 102 mmol/L (98-107); Estimated Glomerular Filt Rate > 60 mL/min (>60); HEMOLYSIS < 15 (0-50)
[2025-07-06 07:17] LABS: Calcium 8.2 mg/dL (8.4-10.2); Glucose 107 mg/dL (70-99); Potassium 4.0 mmol/L (3.4-5.1); Sodium 134 mmol/L (137-145)
--- NOTE | 2025-07-06 08:03 | PC.NURSE ---
Addendum entered by Alana Serrano RN 07/06/25 09:02: Patients blood pressure 107/50, held lisinopril and tamulosin for now, will check patients blood pressure a bit later to see if we can give patient the medications. He ate well at breakfast. Original Note: Patient is alert and oriented x3, tanana, asking for tylenol for some discomfort. He has not been out of bed yet, and having some falls at home. Patient does have a uti, chf, and some pneumonia. LS with some fine crackles to r.mid lobe. He is getting ready to eat breakfast now.
[2025-07-06] MEDS: ACETAMINOPHEN 325 MG TABLET 650 MG PO (08:18)
[2025-07-06] MEDS: ASPIRIN EC 81 MG TABLET PO (08:18)
[2025-07-06] MEDS: FINASTERIDE 5 MG TABLET PO (08:18)
[2025-07-06 08:26] VITALS: BP 107/50; PULSE 76; RESP 18; TEMP 36.3; O2SAT 96
[2025-07-06 14:49] VITALS: BP 107/56; PULSE 65; RESP 20; TEMP 36.3; O2SAT 98
--- NOTE | 2025-07-06 17:46 | P.PN_ITS ---
Subjective Subjective Date Patient Seen: 07/06/25 Time Patient Seen: 17:46 Interval history: Chief complaint: UTI pneumonia with weakness History of present illness: 07/05: 85-year-old male history of CVA, hypertension, dyslipidemia, CHF on aspirin 81 mg daily brought in for increasing weakness over the last 9 days, decreased appetite patient has had multiple falls. Patient states today he was walking with his walker he has become increasingly unsteady and moved from his cane to his walker. He states he was trying to turn in his legs just did not quite go with him and he fell. He states he has had several falls over the last few days. He states he did not feel lightheaded or like he got knocked out. He states he did hit his head today he denies any other injuries Emergency department the findings were: * White count of 12.8 with 92% neutrophils * Unremarkable metabolic profile * Pyuria and bacteriuria * Bilateral pleural effusions and infiltrates on chest x-ray * on CT of the spine (portion that covered the lungs) * Tiny apical pneumothorax on the right * Pro BNP nds with rales at Hospital course: 07/06: Patient is seeming to do better alert tolerating meals no fevers or chills overnight white count is de-escalated to 8.3 urine culture preliminary for Gram-negative rods Review of systems: The shortness of breath No chest pain palpitations No fever or chills rigors No abdominal pain nausea vomiting Physical exam: Very pleasant elderly male no acute distress HEENT unremarkable Heart rate and rhythm regular Lungs diminished breath sounds with rales at bases Abdomen is benign nontender Extremities 3+ lower leg edema Echocardiogram: Normal sinus rhythm with wide QRS complexes. Normal LV size and wall thickness. Global hypokinesis with ejection fraction 55-60%. Mild left atrial enlargement and mild-moderate RA enlargement. No significant valvular abnormalities. Large left pleural effusion. Compared to prior echo January 14, 2021, pleural effusion is new. Assessment and plan: Weakness likely secondary to UTI and element of congestive heart failure * Gentle diuresis * IV antibiotics * Culture urine and blood * Echocardiogram Large right pleural effusion suspect secondary to acute on chronic diastolic CHF * Continue diuresis * Repeat chest x-ray tomorrow DVT prophylaxis: * Subcutaneous heparin Code status: * Full code blue Disposition: * Acute inpatient likely 2-3 days of hospitalization Time based billing: * 55 minutes were evaluation of this patient including [id number] evaluation review of objective findings including direct visualization of objective laboratory and imaging as well as EKG Exam Vital Signs (past 8 hours): - 07/06/25 14:49 Temperature 97.3 F L Pulse Rate 65 Respiratory Rate 20 Blood Pressure 107/56 L Pulse Oximetry 98 Oxygen Flow Rate 2 Oxygen Delivery Method Room Air Oxygen Flow Rate 2 Objective Labs 07/06/25 06:40 07/06/25 06:40 Labs: Laboratory Results - last 24 hr 07/06/25 06:40 WBC 8.5 RBC 3.56 L Hgb 10.6 L Hct 31.1 L MCV 87.4 MCH 29.7 MCHC 34.0 RDW 15.8 H Plt Count 140 L Neut % (Auto) 90.2 H Lymph % (Auto) 2.0 L [place] % (Auto) 7.7 Eos % (Auto) 0.0 L Baso % (Auto) 0.1 Neut # (Auto) 7700 H Lymph # (Auto) 200 L [place] # (Auto) 700 Eos # (Auto) 0 Baso # (Auto) 0 Sodium 134 L Potassium 4.0 Chloride 102 Carbon Dioxide 28 BUN 38 H Creatinine 1.20 Estimated GFR > 60 BUN/Creatinine Ratio 31.7 H Glucose 107 H Calcium 8.2 L PFSH Medical History BPH (benign prostatic hyperplasia) Hyperlipidemia Essential hypertension Cerebrovascular accident Surgical History History of back surgery History of tonsillectomy History of surgery on arm Family History Mother Cancer Father Cancer Social History household members: spouse Smoking Status: Never smoker alcohol intake: former Assessment & Plan Time-Based Coding :: [TOTAL MINUTES] spent with patient and on the chart (including review of chart, obtaining history, exam, reviewing outside data, placing orders, documenting exam and treatment plan, and counseling patient) on [DATE].
--- NOTE | 2025-07-06 17:54 | DI.RAD.S_ITS ---
PROCEDURE: XR CHEST 1V INDICATIONS: Evaluate parenchyma and left pleural effusion TECHNIQUE: One view of the chest was acquired. COMPARISON: [facility], CT, CT CERVICAL SPINE WO CON, 07/05/2025, 14:55. [facility], CT, CT HEAD/BRAIN WO CON, 07/05/2025, 14:55. [facility], CR, XR CHEST 1V, 07/05/2025, 12:09. FINDINGS: Surgical changes and devices: None. Lungs and pleura: There is a left-sided pleural effusion, is which is slightly worse on the current study than on the prior. Generalized interstitial prominence can be seen which is more prominent on the current study than on the prior. Mediastinum: Mediastinal contours appear normal. Heart size is normal. Atherosclerotic calcification of the aortic arch is noted. Bones and chest wall: No suspicious bony lesions. Age-appropriate bony degenerative changes are seen. Overlying soft tissues appear unremarkable. IMPRESSION: Interval worsening of the left-sided pleural effusion. Worsening interstitial prominence, likely related to pulmonary edema, although differential diagnosis includes viral infection. Dictated by: Xavi Alanis M.D. on 07/06/2025 at 18:01 Approved by: Xavi Alanis M.D. on 07/06/2025 at 18:02
[2025-07-06 19:43] VITALS: BP 117/56; PULSE 82; RESP 22; TEMP 36.7; O2SAT 97
[2025-07-06] MEDS: ATORVASTATIN 20 MG TABLET 80 MG PO (21:35)
[2025-07-07 06:00] VITALS: BP 121/64; PULSE 94; RESP 18; TEMP 36.6; O2SAT 95
[2025-07-07 08:00] VITALS: BP 123/65; PULSE 67; RESP 15; TEMP 36.1; O2SAT 94
[2025-07-07] MEDS: TAMSULOSIN 0.4 MG CAPSULE 0.8 MG PO (08:51)
[2025-07-07] MEDS: FINASTERIDE 5 MG TABLET PO (08:51)
[2025-07-07] MEDS: ASPIRIN EC 81 MG TABLET PO (08:51)
[2025-07-07 08:52] VITALS: BP 123/65; PULSE 67
[2025-07-07] MEDS: HEPARIN 5,000 UNIT/ML VIAL 5000 UNIT SUBCUT ×2 (08:59→20:50)
[2025-07-07] MEDS: FUROSEMIDE 40 MG/4 ML VIAL IV (09:00)
--- NOTE | 2025-07-07 11:04 | DIET.CONS ---
Dietary Consultation Note Admission Date: 07/05/2025 16:47 Assessment: 85 y M admitted for UTI/CHF. Dietitian consulted for weight loss. Met with pt at bedside. Reports 100# loss in last 2+ years. Used to be 280#. Notes very little PO intakes over the last week, <50% of normal intakes at meals d/t decreased appetite/weakness. NFPE with moderate muscle wasting in deltoid/pectoralis major and moderate wasting in temples. Ht: 185.42 cm Wt: 86 kg BMI: 25.0 UBW: 83.915 kg on 09/22/24 but noted 3+ edema Last BM: 07/04/25 (07/05/25 21:25) MNA: 9 Ryan Score: 18 Diet: 07/06/25 Breakfast General (Regular) Diet Diet Modifications: Food Texture: Level 7 - Regular Liquid Consistency: Level 0 - Thin Nutrition Percent Meal Consumed 50% 07/06/25 18:55 Labs: RBC 3.56 X10^6/uL (4.5-5.9) L 07/06/25 06:40 Hgb 10.6 g/dL (13.5-17.5) L 07/06/25 06:40 Hct 31.1 % (41-53) L 07/06/25 06:40 Creatinine 1.20 mg/dL (0.66-1.25) 07/06/25 06:40 NT-Pro-B Natriuret Pep 1580 pg/mL (<450) H 07/05/25 12:01 Nutrition Diagnosis: Moderate acute protein calorie malnutrition r/t inadequate oral intakes aeb <50% of estimated energy needs for 1 week per diet recall and moderate muscle wasting in deltoid, pectoralis major and temples Interventions: -Discussed Ensure+ BID while here -Pt reports having 30 g protein shakes from [email or web address] at home. Encouraged protein shake BID + added calories (pb/oil/cheese on side) to help better completely meet both kcal and protein needs EER: 2100 kcals (25 kcal/kg) 100 g protein (1.2 g/kg per CHF) Monitoring/Evaluations: PO intakes Electronically Signed by: Luz Marina Robles 07/07/25 11:04 Clinical Dietitian [address] [address]
[2025-07-07 12:00] VITALS: BP 125/59; PULSE 73; RESP 17; TEMP 36.6; O2SAT 95
--- NOTE | 2025-07-07 16:34 | P.PN_ITS ---
Subjective Subjective Date Patient Seen: 07/07/25 Time Patient Seen: 16:34 Interval history: Chief complaint: UTI pneumonia with weakness History of present illness: 07/05: 85-year-old male history of CVA, hypertension, dyslipidemia, CHF on aspirin 81 mg daily brought in for increasing weakness over the last 9 days, decreased appetite patient has had multiple falls. Patient states today he was walking with his walker he has become increasingly unsteady and moved from his cane to his walker. He states he was trying to turn in his legs just did not quite go with him and he fell. He states he has had several falls over the last few days. He states he did not feel lightheaded or like he got knocked out. He states he did hit his head today he denies any other injuries Emergency department the findings were: * White count of 12.8 with 92% neutrophils * Unremarkable metabolic profile * Pyuria and bacteriuria * Bilateral pleural effusions and infiltrates on chest x-ray * on CT of the spine (portion that covered the lungs) * Tiny apical pneumothorax on the right * Pro BNP nds with rales at Hospital course: 07/06: Patient is seeming to do better alert tolerating meals no fevers or chills overnight white count is de-escalated to 8.3 urine culture preliminary for Gram-negative rods 07/07: Patient is feeling better still feeling very tired good urine output over 1999 overnight chest x-ray shows increasing pleural effusion and pulmonary congestion does not show expansion of pneumothorax Review of systems: The shortness of breath No chest pain palpitations No fever or chills rigors No abdominal pain nausea vomiting Physical exam: Very pleasant elderly male no acute distress HEENT unremarkable Heart rate and rhythm regular Lungs diminished breath sounds with rales at bases Abdomen is benign nontender Extremities 3+ lower leg edema Echocardiogram: Normal sinus rhythm with wide QRS complexes. Normal LV size and wall thickness. Global hypokinesis with ejection fraction 55-60%. Mild left atrial enlargement and mild-moderate RA enlargement. No significant valvular abnormalities. Large left pleural effusion. Compared to prior echo January 14, 2021, pleural effusion is new. Urine culture: 1. Escherichia coli M.I.C. RX --------- --- * Amoxicillin/Clavulanate 4 S * Ampicillin >=32 R * Cefazolin 2 S * Cefepime E-test S * Ceftriaxone <=0.25 S * Ciprofloxacin <=0.06 S * Ertapenem <=0.12 S * Gentamicin <=1 S * Levofloxacin <=0.12 S * Meropenem <=0.25 S * Nitrofurantoin <=16 S * Tetracycline <=1 S * Trimethoprim/Sulfamethoxazole <=20 S * Piperacillin/Tazobactam <=4 S Weakness likely secondary to UTI and element of congestive heart failure * Gentle diuresis * IV antibiotics * Culture urine and blood * Echocardiogram Large right pleural effusion suspect secondary to acute on chronic diastolic CHF * Continue diuresis * Repeat chest x-ray Monday 07/09 * If continues to enlarge may get thoracentesis for therapeutic and diagnostic DVT prophylaxis: * Subcutaneous heparin Code status: * Full code blue Disposition: * Acute inpatient likely 1-2 days of hospitalization and possible discharge Tuesday 07/10 disposition to be dependent on evaluation by PT Time based billing: * 35 minutes were evaluation of this patient including [id number]-[id number] evaluation review of objective findings including direct visualization of objective laboratory and imaging as well as EKG Exam Vital Signs (past 8 hours): - 07/07/25 08:52 07/07/25 12:00 Temperature 97.9 F Pulse Rate 67 73 Respiratory Rate 17 Blood Pressure 123/65 125/59 L Pulse Oximetry 95 Oxygen Delivery Method Nasal Cannula Oxygen Flow Rate 0 Objective Labs 07/06/25 06:40 07/06/25 06:40 [facility] Medical History BPH (benign prostatic hyperplasia) Hyperlipidemia Essential hypertension Cerebrovascular accident Surgical History History of back surgery History of tonsillectomy History of surgery on arm Family History Mother Cancer Father Cancer Social History household members: spouse Smoking Status: Never smoker alcohol intake: former Assessment & Plan Time-Based Coding :: [TOTAL MINUTES] spent with patient and on the chart (including review of chart, obtaining history, exam, reviewing outside data, placing orders, documenting exam and treatment plan, and counseling patient) on [DATE].
[2025-07-07] MEDS: FUROSEMIDE 40 MG/4 ML VIAL 80 MG IV (17:35)
[2025-07-07 18:00] VITALS: BP 128/61; PULSE 67; RESP 17; TEMP 36.7; O2SAT 97
[2025-07-07 20:00] VITALS: BP 97/56; PULSE 72; RESP 17; TEMP 36.3; O2SAT 93
[2025-07-07] MEDS: ATORVASTATIN 20 MG TABLET 80 MG PO (20:25)
[2025-07-08] MEDS: FUROSEMIDE 40 MG/4 ML VIAL 80 MG IV (04:41)
[2025-07-08 04:51] VITALS: BP 112/59; PULSE 68; RESP 18; TEMP 36.6; O2SAT 94
[2025-07-08 05:06] LABS: Add Manual Diff / Slide Review NO; Hematocrit 29.3 % (41-53); Hemoglobin 10.1 g/dL (13.5-17.5); Lymphocytes Absolute Auto 300 /uL (1100-4500); Mean Corpuscular HGB Conc 34.4 % (30-36); Mean Corpuscular Hemoglobin 29.5 PG (26-34); Mean Corpuscular Volume 85.9 fL (80-100); Platelet Count 162 X10^3/uL (150-400)
[2025-07-08 05:30] LABS: Alanine Aminotransferase 35 IU/L (<50); Albumin 2.8 g/dL (3.5-5.0); Albumin Globulin Ratio 1.0 (1.0-2.8); Alkaline Phosphatase 64 U/L (38-126); Blood Urea Nitrogen 41 mg/dL (9-20); Calcium 7.9 mg/dL (8.4-10.2); Carbon Dioxide 30 mmol/L (22-32); Chloride 100 mmol/L (98-107); Estimated Glomerular Filt Rate > 60 mL/min (>60); Globulin 2.7 g/dL (1.7-4.1); Glucose 102 mg/dL (70-99); HEMOLYSIS < 15 (0-50); Potassium 3.1 mmol/L (3.4-5.1); Sodium 136 mmol/L (137-145); Total Protein 5.5 g/dL (6.3-8.2)
[2025-07-08 08:00] VITALS: BP 94/58; PULSE 75; RESP 17; TEMP 36.7; O2SAT 93
[2025-07-08] MEDS: POTASSIUM CHLORIDE 20 MEQ TAB 40 MEQ PO ×2 (08:19→13:40)
[2025-07-08] MEDS: TAMSULOSIN 0.4 MG CAPSULE 0.8 MG PO (08:19)
[2025-07-08] MEDS: FINASTERIDE 5 MG TABLET PO (08:19)
[2025-07-08] MEDS: ASPIRIN EC 81 MG TABLET PO (08:19)
[2025-07-08] MEDS: HEPARIN 5,000 UNIT/ML VIAL 5000 UNIT SUBCUT ×2 (08:22→20:58)
--- NOTE | 2025-07-08 11:42 | PT.IIE ---
Current Diagnoses Urinary tract infection, site not specified (07/05/25) Surgical History (Last Reviewed 07/05/25 @ 16:26 by Maribel Stockton DO) History of back surgery History of surgery on arm History of tonsillectomy Medical History (Last Reviewed 07/05/25 @ 16:26 by Maribel Stockton DO) BPH (benign prostatic hyperplasia) Cerebrovascular accident Essential hypertension Hyperlipidemia Physical Therapy Inpatient Evaluation/Re-Eval M1 PT IP Prior Functional Status Start: 07/08/25 11:17 Freq: NEEDED Status: Active Protocol: Document 07/08/25 11:18 KJ (Rec: 07/08/25 11:42 KJ Desktop) Medical Review Prior Functional Status Medical History Yes Reviewed Communication PAUMA Mobility and Gait Ambulated in the home with a fww or cane, has an AFO for the L ankle. States he still drives but needs to use a cart in the store to walk around. Last few days prior to admission has felt weak and slept in recliner because he was afraid that if he got into bed he wouldn 't be able to get out of it. Activities of Daily Showers by self using a shower chair. Uses a sock aid Living and IADL's because he is unable to reach down to his feet. He and do own simple meal prep. 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 Prior Functional Has a grandson who is a furniture detailer and lives in [facility] (Other details [place] but works 3 jobs. Son lives in [place] and ) works during the week. Daughter lives in [place] but rarely visits them. Social History Household Members spouse Living Arrangements House Number of Floors ( Two Floors Floors) Number of Stairs To 7 with rail, split level home, 7 steps up or down. Enter/Railing? Home Equipment Front Wheel Walker,Straight Cane M2 PT-IP Current Condition Start: 07/08/25 11:17 Freq: NEEDED Status: Active Protocol: Document 07/08/25 11:18 KJ (Rec: 07/08/25 11:42 KJ Desktop) Physical Therapy Current Condition Current Condition Evaluation Date 07/08/25 Treatment Diagnosis Impaired mobility M3 PT-IP Subjective Start: 07/08/25 11:17 Freq: NEEDED Status: Active Protocol: Document 07/08/25 11:18 KJ (Rec: 07/08/25 11:42 KJ Desktop) Subjective Physical Therapy Visit Type Type Initial Evaluation Visit Start Time 10:32 Visit Stop Time 11:25 Physical Therapy Visit Comments Patient Comments Pt states he hasn't been out of bed since admission on 07/05. Fell about a month ago injuring his L shoulder, states his PCP told him there was no fx. Pt is concerned about his being alone; states her mobility is about the same as his. Patient Goals To go home M4 PT-IP Mobility and Gait Start: 07/08/25 11:17 Freq: NEEDED Status: Active Protocol: Document 07/08/25 11:18 KJ (Rec: 07/08/25 11:42 KJ Desktop) PT-Bed Mobility Assessment Rolling Type of Rolling Roll to Right Level of Assist Minimal Assistance Supine to Sit Supine to Sit Contact Guard Assistance Sit to Supine Sit to Supine Minimal Assistance Scooting Scooting to Edge of Minimal Assistance Bed Scooting Up and Down Minimal Assistance in Bed PT-Transfer Assessment Sit to and From Stand Sit to and from Minimal Assistance Stand Equipment Transfer Assistive Gait Belt,Front Wheeled Walker Device Orthotic/Prosthetic No Devices or Brace: Transfers Transfer Destination Chair Transfer Technique Stand Step Pivot Transfer Ability Level of Assist Contact Guard Assistance Comments Mobility Comments slow Gait Assessment Gait Gait Assistance Contact Guard Assist Required: Distance (Feet) 3 Assistive Devices Assistive Device Gait Belt,Front Wheeled Walker Comments Gait Comments foot drop on L (orthotic not on) PT-Balance Assessment Sitting Balance and Reactions Static Sitting Good Balance Ability Dynamic Sitting Good Balance Ability Standing Balance and Reactions Static Standing Poor Balance Ability M5 PT-IP Objective Assessments Start: 07/08/25 11:17 Freq: NEEDED Status: Active Protocol: Document 07/08/25 11:18 KJ (Rec: 07/08/25 11:42 KJ Desktop) Orientation Orientation/Cognition Level of Alertness Alert Orientation Name,Age,Birthday,Month,Date,Year,Day of Week,Place, Situation Language Function No Deficits Noted Ability Gross Range of Motion Upper Extremity ROM Assessment Left Impaired Impairments shoulder, cody flex,abd,ext rot Lower Extremity ROM Assessment Left Impaired Impairments ankle dorsiflex Strength Upper Extremity Strength Assessment Left Impaired Shoulder flex/abd/ext rot impaired Lower Extremity Strength Assessment Left Impaired Ankle ankle dorsiflex Comments Strength Comments L sided weakness after CVA, low back issues also contributing to LLE weakness M6 PT-IP Treatment Start: 07/08/25 11:17 Freq: NEEDED Status: Active Protocol: Document 07/08/25 11:18 KJ (Rec: 07/08/25 11:42 KJ Desktop) Physical Therapy Treatment Exercises Exercises Ankle Pumps,Seated Knee Flexion/Extension Education Education Provided Safety M7 PT-IP Assessment and Plan Start: 07/08/25 11:17 Freq: NEEDED Status: Active Protocol: Document 07/08/25 11:18 KJ (Rec: 07/08/25 11:42 KJ Desktop) PT Summary Assessment and Plan Potential Rehabilitation Good Potential Status of Condition Evolving at Evaluation Summary Impairments ROM,Strength,Balance,Bed Mobility,Transfers,Gait, Activity Tolerance Assessment Summary Pt adm w/UTI and CHF, multiple comorbidities incl past CVA, Low back pain w/radiculopathy, L shoulder poss rotator cuff tear. At this time he is weak and unable to care for self. Goals Bed Mobility Goal Independent Transfer Goal Independent,Standby Assistance Gait Distance 50 Other Goals ascend/descend 3 steps w/rail + cane and SBA Days to Meet Goals 10 Frequency of Treatment Frequency Of Once a Day Treatment Treatment Plan Physical Therapy Bed Mobility Training,Transfer Training,Gait Training, Treatment Plan Therapeutic Exercise,Balance Retraining Other Progress ambulation, balance ex, self care, stairs Recommendations and Next Treatment Focus Recommendations To Nursing Amount of Assist 1 Person Assist Needed Discharge Recommendations PT Discharge SNF Rehab Recommendations Transportation Needs Wheelchair/Cabulance at Discharge
--- NOTE | 2025-07-08 11:49 | P.PN_ITS ---
Subjective Subjective Date Patient Seen: 07/08/25 Time Patient Seen: 11:49 Interval history: Chief complaint: UTI pneumonia with weakness History of present illness: 07/05: 85-year-old male history of CVA, hypertension, dyslipidemia, CHF on aspirin 81 mg daily brought in for increasing weakness over the last 9 days, decreased appetite patient has had multiple falls. Patient states today he was walking with his walker he has become increasingly unsteady and moved from his cane to his walker. He states he was trying to turn in his legs just did not quite go with him and he fell. He states he has had several falls over the last few days. He states he did not feel lightheaded or like he got knocked out. He states he did hit his head today he denies any other injuries Emergency department the findings were: * White count of 12.8 with 92% neutrophils * Unremarkable metabolic profile * Pyuria and bacteriuria * Bilateral pleural effusions and infiltrates on chest x-ray * on CT of the spine (portion that covered the lungs) * Tiny apical pneumothorax on the right * Pro BNP nds with rales at Hospital course: 07/06: Patient is seeming to do better alert tolerating meals no fevers or chills overnight white count is de-escalated to 8.3 urine culture preliminary for Gram-negative rods 07/07: Patient is feeling better still feeling very tired good urine output over 1999 overnight chest x-ray shows increasing pleural effusion and pulmonary congestion does not show expansion of pneumothorax 07/08: Patient was able to stand and ambulate with walker from the bed to the chair no shortness for breath and dyspnea with activity Review of systems: The shortness of breath No chest pain palpitations No fever or chills rigors No abdominal pain nausea vomiting Physical exam: Very pleasant elderly male no acute distress HEENT unremarkable Heart rate and rhythm regular Lungs diminished breath sounds but now is clear at bases Abdomen is benign nontender Extremities 1-2+ lower leg edema improved Echocardiogram: Normal sinus rhythm with wide QRS complexes. Normal LV size and wall thickness. Global hypokinesis with ejection fraction 55-60%. Mild left atrial enlargement and mild-moderate RA enlargement. No significant valvular abnormalities. Large left pleural effusion. Compared to prior echo January 14, 2021, pleural effusion is new. Urine culture: 1. Escherichia coli M.I.C. RX --------- --- * Amoxicillin/Clavulanate 4 S * Ampicillin >=32 R * Cefazolin 2 S * Cefepime E-test S * Ceftriaxone <=0.25 S * Ciprofloxacin <=0.06 S * Ertapenem <=0.12 S * Gentamicin <=1 S * Levofloxacin <=0.12 S * Meropenem <=0.25 S * Nitrofurantoin <=16 S * Tetracycline <=1 S * Trimethoprim/Sulfamethoxazole <=20 S * Piperacillin/Tazobactam <=4 S Weakness likely secondary to UTI and element of congestive heart failure * Gentle diuresis * IV antibiotics * Culture urine and blood * Echocardiogram Large right pleural effusion suspect secondary to acute on chronic diastolic CHF * Continue diuresis * Repeat chest x-ray Monday 07/09 * If continues to enlarge may get thoracentesis for therapeutic and diagnostic DVT prophylaxis: * Subcutaneous heparin Code status: * Full code blue Disposition: * Acute inpatient likely 1-2 days of hospitalization and possible discharge Tuesday 07/10 disposition to be dependent on evaluation by PT Time based billing: * 35 minutes were evaluation of this patient including [id number] evaluation review of objective findings including direct visualization of objective laboratory and imaging as well as EKG Exam Vital Signs (past 8 hours): - 07/08/25 04:51 07/08/25 08:00 07/08/25 08:30 Temperature 98 F 98.1 F Pulse Rate 68 75 Respiratory Rate 18 17 Blood Pressure 112/59 L 94/58 L Pulse Oximetry 94 93 Oxygen Delivery Method Room Air Oxygen Flow Rate 0 Oxygen Delivery Method Room Air Oxygen Flow Rate 0 Objective Labs 07/08/25 04:39 07/08/25 04:39 Labs: Laboratory Results - last 24 hr 07/08/25 04:39 WBC 6.5 RBC 3.41 L Hgb 10.1 L Hct 29.3 L MCV 85.9 MCH 29.5 MCHC 34.4 RDW 15.5 H Plt Count 162 Neut % (Auto) 82.4 H Lymph % (Auto) 5.3 L [place] % (Auto) 10.1 Eos % (Auto) 2.0 Baso % (Auto) 0.2 Neut # (Auto) 5300 Lymph # (Auto) 300 L [place] # (Auto) 700 Eos # (Auto) 100 Baso # (Auto) 0 Sodium 136 L Potassium 3.1 L Chloride 100 Carbon Dioxide 30 BUN 41 H Creatinine 1.00 Estimated GFR > 60 BUN/Creatinine Ratio 41.0 H Glucose 102 H Calcium 7.9 L Total Bilirubin 0.6 AST 38 ALT 35 Alkaline Phosphatase 64 Total Protein 5.5 L Albumin 2.8 L Globulin 2.7 Albumin/Globulin Ratio 1.0 PFSH Medical History BPH (benign prostatic hyperplasia) Hyperlipidemia Essential hypertension Cerebrovascular accident Surgical History History of back surgery History of tonsillectomy History of surgery on arm Family History Mother Cancer Father Cancer Social History household members: spouse Smoking Status: Never smoker alcohol intake: former Assessment & Plan Time-Based Coding :: [TOTAL MINUTES] spent with patient and on the chart (including review of chart, obtaining history, exam, reviewing outside data, placing orders, documenting exam and treatment plan, and counseling patient) on [DATE].
[2025-07-08 12:00] VITALS: BP 121/62; PULSE 83; RESP 17; TEMP 36.3; O2SAT 96
[2025-07-08] MEDS: FUROSEMIDE 40 MG/4 ML VIAL IV (12:09)
--- NOTE | 2025-07-08 12:47 | CM.DPC ---
CM spoke with patient at bedside and discussed SNF. Patient agreeable to [facility]. Patient profile sent to [facility]
[2025-07-08 18:00] VITALS: BP 124/64; PULSE 76; RESP 16; TEMP 36.8; O2SAT 97
[2025-07-08 19:00] VITALS: BP 113/62; PULSE 67; RESP 16; TEMP 36.4; O2SAT 96
[2025-07-08] MEDS: ATORVASTATIN 20 MG TABLET 80 MG PO (20:58)
[2025-07-09] MEDS: FUROSEMIDE 40 MG/4 ML VIAL IV ×2 (00:34→12:17)
[2025-07-09 05:00] VITALS: BP 108/63; PULSE 66; RESP 17; TEMP 36.6; O2SAT 97
--- NOTE | 2025-07-09 06:52 | DI.RAD.S_ITS ---
PROCEDURE: XR CHEST 1V INDICATIONS: CHF TECHNIQUE: One view of the chest was acquired. COMPARISON: [facility], CR, XR CHEST 1V, 07/06/2025, 18:18. FINDINGS: Lordotic patient positioning. Surgical changes and devices: None. Lungs and pleura: Left lung base alveolar opacity including small left pleural effusion, similar to slightly improved compared to the prior exam. Minimal right lung base opacity and effusion. Lungs are otherwise clear. Mediastinum: Mediastinal contours appear normal. Heart size is normal. No significant central venous congestion. Bones and chest wall: No suspicious bony lesions. Overlying soft tissues appear unremarkable. IMPRESSION: Slight improvement in bibasilar opacities and effusions. No acute central venous congestion. Dictated by: Pat Dorsey M.D. on 07/09/2025 at 13:51 Approved by: Pat Dorsey M.D. on 07/09/2025 at 13:52
[2025-07-09 08:36] VITALS: BP 118/59; PULSE 72
[2025-07-09] MEDS: FINASTERIDE 5 MG TABLET PO (08:36)
[2025-07-09] MEDS: ASPIRIN EC 81 MG TABLET PO (08:37)
[2025-07-09] MEDS: HEPARIN 5,000 UNIT/ML VIAL 5000 UNIT SUBCUT ×2 (08:37→20:37)
[2025-07-09] MEDS: TAMSULOSIN 0.4 MG CAPSULE 0.8 MG PO (08:37)
--- NOTE | 2025-07-09 09:45 | PT.IPTN ---
Current Diagnoses Urinary tract infection, site not specified (07/05/25) Physical Therapy Treatment Note M2 PT-IP Current Condition Start: 07/08/25 11:17 Freq: NEEDED Status: Active Protocol: Document 07/08/25 11:18 KJ (Rec: 07/08/25 11:42 KJ Desktop) Physical Therapy Current Condition Current Condition Evaluation Date 07/08/25 Treatment Diagnosis Impaired mobility M3 PT-IP Subjective Start: 07/08/25 11:17 Freq: NEEDED Status: Active Protocol: Document 07/09/25 09:37 NW (Rec: 07/09/25 09:44 NW [id number]) Subjective Physical Therapy Visit Type Type Treatment Note Visit Start Time 08:42 Visit Stop Time 09:35 Number of [employer] Visits 0 Physical Therapy Visit Comments Patient Comments Pt is found supine after breakfast and is agreeable to work with PT. Patient Goals go to rehab and get stronger M4 PT-IP Mobility and Gait Start: 07/08/25 11:17 Freq: NEEDED Status: Active Protocol: Document 07/09/25 09:37 NW (Rec: 07/09/25 09:44 NW [id number]) PT-Bed Mobility Assessment Supine to Sit Supine to Sit Minimal Assistance,Head of Bed Elevated,Bedrails Scooting Scooting to Edge of Contact Guard Assistance Bed PT-Transfer Assessment Sit to and From Stand Sit to and from Minimal Assistance,Total Assistance,Use of Upper Stand Extremities Equipment Transfer Assistive Gait Belt,Front Wheeled Walker Device Transfers Transfer Destination Bed,Chair Transfer Technique Stand Step Pivot Transfer Ability Level of Assist Minimal Assistance,1 Person Assistance,Use of Upper Extremities Comments Mobility Comments Increased time for movements with poor power production to achieve stance. Utilizes bilateral UE to push up from surface and is challenged to maintain balance to grab FWW. States he cannot utilize unilateral UE on FWW due to reduced leg strength. Fair eccentric control with UE to assist. Good understanding of weight shifting. Performed 4 X STS at level of assist throughotu session. Gait Assessment Gait Gait Assistance Contact Guard Assist Required: Distance (Feet) 44 Assistive Devices Assistive Device Gait Belt,Front Wheeled Walker Gait Deviations General Gait Pattern Decreased Stride Length,Decreased Feet Clearance,Flexed Trunk,Step-to Gait,Wide Based Gait Factors Limiting Gait Function Factors Limiting Decreased Activity Tolerance,Decreased Strength,Poor Gait Function Balance Comments Gait Comments Performed over two equal bouts. Emphasized L knee and hip flexion to assist with L foot drop secondary to not having AFO present. Cues necessary to maintain AD on ground. Slow katina and velocity. PT-Balance Assessment Sitting Balance and Reactions Static Sitting Good Balance Ability Dynamic Sitting Good Balance Ability Standing Balance and Reactions Static Standing Fair Balance Ability Dynamic Standing Poor Balance Ability Device Used FWW Comments Other Balance Tests/ able to maintain stance with wide [id number] without UE Deviations/Treatment support for 30 seconds. : Functional Assessments Functional Tests 5 Times Sit to Stand completes 2 prior to fatigue at Ruben 30 Seconds Sit to 1 Stand Test M5 PT-IP Objective Assessments Start: 07/08/25 11:17 Freq: NEEDED Status: Active Protocol: Document 07/08/25 11:18 KJ (Rec: 07/08/25 11:42 KJ Desktop) Orientation Orientation/Cognition Level of Alertness Alert Orientation Name,Age,Birthday,Month,Date,Year,Day of Week,Place, Situation Language Function No Deficits Noted Ability Gross Range of Motion Upper Extremity ROM Assessment Left Impaired Impairments shoulder, cody flex,abd,ext rot Lower Extremity ROM Assessment Left Impaired Impairments ankle dorsiflex Strength Upper Extremity Strength Assessment Left Impaired Shoulder flex/abd/ext rot impaired Lower Extremity Strength Assessment Left Impaired Ankle ankle dorsiflex Comments Strength Comments L sided weakness after CVA, low back issues also contributing to LLE weakness M6 PT-IP Treatment Start: 07/08/25 11:17 Freq: NEEDED Status: Active Protocol: Document 07/08/25 11:18 KJ (Rec: 07/08/25 11:42 KJ Desktop) Physical Therapy Treatment Exercises Exercises Ankle Pumps,Seated Knee Flexion/Extension Education Education Provided Safety M7 PT-IP Assessment and Plan Start: 07/08/25 11:17 Freq: NEEDED Status: Active Protocol: Document 07/09/25 09:37 NW (Rec: 07/09/25 09:44 NW [id number]) PT Summary Assessment and Plan Potential Rehabilitation Good Potential Status of Condition Stable at Evaluation Summary Impairments Pain,ROM,Strength,Balance,Coordination,Sensation,Tone, Bed Mobility,Transfers,Gait,Activity Tolerance Progress Towards Progressing Toward Goals Goals Assessment Summary Pt require Ruben for functional mobility secondary to previous CVA in 2020 resulting in residual L sided weakness with foot drop. Adequate safety awareness into own deficits. Pt is unsafe to go home as cannot provide care and pt is unable to mobilize independently . Continue to recommend SNF . Goals Bed Mobility Goal Independent Transfer Goal Independent,Standby Assistance Gait Distance 50 Other Goals ascend/descend 3 steps w/rail + cane and SBA Days to Meet Goals 10 Frequency of Treatment Frequency Of Once a Day Treatment Treatment Plan Physical Therapy Bed Mobility Training,Transfer Training,Gait Training, Treatment Plan Therapeutic Exercise,Balance Retraining Other Progress ambulation, balance ex, self care, stairs Recommendations and Next Treatment Focus Recommendations To Nursing Amount of Assist 1 Person Assist Needed Discharge Recommendations PT Discharge SNF Rehab Recommendations Transportation Needs Wheelchair/Cabulance at Discharge - PT assist 1
[2025-07-09 12:00] VITALS: BP 110/57; PULSE 84; RESP 18; TEMP 36.3; O2SAT 98
--- NOTE | 2025-07-09 14:21 | CM.DPC ---
DCP SNF Cont: Per MD, pt making improvements and likely could be stable for d/c to SNF in 1-2 days. Per PT, still recommending SNF and pt states today that his SNF preference is now [facility] due to location. Per Kelley, currently full for male beds and no anticipated discharges this week. Made additional referrals to [facility] and [facility]. PASRR done. HUSSAIN Hawthorne
--- NOTE | 2025-07-09 15:08 | P.PN_ITS ---
Subjective Subjective Date Patient Seen: 07/09/25 Time Patient Seen: 08:45 Interval history: Chief complaint: UTI pneumonia with weakness History of present illness: 07/05: 85-year-old male history of CVA, hypertension, dyslipidemia, CHF on aspirin 81 mg daily brought in for increasing weakness over the last 9 days, decreased appetite patient has had multiple falls. Patient states today he was walking with his walker he has become increasingly unsteady and moved from his cane to his walker. He states he was trying to turn in his legs just did not quite go with him and he fell. He states he has had several falls over the last few days. He states he did not feel lightheaded or like he got knocked out. He states he did hit his head today he denies any other injuries Emergency department the findings were: * White count of 12.8 with 92% neutrophils * Unremarkable metabolic profile * Pyuria and bacteriuria * Bilateral pleural effusions and infiltrates on chest x-ray * on CT of the spine (portion that covered the lungs) * Tiny apical pneumothorax on the right * Pro BNP nds with rales at Hospital course: 07/06: Patient is seeming to do better alert tolerating meals no fevers or chills overnight white count is de-escalated to 8.3 urine culture preliminary for Gram-negative rods 07/07: Patient is feeling better still feeling very tired good urine output over 1999 overnight chest x-ray shows increasing pleural effusion and pulmonary congestion does not show expansion of pneumothorax 07/08: Patient was able to stand and ambulate with walker from the bed to the chair no shortness for breath and dyspnea with activity 07/09: Patient feeling much improved no dyspnea vital signs stable total net diuresis of 7 L so far lungs clear from apices to bases BUN 40 creatinine 1 point potassium 3.1 white count dropped to 6.5 Review of systems: The shortness of breath No chest pain palpitations No fever or chills rigors No abdominal pain nausea vomiting Physical exam: Very pleasant elderly male no acute distress HEENT unremarkable Heart rate and rhythm regular Lungs clear from apices to bases Abdomen is benign nontender Extremities 1 + lower leg edema improved Echocardiogram: Normal sinus rhythm with wide QRS complexes. Normal LV size and wall thickness. Global hypokinesis with ejection fraction 55-60%. Mild left atrial enlargement and mild-moderate RA enlargement. No significant valvular abnormalities. Large left pleural effusion. Compared to prior echo January 14, 2021, pleural effusion is new. Urine culture: 1. Escherichia coli M.I.C. RX --------- --- * Amoxicillin/Clavulanate 4 S * Ampicillin >=32 R * Cefazolin 2 S * Cefepime E-test S * Ceftriaxone <=0.25 S * Ciprofloxacin <=0.06 S * Ertapenem <=0.12 S * Gentamicin <=1 S * Levofloxacin <=0.12 S * Meropenem <=0.25 S * Nitrofurantoin <=16 S * Tetracycline <=1 S * Trimethoprim/Sulfamethoxazole <=20 S * Piperacillin/Tazobactam <=4 S Assessment and plan: Urinary tract infection with E coli * Completed IV antibiotic * Oral cefdinir Acute on chronic diastolic congestive heart failure with large left pleural effusion * Greater than 10 L of diuresis net -7 L * Continue diuresis * Repeat chest x-ray Monday 07/09 with improvement in bilateral pleural effusions and pulmonary edema DVT prophylaxis: * Subcutaneous heparin Code status: * Full code blue Disposition: * Acute inpatient possible discharge Tuesday 07/10 disposition to senior living per recommendation by evaluation by PT Time based billing: * 35 minutes were evaluation of this patient including [id number] evaluation review of objective findings including direct visualization of objective laboratory and imaging as well as EKG Exam Vital Signs (past 8 hours): - 07/09/25 08:36 07/09/25 10:56 07/09/25 12:00 Temperature 97.4 F L Pulse Rate 72 84 Respiratory Rate 18 Blood Pressure 118/59 L 110/57 L Pulse Oximetry 98 Oxygen Delivery Method Room Air Oxygen Delivery Method Room Air Oxygen Flow Rate 0 Objective Labs 07/08/25 04:39 07/08/25 04:39 [facility] Medical History BPH (benign prostatic hyperplasia) Hyperlipidemia Essential hypertension Cerebrovascular accident Surgical History History of back surgery History of tonsillectomy History of surgery on arm Family History Mother Cancer Father Cancer Social History household members: spouse Smoking Status: Never smoker alcohol intake: former Assessment & Plan Time-Based Coding :: [TOTAL MINUTES] spent with patient and on the chart (including review of chart, obtaining history, exam, reviewing outside data, placing orders, documenting exam and treatment plan, and counseling patient) on [DATE].
[2025-07-09 17:07] VITALS: BP 114/62; PULSE 80; RESP 18; TEMP 36.4; O2SAT 97
[2025-07-09 20:00] VITALS: BP 98/46; PULSE 69; RESP 18; TEMP 36.9; O2SAT 95
[2025-07-09] MEDS: CEFDINIR 300 MG CAPSULE PO (20:32)
[2025-07-09] MEDS: ATORVASTATIN 20 MG TABLET 80 MG PO (20:32)
[2025-07-10 03:00] VITALS: BP 112/60; PULSE 68; RESP 20; TEMP 36.8; O2SAT 96
[2025-07-10 07:35] VITALS: BP 109/55; PULSE 63; RESP 17; TEMP 36.6; O2SAT 95
[2025-07-10] MEDS: TAMSULOSIN 0.4 MG CAPSULE 0.8 MG PO (09:03)
[2025-07-10] MEDS: ASPIRIN EC 81 MG TABLET PO (09:03)
[2025-07-10] MEDS: CEFDINIR 300 MG CAPSULE PO ×2 (09:05→21:49)
[2025-07-10] MEDS: FINASTERIDE 5 MG TABLET PO (09:06)
[2025-07-10] MEDS: HEPARIN 5,000 UNIT/ML VIAL 5000 UNIT SUBCUT ×2 (09:06→21:49)
[2025-07-10] MEDS: FUROSEMIDE 40 MG TABLET PO ×2 (09:06→18:29)
--- NOTE | 2025-07-10 09:17 | PT.IPTN ---
Current Diagnoses Urinary tract infection, site not specified (07/05/25) Physical Therapy Treatment Note M2 PT-IP Current Condition Start: 07/08/25 11:17 Freq: NEEDED Status: Active Protocol: Document 07/08/25 11:18 KJ (Rec: 07/08/25 11:42 KJ Desktop) Physical Therapy Current Condition Current Condition Evaluation Date 07/08/25 Treatment Diagnosis Impaired mobility M3 PT-IP Subjective Start: 07/08/25 11:17 Freq: NEEDED Status: Active Protocol: Document 07/10/25 10:51 NW (Rec: 07/10/25 10:58 NW [id number]) Subjective Physical Therapy Visit Type Type Treatment Note Visit Start Time 08:41 Visit Stop Time 09:17 Physical Therapy Visit Comments Patient Comments Pt is agreeable to treatment. Patient Goals Go to rehab M4 PT-IP Mobility and Gait Start: 07/08/25 11:17 Freq: NEEDED Status: Active Protocol: Document 07/10/25 10:51 NW (Rec: 07/10/25 10:58 NW [id number]) PT-Bed Mobility Assessment Supine to Sit Supine to Sit Minimal Assistance,1 Person Assistance,Head of Bed Elevated Scooting Scooting to Edge of Minimal Assistance Bed PT-Transfer Assessment Sit to and From Stand Sit to and from Minimal Assistance,1 Person Assistance,Use of Upper Stand Extremities Equipment Transfer Assistive Gait Belt,Front Wheeled Walker Device Transfers Transfer Destination Bed,Chair,Toilet Transfer Technique Stand Step Pivot Transfer Ability Level of Assist Contact Guard Assistance,1 Person Assistance,Use of Upper Extremities Comments Mobility Comments Blocking of L knee required as pt tries to utilize momentum to achieve stance. Once standing requires Ruben to regain balance to allow for UE to be placed on FWW with posterior lean, able to correct with increased time and cueing. Heavy use of UE. Gait Assessment Gait Gait Assistance Contact Guard Assist Required: Distance (Feet) 45 Assistive Devices Assistive Device Gait Belt,Front Wheeled Walker Gait Deviations General Gait Pattern Decreased Stride Length,Decreased Feet Clearance,Flexed Trunk,Step-to Gait,Wide Based Gait Factors Limiting Gait Function Factors Limiting Decreased Activity Tolerance,Decreased Strength,Poor Gait Function Balance Comments Gait Comments Performed over two unequal bouts, emphasized L knee and hip flexion to compensate for foot drop secondary to L foot drop from previous CVA. Poor velocity and katina . PT-Balance Assessment Sitting Balance and Reactions Static Sitting Good Balance Ability Dynamic Sitting Good Balance Ability Standing Balance and Reactions Static Standing Fair Balance Ability Dynamic Standing Poor Balance Ability Device Used FWW M5 PT-IP Objective Assessments Start: 07/08/25 11:17 Freq: NEEDED Status: Active Protocol: Document 07/08/25 11:18 KJ (Rec: 07/08/25 11:42 KJ Desktop) Orientation Orientation/Cognition Level of Alertness Alert Orientation Name,Age,Birthday,Month,Date,Year,Day of Week,Place, Situation Language Function No Deficits Noted Ability Gross Range of Motion Upper Extremity ROM Assessment Left Impaired Impairments shoulder, cody flex,abd,ext rot Lower Extremity ROM Assessment Left Impaired Impairments ankle dorsiflex Strength Upper Extremity Strength Assessment Left Impaired Shoulder flex/abd/ext rot impaired Lower Extremity Strength Assessment Left Impaired Ankle ankle dorsiflex Comments Strength Comments L sided weakness after CVA, low back issues also contributing to LLE weakness M6 PT-IP Treatment Start: 07/08/25 11:17 Freq: NEEDED Status: Active Protocol: Document 07/10/25 10:51 NW (Rec: 07/10/25 10:58 NW [id number]) Physical Therapy Treatment Other Treatments Other Treatment STS performed 2 x 2 reps from bed side chair. Total for Performed 6 throughout session. LAQ in bed side chair 2 x 10 M7 PT-IP Assessment and Plan Start: 07/08/25 11:17 Freq: NEEDED Status: Active Protocol: Document 07/10/25 10:51 NW (Rec: 07/10/25 10:58 NW [id number]) PT Summary Assessment and Plan Potential Rehabilitation Good Potential Status of Condition Stable at Evaluation Summary Impairments Pain,ROM,Strength,Balance,Coordination,Sensation,Tone, Bed Mobility,Transfers,Gait,Activity Tolerance Progress Towards Progressing Toward Goals Goals Assessment Summary Continues to require Ruben for bed mobility and transfers. Once standing is CGA with good acknowledgement for L sided impairments/deficits from previous CVA. Heavy use of UE to perform all functional mobility. Continue to recommend SNF upon discharge. Goals Bed Mobility Goal Independent Transfer Goal Independent,Standby Assistance Gait Distance 50 Other Goals ascend/descend 3 steps w/rail + cane and SBA Days to Meet Goals 10 Frequency of Treatment Frequency Of Once a Day Treatment Treatment Plan Physical Therapy Bed Mobility Training,Transfer Training,Gait Training, Treatment Plan Therapeutic Exercise,Balance Retraining Other Progress ambulation, balance ex, self care, stairs Recommendations and Next Treatment Focus Recommendations To Nursing Amount of Assist 1 Person Assist Needed Discharge Recommendations PT Discharge SNF Rehab Recommendations Transportation Needs Wheelchair/Cabulance at Discharge - PT assist 1
--- NOTE | 2025-07-10 09:58 | PC.NURSE ---
Patient is alert and oriented x3, up and ambulating with physical therapy to the restroom. Patient voided and passed gas but no bm. He is sitting up in the chair now, he had a biopsy on the r.upper cheek. Area cleansed and vaseline applied to area per patient. Area smarts when touched but otherwise patient is comfortable sitting up in his chair.
--- NOTE | 2025-07-10 10:22 | DIET.PN1 ---
Dietary Progress Note Assessment: f/u Pt reports good appetite, eating meals and drinking Ensure BID. 100% PO intakes recorded, DFM reviewed for meal composition. No nutrition changes at this time, will continue to follow. Ht: 185.42 cm Wt: 86 kg BMI: 25.0 Last BM: 07/08/25 (07/08/25 18:00) MNA: 9 Ryan Score: 20 Diet: 07/06/25 Breakfast General (Regular) Diet Diet Modifications: Food Texture: Level 7 - Regular Liquid Consistency: Level 0 - Thin Nutrition Percent Meal Consumed 100% 07/09/25 18:00 Percent Meal Consumed 100% 07/09/25 12:44 Percent Meal Consumed 100% 07/09/25 11:01 Percent Meal Consumed 100% 07/08/25 18:00 Percent Meal Consumed 100% 07/08/25 12:43 Labs: RBC 3.41 X10^6/uL (4.5-5.9) L 07/08/25 04:39 Hgb 10.1 g/dL (13.5-17.5) L 07/08/25 04:39 Hct 29.3 % (41-53) L 07/08/25 04:39 Creatinine 1.00 mg/dL (0.66-1.25) 07/08/25 04:39 NT-Pro-B Natriuret Pep 1580 pg/mL (<450) H 07/05/25 12:01 Electronically Signed by: Luz Marina Robles 07/10/25 10:22 Clinical Dietitian [address] [address]
--- NOTE | 2025-07-10 10:27 | P.PN_ITS ---
Subjective Subjective Date Patient Seen: 07/10/25 Time Patient Seen: 10:27 Interval history: Chief complaint: UTI pneumonia with weakness History of present illness: 07/05: 85-year-old male history of CVA, hypertension, dyslipidemia, CHF on aspirin 81 mg daily brought in for increasing weakness over the last 9 days, decreased appetite patient has had multiple falls. Patient states today he was walking with his walker he has become increasingly unsteady and moved from his cane to his walker. He states he was trying to turn in his legs just did not quite go with him and he fell. He states he has had several falls over the last few days. He states he did not feel lightheaded or like he got knocked out. He states he did hit his head today he denies any other injuries Emergency department the findings were: * White count of 12.8 with 92% neutrophils * Unremarkable metabolic profile * Pyuria and bacteriuria * Bilateral pleural effusions and infiltrates on chest x-ray * on CT of the spine (portion that covered the lungs) * Tiny apical pneumothorax on the right * Pro BNP nds with rales at Hospital course: 07/06: Patient is seeming to do better alert tolerating meals no fevers or chills overnight white count is de-escalated to 8.3 urine culture preliminary for Gram-negative rods 07/07: Patient is feeling better still feeling very tired good urine output over 1999 overnight chest x-ray shows increasing pleural effusion and pulmonary congestion does not show expansion of pneumothorax 07/08: Patient was able to stand and ambulate with walker from the bed to the chair no shortness for breath and dyspnea with activity 07/09: Patient feeling much improved no dyspnea vital signs stable total net diuresis of 7 L so far lungs clear from apices to bases BUN 40 creatinine 1 point potassium 3.1 white count dropped to 6.5 07/10: Patient feeling well no shortness for breath working with physical therapy we will need short-term rehab Review of systems: The shortness of breath No chest pain palpitations No fever or chills rigors No abdominal pain nausea vomiting Physical exam: Very pleasant elderly male no acute distress HEENT unremarkable Heart rate and rhythm regular Lungs clear from apices to bases Abdomen is benign nontender Extremities 1 + lower leg edema improved Echocardiogram: Normal sinus rhythm with wide QRS complexes. Normal LV size and wall thickness. Global hypokinesis with ejection fraction 55-60%. Mild left atrial enlargement and mild-moderate RA enlargement. No significant valvular abnormalities. Large left pleural effusion. Compared to prior echo January 14, 2021, pleural effusion is new. Urine culture: 1. Escherichia coli M.I.C. RX --------- --- * Amoxicillin/Clavulanate 4 S * Ampicillin >=32 R * Cefazolin 2 S * Cefepime E-test S * Ceftriaxone <=0.25 S * Ciprofloxacin <=0.06 S * Ertapenem <=0.12 S * Gentamicin <=1 S * Levofloxacin <=0.12 S * Meropenem <=0.25 S * Nitrofurantoin <=16 S * Tetracycline <=1 S * Trimethoprim/Sulfamethoxazole <=20 S * Piperacillin/Tazobactam <=4 S Assessment and plan: Urinary tract infection with E coli * Completed IV antibiotic * Oral cefdinir completed Acute on chronic diastolic congestive heart failure with large left pleural effusion * Greater than 11 L of diuresis net -8 L * Continue diuresis * Repeat chest x-ray Monday 07/09 with improvement in bilateral pleural effusions and pulmonary edema * Rechecked BUN creatinine today DVT prophylaxis: * Subcutaneous heparin Code status: * Full code blue Disposition: * Acute inpatient possible discharge Tuesday 07/10 disposition to intermediate per recommendation by evaluation by PT Time based billing: * 35 minutes were evaluation of this patient including [id number] evaluation review of objective findings including direct visualization of objective laboratory and imaging as well as EKG Exam Vital Signs (past 8 hours): - 07/10/25 03:00 Temperature 98.2 F Pulse Rate 68 Respiratory Rate 20 Blood Pressure 112/60 Pulse Oximetry 96 Oxygen Flow Rate 0 Oxygen Delivery Method Room Air Oxygen Flow Rate 0 Objective Labs 07/08/25 04:39 07/08/25 04:39 [facility] Medical History BPH (benign prostatic hyperplasia) Hyperlipidemia Essential hypertension Cerebrovascular accident Surgical History History of back surgery History of tonsillectomy History of surgery on arm Family History Mother Cancer Father Cancer Social History household members: spouse Smoking Status: Never smoker alcohol intake: former Assessment & Plan Time-Based Coding :: [TOTAL MINUTES] spent with patient and on the chart (including review of chart, obtaining history, exam, reviewing outside data, placing orders, documenting exam and treatment plan, and counseling patient) on [DATE].
[2025-07-10 11:18] LABS: Blood Urea Nitrogen 46 mg/dL (9-20); Calcium 8.4 mg/dL (8.4-10.2); Carbon Dioxide 32 mmol/L (22-32); Chloride 98 mmol/L (98-107); Estimated Glomerular Filt Rate > 60 mL/min (>60); Glucose 102 mg/dL (70-99); HEMOLYSIS 16 (0-50); Potassium 4.0 mmol/L (3.4-5.1); Sodium 135 mmol/L (137-145)
--- NOTE | 2025-07-10 11:27 | CM.DPC ---
Addendum entered by HUSSAIN Hawthorne 07/10/25 13:59: [facility] and will work on transport time now. SW met bedside with pt while he was finishing with OT and updated him on above and likely d/c tomorrow and he is agreeable and appreciative and states he will call his and let her know and states she will be happy to hear this. BF Original Note: DCP SNF Planning: Spoke to lissette Dan at [facility] and she confirms she has the referral and has open beds but just reviewing now. Updated her that pt ready for d/c today. HUSSAIN Hawthorne
--- NOTE | 2025-07-10 14:36 | OT.IP.EVAL ---
Current Diagnoses Urinary tract infection, site not specified (07/05/25) Past Medical History (Last Reviewed 07/05/25 @ 16:26 by Maribel Stockton DO) BPH (benign prostatic hyperplasia) Cerebrovascular accident Essential hypertension Hyperlipidemia Surgical History (Last Reviewed 07/05/25 @ 16:26 by Maribel Stockton DO) History of back surgery History of surgery on arm History of tonsillectomy Occupational Therapy Inpatient Evaluation/Re-Eval M1 OT IP Prior Functional Status Start: 07/10/25 14:07 Freq: Status: Active Protocol: Document 07/10/25 14:07 JACOB (Rec: 07/10/25 14:35 [facility]) Medical Review Prior Functional Status Medical History Yes Reviewed Communication [place] Mobility and Gait Ambulated in the home with a fww or cane, has an AFO for the L ankle. States he still drives but needs to use a cart in the store to walk around. Last few days prior to admission has felt weak and slept in recliner because he was afraid that if he got into bed he wouldn 't be able to get out of it. Activities of Daily Showers by self using a shower chair. Uses a sock aid Living and IADL's because he is unable to reach down to his feet. He and do own simple meal prep. They have a fuel house attendant . Prior Functional Has a grandson who is a audio installer and lives in [facility] (Other details [place] but works 3 jobs. Son lives in [place] and ) works during the week. Daughter lives in [place] but rarely visits them. Social History Household Members spouse Living Arrangements House Number of Floors ( Two Floors Floors) Number of Stairs To 7 with rail, split level home, 7 steps up or down. Pt Enter/Railing? reports having a chair lift into the basement where the laundry room is but not for the other set of stairs Home Environment High Toilet,Tub/Shower Home Equipment Front Wheel Walker,Straight Cane,Tub Transfer Bench, Hand Held Shower,Long Handled Shoe Horn,Industrial Hygiene Technician,Sock Aid,Grab Bars Near Toilet Additional Social dressing stick History Comment M2 OT-IP Current Condition Start: 07/10/25 14:07 Freq: Status: Active Protocol: Document 07/10/25 14:07 JACOB (Rec: 07[facility]10/25 [facility] Therapy Current Condition Current Condition Evaluation Date 07/10/25 Treatment Diagnosis GLF, decreased self care Diagnosis Onset Date 07/05/25 Post Operative Precautions Other Precautions falls M3 OT- IP Subjective and Pain Start: 07/10/25 14:07 Freq: Status: Active Protocol: Document 07/10/25 14:07 ISHANSONYAKRISTA (Rec: 07/10/25 14:35 [facility] OT- Subjective Occupational Therapy Visit Type Type Initial Evaluation Visit Start Time 13:24 Visit Stop Time 14:04 Notes Pt was up in chair on entrance of OT. Pt agreeable to participating in skilled OT eval. Occupational Therapy Visit Comments Patient Comments Pt reports he's been feeling weak recently and has had a difficult time getting around. He states he doesn't remember how the fall happened. Patient/Caregiver To get stronger Goals OT Pain Assessment Pain Present Pain Present Denied Pain M4 OT- IP ADL's Start: 07/10/25 14:07 Freq: Status: Active Protocol: Document 07/10/25 14:07 ISHANSONYAKRISTA (Rec: 07/10/25 14:35 [facility]) OT [id number] Comments OT Self-Feeding not a meal time Comments OT ADL-Grooming General Evaluation Grooming Ability Standby Assistance Areas Needing Combing/Brushing Hair Assistance OT ADL-Oral Care General Eval Oral Care Ability Standby Assistance Areas of Assistance Retrieving/Set-Up of Items Comments Oral Care Comments Pt requested to perform in sitting rather than at the sink, pt needs setup of equipment. Pt reports he's been sitting all day and too tired to walk to the sink. OT ADL-Dressing General Eval Lower Body Dressing Minimal Assistance Ability Areas Needing Socks Assistance Assistive Devices Dressing Assistive Dressing Stick,Sock Aid Devices Comments OT Dressing Comments Pt needed min A to doff sock. Pt uses a dressing stick at home. OT had a veneer trimmer which pt was not familiar with for this task. Pt dons socks using sock aid. OT ADL-Toileting General Evaluation Toileting Ability Total Assistance Comments OT Toileting Pt is currently using a pure wick. Pt reports that he Comments was using a urinal earlier but had an accident with it, so the pure wick was placed. OT ADL-Bathing Comments OT Bathing Comments would recommend seated or EOB M5 OT- IP IADL's Start: 07/10/25 14:07 Freq: Status: Active Protocol: Document 07/10/25 14:07 JACOB (Rec: 07/10/25 14:35 [facility] Desktop) OT-Instrumental Activities of Daily Living Deficits IADL Deficits Deficits Identified Home Safety Awareness Awareness of Need Good Awareness for Assistance at Home Ability to Problem Able to Problem Solve Solve Emergency Situations Medication Management Medication No Deficits Identified Management Money Management Money Management No Deficits Identified Meal Preparation Meal Preparation Pt and spouse assist each other, may need increased Comments assist on dc Air Pollution Control Engineer Air Pollution Control Engineer Pt has horticultural manager Comments Driving Driving Comments Pt may need increased assist on dc. M6 OT- IP Functional Cognition Start: 07/10/25 14:07 Freq: Status: Active Protocol: Document 07/10/25 14:07 JACOB (Rec: 07/10/25 14:35 [facility]) Cognitive Factors Limiting Selfcare Function Cognitive Ability Level of Alertness Alert Patient Orientation Name,Place,Situation Attention Span Capable of Focused Attention,Capable of Sustained Ability Attention Ability to Follow Able to Follow One Step Commands,Able to Follow Multi- Commands Step Commands Memory Description No Deficits Noted Safety Awareness No Deficits Noted Problem Solving No deficits Noted Ability Cognitive Comments Cognitive Assessment Pt demonstrates good safety awareness during functional Comments mobility and demonstrates the ability to problem solve situations well. OT- Vision and Hearing OT- Hearing Assessment OT- Hearing Hearing Impaired,Use of Hearing Aids Assessment OT- Vision Assessment Visual Acuity Glasses All The Time M7 OT- IP Mobility and Balance Start: 07/10/25 14:07 Freq: Status: Active Protocol: Document 07/10/25 14:07 JACOB (Rec: 07/10/25 14:35 [facility] Desktop) OT- Bed Mobility Assessment Sit to Supine Sit to Supine Assist Contact Guard Assistance Scooting Scooting Up and Down Standby Assistance in Bed OT-Transfer Assessment Sit to and From Stand Sit to and from Minimal Assistance,Moderate Assistance Stand Transfers Transfer Ability Contact Guard Assistance Technique Transfer Destination Bed Devices Transfer Assistive Gait Belt,Front Wheeled Walker Devices Comments Mobility Comments Pt requires heavy use of UE for sit>stand and MIN/MOD A from chair. Once upright, pt with CGA to amb back to bed and CGA to tf to bed. Pt performs sit>sup with CGA. OT- Balance Assessment Sitting Balance and Reactions Static Sitting Normal Balance Ability Dynamic Sitting Good Balance Ability Standing Balance and Reactions Static Standing Fair Balance Ability Dynamic Standing Poor Balance Ability M8 OT- IP Objective Assessments Start: 07/10/25 14:07 Freq: Status: Active Protocol: Document 07/10/25 14:07 [facility] (Rec: 07/10/25 14:35 [facility] Desktop) OT Gross Range of Motion Upper Extremity Range of Motion Assessment Left Impaired ROM Impairments L shoulder ~120, otherwise WFL B OT Strength Upper Extremity Strength Shoulder L 4, R 5 Elbow B 5 Wrist B 5 Hand B 5 Hand Sustainment Logistics Analyst Strength Hand Dominance Right OT-Muscle Tone Assessment Muscle Tone WNL Yes OT Sensation Assessment Comments Summary Comments No noted sensory deficits Edema Edema Absent M9 OT- IP Assessment and Plan Start: 07/10/25 14:07 Freq: Status: Active Protocol: Document 07/10/25 14:07 [facility]Rec: 07/10/25 14[facility] OT Summary Assessment and Plan Potential Rehabilitation Excellent Potential Analytic Complexity Moderate at Evaluation Summary OT Impairments Range of Motion,Strength,Balance,Functional Mobility, Grooming,Dressing,Toileting,Bathing,Toilet Transfers, Shower Transfers,Activity Tolerance Progress Towards Progressing Toward Goals Goals Assessment Summary Pt is an 85 yo M who had a GLF at home and tripped and hit his head while amb with FWW. Pt has a hx of recent falls. Pt has a hx of CVA impacting his L UE/LE and amb with L AFO. Pt lives with his spouse in [place] and was MOD I at baseline for BADLs, cooking, medication mgmt, and driving. Pt currently presents with muscle weakness, decreased BADLs, decreased balance, and impaired functional mobility. Skilled OT services are appropriate to address these deficits and promote return towards PLOF. Recommend SNF on dc for continued improvements towards PLOF and improved I and safety with daily tasks. Pt left reclined in bed with all needs met and exit alarm set. Cont per POC. Goals Grooming Goal Independent Dressing Goal Independent,Dressing Stick,Long Handled Shoe Horn, Industrial Hygiene Technician,Sock Aid Toileting Goal Independent Bathing Goal Independent Toilet Transfer Goal Independent Shower Transfer Goal Independent Days to Meet Goals 10 Frequency of Treatment Other frequency 5x/wk Treatment Plan OT Treatment Plan ADL Training,Functional Mobility,Therapeutic Exercises, Patient/Family Education,Discharge Planning Discharge Recommendations OT Discharge SNF Rehab Recommendations Transportation Needs Private Vehicle at Discharge
[2025-07-10 14:44] VITALS: BP 106/47; PULSE 69; RESP 21; TEMP 36.4; O2SAT 98
--- NOTE | 2025-07-10 16:09 | PC.NURSE ---
Pt stable and cooperative this shift. Using the [employer] without issue to ro. Up with PT/OT. A&Ox4. Will continue to monitor.
[2025-07-10 20:14] VITALS: BP 107/48; PULSE 71; RESP 16; TEMP 36.1; O2SAT 95
[2025-07-10] MEDS: ATORVASTATIN 20 MG TABLET 80 MG PO (21:49)
[2025-07-11] VITALS: BP 117/56; PULSE 68; RESP 16; TEMP 36.6; O2SAT 95
[2025-07-11 07:10] VITALS: BP 96/50; PULSE 68; RESP 20; TEMP 36.4; O2SAT 96
--- NOTE | 2025-07-11 08:44 | P.DS_ITS ---
History of Present Illness History of Present Illness Date Patient Seen: 07/11/25 Time Patient Seen: 08:44 Chief complaint: UTI with weakness and sepsis Narrative: Chief complaint: UTI pneumonia with weakness History of present illness: 07/05: 85-year-old male history of CVA, hypertension, dyslipidemia, CHF on aspirin 81 mg daily brought in for increasing weakness over the last 9 days, decreased appetite patient has had multiple falls. Patient states today he was walking with his walker he has become increasingly unsteady and moved from his cane to his walker. He states he was trying to turn in his legs just did not quite go with him and he fell. He states he has had several falls over the last few days. He states he did not feel lightheaded or like he got knocked out. He states he did hit his head today he denies any other injuries Emergency department the findings were: * White count of 12.8 with 92% neutrophils * Unremarkable metabolic profile * Pyuria and bacteriuria * Bilateral pleural effusions and infiltrates on chest x-ray * on CT of the spine (portion that covered the lungs) * Tiny apical pneumothorax on the right * Pro BNP nds with rales at Hospital course: 07/06: Patient is seeming to do better alert tolerating meals no fevers or chills overnight white count is de-escalated to 8.3 urine culture preliminary for Gram-negative rods 07/07: Patient is feeling better still feeling very tired good urine output over 2000 overnight chest x-ray shows increasing pleural effusion and pulmonary congestion does not show expansion of pneumothorax 07/08: Patient was able to stand and ambulate with walker from the bed to the chair no shortness for breath and dyspnea with activity 07/09: Patient feeling much improved no dyspnea vital signs stable total net diuresis of 7 L so far lungs clear from apices to bases BUN 40 creatinine 1 point potassium 3.1 white count dropped to 6.5 07/10: Patient feeling well no shortness for breath working with physical therapy we will need short-term rehab 07/11: Doing well and transported to [facility] Review of systems: The shortness of breath No chest pain palpitations No fever or chills rigors No abdominal pain nausea vomiting Physical exam: Very pleasant elderly male no acute distress HEENT unremarkable Heart rate and rhythm regular Lungs clear from apices to bases Abdomen is benign nontender Extremities 1 + lower leg edema improved Echocardiogram: Normal sinus rhythm with wide QRS complexes. Normal LV size and wall thickness. Global hypokinesis with ejection fraction 55-60%. Mild left atrial enlargement and mild-moderate RA enlargement. No significant valvular abnormalities. Large left pleural effusion. Compared to prior echo January 14, 2021, pleural effusion is new. Urine culture: 1. Escherichia coli M.I.C. RX --------- --- * Amoxicillin/Clavulanate 4 S * Ampicillin >=32 R * Cefazolin 2 S * Cefepime E-test S * Ceftriaxone <=0.25 S * Ciprofloxacin <=0.06 S * Ertapenem <=0.12 S * Gentamicin <=1 S * Levofloxacin <=0.12 S * Meropenem <=0.25 S * Nitrofurantoin <=16 S * Tetracycline <=1 S * Trimethoprim/Sulfamethoxazole <=20 S * Piperacillin/Tazobactam <=4 S Assessment and plan: Urinary tract infection with E coli * Completed IV antibiotic * Oral cefdinir completed Acute on chronic diastolic congestive heart failure with large left pleural effusion * Greater than 11 L of diuresis net -8 L * Continue diuresis * Repeat chest x-ray Monday 07/09 with improvement in bilateral pleural effusions and pulmonary edema * Rechecked BUN stable 40 and 0.99 DVT prophylaxis: * Subcutaneous heparin Code status: * Full code blue Disposition: * [facility]charge to [facility] today 07/11: Time based billing: * 35 minutes were evaluation of this patient including [id number] evaluation review of objective findings including direct visualization of objective laboratory and imaging as well as EKG Discharge Providers Provider Date of admission: 07/05/25 16:47 Discharge Date: 07/11/25 Primary care physician: Nadya Choe PA-C Consults: 07/05/25 12:36 Consult to CONTROL PANEL OPERATOR - Flight Communications Operator Stat Comment: Flight Communications Operator Consult needed for:: Unable to care for self No caregiver at home 07/05/25 21:33 Consult to Dietitian, Adult Routine Comment: Reason For Exam: weight loss 07/07/25 16:27 Consult to Occupational Therapy Evaluate & Treat Comment: Increased weakness Physician Instructions: Evaluate and treat Consult to Physical Therapy Evaluate & Treat Comment: increased weakness Physician Instructions: Evaluate and Treat Discharge provider: Jonathan Mccollum MD Exam Vital Signs (past 8 hours): Oxygen Delivery Method Room Air Oxygen Flow Rate 0 Objective Labs 07/08/25 04:39 07/10/25 10:50 Labs: Laboratory Results - last 24 hr 07/10/25 10:50 Sodium 135 L Potassium 4.0 Chloride 98 Carbon Dioxide 32 BUN 46 H Creatinine 0.99 Estimated GFR > 60 BUN/Creatinine Ratio 46.5 H Glucose 102 H Calcium 8.4 PFSH Medical History BPH (benign prostatic hyperplasia) Hyperlipidemia Essential hypertension Cerebrovascular accident Surgical History History of back surgery History of tonsillectomy History of surgery on arm Family History Mother Cancer Father Cancer Social History household members: spouse Smoking Status: Never smoker alcohol intake: former Discharge Plan Discharge Plan Patient Disposition: SNF Discharge orders & Medications Prescriptions: New furosemide 40 mg Tablet 40 mg PO 0800,1700 Qty: 180 0RF hydrocodone-acetaminophen 5-325 mg Tablet 2 tab PO Q4H PRN (Reason: Pain, Severe (7-10)) Qty: 10 0RF Continued tamsulosin 0.4 mg capsule 0.8 mg PO DAILY lisinopril 10 mg tablet 7.5 mg PO DAILY atorvastatin 80 mg Tablet 80 mg PO BEDTIME aspirin 81 mg Tablet,Delayed Release (Dr/Ec) 81 mg PO DAILY finasteride 5 mg Tablet 5 mg PO DAILY Discontinued furosemide 20 mg tablet 20 mg PO 3XW Follow up/Referrals: Nadya Choe PA-C [Primary Care Provider, Family Practice] Visit Report/Discharge Packet Stand Alone Forms: [employer], Patient Portal/API, Stroke Signs & Symptoms, Influenza Vaccine Info, Notice of Privacy Practices, Inpatient vs Outpatient, Pneumococcal Vaccine Info, Pt. Rights & Responsibilities Discharge Data Primary Care Provider: Nadya Choe
[2025-07-11] MEDS: ASPIRIN EC 81 MG TABLET PO (09:01)
[2025-07-11] MEDS: FINASTERIDE 5 MG TABLET PO (09:01)
[2025-07-11] MEDS: FUROSEMIDE 40 MG TABLET PO (09:01)
[2025-07-11] MEDS: TAMSULOSIN 0.4 MG CAPSULE 0.8 MG PO (09:02)
[2025-07-11 09:05] VITALS: BP 96/50
[2025-07-11] MEDS: HEPARIN 5,000 UNIT/ML VIAL 5000 UNIT SUBCUT (09:18)
[2025-07-11 12:00] VITALS: BP 110/55; PULSE 77; RESP 17; TEMP 36.4; O2SAT 96
--- NOTE | 2025-07-11 13:13 | PC.NURSE ---
D/c packet assembled. IV removed and pt dressed. RN gave report to Yanique FORREST at [facility]. All questions answered. Pt awaiting [facility] transportation.
== END 2025-07-11 13:40 | DRG 291 ==
LOC: ED 16:47 → AC 16:48
PROVIDERS: Admitting Provider Internal Medicine; Emergency Provider Emergency Medicine; Family Provider Physician Assistant Medical; PCP Physician Assistant Medical; Referring Provider Emergency Medicine; Visit Provider Internal Medicine
DX: I11.0 Hypertensive heart disease with heart failure (principal); I50.33 Acute on chronic diastolic (congestive) heart failure; N39.0 Urinary tract infection, site not specified; J90 Pleural effusion, not elsewhere classified; J93.9 Pneumothorax, unspecified; R29.6 Repeated falls; S09.90XA Unspecified injury of head, initial encounter; B96.20 Unspecified Escherichia coli [E. coli] as the cause of diseases classified elsewhere; N40.0 Benign prostatic hyperplasia without lower urinary tract symptoms; E78.5 Hyperlipidemia, unspecified; W18.30XA Fall on same level, unspecified, initial encounter; Z86.73 Personal history of transient ischemic attack (TIA), and cerebral infarction without residual deficits
CPT/HCPCS: 36415; 70450; 71045; 72125; 80048; 80053; 81001; 82550; 83690; 83735; 83880; 84484; 85025; 85610; 85730; 87077; 87086; 87186; 93005; 93306; 96365; 97116; 97162; 97166; 97530; 99285; J0696; J1644; J1938; J7030; J7050